=== PATIENT | female | born 1970 | race African-American/Black ===

== ENCOUNTER 2017-07-17 18:04 | Emergency (ER) | payer SELFPAY ==
[2017-07-17] MEDS ORDERED: NA CHLORIDE 0.9% 1,000 ML ONE (19:46)
[2017-07-17] MEDS ORDERED: cloNIDine HCl 0.1 MG TAB ONE (19:46)
[2017-07-17 19:56] LABS: Potassium 3.3 mEq/L (3.6-5.0)
[2017-07-17 20:04] LABS: Urine Bacteria NONE SEEN /HPF (<20); Urine Culture Reflex Order NOT NEEDED; Urine RBC <5 /HPF (NONE SEEN)
[2017-07-17 20:10] LABS: Urine Blood NEGATIVE (NEG); Urine Glucose NEGATIVE (NEG); Urine Protein NEGATIVE (NEG); Urine Specific Gravity 1.005 (1.005-1.030); Urine pH 5.5 (5.0-7.0)
[2017-07-17 21:03] LABS: Absolute Lymphocytes (CBC) 3.6 K/uL (0.7-4.9); Absolute Monocytes 0.1 K/uL (0.1-1.3); Absolute Neutrophil 1.4 K/uL (1.8-8.0); Basophils % 2.2 % (0-1.3); Lymphocytes % 67.8 % (15.3-44.8); MCH 20.8 pg (27.0-35.0); MCV 68.5 fL (80-100); Monocytes % 1.7 % (3.3-12.3)
[2017-07-17 21:28] LABS: Anisocytosis 1+; Blood Morphology Comment NOTED (NOT SEEN); Hypochromasia 1+; Platelet Estimate INCR
[2017-07-17] MEDS ORDERED: MEPERIDINE HCL 25 MG/0.5 ML ONE ×2 (22:23→23:34)
[2017-07-17] MEDS ORDERED: ONDANSETRON 4 MG/2 ML VIAL ONE (22:35)
[2017-07-17] MEDS ORDERED: NA CHLORIDE 0.9% 100 ML IV ONE (22:46)
--- NOTE | 2017-07-18 00:33 | ER ---
Nurse's Notes [facility] Name: Milagros Mcduffie Age: 46 yrs Sex: Female : 1970 Arrival Date: 07/17/2017 Time: 18:06 Bed 6 Private MD: None, None Diagnosis: Anemia;Uterine Fibroids Presentation: 07/17 18:15 Presenting complaint: Patient states: "I just don't feel right I think my blood aa5 pressure is high and my lower back has been hurting for a couple of days". Pt reports only voided x 2 today. Pt states "It took me a while to get the urine stream going but it doesn't hurt when I pee". Pt denies N/V/D. Transition of care: patient was not received from another setting of care. Onset of symptoms was June 2017. Risk Assessment: Do you want to hurt yourself or someone else? Patient reports no desire to harm self or others. Initial Sepsis Screen: Does the patient meet any 2 criteria? No. Patient's initial sepsis screen is negative. Does the patient have a suspected source of infection? No. Patient's initial sepsis screen is negative. Care prior to arrival: None. 18:15 Method Of Arrival: Ambulatory aa5 18:15 Acuity: JUAN MANUEL 3 aa5 18:18 Note Pt states "I haven't been able to afford my blood pressure medicine for about 6 aa5 months". 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 - Social history:: Smoking status: Patient uses tobacco products, smokes one-half pack cigarettes per day. - Ebola Screening: : No symptoms or risks identified at this time. - Family history:: not pertinent. - Hospitalizations: : No recent hospitalization is reported. Screenin:52 Abuse screen: Denies threats or abuse. Nutritional screening: No deficits noted. bb Tuberculosis screening: No symptoms or risk factors identified. Fall Risk None identified. Assessment: 19:21 General: Appears in no apparent distress. Behavior is calm, cooperative, Reports bb feeling ill for 12-24 hours. Pain: Complains of pain in lower back. Neuro: Level of Consciousness is awake, alert, obeys commands, Oriented to person, place, time, situation. Cardiovascular: Heart tones S1 S2 present Capillary refill < 3 seconds Patient's skin is warm and dry. Respiratory: Respiratory effort is even, unlabored, Respiratory pattern is regular. GI: Abdomen is obese, Bowel sounds present X 4 quads. Abd is soft and non tender X 4 quads. Reports cramping. 19:52 : Reports pt states she has not urinated all day until this evening. Derm: Skin is bb dry, Skin is normal, Skin temperature is warm. Musculoskeletal: Circulation, motion, and sensation intact. 20:11 Reassessment: No changes from previously documented assessment. Patient and/or family bb updated on plan of care and expected duration. Pain level reassessed. Patient is alert, oriented x 3, equal unlabored respirations, skin warm/dry/pink. awaiting diagnostic results. 21:15 Reassessment: Patient and/or family updated on plan of care and expected duration. Pain bb level reassessed. Patient is alert, oriented x 3, equal unlabored respirations, skin warm/dry/pink. awaiting diagnostic results and CT scan. 21:18 Reassessment: pt ambulated with steady gait to bathroom. bb 22:02 Reassessment: Patient is alert, oriented x 3, equal unlabored respirations, skin bb warm/dry/pink. Dr Cast at bedside for discussion of current findings and rectal exam pt tolerated well awaiting CT scan. 22:25 Reassessment: pt states she is still having back pain notified Dr Cast new orders bb received pt medicated see MAR. 22:38 Reassessment: pt states she is feeling nauseous but pain has improved notified Dr Segun deleon new orders received pt medicated see MAR, spouse at bedside. 22:44 Reassessment: pt to CT scan via wheelchair with pathology technician. bb 23:02 Reassessment: pt returned from CT scan via wheelchair accompanied by pathology technician pt is A\\T\\O bb x 4, resp unlabored, states nausea has resolved, IV site intact, family at bedside. Pt instructed on blood transfusion. 07/18 00:00 Reassessment: pt prepared to initiate blood transfusion, A\\T\\O x 4, resp unlabored, IV bb site intact, patent. Spouse at bedside. 01:00 Reassessment: pt receiving blood transfusion, IV site intact, no adverse reactions bb noted. 02:05 Reassessment: Patient is alert, oriented x 3, equal unlabored respirations, skin bb warm/dry/pink. blood transfusion completed, no adverse reactions noted. Dr Cast declined ordering 2 hour post H and H pt to be discharged home. Pt verbalized understanding of and agrees to plan of care discharge instructions given pt assisted to exit via wheelchair accompanied by spouse. Vital Signs: 07/17 18:19 BP 180 / 103; Pulse 93; Resp 16 S; Temp 98.6(TE); Pulse Ox 100% on R/A; Weight 83.91 kg aa5 (R); Height 5 ft. 3 in. (160.02 cm) (R); Pain 10/10; 19:52 BP 151 / 89; Pulse 80; Resp 18 S; Pulse Ox 100% on R/A; bb 20:10 BP 154 / 91; Pulse 78; Resp 18 S; Pulse Ox 99% ; bb 21:56 BP 180 / 108 RA Sitting (auto/lg); Pulse 76 RA; Resp 20; Pulse Ox 100% on R/A; rg2 22:40 BP 170 / 101; Pulse 83; Resp 16 S; Pulse Ox 99% on R/A; bb 23:12 BP 156 / 86; Pulse 82; Resp 18; Pulse Ox 98% on R/A; bb 07/18 00:10 BP 149 / 89; Pulse 72; Resp 18 S; Temp 98.1(O); Pulse Ox 99% on R/A; bb 01:15 BP 131 / 78; Pulse 64; Resp 16 S; Temp 97.9(O); Pulse Ox 99% on R/A; bb 07/17 18:19 Body Mass Index 32.77 (83.91 kg, 160.02 cm) aa5 ED Course: 07/17 18:06 Patient arrived in ED. mr 18:07 None, None is Private Physician. mr 18:17 Triage completed. aa5 18:18 Arm band placed on. aa5 19:03 Dale Cast MD is Attending Physician. rn 19:19 Yola Hogan, KAROL is Primary Nurse. bb 19:20 Patient has correct armband on for positive identification. Placed in gown. Bed in low bb position. Call light in reach. Side rails up X 1. court monitor on. Pulse ox on. NIBP on. 19:35 Initial lab(s) drawn, by me, sent to lab. Urine collected: clean catch specimen, EKG bb done, by ED staff, reviewed by Dale Cast MD. Inserted saline lock: 20 gauge in left antecubital area, using aseptic technique. Blood collected. 20:55 Lab(s) recollected, by me, sent to lab. bb 22:01 Served as a hedge trimmer during rectal exam. IV is patent, is intact, with fluids infusing bb freely. 22:[address] via wheelchair. sj 22:49 CT completed. Patient tolerated procedure well. Patient moved back from MS. nj 22:53 CT Abd/Pelvis - W/Contrast: IV contrast only In Process Unspecified. EDMS 23:03 Consent for blood and/or blood product transfusion signed by patient. bb 07/18 02:22 IV discontinued, intact, bleeding controlled, No redness/swelling at site. Pressure bb dressing applied. Administered Medications: 07/17 19:46 Drug: NS 0.9% 1000 ml Route: IV; Rate: 1000 ml; Site: left antecubital; bb 22:26 Follow up: IV Status: Completed infusion; IV Intake: 1000ml bb 19:56 Not Given (Hemodynamic Parameters): cloNIDine 0.1 mg PO once bb 22:03 Drug: cloNIDine 0.1 mg Route: PO; bb 22:39 Follow up: Response: Blood pressure is lowered bb 22:26 Drug: Demerol 25 mg Route: IVP; Site: left antecubital; bb :39 Follow up: Response: Pain is decreased bb 22:39 Drug: Zofran 4 mg Route: IVP; Site: left antecubital; bb 23:00 Follow up: Response: Nausea is decreased bb 23:36 Drug: Demerol 25 mg Route: IVP; Site: left antecubital; bb 07/18 00:30 Follow up: Response: Pain is decreased bb Point of Care Testing: Guaiac: 07/17 22:02 Stool Guaiac: Negative; Stool Hemoccult Control: Pass; bb 22:02 Stool Guaiac: Negative; Stool Hemoccult Control: Pass; software development intern: 22:26 IV: 1000ml; Total: 1000ml. bb Outcome: 07/18 00:32 Discharge ordered by . rn 02:23 Discharged to home via wheelchair, with family. bb 02:23 Condition: stable 02:23 Discharge instructions given to patient, Instructed on discharge instructions, follow up and referral plans. Demonstrated understanding of instructions, follow-up care. 02:25 Patient left the ED. bb Signatures: Dispatcher [employer] EDMS Rosetta Juarez rg2 Jenny Chand Tejas, Yola Roth, RN RN Dale Johansen MD MD rn Calderon, Teri, RN RN aa5 Master Juarez Corrections: (The following items were deleted from the chart) 07/17 19:50 19:45 cloNIDine 0.1 mg PO bb bb 19:53 19:21 GI: Abdomen is obese, bb bb 22:40 22:38 Reassessment: pt states she is feeling nauseous notified Dr Cast new orders bb received pt medicated see MAR, spouse at bedside. bb 07/18 02:24 02:05 Reassessment: Patient is alert, oriented x 3, equal unlabored respirations, skin bb warm/dry/pink. blood transfusion completed, no adverse reactions noted. Dr Cast declined ordering 2 hour post H and H pt to be discharged home. Pt verbalized understanding of and agrees to plan of care discharge instructions given pt ambulated with steady gait to exit accompanied by spouse. bb
--- NOTE | 2017-07-18 00:33 | EDPHYS ---
Physician Documentation [facility] Name: Milagros Mcduffie Age: 46 yrs Sex: Female : 1970 Arrival Date: 07/17/2017 Time: 18:06 Bed 6 Private MD: None, None ED Physician Dale Cast HPI: 07/17 19:37 This 46 yrs old Black Female presents to ER via Ambulatory with complaints of Doesn't rn Feel Right. 19:37 Reports generalized weakness, doesn't feel right in general, reports low back aching rn and decreased urinary output. No chest pain/abd pain. . 19:38 Onset: The symptoms/episode began/occurred yesterday. Severity of symptoms: At their rn worst the symptoms were mild in the emergency department the symptoms are unchanged. The patient has not experienced similar symptoms in the past. The patient has not recently seen a physician. 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 - Social history:: Smoking status: Patient uses tobacco products, smokes one-half pack cigarettes per day. - Ebola Screening: : No symptoms or risks identified at this time. - Family history:: not pertinent. - Hospitalizations: : No recent hospitalization is reported. ROS: 19:38 Constitutional: Negative for fever, chills, and weight loss, Eyes: Negative for injury, rn pain, redness, and discharge, Neck: Negative for injury, pain, and swelling, Cardiovascular: Negative for chest pain, palpitations, and edema, Respiratory: Negative for shortness of breath, cough, wheezing, and pleuritic chest pain, Abdomen/GI: Negative for abdominal pain, nausea, vomiting, diarrhea, and constipation, Back: Negative for injury MS/Extremity: Negative for injury and deformity, Skin: Negative for injury, rash, and discoloration, Neuro: Negative for headache, numbness, tingling, and seizure. Exam: 19:38 Constitutional: This is a well developed, well nourished patient who is awake, alert, rn and in no acute distress. Head/Face: Normocephalic, atraumatic. Eyes: Pupils equal round and reactive to light, extra-ocular motions intact. Lids and lashes normal. Conjunctiva and sclera are non-icteric and not injected. Cornea within normal limits. Periorbital areas with no swelling, redness, or edema. Neck: Trachea midline, no thyromegaly or masses palpated, and no cervical lymphadenopathy. Supple, full range of motion without nuchal rigidity, or vertebral point tenderness. No Meningismus. Cardiovascular: Regular rate and rhythm with a normal S1 and S2. No gallops, murmurs, or rubs. Normal PMI, no JVD. No pulse deficits. Respiratory: Lungs have equal breath sounds bilaterally, clear to auscultation and percussion. No rales, rhonchi or wheezes noted. No increased work of breathing, no retractions or nasal flaring. Abdomen/GI: Soft, non-tender, with normal bowel sounds. No distension or tympany. No guarding or rebound. No evidence of tenderness throughout. Back: No spinal tenderness. No costovertebral tenderness. Full range of motion. MS/ Extremity: Pulses equal, no cyanosis. Neurovascular intact. Full, normal range of motion. Equal circumference. Neuro: Awake and alert, GCS 15, oriented to person, place, time, and situation. Cranial nerves II-XII grossly intact. Motor strength 5/5 in all extremities. Sensory grossly intact. Cerebellar exam normal. Normal gait. Vital Signs: 18:19 BP 180 / 103; Pulse 93; Resp 16 S; Temp 98.6(TE); Pulse Ox 100% on R/A; Weight 83.91 kg aa5 (R); Height 5 ft. 3 in. (160.02 cm) (R); Pain 10/10; 19:52 BP 151 / 89; Pulse 80; Resp 18 S; Pulse Ox 100% on R/A; bb 20:10 BP 154 / 91; Pulse 78; Resp 18 S; Pulse Ox 99% ; bb 21:56 BP 180 / 108 RA Sitting (auto/lg); Pulse 76 RA; Resp 20; Pulse Ox 100% on R/A; rg2 22:40 BP 170 / 101; Pulse 83; Resp 16 S; Pulse Ox 99% on R/A; bb 23:12 BP 156 / 86; Pulse 82; Resp 18; Pulse Ox 98% on R/A; bb 07/18 00:10 BP 149 / 89; Pulse 72; Resp 18 S; Temp 98.1(O); Pulse Ox 99% on R/A; bb 01:15 BP 131 / 78; Pulse 64; Resp 16 S; Temp 97.9(O); Pulse Ox 99% on R/A; bb 07/17 18:19 Body Mass Index 32.77 (83.91 kg, 160.02 cm) aa5 MDM: 07/17 19:03 Patient medically screened. rn 07/18 00:31 Differential Diagnosis anemia, dehydration, UTI. Data reviewed: vital signs, nurses rn notes, lab test result(s), radiologic studies, CT scan, and as a result, I will discharge patient. Counseling: I had a detailed discussion with the patient and/or guardian regarding: the historical points, exam findings, and any diagnostic results supporting the discharge/admit diagnosis, lab results, radiology results, the need for outpatient follow up, to return to the emergency department if symptoms worsen or persist or if there are any questions or concerns that arise at home. Special discussion: I discussed with the patient/guardian in detail that at this point there is no indication for admission to the hospital. It is understood, however, that if the symptoms persist or worsen the patient needs to return immediately for re-evaluation. Based on the history and exam findings, there is no indication for further emergent testing or inpatient evaluation. I discussed with the patient/guardian the need to see the OB Gyne specialist for further evaluation of the symptoms. 07/17 19:14 Order name: CBC with Diff; Complete Time: 21:40 rn 07/17 19:14 Order name: Basic Metabolic Panel; Complete Time: 20:22 rn 07/17 19:14 Order name: Urine Microscopic Only; Complete Time: 20:22 rn 07/17 19:54 Order name: Urine Dipstick--Ancillary (enter results); Complete Time: 20:22 07/17 21:11 Order name: Manual Differential; Complete Time: 21:40 EDMS 07/17 21:59 Order name: Type And Screen rg2 07/17 20:23 Order name: CT Abd/Pelvis - W/Contrast: IV contrast only rn 07/17 22:04 Order name: Occult Blood--Ancillary; Complete Time: 23:05 eb 07/17 22:04 Order name: Bb Add On eb 07/17 22:06 Order name: Packed RBC Leukored -1 EDLA 07/17 19:14 Order name: IV Start; Complete Time: 19:46 rn 07/17 19:14 Order name: Urine Dipstick-Ancillary (obtain specimen); Complete Time: 19:46 rn 07/17 19:14 Order name: EKG; Complete Time: 19:15 rn 07/17 19:14 Order name: EKG - Nurse/Tech; Complete Time: 20:07 rn Administered Medications: 07/17 19:46 Drug: NS 0.9% 1000 ml Route: IV; Rate: 1000 ml; Site: left antecubital; bb 22:26 Follow up: IV Status: Completed infusion; IV Intake: 1000ml bb 19:56 Not Given (Hemodynamic Parameters): cloNIDine 0.1 mg PO once bb 22:03 Drug: cloNIDine 0.1 mg Route: PO; bb 22:39 Follow up: Response: Blood pressure is lowered bb 22:26 Drug: Demerol 25 mg Route: IVP; Site: left antecubital; bb 22:39 Follow up: Response: Pain is decreased bb 22:39 Drug: Zofran 4 mg Route: IVP; Site: left antecubital; bb 23:00 Follow up: Response: Nausea is decreased bb 23:36 Drug: Demerol 25 mg Route: IVP; Site: left antecubital; bb 07/18 00:30 Follow up: Response: Pain is decreased bb Point of Care Testing: Guaiac: 07/17 22:02 Stool Guaiac: Negative; Stool Hemoccult Control: Pass; bb 22:02 Stool Guaiac: Negative; Stool Hemoccult Control: Pass; rn Disposition: 07/18/17 00:32 Discharged to Home. Impression: Anemia, Uterine Fibroids. - Condition is Stable. - Discharge Instructions: Iron Deficiency Anemia, Adult, Anemia, Nonspecific, Uterine Fibroids, [id number]. - Medication Reconciliation Form, Thank You Letter, Antibiotic Education, Prescription Opioid Use form. - Follow up: Private Physician; When: As needed; Reason: Recheck today's complaints, Re-evaluation by your physician. - Problem is an ongoing problem. - Symptoms have improved. Signatures: Dispatcher [employer] EDMS Milagros Dennis RN RN Yola Ortiz RN RN bb Nieto, Roman, MD MD rn Calderon, Audri, RN RN aa5 Corrections: (The following items were deleted from the chart) 07/18 02:25 00:32 07/18/2017 00:32 Discharged to Home. Impression: Anemia; Uterine Fibroids. bb Condition is Stable. Forms are Medication Reconciliation Form, Thank You Letter, Antibiotic Education, Prescription Opioid Use. Follow up: Private Physician; When: As needed; Reason: Recheck today's complaints, Re-evaluation by your physician. Problem is an ongoing problem. Symptoms have improved. rn
[2017-07-18 02:37] VITALS: O2SAT 99
[2017-07-18 02:38] VITALS: BP 131/78; TEMP 97.9
--- NOTE | 2017-07-18 07:58 | RAD REPORT ---
EXAM DESCRIPTION: CT - Abdomen Pelvis W Contrast - 07/17/2017 10:53 pm CLINICAL HISTORY: Abdominal pain. Lower abdominal pain x2 days COMPARISON: None. TECHNIQUE: Computed axial tomography of the abdomen and pelvis was obtained. 100 cc Isovue-300 is ad ministered intravenously. Oral contrast was given. A preliminary report was generated by [employer] and reviewed prior to this dictation All CT scans are performed using dose optimization technique as appropriate and may include automated exposure control or mA/KV adjustment according to patient size. FINDINGS: The liver, spleen, pancreas, adrenals and kidneys appear unremarkable. The appendix is normal caliber. There is no evidence of diverticulitis A 32 millimeter left ovarian cyst is present without significant free-fluid A fibroid uterus is suspected. One of the possible fibroids may be submucosal. Further evaluation wit h nonemergent ultrasound is recommended IMPRESSION: A 32 millimeter left ovarian cyst is present without significant free-fluid A fibroid uterus is suspected. One of the possible fibroids may be submucosal. Further evaluation wit h nonemergent ultrasound is recommended
--- NOTE | 2017-07-18 10:37 | EKG ---
Test Date: 2017-07-17 Test Time: 19:44:03 Bark Peeler: BRITT MEASUREMENT RESULTS: Intervals: Rate: 78 OH: 156 QRSD: 86 QT: 410 QTc: 467 Glen: P: 50 OH: 156 QRS: -1 T: 21 INTERPRETIVE STATEMENTS: Normal sinus rhythm Voltage criteria for left ventricular hypertrophy Abnormal ECG Compared to ECG 01/18/2016 15:20:33 Sinus bradycardia no longer present Electronically Signed On 07-18-17 10:34:54 CDT by Jose Rafael Garza
== END 2017-07-18 02:25 | disposition home or self-care (01) ==
LOC: ER 18:04
PROC: 30233N1 Transfusion of Nonautologous Red Blood Cells into Peripheral Vein, Percutaneous Approach (ICD-10-PCS; principal; 2017-07-18)
DX: D64.9 Anemia, unspecified (principal); D25.9 Leiomyoma of uterus, unspecified; I10 Essential (primary) hypertension; F17.210 Nicotine dependence, cigarettes, uncomplicated; Z88.5 Allergy status to narcotic agent; Z88.8 Allergy status to other drugs, medicaments and biological substances
CPT/HCPCS: 36415; 74177; 80048; 81003; 81015; 82272; 85025; 86850; 86900; 86901; 93005; 96361; 96374; 96375; 99285; J2175; J2405; J7030; P9016; Q9967

== ENCOUNTER 2017-09-14 06:12 | Emergency (ER) | payer SELFPAY ==
[2017-09-14] MEDS ORDERED: ONDANSETRON 4 MG/2 ML VIAL ONE (06:49)
[2017-09-14] MEDS ORDERED: NA CHLORIDE 0.9% 500 ML ONE ×2 (06:49→08:22)
[2017-09-14] MEDS ORDERED: MORPHINE 4 MG/ML SYR ONE ×2 (06:49→07:57)
[2017-09-14 07:00] LABS: Hematocrit 28.7 % (36.0-45.0); MCH 23.1 pg (27.0-35.0); MCV 73.9 fL (80-100); MPV 7.9 fL (7.6-11.3); RBC Red Blood Cell Count 3.89 M/uL (3.86-4.86)
[2017-09-14 07:17] LABS: ALT/SGPT 20 U/L (12-78); AST/SGOT 40 U/L (15-37); Albumin 3.3 g/dL (3.4-5.0); Alkaline Phosphatase 78 U/L (45-117); BUN Blood Urea Nitrogen 13 mg/dL (7-18); Bicarbonate 28 mmol/L (21-32); Bilirubin Direct < 0.1 mg/dL (0-0.2); Bilirubin Total 0.3 mg/dL (0.2-1.0); Glucose Level 94 mg/dL (74-106); Lipase 338 U/L (73-393); Potassium 3.6 mmol/L (3.5-5.1); Protein, Total 9.2 g/dL (6.4-8.2); Sodium Level 138 mmol/L (136-145)
[2017-09-14 07:24] LABS: Amylase Level 229 U/L (25-115)
[2017-09-14 07:50] LABS: Urine Blood NEGATIVE (NEG); Urine Glucose NEGATIVE (NEG); Urine Protein NEGATIVE (NEG)
[2017-09-14 07:55] LABS: Urine Bacteria <20 /HPF (<20); Urine Culture Reflex Order NOT NEEDED; Urine Mucus SLIGHT /HPF (NONE SEEN); Urine RBC <5 /HPF (NONE SEEN)
[2017-09-14 07:55] LABS: Anisocytosis 1+; Blood Morphology Comment NOTED (NOT SEEN); Platelet Estimate ADEQ; Target Cells 1+
[2017-09-14] MEDS ORDERED: cloNIDine HCl 0.1 MG TAB ONE (07:56)
--- NOTE | 2017-09-14 08:13 | RAD REPORT ---
EXAM DESCRIPTION: CTAbdomen Pelvis W Contrast - 09/14/2017 7:52 am CLINICAL HISTORY: Abdominal pain. Abd pain;Flank pain COMPARISON: Abdomen Pelvis W Contrast dated 07/17/2017Abdomen Pelvis W Contrast dated 07/17/2017; Chest Pa And Lat (2 Views) dated 01/18/2016 TECHNIQUE: Biphasic CT imaging of the abdomen and pelvis was performed with 100 ml non-ionic IV cont rast. All CT scans are performed using dose optimization technique as appropriate and may include automated exposure control or mA/KV adjustment according to patient size. FINDINGS: The lung bases are clear. The liver, spleen, pancreas, adrenal glands and kidneys are within normal limits. No bowel obstruction, free air, free fluid or abscess. The appendix is normal. No evidence of signi ficant lymphadenopathy. No suspicious bony findings. The uterus appears mildly prominent size, likely related to underlying f ibroids. IMPRESSION: No acute intra-abdominal or pelvic finding. Fibroid uterus suspected.
--- NOTE | 2017-09-14 09:52 | ER ---
Nurse's Notes [facility] Name: Milagros Mcduffie Age: 46 yrs Sex: Female : 1970 Arrival Date: 09/14/2017 Time: 06:16 Bed 15 Private MD: Diagnosis: Unspecified abdominal pain Presentation: 09/14 06:25 Presenting complaint: Patient states: c/o RLQ/Right flank pain x 2 weeks. Denies NVD. tl2 Transition of care: patient was not received from another setting of care. Onset of symptoms was August 31, 2017. Risk Assessment: Do you want to hurt yourself or someone else? Patient reports no desire to harm self or others. Initial Sepsis Screen: Does the patient meet any 2 criteria? No. Patient's initial sepsis screen is negative. Does the patient have a suspected source of infection? No. Patient's initial sepsis screen is negative. Care prior to arrival: None. 06:25 Method Of Arrival: Ambulatory tl2 06:25 Acuity: JUAN MANUEL 3 tl2 Triage Assessment: 06:26 General: Appears in no apparent distress. uncomfortable, Behavior is appropriate for tl2 age, anxious, crying. Pain: Complains of pain in anterior aspect of right lateral abdomen and right lower quadrant Pain radiates to posterior aspect of right lateral abdomen Pain currently is 10 out of 10 on a pain scale. Quality of pain is described as sharp, Is intermittent. Neuro: Level of Consciousness is awake, alert, obeys commands, Oriented to person, place, time, situation. Cardiovascular: Denies chest pain. Respiratory: Airway is patent Respiratory effort is even, unlabored, Respiratory pattern is regular, symmetrical. GI: Patient currently denies diarrhea, nausea, vomiting. : No signs and/or symptoms were reported regarding the genitourinary system. Derm: Skin is pink, warm \T\ dry. 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 - Social history:: Smoking status: Patient uses tobacco products, smokes one-half pack cigarettes per day. - Ebola Screening: : No symptoms or risks identified at this time. Screenin:30 Abuse screen: Denies threats or abuse. Nutritional screening: No deficits noted. tl2 Tuberculosis screening: No symptoms or risk factors identified. Fall Risk None identified. Assessment: 06:30 General: Appears distressed, uncomfortable, obese, Behavior is cooperative, appropriate bp for age, anxious. Pain: Complains of pain in posterior aspect of right lateral abdomen and right lower quadrant. Neuro: Level of Consciousness is awake, alert, obeys commands, Oriented to person, place, time, situation, Appropriate for age. Cardiovascular: Rhythm is sinus rhythm Chest pain is denied. Respiratory: Airway is patent Respiratory effort is even, unlabored, Respiratory pattern is regular, symmetrical. GI: Patient currently denies nausea, vomiting. : Denies burning with urination, urinary frequency. EENT: No deficits noted. Derm: No deficits noted. Musculoskeletal: Circulation, motion, and sensation intact. Range of motion: intact in all extremities. 07:10 General: Appears in no apparent distress. uncomfortable, Behavior is calm, cooperative. em Pain: Complains of pain in posterior aspect of right lateral abdomen Pain currently is 8 out of 10 on a pain scale. Pain began weeks. Neuro: Level of Consciousness is awake, alert, obeys commands, Oriented to person, place, time, situation. Cardiovascular: Capillary refill < 3 seconds Patient's skin is warm and dry. Chest pain is denied. Respiratory: Airway is patent Respiratory effort is even, unlabored, Respiratory pattern is regular, symmetrical. GI: Abdomen is round non-distended, Bowel sounds present X 4 quads. Patient currently denies nausea, vomiting. : Denies burning with urination. EENT: No signs and/or symptoms were reported regarding the EENT system. Derm: Skin is intact, Skin is dry, Skin is normal, Skin temperature is warm. Musculoskeletal: Circulation, motion, and sensation intact. Range of motion: intact in all extremities. 07:15 General: the previous assessment by Merlin Richmond LVN is accurate. CAll light remains within ss reach. . 08:00 Reassessment: Patient appears in no apparent distress at this time. Patient and/or em family updated on plan of care and expected duration. Pain level reassessed. Patient is alert, oriented x 3, equal unlabored respirations, skin warm/dry/pink. rates pain 8/10, BP unchanged, JAYME Santamaria notified, new medication orders received. 08:41 Reassessment: Patient appears in no apparent distress at this time. Patient and/or em family updated on plan of care and expected duration. Pain level reassessed. Patient is alert, oriented x 3, equal unlabored respirations, skin warm/dry/pink. rates pain 6/10 Patient states feeling better. 09:51 Reassessment: Patient appears in no apparent distress at this time. Patient and/or em family updated on plan of care and expected duration. Pain level reassessed. Patient is alert, oriented x 3, equal unlabored respirations, skin warm/dry/pink. Vital Signs: 06:26 BP 215 / 123; Pulse 90; Resp 20; Temp 98.6(O); Pulse Ox 100% on R/A; Weight 77.11 kg; tl2 Height 5 ft. 3 in. (160.02 cm); Pain 10/10; 06:45 BP 178 / 103; Pulse 77; Resp 14; Pulse Ox 99% ; bp 07:10 BP 195 / 105; Pulse 75; Resp 16; Pulse Ox 100% on R/A; Pain 8/10; em 08:29 BP 194 / 103; Pulse 72; Resp 16; Pulse Ox 99% ; Pain 6/10; em 09:00 BP 164 / 106; Pulse 69; Resp 18; Pulse Ox 98% on R/A; em 09:50 BP 169 / 96; Pulse 70; Resp 18; Pulse Ox 99% on R/A; Pain 7/10; em 06:26 Body Mass Index 30.11 (77.11 kg, 160.02 cm) tl2 ED Course: 06:16 Patient arrived in ED. es 06:20 Alexandre Mosley, KAROL is Primary Nurse. bp 06:25 Hina Lazaro NP is PHCP. rh1 06:25 Nakul Loera MD is Attending Physician. rh1 06:26 Triage completed. tl2 06:26 Arm band placed on right wrist. tl2 06:30 Patient has correct armband on for positive identification. Bed in low position. Call tl2 light in reach. Side rails up X 1. 06:39 Inserted saline lock: 20 gauge in right forearm, using aseptic technique. Blood bp collected. 07:10 Chest Single View XRAY In Process Unspecified. EDMS 07:47 Urine collected: straight cath specimen, clear. dh3 07:50 CT completed. Patient moved to CT via wheelchair. Patient moved back from CT. bq 07:52 CT Abd/Pelvis - W/Contrast In Process Unspecified. EDMS 08:45 Ultrasound completed. Patient tolerated well. sg3 09:52 Dashawn Sanz MD is Referral Physician. rh1 10:10 No provider procedures requiring assistance completed. IV discontinued, intact, em bleeding controlled, No redness/swelling at site. Pressure dressing applied. Administered Medications: 06:55 Drug: NS 0.9% 500 ml Route: IV; Rate: bolus; Site: right forearm; bp 07:40 Follow up: IV Status: Completed infusion; IV Intake: 500ml em 06:55 Drug: morphine 4 mg Route: IVP; Site: right forearm; bp 07:40 Follow up: Response: No adverse reaction; Pain is decreased em 06:55 Drug: Zofran 4 mg Route: IVP; Site: right forearm; bp 07:40 Follow up: Response: No adverse reaction em 08:15 Drug: morphine 4 mg Route: IVP; Site: right forearm; em 09:52 Follow up: Response: No adverse reaction; Pain is decreased em 08:16 Drug: cloNIDine 0.1 mg Route: PO; em 09:52 Follow up: Response: No adverse reaction; Blood sugar is lowered em 08:26 Drug: NS 0.9% 500 ml Route: IV; Rate: bolus; Site: right forearm; em 10:11 Follow up: IV Status: Completed infusion; IV Intake: 500ml em 09:56 Drug: [place] (7.5 mg-325 mg) 1 tabs Route: PO; em 10:10 Follow up: Response: No adverse reaction em Intake: 07:40 IV: 500ml; Total: 500ml. em 10:11 IV: 500ml; Total: 1000ml. em Outcome: 09:52 Discharge ordered by . rh1 10:10 Discharged to home ambulatory, with family. em 10:10 Condition: good 10:10 Discharge instructions given to patient, Instructed on discharge instructions, follow up and referral plans. medication usage, Demonstrated understanding of instructions, follow-up care, medications, Prescriptions given X 2. 10:11 Patient left the ED. em Signatures: Dispatcher [employer] EDEmi Tracy Betty bq Munoz, Merlin, AIRCRAFT METALSMITH AIRCRAFT METALSMITH em Kendy Gill, KAROL RN ss Hina Lazaro NP DRY KILN OPERATOR HELPER rh1 Komal River RN RN tl2 Luisa Weldon replaced by [facility] Alexandre Mosley RN RN bp Godinez, Sarah sg3 Corrections: (The following items were deleted from the chart) 09:08 09:05 Ultrasound completed. Patient tolerated well. sg3 sg3 09:08 09:07 In radiology for Abdomen Limited+US.RAD.VICKIE. EDMS sg3
--- NOTE | 2017-09-14 09:52 | EDPHYS ---
Physician Documentation [facility] Name: Milagros Mcduffie Age: 46 yrs Sex: Female : 1970 Arrival Date: 09/14/2017 Time: 06:16 Bed 15 Private MD: ED Physician Nakul Loera HPI: 09/14 06:49 This 46 yrs old Black Female presents to ER via Ambulatory with complaints of Flank rh1 Pain. 06:49 The patient complains of pain in the right mid back and right low back. The pain rh1 radiates to the posterior aspect of right lateral abdomen and anterior aspect of right lateral abdomen. Onset: The symptoms/episode began/occurred 3 week(s) ago, and became worse last night. Modifying factors: The symptoms are alleviated by nothing. the symptoms are aggravated by lying on left side. Associated signs and symptoms: Pertinent negatives: diarrhea, dizziness, dysuria, fever, urinary frequency, headache, hematuria, nausea, pain radiating to the lower extremities, vomiting. Severity of pain: At its worst the pain was moderate in the emergency department the pain is unchanged. The patient has not experienced similar symptoms in the past. The patient has not recently seen a physician. She has had right flank pain radiating into right lateral abdomen pain ongoing for the past 3 weeks, that became worse last night. She denies any changes in color or amount of urination, no fever/chills, no N/V/D.. 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 - Social history:: Smoking status: Patient uses tobacco products, smokes one-half pack cigarettes per day. - Ebola Screening: : No symptoms or risks identified at this time. ROS: 06:49 Constitutional: Negative for fever, chills rh1 06:49 Eyes: Negative for acute changes, blurry vision. 06:49 Neck: Negative for pain at rest. 06:49 Cardiovascular: Negative for chest pain, edema, palpitations. 06:49 Respiratory: Positive for cough, reports occasionally productive with yellow sputum, Negative for dyspnea on exertion, hemoptysis, shortness of breath, wheezing. 06:49 Abdomen/GI: Positive for abdominal pain, Negative for nausea, vomiting, and diarrhea. 06:49 Back: Positive for pain with movement, flank pain, Negative for decreased range of motion. 06:49 : Negative for urinary symptoms, small amounts, hematuria, burning with urination, difficulty urinating. 06:49 MS/extremity: Negative for decreased range of motion, pain, paresthesias, swelling. 06:49 Skin: Negative for diaphoresis. 06:49 Neuro: Negative for dizziness, headache, numbness, syncope, near syncope, tingling, weakness. Exam: 06:49 Constitutional: This is a well developed, well nourished patient who is awake, alert, rh1 and in no acute distress. Head/Face: Normocephalic, atraumatic. 06:49 Neck: Trachea midline, and no cervical lymphadenopathy. Supple, full range of motion without nuchal rigidity. No Meningismus. Chest/axilla: Normal chest wall appearance and motion. Nontender with no deformity. No lesions are appreciated. Cardiovascular: Regular rate and rhythm with a normal S1 and S2. No gallops, murmurs, or rubs. No JVD. No pulse deficits. Respiratory: Lungs have equal breath sounds bilaterally, clear to auscultation. No rales, rhonchi or wheezes noted. No increased work of breathing. 06:49 Skin: Warm, dry with normal turgor. Normal color with no rashes, no lesions, and no evidence of cellulitis. MS/ Extremity: Pulses equal, no cyanosis. Neurovascular intact. Full, normal range of motion. 06:49 Eyes: Pupils: no acute changes, normal size, normal reaction to light, equal, right pupil is approximately 3 mm(s), left pupil is approximately 3 mm(s), Extraocular movements: intact throughout. 06:49 Abdomen/GI: Inspection: abdomen appears normal, bruising, is not seen, distension, is not seen, Bowel sounds: normal, in all quadrants, active, all quadrants, Palpation: soft, in all quadrants, moderate abdominal tenderness, in the posterior aspect of right lateral abdomen, anterior aspect of right lateral abdomen and right upper quadrant, rebound tenderness, is not appreciated, involuntary guarding, is not appreciated, Indicators: McBurney's point is not tender, Hutchison's sign is negative, Rovsing's sign is negative. 06:49 Back: pain, that is moderate, of the right mid back and right low back, ROM is painful, with flexion, CVA tenderness, that is moderate, is noted on the right, vertebral tenderness, is not appreciated, muscle spasm, is not present. 06:49 Neuro: Orientation: is normal, to person, place \T\ time. Mentation: is normal, lucid, able to follow commands, Motor: is normal, moves all fours, strength is 5/5 in all extremities, Sensation: is normal, no obvious gross deficits, numbness, is not appreciated, tingling, is not appreciated, Gait: is steady, at a normal pace, without difficulty. Vital Signs: 06:26 BP 215 / 123; Pulse 90; Resp 20; Temp 98.6(O); Pulse Ox 100% on R/A; Weight 77.11 kg; tl2 Height 5 ft. 3 in. (160.02 cm); Pain 10/10; 06:45 BP 178 / 103; Pulse 77; Resp 14; Pulse Ox 99% ; bp 07:10 BP 195 / 105; Pulse 75; Resp 16; Pulse Ox 100% on R/A; Pain 8/10; em 08:29 BP 194 / 103; Pulse 72; Resp 16; Pulse Ox 99% ; Pain 6/10; em 09:00 BP 164 / 106; Pulse 69; Resp 18; Pulse Ox 98% on R/A; em 09:50 BP 169 / 96; Pulse 70; Resp 18; Pulse Ox 99% on R/A; Pain 7/10; em 06:26 Body Mass Index 30.11 (77.11 kg, 160.02 cm) tl2 MDM: 06:49 Patient medically screened. rh1 09:50 Data reviewed: vital signs, nurses notes, lab test result(s), EKG, radiologic studies, rh1 CT scan, plain films, ultrasound, I have discussed the patient's presentation/case with the attending Emergency Department Physician; and as a result, I will discharge patient. Data interpreted: Pulse oximetry: on room air is 99 %. Interpretation: normal. Counseling: I had a detailed discussion with the patient and/or guardian regarding: the historical points, exam findings, and any diagnostic results supporting the discharge/admit diagnosis, lab results, radiology results, the need for outpatient follow up, a family practitioner, a general surgeon, to return to the emergency department if symptoms worsen or persist or if there are any questions or concerns that arise at home. Counseling: I had a detailed discussion with the patient and/or guardian regarding: the presence of at least one elevated blood pressure reading (>120/80) during this emergency department visit. Response to treatment: pain has improved, BP 169/96. Special discussion: Based on the patient's Hx, exam, and Dx evaluation, there is no indication for emergent surgery or inpatient Tx. It is understood by the patient/guardian that if the Sx's persist or worsen they need to return immediately for re-evaluation. Based on the history and exam findings, there is no indication for further emergent testing or inpatient evaluation. I discussed with the patient/guardian the need to see the general surgeon for further evaluation of the symptoms. 09/14 06:38 Order name: Amylase, Serum [facility] 09/14 06:38 Order name: Basic Metabolic Panel [facility] 09/14 06:38 Order name: CBC with Diff; Complete Time: 07:58 [facility] 09/14 06:38 Order name: Creatinine for Radiology; Complete Time: 07:13 [facility] 09/14 06:38 Order name: Hepatic Function; Complete Time: 07: [facility] 09/14 06:38 Order name: Lipase; Complete Time: 07: 09/14 06:38 Order name: Urine Microscopic Only; Complete Time: 07:58 [facility] 09/14 06:38 Order name: Chest Single View XRAY [facility] 09/14 06:38 Order name: CT Abd/Pelvis - W/Contrast; Complete Time: 08:14 [facility] 09/14 06:38 Order name: Amylase Level; Complete Time: 07: [facility] 09/14 06:38 Order name: Basic Metabolic Panel; Complete Time: 07: [facility] 09/14 07:07 Order name: Manual Differential; Complete Time: 07:58 [facility] 09/14 07:49 Order name: Urine Dipstick--Ancillary (enter results); Complete Time: 07:58 09/14 07:49 Order name: Urine --Ancillary (enter results); Complete Time: 07:58 09/14 06:38 Order name: IV Saline Lock; Complete Time: 06:48 1 09/14 06:38 Order name: Labs collected and sent; Complete Time: 06:48 1 09/14 06:38 Order name: Urine Dipstick-Ancillary (obtain specimen); Complete Time: 07:41 1 09/14 06:38 Order name: EKG - Nurse/Tech; Complete Time: 06:48 1 09/14 06:38 Order name: Straight Cath - Urine; Complete Time: 07:41 1 09/14 06:38 Order name: Urine Test (obtain specimen); Complete Time: 07:41 1 09/14 08:14 Order name: US Abdomen Limited 1 09/14 09:49 Order name: PO challenge; Complete Time: 09:52 rh Administered Medications: 06:55 Drug: NS 0.9% 500 ml Route: IV; Rate: bolus; Site: right forearm; bp 07:40 Follow up: IV Status: Completed infusion; IV Intake: 500ml em 06:55 Drug: morphine 4 mg Route: IVP; Site: right forearm; bp 07:40 Follow up: Response: No adverse reaction; Pain is decreased em 06:55 Drug: Zofran 4 mg Route: IVP; Site: right forearm; bp 07:40 Follow up: Response: No adverse reaction em 08:15 Drug: morphine 4 mg Route: IVP; Site: right forearm; em 09:52 Follow up: Response: No adverse reaction; Pain is decreased em 08:16 Drug: cloNIDine 0.1 mg Route: PO; em 09:52 Follow up: Response: No adverse reaction; Blood sugar is lowered em 08:26 Drug: NS 0.9% 500 ml Route: IV; Rate: bolus; Site: right forearm; em 10:11 Follow up: IV Status: Completed infusion; IV Intake: 500ml em 09:56 Drug: [place] (7.5 mg-325 mg) 1 tabs Route: PO; em 10:10 Follow up: Response: No adverse reaction em Disposition: 15:56 Co-signature as Attending Physician, Nakul Loera MD I agree with the assessment and kdr plan of care. Disposition: 09/14/17 09:52 Discharged to Home. Impression: Unspecified abdominal pain. - Condition is Stable. - Discharge Instructions: Abdominal Pain, Adult, Fat and Cholesterol Restricted Diet, Flank Pain, Adult. - Prescriptions for Tylenol- Codeine #3 300-30 mg Oral Tablet - take 2 tablet by ORAL route every 6 hours As needed; 6 tablet. Metoprolol Tartrate 25 mg Oral Tablet - take 1 tablet by ORAL route once daily with a meal; 20 tablet. - Medication Reconciliation Form, Thank You Letter, Antibiotic Education, Prescription Opioid Use form. - Follow up: Private Physician; When: 1 - 2 days; Reason: Recheck today's complaints, Continuance of care, Re-evaluation by your physician. Follow up: Dashawn Sanz MD; When: 1 - 2 days; Reason: Further diagnostic work-up, Recheck today's complaints, Continuance of care. Follow up: Emergency Department; When: As needed; Reason: Fever > 102 F, If symptoms return, Trouble breathing, Worsening of condition. - Problem is new. - Symptoms have improved. Signatures: Dispatcher [employer] EDMS Nakul Loera MD MD [facility] Merlin Coles, RUBBER GRINDER RUBBER GRINDER em Hina Lazaro NP LUNCH COOK rh1 Komal River, RN RN tl2 Alexandre Mosley RN RN bp Corrections: (The following items were deleted from the chart) 10:11 09:52 09/14/2017 09:52 Discharged to Home. Impression: Unspecified abdominal pain. em Condition is Stable. Forms are Medication Reconciliation Form, Thank You Letter, Antibiotic Education, Prescription Opioid Use. Follow up: Private Physician; When: 1 - 2 days; Reason: Recheck today's complaints, Continuance of care, Re-evaluation by your physician. Follow up: Dashawn Sanz; When: 1 - 2 days; Reason: Further diagnostic work-up, Recheck today's complaints, Continuance of care. Follow up: Emergency Department; When: As needed; Reason: Fever > 102 F, If symptoms return, Trouble breathing, Worsening of condition. Problem is new. Symptoms have improved. rh1
[2017-09-14] MEDS ORDERED: HYDROCODONE/APAP 7.5/325 MG TAB ONE (09:57)
[2017-09-14 10:24] VITALS: TEMP 98.6
[2017-09-14 10:36] VITALS: BP 169/96; O2SAT 99
--- NOTE | 2017-09-14 11:38 | RAD REPORT ---
EXAM DESCRIPTION: RAD - Chest Single View - 09/14/2017 7:10 am CLINICAL HISTORY: ABDOMINAL DISTENTION Chest pain. COMPARISON: Chest Pa And Lat (2 Views) dated 01/18/2016; CHEST SINGLE VIEW dated 06/20/2012; CHEST SIN GLE VIEW dated 01/28/2012; CHEST SINGLE VIEW dated 08/07/2010 FINDINGS: Portable technique limits examination quality. The lungs are grossly clear. The heart is normal in size. No displaced fractures. IMPRESSION: No acute intrathoracic process suspected.
--- NOTE | 2017-09-14 11:43 | RAD REPORT ---
EXAM DESCRIPTION: US - Abdomen Exam Limited - 09/14/2017 9:07 am CLINICAL HISTORY: ABD PAIN COMPARISON: ABDOMINAL EXAM LIMITED dated 05/26/2013; Abdomen Pelvis W Contrast dated 09/14/2017 FINDINGS: The gallbladder demonstrates no gallstones. No pericholecystic fluid or gallbladder wall t hickening. The common bile duct is upper limit of normal measuring 7 mm. The liver demonstrates no findings of intrahepatic biliary dilatation. IMPRESSION: Unremarkable examination.
--- NOTE | 2017-09-15 09:35 | EKG ---
Test Date: 2017-09-14 Test Time: 06:47:09 Physician Assistant Psychiatry: [place] MEASUREMENT RESULTS: Intervals: Rate: 81 VT: 160 QRSD: 86 QT: 414 QTc: 480 [place]: P: 52 VT: 160 QRS: -8 T: 31 INTERPRETIVE STATEMENTS: Normal sinus rhythm Minimal voltage criteria for LVH, may be normal variant Prolonged QT Abnormal ECG Compared to ECG 07/17/2017 19:44:03 Prolonged QT interval now present Electronically Signed On 09-15-17 09:34:21 CDT by Carlos Enrique Winter
== END 2017-09-14 10:11 | disposition home or self-care (01) ==
LOC: ER 06:12
DX: R10.9 Unspecified abdominal pain (principal); I10 Essential (primary) hypertension; F17.210 Nicotine dependence, cigarettes, uncomplicated; Z88.6 Allergy status to analgesic agent; Z88.8 Allergy status to other drugs, medicaments and biological substances
CPT/HCPCS: 36415; 71045; 74177; 76705; 80048; 80076; 81003; 81015; 81025; 82150; 83690; 85025; 93005; 96361; 96374; 96375; 99285; J2405; Q9967

== ENCOUNTER 2017-12-08 12:58 | Observation (INO) | payer SELFPAY ==
[2017-12-08] MEDS ORDERED: KETOROLAC 30 MG/ML INJ ONE (13:53)
[2017-12-08 14:51] LABS: Hematocrit 22.1 % (36.0-45.0); MCH 21.3 pg (27.0-35.0); MCV 70.1 fL (80-100); MPV 8.3 fL (7.6-11.3); RBC Red Blood Cell Count 3.15 M/uL (3.86-4.86)
[2017-12-08 15:07] LABS: Potassium 3.6 mmol/L (3.5-5.1); Thyroid Stimulating Hormone 0.6 uIU/mL (0.360-3.740)
[2017-12-08 15:28] LABS: Platelet Estimate INCR
[2017-12-08 15:31] LABS: Platelets, Giant PRESENT
[2017-12-08 15:40] LABS: Anisocytosis 2+; Blood Morphology Comment NOTED (NOT SEEN); Hypochromasia 2+
[2017-12-08] MEDS ORDERED: FENTANYL CITR 100 MCG/2 ML ONE (15:45)
[2017-12-08] MEDS ORDERED: ONDANSETRON 4 MG/2 ML VIAL ONE (15:48)
--- NOTE | 2017-12-08 16:06 | ER ---
Nurse's Notes [facility] Name: Milagros Mcduffie Age: 47 yrs Sex: Female : 1970 Arrival Date: 12/08/2017 Time: 13:02 Bed 24 Private MD: None, None Diagnosis: Abnormal uterine and vaginal bleeding, unspecified;Anemia, unspecified;Essential (primary) hypertension Presentation: 12/08 13:11 Presenting complaint: Patient states: "I'm hurting real bad and I'm passing big clots, aj1 I'm having these spells where I feel like I'm going to pass out" Patient's son states that she has a history of cystic fibroids that bleed and the last time she was here she had to get a blood transfusion. Reports bright red vaginal bleeding. Patient states she's not having a lot of bleeding happening, but she's having large clots. Reports lower abdominal pain that radiates to the back. Transition of care: patient was not received from another setting of care. Onset of symptoms was December 03, 2017. Risk Assessment: Do you want to hurt yourself or someone else? Patient reports no desire to harm self or others. Initial Sepsis Screen: Does the patient meet any 2 criteria? No. Patient's initial sepsis screen is negative. Does the patient have a suspected source of infection? No. Patient's initial sepsis screen is negative. Care prior to arrival: None. 13:11 Method Of Arrival: Wheelchair aj1 13:11 Acuity: JUAN MANUEL 3 aj1 Triage Assessment: 13:17 General: Appears uncomfortable, Behavior is calm, cooperative, appropriate for age. aj1 Pain: Complains of pain in suprapubic area, right lower quadrant and left lower quadrant Pain radiates to back Pain currently is 10 out of 10 on a pain scale. Neuro: Level of Consciousness is awake, alert, obeys commands. Cardiovascular: Patient's skin is warm and dry. Respiratory: Airway is patent Respiratory effort is even, unlabored, Respiratory pattern is regular, symmetrical. : Reports vaginal bleeding that is bright red, with clots. 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 - Social history:: Smoking status: Patient uses tobacco products, smokes one-half pack cigarettes per day. - Ebola Screening: : Patient denies travel to an Ebola-affected area in the 21 days before illness onset. Screenin:51 Abuse screen: Denies threats or abuse. Denies injuries from another. Nutritional kr2 screening: No deficits noted. Tuberculosis screening: No symptoms or risk factors identified. Fall Risk None identified. Assessment: 13:51 General: Appears in no apparent distress. uncomfortable, well groomed, well developed, kr2 well nourished, Behavior is calm, cooperative, appropriate for age. Pain: Complains of pain in pelvis Pain currently is 10 out of 10 on a pain scale. Quality of pain is described as aching, crampy, tender, Is continuous, Alleviated by nothing. Neuro: Level of Consciousness is awake, alert, obeys commands, Oriented to person, place, time, situation, Appropriate for age. Cardiovascular: Capillary refill < 3 seconds in bilateral fingers Patient's skin is warm and dry. Rhythm is regular. Respiratory: Airway is patent Respiratory effort is even, unlabored, Respiratory pattern is regular, symmetrical. GI: Abdomen is flat, non-distended, Bowel sounds present X 4 quads. : Reports vaginal bleeding that is with clots, Denies burning with urination. EENT: Oral mucosa is moist. Derm: Skin is intact, is healthy with good turgor, Skin is pink, warm \\T\\ dry. Musculoskeletal: Circulation, motion, and sensation intact. 15:30 Reassessment: Patient appears in no apparent distress at this time. Patient and/or kr2 family updated on plan of care and expected duration. Pain level reassessed. Patient is alert, oriented x 3, equal unlabored respirations, skin warm/dry/pink. 16:25 Reassessment: Patient appears in no apparent distress at this time. Patient and/or kr2 family updated on plan of care and expected duration. Pain level reassessed. Patient is alert, oriented x 3, equal unlabored respirations, skin warm/dry/pink. States pain is decreased. 17:30 Reassessment: Patient and/or family updated on plan of care and expected duration. Pain kr2 level reassessed. Patient is alert, oriented x 3, equal unlabored respirations, skin warm/dry/pink. Patient complaining of tightness in chest. Placed on oxygen at 2 LPM via NC. EKG performed, normal sinus rhythm with PAC's. S.JAYME Jeffrey and Dr. Loera notified. Orders to continue with transfer to the unit. Spoke with KAROL Concepcion, receiving nurse, report given. 18:08 Reassessment: Spoke with house designer, states 2nd floor wants patient taken to kr2 telemetry unit instead and to call report to KAROL Piedra on fourth floor. Report called to KAROL Piedra. Vital Signs: 13:17 BP 160 / 104; Pulse 91; Resp 18; Temp 98.8; Pulse Ox 100% on R/A; Weight 83.91 kg (R); aj1 Height 5 ft. 3 in. (160.02 cm) (R); Pain 10/10; 13:55 BP 170 / 103; Pulse 80; Resp 16; Pulse Ox 100% ; kr2 15:00 BP 181 / 104 LA Sitting (auto/lg); Pulse 77; Resp 18 S; Pulse Ox 100% on R/A; Pain 8/10;jp3 16:24 BP 177 / 103; Pulse 77; Resp 16; Pulse Ox 100% on R/A; kr2 17:42 BP 174 / 102; Pulse 73; Resp 17; Pulse Ox 98% on R/A; kr2 13:17 Body Mass Index 32.77 (83.91 kg, 160.02 cm) aj1 ED Course: 13:02 Patient arrived in ED. mr 13:02 None, None is Private Physician. mr 13:16 Triage completed. aj1 13:17 Arm band placed on Patient placed in an exam room. aj1 13:20 Marisol Jeffrey F[facility]-C [facility]. snw 13:20 Nakul Loera MD is Attending Physician. snw 13:32 Rika Ames, KAROL is Primary Nurse. kr2 13:35 Inserted saline lock: 20 gauge in right antecubital area, using aseptic technique. kr2 Blood collected. 13:51 Patient has correct armband on for positive identification. Bed in low position. Call kr2 light in reach. Side rails up X2. Adult w/ patient. Pulse ox on. NIBP on. Door closed. Warm blanket given. Head of bed elevated. 16:04 Padma Cruz MD is Hospitalizing Provider. snw 17:30 EKG done, by ED staff, reviewed by Nakul Loera MD. kr2 17:45 Hospitalizing Provider role handed off by Padma Cruz MD snw 17:45 Bryan Rock DO is Hospitalizing Provider. snw 17:46 No provider procedures requiring assistance completed. Patient admitted, IV remains in kr2 place. Administered Medications: 13:49 Drug: TORadol 30 mg Route: IVP; Site: right antecubital; kr2 14:10 Follow up: Response: No adverse reaction; Pain is decreased kr2 15:44 Drug: fentaNYL (PF) 50 mcg Route: IVP; Site: right antecubital; kr2 16:00 Follow up: Response: No adverse reaction; Pain is decreased kr2 16:30 Drug: metoprolol (Tartrate) 50 mg Route: PO; kr2 17:47 Follow up: Response: No adverse reaction kr2 Outcome: 16:05 Decision to Hospitalize by Provider. snw 17:46 Admitted to L \\T\\ D, accompanied by tech, family with patient, via wheelchair, room 270-, kr2 with oxygen, with chart, Report called to KAROL Concepcion 17:46 Condition: stable 17:46 Instructed on the need for admit, Demonstrated understanding of instructions. 17:48 Patient left the ED. kr2 Signatures: Maria Ines Mcduffie RN RN aj1 Marisol Jeffrey, CRYSTALLOGRAPHER-C CRYSTALLOGRAPHER-Csnw ChandMelonie Karey, RN RN kr2 Alistair Izquierdo jp3 Corrections: (The following items were deleted from the chart) 17:46 17:30 Reassessment: Patient and/or family updated on plan of care and expected kr2 duration. Pain level reassessed. Patient is alert, oriented x 3, equal unlabored respirations, skin warm/dry/pink. Patient complaining of tightness in chest. EKG performed, normal sinus rhythm with PAC's. S.JAYME Jeffrey and Dr. Loera notified. Orders to continue with transfer to the unit. Spoke with Carlene, RN, receiving nurse, report given kr2
--- NOTE | 2017-12-08 16:06 | EDPHYS ---
Physician Documentation [facility] Name: Milagros Mcduffie Age: 47 yrs Sex: Female : 1970 Arrival Date: 12/08/2017 Time: 13:02 Bed 24 Private MD: None, None ED Physician Nakul Loera HPI: 12/08 13:39 This 47 yrs old Black Female presents to ER via Wheelchair with complaints of Vaginal snw Bleeding, Dizziness. 13:39 The patient presents with vaginal bleeding that is heavy, with clots, not on pads but snw with sneezing, defecation, increase intraabdominal pressure - expels large clots. Onset: The symptoms/episode began/occurred gradually. Modifying factors: The symptoms are alleviated by nothing. Associated signs and symptoms: Pertinent positives: vaginal bleeding, lower abdominal cramping. Severity of symptoms: At their worst the symptoms were moderate. The patient has experienced similar episodes in the past, multiple times. The patient has been recently seen at the [facility] Emergency Department, 2 months ago pt required a blood transfusion, has not seen tail trimmer. 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 - Social history:: Smoking status: Patient uses tobacco products, smokes one-half pack cigarettes per day. - Ebola Screening: : Patient denies travel to an Ebola-affected area in the 21 days before illness onset. ROS: 13:39 Constitutional: Negative for fever, chills, and weight loss, Eyes: Negative for injury, snw pain, redness, and discharge, ENT: Negative for injury, pain, and discharge, Neck: Negative for injury, pain, and swelling, Cardiovascular: Negative for chest pain, palpitations, and edema, Respiratory: Negative for shortness of breath, cough, wheezing, and pleuritic chest pain, Abdomen/GI: Negative for abdominal pain, nausea, vomiting, diarrhea, and constipation, Back: Negative for injury and pain, MS/Extremity: Negative for injury and deformity, Skin: Negative for injury, rash, and discoloration, Neuro: Negative for headache, weakness, numbness, tingling, and seizure. 13:39 : Positive for vaginal bleeding, menstrual abnormality. Exam: 13:38 Constitutional: This is a well developed, well nourished patient who is awake, alert, snw and in no acute distress. Head/Face: Normocephalic, atraumatic. Neck: Trachea midline, no thyromegaly or masses palpated, and no cervical lymphadenopathy. Supple, full range of motion without nuchal rigidity, or vertebral point tenderness. No Meningismus. Chest/axilla: Normal chest wall appearance and motion. Nontender with no deformity. No lesions are appreciated. Cardiovascular: Regular rate and rhythm with a normal S1 and S2. No gallops, murmurs, or rubs. Normal PMI, no JVD. No pulse deficits. Respiratory: Lungs have equal breath sounds bilaterally, clear to auscultation and percussion. No rales, rhonchi or wheezes noted. No increased work of breathing, no retractions or nasal flaring. Abdomen/GI: Soft, non-tender, with normal bowel sounds. No distension or tympany. No guarding or rebound. No evidence of tenderness throughout. Back: No spinal tenderness. No costovertebral tenderness. Full range of motion. Skin: Warm, dry with normal turgor. Normal color with no rashes, no lesions, and no evidence of cellulitis. MS/ Extremity: Pulses equal, no cyanosis. Neurovascular intact. Full, normal range of motion. Neuro: Awake and alert, GCS 15, oriented to person, place, time, and situation. Cranial nerves II-XII grossly intact. Motor strength 5/5 in all extremities. Sensory grossly intact. Cerebellar exam normal. Normal gait. Psych: Awake, alert, with orientation to person, place and time. Behavior, mood, and affect are within normal limits. 13:38 Eyes: Periorbital structures: appear normal, Pupils: no acute changes, Extraocular movements: no acute changes, Conjunctiva: pale, Sclera: no appreciated abnormality. Vital Signs: 13:17 BP 160 / 104; Pulse 91; Resp 18; Temp 98.8; Pulse Ox 100% on R/A; Weight 83.91 kg (R); aj1 Height 5 ft. 3 in. (160.02 cm) (R); Pain 10/10; 13:55 BP 170 / 103; Pulse 80; Resp 16; Pulse Ox 100% ; kr2 15:00 BP 181 / 104 LA Sitting (auto/lg); Pulse 77; Resp 18 S; Pulse Ox 100% on R/A; Pain 8/10;jp3 16:24 BP 177 / 103; Pulse 77; Resp 16; Pulse Ox 100% on R/A; kr2 17:42 BP 174 / 102; Pulse 73; Resp 17; Pulse Ox 98% on R/A; kr2 13:17 Body Mass Index 32.77 (83.91 kg, 160.02 cm) aj1 MDM: 13:25 Patient medically screened. snw 16:05 Data reviewed: vital signs, nurses notes. Data interpreted: Pulse oximetry: on room air snw is 100 %. Interpretation: normal. Counseling: I had a detailed discussion with the patient and/or guardian regarding: the historical points, exam findings, and any diagnostic results supporting the discharge/admit diagnosis, the presence of at least one elevated blood pressure reading (>120/80) during this emergency department visit, lab results, the need for further work-up and treatment in the hospital. Physician consultation: Padma Cruz MD was called at 16:05, was contacted at 16:06, regarding admission, [facility], would like medications started, depoprovera. 12/08 13:21 Order name: Basic Metabolic Panel; Complete Time: 15:31 snw 12/08 13:21 Order name: CBC with Diff; Complete Time: 15:46 snw 12/08 13:21 Order name: TS snw 12/08 13:21 Order name: TSH; Complete Time: 15:31 snw 12/08 15:08 Order name: Urine Dipstick--Ancillary (enter results) bd 12/08 15:08 Order name: Urine --Ancillary (enter results) bd 12/08 13:21 Order name: IV Saline Lock; Complete Time: 13:49 snw 12/08 13:21 Order name: Labs collected and sent; Complete Time: 13:50 snw 12/08 13:21 Order name: NPO; Complete Time: 13:50 snw 12/08 15:10 Order name: Manual Differential; Complete Time: 15:46 EDMS 12/08 16:45 Order name: US Transvaginal Study (Probe) sn 12/08 13:57 Order name: Labs - recollect needed; Complete Time: 14:10 bd Administered Medications: 13:49 Drug: TORadol 30 mg Route: IVP; Site: right antecubital; kr2 14:10 Follow up: Response: No adverse reaction; Pain is decreased kr2 15:44 Drug: fentaNYL (PF) 50 mcg Route: IVP; Site: right antecubital; kr2 16:00 Follow up: Response: No adverse reaction; Pain is decreased kr2 16:30 Drug: metoprolol (Tartrate) 50 mg Route: PO; kr2 17:47 Follow up: Response: No adverse reaction kr2 Disposition: 12/08/17 16:05 Hospitalization ordered by Bryan Rock for Observation. Preliminary diagnosis are Abnormal uterine and vaginal bleeding, unspecified, Anemia, unspecified, Essential (primary) hypertension. - [facility]. - Status is Observation. kr2 - Condition is Stable. - Problem is an acute exacerbation. - Symptoms are unchanged. UTI on Admission? No Signatures: Dispatcher [employer] EDMS Lizbeth Crump Angela RN RN aj1 Marisol Jeffrey, HOWARD-C PODIATRIC FOOT AND ANKLE SPECIALIST-Juanaw Michelle Kimball RN RN df Rika Ames RN RN kr2 Corrections: (The following items were deleted from the chart) 16:57 16:05 Hospitalization Ordered by Padma Cruz MD for Observation. Preliminary diagnosis df is Abnormal uterine and vaginal bleeding, unspecified; Anemia, unspecified. Bed [facility]. Status is Observation. Condition is Stable. Problem is an acute exacerbation. Symptoms are unchanged. UTI on Admission? No. snw 17:45 16:57 12/08/2017 16:05 Hospitalization Ordered by Padma Cruz MD for Observation. snw Preliminary diagnosis is Abnormal uterine and vaginal bleeding, unspecified; Anemia, unspecified. Bed [facility]. Status is Observation. Condition is Stable. Problem is an acute exacerbation. Symptoms are unchanged. UTI on Admission? No. df 17:48 17:45 12/08/2017 16:05 Hospitalization Ordered by Bryan Rock DO for Observation. kr2 Preliminary diagnosis is Abnormal uterine and vaginal bleeding, unspecified; Anemia, unspecified; Essential (primary) hypertension. Bed [facility]. Status is Observation. Condition is Stable. Problem is an acute exacerbation. Symptoms are unchanged. UTI on Admission? No. snw
[2017-12-08] MEDS ORDERED: METOPROLOL TAR 50 MG TAB ONE (16:35)
[2017-12-08] MEDS ORDERED: ACETAMINOPHEN 500 MG TAB PO PRN (17:12)
--- NOTE | 2017-12-08 17:22 | P.CNS ---
Date of Consult: 12/08/17 Reason for Consult: HTN, Medical management Requesting Physician: Marshall Cruz Primary Care Provider: [facility] Chief Complaint: Fatigue, vaginal bleeding. History of Present Illness: 47 yo AAF presented to the ER with fatigue and vaginal bleeding. Patient with history of fibroids and anemia. She has received transfusions in the past. She started to have increased vaginal bleeding and fatigue. It got worse today. She came to the ER for further evaluation. In the ER hemoglobin was 6.7. She was seen by COUPON COLLECTION CLERK and admitted for further treatment. I was consulted to address her HTN. She has a history of HTN. It has been over 6 months since she last took her medication-Metoprolol. She does not have insurance and not able to follow up. She denies chest pain, SOB, headaches or palpitations. She is a smoker and drinks on occasion. Allergies nabumetone [From Relafen] Allergy (Verified 01/28/12 09:41) Nausea/Vomiting tramadol HCl [From Ultram] Allergy (Verified 01/28/12 09:41) Nausea/Vomiting Home medications list reviewed: Yes Home Medications: Cyclobenzaprine [Flexeril*] 10 mg PO BID PRN #30 tab 06/21/12 Hydrocodone 5/APAP 325 [[place] 5/325] 1 tab PO Q8HP PRN #20 tab 06/21/12 Lisinopril [Prinivil*] 20 mg PO BID #60 tab 06/21/12 Methylprednisolone [Medrol] 4 mg PO UD #0 tab.ds.pk 06/21/12 - Past Medical/Surgical History Diabetic: No -: HTN -: Fibroids -: Anemia -: Tubal times 3 -: Rotator cuff repair -: Benigh breast lump to the right removed. 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 ) - Social History Smoking Status: Current every day smoker Counseled patient to stop smoking for: less than 10 minutes Smoking therapy provided: Yes Patient receptive to therapy: Yes Alcohol use: Yes CD- Drugs: No Place of Residence: Home Review of Systems General: Weakness, As per HPI Eyes: Unremarkable ENT: Unremarkable Respiratory: Unremarkable Cardiovascular: Unremarkable Gastrointestinal: Unremarkable Genitourinary: As per HPI Musculoskeletal: Unremarkable Integumentary: Unremarkable Neurological: Weakness, As per HPI Lymphatics: Unremarkable Physical Examination General: Alert, In no apparent distress, Oriented x3, Cooperative HEENT: Atraumatic, Normocephalic, PERRLA, Mucous membr. moist/pink Neck: Supple, No Thyromegaly Respiratory: Clear to auscultation bilaterally, Normal air movement Cardiovascular: Normal pulses, Regular rate/rhythm Gastrointestinal: Normal bowel sounds, Soft and benign, Non-distended, No tenderness, No masses, No rebound, No guarding Musculoskeletal: No contractures, No erythema, No tenderness, No warmth Integumentary: No tenderness/swelling, No erythema, No warmth, No cyanosis Neurological: Normal speech, Normal strength at 5/5 x4 extr, Normal tone, Normal affect Laboratory Data (last 24 hrs) 12/08/17 14:05: WBC 5.9, Hgb 6.7 L*, Hct 22.1 L, Plt Count 479 H 12/08/17 14:05: Sodium 136, Potassium 3.6, BUN 15, Creatinine 1.20, Glucose 100 Conclusions/Impression: Assessment: Fatigue, excessive vaginal bleeding with Acute on chronic anemia suspect Iron deficiency related to Fibroids HTN Tobacco abuse Plan: Fatigue, excessive vaginal bleeding with Acute on chronic anemia suspect Iron deficiency related to Fibroids: Patient admitted for transfusion. She will get 2 units of pRBCs. Will maintain hemoglobin above 8.0. Will check Iron, TSH, and B12 studies. COUPON COLLECTION CLERK is admitting and attending physician. COUPON COLLECTION CLERK will obtain Vaginal US to further assess. Will follow along. Anticipate discharge tomorrow if stable. Thank you for consult, will follow up along. HTN: Will restart Metoprolol 50 mg one pill twice daily. She may require additional medication but will monitor and adjust. Will have have social service provide a list of PCPs so that she may establish care. She will need follow up to further monitor. Tobacco abuse: Tobacco cessation education addressed. Time Spent Managing Pts care (In Minutes): 55
[2017-12-08 18:41] LABS: Ferritin 5.9 ng/mL (8-388); Thyroid Stimulating Hormone 0.578 uIU/mL (0.360-3.740)
[2017-12-08 18:43] LABS: Urine Blood 2+ (NEG); Urine Glucose NEGATIVE (NEG); Urine Protein NEGATIVE (NEG)
[2017-12-08] MEDS ORDERED: MEDROXYPROGEST ACET 150 MG/ML IM ONE ×2 (19:42→21:02)
[2017-12-08] MEDS ORDERED: DIPHENHYDRAMINE 50 MG/ML VIAL IV ONE (19:42)
[2017-12-08] MEDS ORDERED: HYDRALAZINE HCL 20 MG/ML VIAL IV PRN (19:42)
[2017-12-08] MEDS ORDERED: ACETAMINOPHEN 500 MG TAB PO ONE (19:42)
--- NOTE | 2017-12-08 20:24 | RAD REPORT ---
EXAM DESCRIPTION: US - Transvaginal Study Probe - 12/08/2017 6:58 pm CLINICAL HISTORY: Abdominal pain, pelvic pain Preliminary findings provided at the time of the study. COMPARISON: CT imaging September 14 with TECHNIQUE: Endovaginal sonography was performed. FINDINGS: In the posterior mid uterus a 14 millimeter oval intramural hypoechoic mass is present. In the intramural fundal portion of the uterus right of midline there is a 2.1 centimeter oval hypoecho ic mass. Nabothian cysts are present. Endometrial stripe is 6 mm. No focal endometrial abnormality. Uterus overall is 10.7 x 5.7 x 7.4 cm. Normal size right ovary is seen with no right ovarian or right adnexal abnormality. No free fluid in the cul-de-sac. Nonvisualization of the left ovary. No left adnexal abnormality seen. IMPRESSION: Patient has 2 intramural fibroids identifiable up to 2 cm in size. Fibroid pattern is no t substantially different from September 14, 2017. No suspicious finding in the endometrial cavity. No right ovary or right adnexal abnormality. Nonvisualization of the left ovary with no left adnexal abnormality.
[2017-12-08] MEDS: FAMOTIDINE 20 MG TAB PO SCH (20:27)
[2017-12-08] MEDS: METOPROLOL TAR 50 MG TAB PO SCH (20:28)
[2017-12-08] MEDS ORDERED: NA CHLORIDE 0.9% 1,000 ML ONE (21:27)
--- NOTE | 2017-12-08 21:55 | P.OBGYNHP ---
Certification for Inpatient Patient admitted to: Observation With expected LOS: <2 Midnights Patient will require the following post-hospital care: None Practitioner: I am a practitioner with admitting privileges, knowledge of patient current condition, hospital course, and medical plan of care. Services: Services provided to patient in accordance with Admission requirements found in Title 42 Section 412.3 of the Code of Federal Regulations Patient History Date of Service: 12/09/17 Primary Care Provider: Michelle Galicia Reason for admission: Fatigue, vaginal bleeding. History of Present Illness: Patient is a 47 y/o who reports to the ED with c/o vaginal bleeding. Patient states that this bleeding only occurs when she coughs or sneezes. Patient states that his problem has occurred previously as well. She states that she does not have any medical care currently and so has not been able to keep up with treatment for menorrhagia. She was previously being treated with depo-provera and that had resolved her bleeding. Currently she is feeling dizzy and her hemoglobin is 6.7. Therefore a decision was made by ED that patient requires blood transfusion. Patient agrees to treatment. Patient has not seen a PCP also in quite some time. She has hypertension and neuropathy for which she is not receiving any treatment. Patient states that she was previously on blood pressure medications. She has not taken them in some time. Currently her blood pressure is highly elevated at 192/106. She staes taht she was just given medication to control it. She also is a long time smoker. Allergies nabumetone [From Relafen] Allergy (Verified 01/28/12 09:41) Nausea/Vomiting tramadol HCl [From Ultram] Allergy (Verified 01/28/12 09:41) Nausea/Vomiting Home Medications: NK [No Home Meds] 12/09/17 - Past Medical/Surgical History Diabetic: No -: HTN -: Fibroids -: Anemia -: She states she has a h/o 2 vaginal births -: 3 ectopic pregnancies - 2 treated surgically -: Tubal times 3 -: Rotator cuff repair -: Benigh breast lump to the right removed. 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 ) Sister Notes: Thyroid problem - Social History Smoking Status: Current every day smoker Alcohol use: Yes CD- Drugs: No Place of Residence: Home Review of Systems 10-point ROS is otherwise unremarkable Physical Examination - Vital Signs Temperature: 98 F Blood Pressure: 165/94 Pulse: 78 Respirations: 18 Pulse Ox (%): 100 - General General: Alert, Oriented x3 HEENT: Atraumatic Neck: Supple Breasts: Normal configuration Neurological: Normal speech - Female Pelvic External genitalia: Normal Vagina: Normal, Gate, Moist Cervix: Normal, Non-tender Uterus: Non-gravid, Non-tender, Firm Adnexa: Non-tender, Non-palpable Laboratory Data (last 24 hrs) 12/08/17 14:05: WBC 5.9, Hgb 6.7 L*, Hct 22.1 L, Plt Count 479 H 12/08/17 14:05: Sodium 136, Potassium 3.6, BUN 15, Creatinine 1.20, Glucose 100 Assessment and Plan - Plan Patient is a 47 y/o with abnormal uterine bleeding and anemia and chronic medical issues. Plan is to keep the patient for observation and begin blood transfusion. Patient will need transvaginal ultrasound to evaluate the endometrium. Needs care by internal medicine for hypertension that is uncontrolled. Poor surgical candidate. Will administer depoprovera to decrease bleeding. Recommend that the patient have Mirena IUD placed for further treatment. Plan to discharge patient home tomorrow. Discharge Plan: Home Plan to discharge in: 24 Hours - Advance Directives Does patient have a Living Will: No Does patient have a Durable POA for Healthcare: No
[2017-12-08] MEDS ORDERED: KETOROLAC 30 MG/ML INJ IV PRN (22:48)
[2017-12-08] MEDS ORDERED: FUROSEMIDE 20 MG/ 2ML VIAL IV ONE (23:09)
[2017-12-09 02:18] VITALS: BMI 32.8
[2017-12-09] MEDS ORDERED: FUROSEMIDE 20 MG/ 2ML VIAL IV ONE (05:41)
[2017-12-09] MEDS: PANTOPRAZOLE 40MG TABLET PO SCH (06:32)
[2017-12-09 07:53] LABS: Magnesium 2.2 mg/dL (1.8-2.4); Potassium 3.6 mmol/L (3.5-5.1)
[2017-12-09 08:02] LABS: Absolute Lymphocytes (CBC) 3.7 K/uL (0.7-4.9); Absolute Monocytes 0.2 K/uL (0.1-1.3); Absolute Neutrophil 1.7 K/uL (1.8-8.0); Basophils % 0.8 % (0-1.3); Eosinophils % 1.6 % (0-4.4); Hematocrit 27.8 % (36.0-45.0); Lymphocytes % 63.7 % (15.3-44.8); MCH 23.6 pg (27.0-35.0); MCV 73.1 fL (80-100); MPV 8.2 fL (7.6-11.3); Monocytes % 3.8 % (3.3-12.3); RBC Red Blood Cell Count 3.81 M/uL (3.86-4.86)
--- NOTE | 2017-12-09 09:04 | EKG ---
Test Date: 2017-12-08 Test Time: 17:31:29 Placing Judge: MEASUREMENT RESULTS: Intervals: Rate: 60 VT: 170 QRSD: 82 QT: 456 QTc: 456 [place]: P: 53 VT: 170 QRS: 38 T: 55 INTERPRETIVE STATEMENTS: Sinus rhythm with premature atrial complexes Otherwise normal ECG Compared to ECG 09/14/2017 06:47:09 Atrial premature complex(es) now present Left ventricular hypertrophy no longer present Prolonged QT interval no longer present Electronically Signed On 12-09-17 09:03:20 CDT by Carlos Enrique Winter
[2017-12-09] MEDS: NICOTINE 21 MG/PAT TD SCH (10:08)
[2017-12-09] MEDS: FAMOTIDINE 20 MG TAB PO SCH ×2 (10:09→20:25)
[2017-12-09] MEDS: METOPROLOL TAR 50 MG TAB PO SCH ×2 (10:09→20:25)
[2017-12-09] MEDS ORDERED: IBUPROFEN 400 MG TAB PO PRN (11:18)
--- NOTE | 2017-12-09 11:42 | P.PN ---
Date of Service: 12/09/17 Patient is a 47 y/o who is being managed by ak for abnormal uterine bleeding and anemia. Patient seen and examined at bedside and noted to be comfortable but is c/o chest pain. Patient also has a h/o uncontrolled hypertension. She had not been taking her medications in some time. Today she states bleeding is mild and she is having some cramping. Denies any other DIGITAL TECHNICIAN issues. Selected Entries 12/09/17 12/09/17 08:00 10:08 Temperature 97.9 F Pulse Rate 59 Blood Pressure 173/97 H Pain Level 8 O2 Sat by Pulse 100 Oximetry Laboratory Tests 12/09/17 07:04 WBC 5.8 Hgb 9.0 L Hct 27.8 L D Plt Count 456 H GEN: resting in bed with family at bedside. No distress Head/Neck: NCAT, supple ABD: soft NT/ND Pelvic: mild bleeding on pad, normal external female genitalia, vaginal smooth pink normal rugae, cervix non-tender, uterus nontender Transvaginal Ultrasound: IMPRESSION: Patient has 2 intramural fibroids identifiable up to 2 cm in size. Fibroid pattern is not substantially different from September 14, 2017. No suspicious finding in the endometrial cavity. No right ovary or right adnexal abnormality. Nonvisualization of the left ovary with no left adnexal abnormality Patient is a who has abnormal uterine and anemia, uncontrolled hypertension. Patient is stable to be discharged from DIGITAL TECHNICIAN standpoint. She is to follow up in the office in 3-4 weeks for PAP smear and to schedule IUD placement. I have discussed patient care with Dr. Rock and feel it is best if she is transferred to his service at this time to manage the acute chest pain and uncontrolled hypertension.
[2017-12-09] MEDS: LISINOPRIL 20 MG TAB PO SCH (11:45)
[2017-12-09] MEDS: HYDROCODONE/APAP 7.5/325 MG TAB PO PRN (11:46)
--- NOTE | 2017-12-09 14:01 | P.PN ---
Subjective Date of Service: 12/09/17 Primary Care Provider: Gibsland Grayson Chief Complaint: Fatigue, vaginal bleeding. Subjective: Other (Patient without significant vaginal bleeding. Patient reported some chest pain around lunchtime. Blood pressure is elevated.) Physical Examination - Vital Signs Temperature: 98.3 F Blood Pressure: 203/100 Pulse: 59 Respirations: 16 Pulse Ox (%): 100 - Physical Exam General: Alert, In no apparent distress, Oriented x3, Cooperative HEENT: Atraumatic Neck: Supple Respiratory: Clear to auscultation bilaterally, Normal air movement Cardiovascular: Normal pulses, Regular rate/rhythm Gastrointestinal: Normal bowel sounds, Soft and benign, Non-distended, No tenderness, No masses, No rebound, No guarding Musculoskeletal: No erythema, No tenderness, No warmth Integumentary: No erythema, No warmth, No cyanosis Neurological: Normal speech, Normal strength at 5/5 x4 extr, Normal tone, Normal affect - Studies Laboratory Data (last 24 hrs) 12/08/17 14:05: WBC 5.9, Hgb 6.7 L*, Hct 22.1 L, Plt Count 479 H 12/08/17 14:05: Sodium 136, Potassium 3.6, BUN 15, Creatinine 1.20, Glucose 100 Medications List Reviewed: Yes Assessment & Plan Discharge Plan: Home Plan to discharge in: 24 Hours Physician Review Additional Text: Impression: Fatigue, excessive abnormal uterine bleeding with Acute on chronic anemia with noted Iron/B12 deficiency related to Fibroids HTN, on controlled Chest pain Tobacco abuse Plan: Fatigue, excessive abnormal uterine bleeding with Acute on chronic anemia suspect Iron/B12 deficiency related to Fibroids: Patient given 2 units of packed red blood cells. Hemoglobin improved. Will continue monitor closely. Patient identified with iron and B12 deficiency. Will continue monitor hemoglobin. Gynecology recommends to transfer care to hospitalist to further address her other medical problems. Gynecology plans for IUD as an outpatient. Patient will need a follow up with gynecology in 1-2 weeks to follow up this hospitalization with gynecology. HTN: Blood pressure uncontrolled. Metoprolol 50 mg 1 pill twice daily restarted. Lisinopril 20 mg daily added for better blood pressure control. Will continue monitor blood pressure closely. Will continue to make adjustments. Patient with chest pain and run of V-tach. Patient stable this time. Will order echocardiogram. Cardiology consulted to further evaluate. Case discussed with cardiology. Cardiology plans for cardiac stress test tomorrow to further assess. Possible discharge tomorrow if unremarkable and with better control of blood pressure. Tobacco abuse: Tobacco cessation education addressed. I will turn the service over to Dr. Coburn tomorrow. I will go over the plan of care with her. Time Spent Managing Pts Care (In Minutes): 55
[2017-12-09] MEDS: ONDANSETRON 4 MG/2 ML VIAL IV PRN ×2 (15:54→21:01)
--- NOTE | 2017-12-09 16:21 | EKG ---
Test Date: 2017-12-09 Test Time: 11:08:57 Reproduction Order Processor: CHRISS MEASUREMENT RESULTS: Intervals: Rate: 60 MD: 148 QRSD: 84 QT: 468 QTc: 468 [place]: P: 16 MD: 148 QRS: 11 T: 43 INTERPRETIVE STATEMENTS: Normal sinus rhythm Moderate voltage criteria for LVH, may be normal variant Borderline ECG Compared to ECG 12/08/2017 17:31:29 Left ventricular hypertrophy now present Atrial premature complex(es) no longer present Electronically Signed On 12-09-17 16:20:30 CDT by Carlos Enrique Winter
[2017-12-09] MEDS ORDERED: AMLODIPINE 5 MG TAB PO ONE (16:33)
--- NOTE | 2017-12-09 16:40 | ECHO ---
HEIGHT: 5 ft 3 in WEIGHT: 185 lb 0 oz DATE OF STUDY: 12/09/[address]: Bryan Rock DO 2-DIMENSIONAL: YES M.MODE: YES DOPPLER: YES COLOR FLOW: YES TDS: PORTABLE: DEFINITY: BUBBLE STUDY: DIAGNOSIS: HYPERTENSION CARDIAC HISTORY: CATHERIZATION: NO SURGERY: NO PROSTHETIC VALVE: NO PACEMAKER: NO MEASUREMENTS (cm) DIASTOLIC (NORMALS) SYSTOLIC (NORMALS) IVSd 1.4 (0.6-1.2) LA Diam 3.0 (1.9-4.0) LVEF 60-65% LVIDd 4.4 (3.5-5.7) LVIDs 3.3 (2.0-3.5) %FS 25% LVPWd 1.5 (0.6-1.2) Ao Diam 2.6 (2.0-3.7) 2 DIMENSIONAL ASSESSMENT: RIGHT ATRIUM: NORMAL LEFT ATRIUM: NORMAL RIGHT VENTRICLE: NORMAL LEFT VENTRICLE: LEFT VENTRICULAR HYPERTROPHY TRICUSPID VALVE: NORMAL MITRAL VALVE: NORMAL PULMONIC VALVE: NORMAL AORTIC VALVE: NORMAL PERICARDIAL EFFUSION: NONE AORTIC ROOT: NORMAL LEFT VENTRICULAR WALL MOTION: NORMAL DOPPLER/COLOR FLOW: MILD AORTIC REGURGITATION, MITRAL REGURGITATION, AND TRICUSPID REGURGITATION. COMMENTS: NORMAL LEFT VENTRIUCLAR EJECTION FRACTION. LEFT VENTRICULAR HYPERTROPHY. MILD AORTIC REGURGITATION, MITRAL REGURGITATION, AND TRICUSPID REGURGITATION. TECHNOLOGIST: GOLDEN DUGAN
--- NOTE | 2017-12-09 16:58 | CON ---
History Of Present Illness: Mrs. Mcduffie is 47. She came to the hospital because of bleeding. She was found to be profoundly anemic. I am asked to see her because, while here, she complains of palpi tations and chest pain. On the cardiac monitor technician, she does not have any significant arrhythmia. She complains of tightness in the chest, not clear whether it gets worse with anything or improves. It is present much of the time. She uses a lot of ibuprofen because of painful menses. She is known to have uterine fibroids, bleeds a lot. Her bleeding is controlled with Depo-Provera, but she has been off Depo-Provera. She has a long history of hypertension, long history of smoking, and recently has not been on any of the medications that she usually takes. There are metoprolol and one other medic ine for hypertension, and Depo-Provera. Physical Examination: General: She is 5 feet and 3 inches, 185 pounds. HEENT: Normal. Lungs: Clear. Heart: Unremarkable. Abdomen: Soft. Extremities: Normal. Laboratory Data: EKG shows sinus rhythm. There are a few premature atrial complexes, otherwise it i s normal. Recommendation: I would recommend we do a routine stress test probably tomorrow. She will have an e chocardiogram today, and if she can pass a routine stress test, I do not think we need to workup the chest pain anymore. I believe she is having symptoms of gastritis or peptic ulcer disease with her high use of nonsteroidal anti-inflammatory drugs. AIRAM/MARION Voice ID: [id number] Report ID: [id number]
[2017-12-10] MEDS ORDERED: REGADENOSON 0.4 MG/5 ML SYR IV ONE (08:41)
[2017-12-10] MEDS: NICOTINE 21 MG/PAT TD SCH (09:00)
[2017-12-10] MEDS: METOPROLOL TAR 50 MG TAB PO SCH ×2 (10:19→20:55)
[2017-12-10] MEDS: FAMOTIDINE 20 MG TAB PO SCH ×2 (10:19→20:57)
[2017-12-10] MEDS: PANTOPRAZOLE 40MG TABLET PO SCH (10:19)
[2017-12-10] MEDS: LISINOPRIL 20 MG TAB PO SCH (10:20)
--- NOTE | 2017-12-10 10:37 | RAD REPORT ---
EXAM DESCRIPTION: NM - Rest Stress Cardiac Imaging - 12/10/2017 10:25 am CLINICAL HISTORY: Chest pain COMPARISON: July 2010 TECHNIQUE: The patient was administered 10.3 mCi of Tc 99m Sestamibi prior to resting SPECT imaging of the heart. The patient was then administered 32.1 mCi of Tc 99m Sestamibi following exercise or ph armacologic stress. Multiplanar SPECT images were reviewed. FINDINGS: The end diastolic volume is 149 ml, the end systolic volume is 70 ml, and the ejection fra ction is 53 %. Ventricular volume is similar to the 2011 study. End-diastolic volume has increased fr om 107 to the current 149 mL. No stress-induced ischemic changes are identifiable. There is a mild diminishment in activity along t he anterior wall near the apex that does not change between rest and stress imaging. This is less pro nounced than seen in 2011. No other area of scarring or possible attenuation artifact. IMPRESSION: No stress-induced ischemic change. Small fixed defect anterior wall near the apex could be scarring, attenuation artifact or a combinati on. This focal abnormality is less pronounced than seen in 2011. End-diastolic volume was 149 mL with ejection fraction of 53%.
[2017-12-10 12:31] LABS: Hematocrit 28.4 % (36.0-45.0); MCH 23.6 pg (27.0-35.0); MPV 7.9 fL (7.6-11.3)
[2017-12-10] MEDS: FERROUS SULFATE 325 MG TAB PO SCH (12:31)
--- NOTE | 2017-12-10 12:46 | TREADPHA ---
DX: CHEST PAIN, VENTRICULAR TACHYCARDIA Date of Study: 12/10/17 Ht: 5 3 Wt: 185 lb 0 oz Consulting Physician: ALBERT MEDICATIONS: HYDROCODONE, PEPCID, APRESOLINE, PRINVIL, LOPRESSOR, ZOFRAN, PROTONIX, SODIUM, CHLORIDE, TYLENOL, NORVASC, MOTRIN, TORADOL. HISTORY: 47 YEAR OLD FEMALE HERE FOR CHEST PAIN AND VENTRICULAR TACHYCARDIA. HISTORY OF HYPERTENSION AND NEUROPATHY. PHYSICIAL EXAMINATION: RESTING B.P.: 165/89 RESTING H.R.: 58 RESTING EKG: SINUS RHYTHM PROTOCOL: LEXISCAN EXERCISE TIME: 3:30 B.P. AT PEAK STRESS: 148/88 IMPRESSION: LEXISCAN STRESS TEST PERFORMED. CARDIOLITE INJECTED PER PROTOCOL. NO ARRHYTHMIAS NOTED. COMPLAINTS OF JOHN TIGHTNESS 10/10 ON PAIN SCALE ACROSS CHEST THAT RELIEVED DURING TEST TO 2/10 POST TEST. SEE NUCLEAR MEDICINE REPORT.
[2017-12-10 13:47] LABS: Platelet Estimate INCR
[2017-12-10 13:48] LABS: Anisocytosis 2+; Blood Morphology Comment NOTED (NOT SEEN); Poikilocytosis 1+
--- NOTE | 2017-12-10 15:11 | PN ---
Date of Progress Note: 12/09/2017 The patient was seen on 12/09/[address] Winter for chest pain. She had come in with vaginal bleed and severe anemia. An echocardiogram, which was done yesterday, was normal. She has not had any fur ther chest pain since she had come in. It is most likely a gastroesophageal issue secondary to nonst eroidal antiinflammatory agents as well as anemia. Lexiscan is pending today. We will see what that shows prior to making a decision. Telemetry remains normal. BAKARI/MARION Voice ID: [id number] Report ID: [id number]
--- NOTE | 2017-12-10 15:18 | P.PN ---
Subjective Date of Service: 12/10/17 Primary Care Provider: [facility] Chief Complaint: Fatigue, vaginal bleeding. Patient seen and examined at bedside with RN. Chart reviewed. Case discussed with cardiology. Currently patient is awaiting stress test at this time. Review of Systems 10-point ROS is otherwise unremarkable Physical Examination - Vital Signs Temperature: 98.5 F Blood Pressure: 148/82 Pulse: 57 Respirations: 16 Pulse Ox (%): 100 - Physical Exam General: Alert, In no apparent distress HEENT: Atraumatic, PERRLA, EOMI Neck: Supple, JVD not distended Respiratory: Clear to auscultation bilaterally, Normal air movement Cardiovascular: Regular rate/rhythm, Normal S1 S2 Gastrointestinal: Normal bowel sounds, No tenderness Musculoskeletal: No tenderness Integumentary: No rashes Neurological: Normal speech, Normal tone, Normal affect Lymphatics: No axilla or inguinal lymphadenopathy - Studies Medications List Reviewed: Yes Assessment And Plan - Current Problems (Diagnosis) (1) Vaginal bleeding Onset Date: 12/10/17 Current Visit: Yes Status: Acute (2) Acute blood loss anemia Current Visit: Yes Status: Acute (3) Chest pain Current Visit: Yes Status: Acute Plan: Atypical chest pain -troponin x2 negative. EKG negative for acute abnormality -Tele with V-tach for 3 secs. -Patient stable this time. -ECHO and stress pending at this time Qualifiers: Chest pain type: unspecified Qualified Code(s): R07.9 - Chest pain, unspecified (4) HTN (hypertension) Current Visit: Yes Status: Chronic Plan: Blood pressure uncontrolled. -Metoprolol 50 mg 1 pill twice daily restarted. -Lisinopril 20 mg daily added for better blood pressure control. -Will continue monitor blood pressure closely. Will continue to make adjustments. Qualifiers: Hypertension type: essential hypertension Qualified Code(s): I10 - Essential (primary) hypertension Discharge Plan: Home Plan to discharge in: 48 Hours - Code Status/Comfort Care Code Status Assessed: Yes Physician Review Additional Text: ] Critical Care: No
[2017-12-11] MEDS: HYDROCODONE/APAP 7.5/325 MG TAB PO PRN (00:18)
[2017-12-11] MEDS: LISINOPRIL 20 MG TAB PO SCH (09:04)
[2017-12-11] MEDS: FERROUS SULFATE 325 MG TAB PO SCH (09:04)
[2017-12-11] MEDS: FAMOTIDINE 20 MG TAB PO SCH (09:04)
[2017-12-11] MEDS: NICOTINE 21 MG/PAT TD SCH (09:04)
[2017-12-11] MEDS: PANTOPRAZOLE 40MG TABLET PO SCH (09:05)
[2017-12-11] MEDS: METOPROLOL TAR 50 MG TAB PO SCH (09:05)
[2017-12-11 09:29] VITALS: TEMP 97.8
[2017-12-11 09:30] VITALS: O2SAT 98
[2017-12-11 12:09] VITALS: BP 162/94
--- NOTE | 2017-12-11 12:44 | P.DS ---
Admission Date: 12/08/17 Discharge Date: 12/11/17 Primary Care Provider: Michelle Galicia Disposition: ROUTINE DISCHARGE Discharge Condition: GOOD Reason for Admission: Fatigue, vaginal bleeding. Consultations: Medicine /OBGYN - Problems (1) Vaginal bleeding Onset Date: 12/10/17 Current Visit: Yes Status: Acute (2) Acute blood loss anemia Current Visit: Yes Status: Acute (3) Chest pain Current Visit: Yes Status: Acute Qualifiers: Chest pain type: unspecified Qualified Code(s): R07.9 - Chest pain, unspecified (4) HTN (hypertension) Current Visit: Yes Status: Chronic Qualifiers: Hypertension type: essential hypertension Qualified Code(s): I10 - Essential (primary) hypertension Brief History of Present Illness: 47 yo AAF presented to the ER with fatigue and vaginal bleeding. Patient with history of fibroids and anemia. She has received transfusions in the past. She started to have increased vaginal bleeding and fatigue. It got worse today. She came to the ER for further evaluation. In the ER hemoglobin was 6.7. She was seen by DRAW FRAME TENDER and admitted for further treatment. I was consulted to address her HTN. She has a history of HTN. It has been over 6 months since she last took her medication-Metoprolol. She does not have insurance and not able to follow up. She denies chest pain, SOB, headaches or palpitations. She is a smoker and drinks on occasion. Hospital Course: Overall the hospital stay patient remained stable The patient was initially admitted under OBGYN for vaginal bleeding. Patient had transvaginal ultrasound which was consistent with fibroids. Patient will be following up with OBGYN outpatient for IUD placement. While here in the hospital patient also had acute blood loss anemia from the vaginal bleeding and was transfused 2 units. Medicine has been consulted to manage her anemia along with hypertension. Once the OBGYN needs were met patient care was transferred over to medicine team for further treatment and diagnostic imaging. Patient day 2 of hospital visit does the chest pain. Cardiology was consulted. Patient had stress test here in the hospital with an echocardiogram. Both of which were negative for any acute abnormality or any skin changes. Patient's blood pressure was elevated and thus was started on lisinopril and metoprolol here in the hospital. Patient had marked improvement with her symptoms and her chest pain had resolved and thus was discharged home under stable condition. Patient's chest pain was most likely secondary to demand ischemia from vaginal bleeding causing acute blood loss anemia. Patient was asked to follow up with primary care doctor along with OBGYN for further treatment of her vaginal bleeding. Patient then was discharged home under stable condition once all her acute care needs were met Vital Signs/Physical Exam: Temp Pulse Resp BP Pulse Ox 97.8 F 61 24 H 162/94 H 100 12/11/17 11:30 12/11/17 11:30 12/11/17 11:30 12/11/17 12:09 12/11/17 11:30 General: Alert, In no apparent distress HEENT: Atraumatic, PERRLA, EOMI Neck: Supple, JVD not distended Respiratory: Clear to auscultation bilaterally, Normal air movement Cardiovascular: Regular rate/rhythm, Normal S1 S2 Gastrointestinal: Normal bowel sounds, No tenderness Musculoskeletal: No tenderness Integumentary: No rashes Neurological: Normal speech, Normal tone, Normal affect Lymphatics: No axilla or inguinal lymphadenopathy Laboratory Data at Discharge: WBC 6.9 K/uL (4.3-10.9) D 12/10/17 12:12 Hgb 9.2 g/dL (12.0-15.0) L 12/10/17 12:12 Hct 28.4 % (36.0-45.0) L 12/10/17 12:12 Plt Count 518 K/uL (152-406) H 12/10/17 12:12 Sodium 137 mmol/L (136-145) 12/09/17 07:04 Potassium 3.6 mmol/L (3.5-5.1) 12/09/17 07:04 BUN 18 mg/dL (7-18) 12/09/17 07:04 Creatinine 1.20 mg/dL (0.55-1.3) 12/09/17 07:04 Glucose 101 mg/dL (74-106) 12/09/17 07:04 Magnesium 2.2 mg/dL (1.8-2.4) 12/09/17 07:04 Home Medications: Lisinopril [Prinivil*] 20 mg PO DAILY #30 tab 12/11/17 Metoprolol Tartrate [Lopressor*] 50 mg PO BID #60 tab 12/11/17 New Medications: Lisinopril [Prinivil*] 20 mg PO DAILY #30 tab Metoprolol Tartrate [Lopressor*] 50 mg PO BID #60 tab Patient Discharge Instructions: Please f.u with PCP and Dr augustin in 1 to 2 week post discharge. New medication. lisinopril. Metoprolol Diet: Regular Activity: Ad jorge Followup: Marshall Augustin DO [ACTIVE - CAN ADMIT] - (Follow up in 3 weeks. )
== END 2017-12-11 12:43 | disposition home or self-care (01) ==
LOC: ER 12:58 → ERHOLD 16:07 → 2ND-WC 17:32 → 4TH 18:02
PROVIDERS: ADMIT Family Medicine; ATTEND Student in an Organized Health Care Education/Training Program
PROC: 30233N1 Transfusion of Nonautologous Red Blood Cells into Peripheral Vein, Percutaneous Approach (ICD-10-PCS; principal; 2017-12-09)
DX: D62 Acute posthemorrhagic anemia (principal); D25.9 Leiomyoma of uterus, unspecified; R07.9 Chest pain, unspecified; I10 Essential (primary) hypertension
CPT/HCPCS: 36415; 76830; 78452; 80048; 81003; 81025; 82607; 82728; 83540; 83735; 84439; 84443; 84466; 85025; 86850; 86900; 86901; 93005; 93017; 93306; 96374; 96375; 99285; A9500; G0378; J1050; J1940; J2405; J2785; J3010; J7030; P9016

== ENCOUNTER 2018-02-03 08:51 | Emergency (ER) | payer SELFPAY ==
[2018-02-03 09:44] LABS: MCH 25.8 pg (27.0-35.0); MCV 79.5 fL (80-100); MPV 8.5 fL (7.6-11.3); RBC Red Blood Cell Count 3.78 M/uL (3.86-4.86)
[2018-02-03 09:47] LABS: Potassium 3.2 mmol/L (3.5-5.1)
[2018-02-03 09:56] LABS: Urine Appearance CLOUDY; Urine Bilirubin NEGATIVE (NEG); Urine Blood 3+ (NEG); Urine Color RED; Urine Glucose NEGATIVE (NEG); Urine Protein 2+ (NEG); Urine pH 6.5 (5.0-7.0)
[2018-02-03 10:05] LABS: Urine Microscopic Reflex ORDER UMIC
[2018-02-03 10:08] LABS: Platelet Estimate ADEQ
[2018-02-03 10:09] LABS: Anisocytosis 2+; Blood Morphology Comment NOTED (NOT SEEN); Hypochromasia 1+
[2018-02-03 10:18] LABS: Urine Bacteria <20 /HPF (<20); Urine Culture Reflex Order REFLEXED; Urine RBC TNTC /HPF (NONE SEEN)
--- NOTE | 2018-02-03 10:45 | ER ---
Nurse's Notes [facility] Name: Milagros Mcduffie Age: 47 yrs Sex: Female : 1970 Arrival Date: 02/03/2018 Time: 08:54 Bed 6 Private MD: None, None Diagnosis: Abnormal uterine and vaginal bleeding, unspecified Presentation: 02/03 09:08 Presenting complaint: Patient states: reports being seen here November and given Depo aa5 shot to stop vaginal bleeding, pt reports bleeding stopped but she started bleeding again January 23, pt states "I am passing big clots". 09:08 Transition of care: patient was not received from another setting of care. Onset of aa5 symptoms was January 2018. Risk Assessment: Do you want to hurt yourself or someone else? Patient reports no desire to harm self or others. Initial Sepsis Screen: Does the patient meet any 2 criteria? No. Patient's initial sepsis screen is negative. Does the patient have a suspected source of infection? No. Patient's initial sepsis screen is negative. Care prior to arrival: None. 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 - Ebola Screening: : No symptoms or risks identified at this time. - Social history:: Smoking status: Patient/guardian denies using tobacco. Screenin:27 Abuse screen: Denies threats or abuse. Denies injuries from another. Nutritional jl7 screening: No deficits noted. Tuberculosis screening: No symptoms or risk factors identified. Fall Risk IV access (20 points). Total Fregoso Fall Scale indicates No Risk (0-24 pts). Assessment: 09:27 General: Appears in no apparent distress. uncomfortable, Behavior is calm, cooperative, jl7 appropriate for age. Pain: Complains of pain in right lower quadrant and left lower quadrant Pain does not radiate. Pain currently is 7 out of 10 on a pain scale. Quality of pain is described as crampy, sharp, Is continuous. Neuro: Level of Consciousness is awake, alert, obeys commands, Oriented to person, place, time, situation. Cardiovascular: Heart tones S1 S2 present Patient's skin is warm and dry. Respiratory: Airway is patent Respiratory effort is even, unlabored, Respiratory pattern is regular, symmetrical, Breath sounds are clear bilaterally. GI: No signs and/or symptoms were reported involving the gastrointestinal system. : Reports vaginal bleeding that is bright red, with clots. EENT: No signs and/or symptoms were reported regarding the EENT system. Derm: Skin is dry, Skin is normal, Skin temperature is warm. Musculoskeletal: No signs and/or symptoms reported regarding the musculoskeletal system. 09:48 : Urine is blood tinged, Sent to lab for UA and UPT. jl7 10:30 Reassessment: Patient appears in no apparent distress at this time. No changes from jl7 previously documented assessment. Patient and/or family updated on plan of care and expected duration. Pain level reassessed. Patient is alert, oriented x 3, equal unlabored respirations, skin warm/dry/pink. Vital Signs: 09:08 BP 192 / 111; Pulse 82; Resp 18 S; Temp 99.0(O); Pulse Ox 100% on R/A; aa5 09:45 BP 159 / 104; Pulse 79; Resp 16 S; Pulse Ox 98% on R/A; jl7 10:29 BP 163 / 108; Pulse 71; Resp 16 S; Pulse Ox 100% on R/A; jl7 ED Course: 08:54 Patient arrived in ED. mr 08:55 None, None is Private Physician. mr 09:06 Carlos Jacobson NP is PHCP. pm1 09:07 Morales Sylvester MD is Attending Physician. pm1 09:08 Arm band placed on. aa5 09:13 Lance Vieira RN is Primary Nurse. jl7 09:13 Triage completed. aa5 09:27 Patient has correct armband on for positive identification. Placed in gown. Bed in low jl7 position. Call light in reach. Side rails up X 1. Pulse ox on. NIBP on. Warm blanket given. 09:27 Initial lab(s) drawn, by me, sent to lab. Inserted saline lock: 20 gauge in right jl7 forearm, using aseptic technique. Blood collected. 10:51 No provider procedures requiring assistance completed. IV discontinued, intact, jl7 bleeding controlled, No redness/swelling at site. Pressure dressing applied. Administered Medications: No medications were administered Outcome: 10:45 Discharge ordered by MD. pm1 10:51 Discharged to home ambulatory. jl7 10:51 Condition: stable 10:51 Discharge instructions given to patient, Instructed on discharge instructions, follow up and referral plans. Demonstrated understanding of instructions, follow-up care. 10:55 Patient left the ED. jl7 Signatures: Melonie Chand TaylorTeri perez, RN RN aa5 Carlos Jacobson, DIGITAL TECH DIGITAL TECH pm1 Lance Vieira RN RN jl7
--- NOTE | 2018-02-03 10:45 | EDPHYS ---
Physician Documentation [facility] Name: Milagros Mcduffie Age: 47 yrs Sex: Female : 1970 Arrival Date: 02/03/2018 Time: 08:54 Bed 6 Private MD: None, None ED Physician Morales Sylvester HPI: 02/03 09:30 This 47 yrs old Black Female presents to ER via Ambulatory with complaints of Vaginal pm1 Bleeding. 09:30 The patient presents with vaginal bleeding that is. Onset: The symptoms/episode pm1 began/occurred January 23, 2018. Modifying factors: The symptoms are alleviated by nothing, the symptoms are aggravated by nothing. Associated signs and symptoms: Pertinent positives: cramping, Pertinent negatives: diarrhea, dysuria, fever, nausea, vaginal discharge, vomiting. Severity of symptoms: in the emergency department the symptoms are unchanged. The patient is not sexually active. The patient has experienced similar episodes in the past, multiple times. Patient with history of uterine fibroids and prior abnormal uterine bleeding associated with it. Patient has not followed up with preparation room manager for placement of IUD during last admission for vaginal bleeding with anemia requiring transfusion of blood. 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 - Ebola Screening: : No symptoms or risks identified at this time. - Social history:: Smoking status: Patient/guardian denies using tobacco. ROS: 09:30 Positive for vaginal bleeding, Negative for flank pain, burning with urination, pm1 vaginal discharge. 09:30 Constitutional: Negative for fever, chills, and weight loss, Eyes: Negative for injury, pain, redness, and discharge, ENT: Negative for injury, pain, and discharge, Neck: Negative for injury, pain, and swelling, Cardiovascular: Negative for chest pain, palpitations, and edema, Respiratory: Negative for shortness of breath, cough, wheezing, and pleuritic chest pain, Abdomen/GI: Negative for abdominal pain, nausea, vomiting, diarrhea, and constipation, Back: Negative for injury and pain, MS/Extremity: Negative for injury and deformity, Skin: Negative for injury, rash, and discoloration, Neuro: Negative for headache, weakness, numbness, tingling, and seizure. Exam: 09:30 Constitutional: This is a well developed, well nourished patient who is awake, alert, pm1 and in no acute distress. Head/Face: Normocephalic, atraumatic. Eyes: Pupils equal round and reactive to light, extra-ocular motions intact. Lids and lashes normal. Conjunctiva and sclera are non-icteric and not injected. Cornea within normal limits. Periorbital areas with no swelling, redness, or edema. ENT: Nares patent. No nasal discharge, no septal abnormalities noted. Tympanic membranes are normal and external auditory canals are clear. Oropharynx with no redness, swelling, or masses, exudates, or evidence of obstruction, uvula midline. Mucous membranes moist. Neck: Trachea midline, no thyromegaly or masses palpated, and no cervical lymphadenopathy. Supple, full range of motion without nuchal rigidity, or vertebral point tenderness. No Meningismus. Chest/axilla: Normal chest wall appearance and motion. Nontender with no deformity. No lesions are appreciated. Cardiovascular: Regular rate and rhythm with a normal S1 and S2. No gallops, murmurs, or rubs. Normal PMI, no JVD. No pulse deficits. Respiratory: Lungs have equal breath sounds bilaterally, clear to auscultation and percussion. No rales, rhonchi or wheezes noted. No increased work of breathing, no retractions or nasal flaring. Abdomen/GI: Soft, non-tender, with normal bowel sounds. No distension or tympany. No guarding or rebound. No evidence of tenderness throughout. Back: No spinal tenderness. No costovertebral tenderness. Full range of motion. Skin: Warm, dry with normal turgor. Normal color with no rashes, no lesions, and no evidence of cellulitis. MS/ Extremity: Pulses equal, no cyanosis. Neurovascular intact. Full, normal range of motion. 09:30 Neuro: Orientation: is normal, Motor: is normal, Sensation: is normal, no obvious gross deficits, Gait: is steady, at a normal pace, without difficulty. Vital Signs: 09:08 BP 192 / 111; Pulse 82; Resp 18 S; Temp 99.0(O); Pulse Ox 100% on R/A; aa5 09:45 BP 159 / 104; Pulse 79; Resp 16 S; Pulse Ox 98% on R/A; jl7 10:29 BP 163 / 108; Pulse 71; Resp 16 S; Pulse Ox 100% on R/A; jl7 MDM: 09:08 Patient medically screened. pm1 10:44 Data reviewed: vital signs. Data interpreted: Pulse oximetry: on room air is 100 %. pm1 Interpretation: normal. Counseling: I had a detailed discussion with the patient and/or guardian regarding: the historical points, exam findings, and any diagnostic results supporting the discharge/admit diagnosis, lab results, the need for outpatient follow up, for definitive care, an OB/Gyne specialist, to return to the emergency department if symptoms worsen or persist or if there are any questions or concerns that arise at home. 02/03 09:12 Order name: Basic Metabolic Panel; Complete Time: 10:11 pm1 02/03 09:12 Order name: CBC with Diff; Complete Time: 10:11 pm1 02/03 09:12 Order name: Type And Screen; Complete Time: 10:24 pm1 02/03 09:45 Order name: UA jl7 02/03 09:45 Order name: Urinalysis; Complete Time: 10:24 EDMS 02/03 09:55 Order name: Manual Differential; Complete Time: 10:11 EDMS 02/03 09:12 Order name: Urine Test (obtain specimen); Complete Time: 10:29 pm1 02/03 09:12 Order name: IV Saline Lock; Complete Time: 09:30 pm1 02/03 09:12 Order name: Labs collected and sent; Complete Time: 09:30 pm1 02/03 09:12 Order name: Urine Dipstick-Ancillary (obtain specimen); Complete Time: 10:29 pm1 02/03 09:57 Order name: Test, Urine; Complete Time: 10:11 EDMS 02/03 10:09 Order name: Urine Microscopic Only; Complete Time: 10:24 EDMS 02/03 10:20 Order name: Urine Culture EDMS Administered Medications: No medications were administered Disposition: 02/04 06:30 Co-signature as Attending Physician, Morales Sylvester MD I agree with the assessment and casi plan of care. Disposition: 02/03/18 10:45 Discharged to Home. Impression: Abnormal uterine and vaginal bleeding, unspecified. - Condition is Stable. - Discharge Instructions: Abnormal Uterine Bleeding. - Medication Reconciliation Form, Thank You Letter form. - Follow up: Emergency Department; When: As needed; Reason: Worsening of condition. Follow up: Private Physician; When: 2 - 3 days; Reason: Recheck today's complaints, Continuance of care, Re-evaluation by your physician. - Problem is new. - Symptoms have improved. Signatures: Dispatcher [employer] EDIA Morales Sylvester MD MD cha Calderon, Audri, RN RN aa5 Carlos Jacobson NP [employer]PER pm1 Lance Vieira RN RN jl7 Corrections: (The following items were deleted from the chart) 02/03 10:55 10:45 02/03/2018 10:45 Discharged to Home. Impression: Abnormal uterine and vaginal jl7 bleeding, unspecified. Condition is Stable. Forms are Medication Reconciliation Form, Thank You Letter, Antibiotic Education, Prescription Opioid Use. Follow up: Emergency Department; When: As needed; Reason: Worsening of condition. Follow up: Private Physician; When: 2 - 3 days; Reason: Recheck today's complaints, Continuance of care, Re-evaluation by your physician. Problem is new. Symptoms have improved. pm1
[2018-02-03 11:05] VITALS: TEMP 99
[2018-02-03 11:07] VITALS: BP 163/108; O2SAT 100
== END 2018-02-03 10:55 | disposition home or self-care (01) ==
LOC: ER 08:51
DX: N93.9 Abnormal uterine and vaginal bleeding, unspecified (principal); I10 Essential (primary) hypertension; Z88.6 Allergy status to analgesic agent; Z88.8 Allergy status to other drugs, medicaments and biological substances
CPT/HCPCS: 36415; 80048; 81003; 81015; 81025; 85025; 86850; 86900; 86901; 87086; 87088; 99283

== ENCOUNTER 2018-05-18 02:33 | Observation (INO) | payer SELFPAY ==
[2018-05-18] MEDS ORDERED: MEPERIDINE HCL 50 MG/ML AMP ONE (03:38)
[2018-05-18] MEDS ORDERED: ONDANSETRON 4 MG/2 ML VIAL ONE (03:38)
[2018-05-18] MEDS ORDERED: NA CHLORIDE 0.9% 1,000 ML ONE (03:38)
[2018-05-18 03:56] LABS: MPV 8.5 fL (7.6-11.3); RBC Red Blood Cell Count 2.51 M/uL (3.86-4.86)
[2018-05-18 04:07] LABS: Ferritin 4.2 ng/mL (8-388); Potassium 3.5 mmol/L (3.5-5.1)
[2018-05-18 04:17] LABS: Hematocrit 18.4 % (36.0-45.0)
--- NOTE | 2018-05-18 04:27 | ER ---
Nurse's Notes [facility] Name: Milagros Mcduffie Age: 47 yrs Sex: Female : 1970 Arrival Date: 05/18/2018 Time: 02:34 Bed 20 Private MD: Diagnosis: Vaginal bleeding. Uterine fibroids. Anemia Presentation: 05/18 02:50 Presenting complaint: Patient states: she has a history of uterine fibroids with heavy bb bleeding and the last two days she is bleeding heavily with abdominal pain she states she has had several blood transfusions the last one was in March. Transition of care: patient was not received from another setting of care. Onset of symptoms was May 15, 2018. Risk Assessment: Do you want to hurt yourself or someone else? Patient reports no desire to harm self or others. Initial Sepsis Screen: Does the patient meet any 2 criteria? No. Patient's initial sepsis screen is negative. Does the patient have a suspected source of infection? No. Patient's initial sepsis screen is negative. Care prior to arrival: None. 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 - Social history:: Smoking status: Patient uses tobacco products, smokes one-half pack cigarettes per day, Patient uses alcohol, occasionally. Patient/guardian denies using street drugs. - Ebola Screening: : No symptoms or risks identified at this time. Screenin:56 Abuse screen: Denies threats or abuse. Nutritional screening: No deficits noted. jd3 Tuberculosis screening: No symptoms or risk factors identified. Fall Risk Ambulatory Aid- None/Bed Rest/Nurse Assist (0 pts). Gait- Normal/Bed Rest/Wheelchair (0 pts) Mental Status- Oriented to own ability (0 pts). Total Fregoso Fall Scale indicates No Risk (0-24 pts). Assessment: 02:54 General: Appears uncomfortable, Behavior is calm, cooperative, appropriate for age. jd3 Pain: Complains of pain in back and suprapubic area Quality of pain is described as aching, tender. Neuro: Level of Consciousness is awake, alert, obeys commands, Oriented to person, place, time, situation, Appropriate for age. Cardiovascular: Capillary refill < 3 seconds Patient's skin is warm and dry. Respiratory: Airway is patent Respiratory effort is even, unlabored, Respiratory pattern is regular, symmetrical, Denies shortness of breath at rest. GI: No signs and/or symptoms were reported involving the gastrointestinal system. : Urine is blood tinged, Reports vaginal bleeding that is bright red, heavy flow. EENT: No signs and/or symptoms were reported regarding the EENT system. Derm: Skin is intact, Skin is dry, Skin is normal, Skin temperature is warm. Musculoskeletal: Circulation, motion, and sensation intact. Range of motion: intact in all extremities. 03:39 Reassessment: Patient appears in no apparent distress at this time. Patient and/or jd3 family updated on plan of care and expected duration. Pain level reassessed. Patient is alert, oriented x 3, equal unlabored respirations, skin warm/dry/pink. 04:30 Reassessment: Patient appears in no apparent distress at this time. No changes from jd3 previously documented assessment. Patient and/or family updated on plan of care and expected duration. Pain level reassessed. Patient is alert, oriented x 3, equal unlabored respirations, skin warm/dry/pink. 05:45 Reassessment: Patient appears in no apparent distress at this time. No changes from jd3 previously documented assessment. Patient and/or family updated on plan of care and expected duration. Pain level reassessed. Patient is alert, oriented x 3, equal unlabored respirations, skin warm/dry/pink. Vital Signs: 02:53 BP 159 / 93; Pulse 116; Resp 18 S; Temp 98.9(O); Pulse Ox 100% on R/A; Weight 80.29 kg bb (R); Height 5 ft. 3 in. (160.02 cm) (R); Pain 10/10; 03:39 BP 128 / 87; Pulse 101; Resp 17 S; Pulse Ox 98% on R/A; jd3 04:30 BP 137 / 87; Pulse 88; Resp 16 S; Pulse Ox 100% on R/A; jd3 05:44 BP 126 / 71; Pulse 87; Resp 16 S; Pulse Ox 100% on R/A; jd3 02:53 Body Mass Index 31.35 (80.29 kg, 160.02 cm) bb ED Course: 02:34 Patient arrived in ED. am2 02:35 Gui Lobo MD is Attending Physician. pkl 02:36 Elfego Escobar RN is Primary Nurse. jd3 02:52 Triage completed. bb 02:53 Arm band placed on Patient placed in an exam room, on a stretcher, on pulse oximetry. bb 02:56 Patient has correct armband on for positive identification. Placed in gown. Bed in low jd3 position. Call light in reach. Side rails up X 1. 03:14 Assist provider with pelvic exam: Performed by Gui Lobo MD Patient tolerated well. bb 03:15 Inserted saline lock: 20 gauge in right antecubital area, using aseptic technique. jd3 Blood collected. 04:25 Patsy Pelaez MD is Hospitalizing Provider. pkl 05:46 Patient admitted, IV remains in place. jd3 Administered Medications: 03:35 Drug: NS 0.9% 500 ml Route: IV; Rate: bolus; Site: right antecubital; jd3 04:02 Follow up: Response: No adverse reaction; IV Status: Completed infusion; IV Intake: jd3 500ml 03:36 Drug: Demerol 50 mg Route: IVP; Site: right antecubital; jd3 05:47 Follow up: Response: No adverse reaction jd3 03:36 Drug: Zofran 4 mg Route: IVP; Site: right antecubital; jd3 05:47 Follow up: Response: No adverse reaction jd3 04:02 Drug: NS 0.9% 1000 ml Route: IV; Rate: 125 ml/hr; Site: right antecubital; jd3 05:47 Follow up: Response: No adverse reaction; IV Status: Infusion continued upon admission jd3 Intake: 04:02 IV: 500ml; Total: 500ml. jd3 Outcome: 04:26 Decision to Hospitalize by Provider. pkl 05:45 Admitted to Med/surg accompanied by nurse, via wheelchair, room 219, with chart, Report jd3 called to Aliza ROBERSON 05:45 Condition: stable 05:45 Instructed on the need for admit, Demonstrated understanding of instructions. 06:01 Patient left the ED. jd3 Signatures: Gui Lobo MD MD pkl Ballard, Brenda, RN RN Renetta Lundberg Jonathon, RN RN jd3
--- NOTE | 2018-05-18 04:28 | EDPHYS ---
Physician Documentation [facility] Name: Milagros Mcduffie Age: 47 yrs Sex: Female : 1970 Arrival Date: 05/18/2018 Time: 02:34 Bed 20 Private MD: ED Physician Gui Lobo HPI: 05/18 03:08 This 47 yrs old Black Female presents to ER via Ambulatory with complaints of Vaginal pkl Bleeding, Abdominal Pain. 03:08 The patient presents with vaginal bleeding that is moderate. Onset: The pkl symptoms/episode began/occurred 3 day(s) ago. Associated signs and symptoms: Pertinent positives: lower abdominal cramps. The patient has experienced similar episodes in the past, several times. Patient said she has H/O uterine fibroids and blood transfusions. 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 - Social history:: Smoking status: Patient uses tobacco products, smokes one-half pack cigarettes per day, Patient uses alcohol, occasionally. Patient/guardian denies using street drugs. - Ebola Screening: : No symptoms or risks identified at this time. ROS: 03:08 Positive for vaginal bleeding. pkl 03:08 Eyes: Negative for injury, pain, redness, and discharge, ENT: Negative for injury, pain, and discharge, Neck: Negative for injury, pain, and swelling, Cardiovascular: Negative for chest pain, palpitations, and edema, Respiratory: Negative for shortness of breath, cough, wheezing, and pleuritic chest pain. 03:08 Abdomen/GI: Positive for abdominal cramps, of the lower abdominal. Exam: 03:08 Head/Face: Normocephalic, atraumatic. Eyes: Pupils equal round and reactive to light, pkl extra-ocular motions intact. Lids and lashes normal. Conjunctiva and sclera are non-icteric and not injected. Cornea within normal limits. Periorbital areas with no swelling, redness, or edema. ENT: Nares patent. No nasal discharge, no septal abnormalities noted. Tympanic membranes are normal and external auditory canals are clear. Oropharynx with no redness, swelling, or masses, exudates, or evidence of obstruction, uvula midline. Mucous membranes moist. Neck: Trachea midline, no thyromegaly or masses palpated, and no cervical lymphadenopathy. Supple, full range of motion without nuchal rigidity, or vertebral point tenderness. No Meningismus. Chest/axilla: Normal chest wall appearance and motion. Nontender with no deformity. No lesions are appreciated. Cardiovascular: Regular rate and rhythm with a normal S1 and S2. No gallops, murmurs, or rubs. Normal PMI, no JVD. No pulse deficits. Respiratory: Lungs have equal breath sounds bilaterally, clear to auscultation and percussion. No rales, rhonchi or wheezes noted. No increased work of breathing, no retractions or nasal flaring. 03:08 Abdomen/GI: Palpation: soft, mild abdominal tenderness, in the suprapubic area. 03:08 Back: Exam negative for acute changes. 03:08 : Pelvic Exam: bimanual exam reveals an enlarged uterus, mild vaginal vaginal bleeding. 03:08 Musculoskeletal/extremity: Exam is negative for acute changes. 03:08 Skin: Exam negative for rash. 03:08 Neuro: Orientation: is normal, Mentation: is normal, Cranial nerves: grossly normal, Motor: is normal. Vital Signs: 02:53 BP 159 / 93; Pulse 116; Resp 18 S; Temp 98.9(O); Pulse Ox 100% on R/A; Weight 80.29 kg bb (R); Height 5 ft. 3 in. (160.02 cm) (R); Pain 10/10; 03:39 BP 128 / 87; Pulse 101; Resp 17 S; Pulse Ox 98% on R/A; jd3 04:30 BP 137 / 87; Pulse 88; Resp 16 S; Pulse Ox 100% on R/A; jd3 05:44 BP 126 / 71; Pulse 87; Resp 16 S; Pulse Ox 100% on R/A; jd3 02:53 Body Mass Index 31.35 (80.29 kg, 160.02 cm) MDM: 02:36 Patient medically screened. pkl 04:24 Data reviewed: vital signs, nurses notes, lab test result(s). pkl 05/18 03:07 Order name: CBC with Diff; Complete Time: 06:08 pkl 05/18 03:07 Order name: Chem 7; Complete Time: 04:08 pkl 05/18 03:07 Order name: Iron Level; Complete Time: 04:08 pkl 05/18 03:09 Order name: Type And Screen jd3 05/18 04:18 Order name: Manual Differential; Complete Time: 06:08 EDMS 05/18 04:55 Order name: CBC with Automated Diff EDMS 05/18 04:55 Order name: CBC with Automated Diff EDMS 05/18 04:55 Order name: Protime (+INR) EDMS 05/18 04:55 Order name: Protime (+INR) EDMS 05/18 04:55 Order name: PTT, Activated Partial Thromb EDMS 05/18 04:55 Order name: PTT, Activated Partial Thromb EDMS 05/18 04:55 Order name: CONS Pharmacy Consult EDMS 05/18 04:55 Order name: CONS Physician Consult EDMS 05/18 04:55 Order name: Regular EDMS Administered Medications: 03:35 Drug: NS 0.9% 500 ml Route: IV; Rate: bolus; Site: right antecubital; jd3 04:02 Follow up: Response: No adverse reaction; IV Status: Completed infusion; IV Intake: jd3 500ml 03:36 Drug: Demerol 50 mg Route: IVP; Site: right antecubital; jd3 05:47 Follow up: Response: No adverse reaction jd3 03:36 Drug: Zofran 4 mg Route: IVP; Site: right antecubital; jd3 05:47 Follow up: Response: No adverse reaction jd3 04:02 Drug: NS 0.9% 1000 ml Route: IV; Rate: 125 ml/hr; Site: right antecubital; jd3 05:47 Follow up: Response: No adverse reaction; IV Status: Infusion continued upon admission jd3 Disposition: 05/18/18 04:26 Hospitalization ordered by Patsy Pelaez for Observation. Preliminary diagnosis is Vaginal bleeding. Uterine fibroids. Anemia. - Bed requested for Telemetry/MedSurg (observation). - Status is Observation. jd3 - Condition is Stable. - Problem is new. - Symptoms are unchanged. UTI on Admission? No Signatures: Dispatcher [employer] EDMS Gui Lobo MD MD pkl Yola Hogan RN RN bb Elfego Escobar RN RN jd3 Corrections: (The following items were deleted from the chart) 04:59 04:26 Hospitalization Ordered by Patsy Pelaez MD for Observation. Preliminary bb diagnosis is Vaginal bleeding. Uterine fibroids. Anemia. Bed requested for Telemetry/MedSurg (observation). Status is Observation. Condition is Stable. Problem is new. Symptoms are unchanged. UTI on Admission? No. pkl 06:01 04:59 05/18/2018 04:26 Hospitalization Ordered by Patsy Pelaez MD for Observation. jd3 Preliminary diagnosis is Vaginal bleeding. Uterine fibroids. Anemia. Bed requested for Telemetry/MedSurg (observation). Status is Observation. Condition is Stable. Problem is new. Symptoms are unchanged. UTI on Admission? No. bb
[2018-05-18] MEDS ORDERED: ACETAMINOPHEN 500 MG TAB PO PRN (04:49)
[2018-05-18] MEDS ORDERED: ONDANSETRON 4 MG/2 ML VIAL IV PRN (04:49)
[2018-05-18 05:09] LABS: Blood Morphology Comment NOTED (NOT SEEN); Hypochromasia 2+; Platelet Estimate ADEQ
[2018-05-18 05:58] VITALS: BMI 31.8
[2018-05-18] MEDS: NA CHLORIDE 0.9% 1,000 ML IV SCH ×2 (06:29→18:20)
[2018-05-18] MEDS: MORPHINE 2 MG/ML SYR IV PRN ×2 (06:29→20:29)
[2018-05-18] MEDS ORDERED: NA CHLORIDE 0.9% 250 ML IV SCH (07:00)
--- NOTE | 2018-05-18 08:38 | P.HP ---
Certification for Inpatient Patient admitted to: Observation With expected LOS: <2 Midnights Patient will require the following post-hospital care: None Practitioner: I am a practitioner with admitting privileges, knowledge of patient current condition, hospital course, and medical plan of care. Services: Services provided to patient in accordance with Admission requirements found in Title 42 Section 412.3 of the Code of Federal Regulations Patient History Date of Service: 05/18/18 Reason for admission: Menorrhagia; acute blood loss anemia History of Present Illness: Patient is a 47-year-old female who came to the hospital with complaints of persistent bleeding. She has had bleeding for the last 3 months. She said it has always been a daily basis. She has got a Depakote shot in January, February, March with no decrease in her bleeding. She says she has something done at [facility] which she feels was a uterine biopsy. She was told was normal. However, she has needed a blood transfusion monthly since last January. This is the 4th time of over the last 4 months that she has needed to be admitted for blood transfusion. She does not have health insurance that she feels this is the reason she does not get her care. We will go ahead and admit her to the hospital and get OB consultation as well. Monitor H&H closely. Allergies nabumetone [From Relafen] Allergy (Verified 05/18/18 05:59) Nausea/Vomiting tramadol HCl [From Ultram] Allergy (Verified 05/18/18 05:59) Nausea/Vomiting Home Medications: Amlodipine [Norvasc*] 10 mg PO DAILY 05/18/18 Lisinopril [Prinivil*] 10 mg PO DAILY 05/18/18 - Past Medical/Surgical History Has patient received pneumonia vaccine in the past: No Diabetic: No -: HTN -: Fibroids -: Anemia -: She states she has a h/o 2 vaginal births -: 3 ectopic pregnancies - 2 treated surgically -: Tubal times 3 -: Rotator cuff repair -: Benigh breast lump to the right removed. 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 ) Sister Notes: Thyroid problem - Social History Smoking Status: Current every day smoker Alcohol use: Yes CD- Drugs: No Caffeine use: No Place of Residence: Home Review of Systems 10-point ROS is otherwise unremarkable Physical Examination - Vital Signs Temperature: 97.8 F Blood Pressure: 129/82 Pulse: 93 Respirations: 18 Pulse Ox (%): 100 - Physical Exam General: Alert, In no apparent distress, Oriented x3 HEENT: Atraumatic, PERRLA, Mucous membr. moist/pink, EOMI, Sclerae nonicteric Neck: Supple, 2+ carotid pulse no bruit, No LAD, Without JVD or thyroid abnormality Respiratory: Clear to auscultation bilaterally, Normal air movement Cardiovascular: Regular rate/rhythm, Normal S1 S2, No murmurs Gastrointestinal: Normal bowel sounds, Soft and benign, Non-distended, No tenderness Musculoskeletal: No clubbing, No swelling, No tenderness Integumentary: No rashes Neurological: Normal gait, Normal speech, Normal strength at 5/5 x4 extr, Normal tone, Sensation intact, Cranial nerves 3-12 intact, Normal affect Lymphatics: No axilla or inguinal lymphadenopathy - Studies Laboratory Data (last 24 hrs) 05/18/18 03:15: Sodium 139, Potassium 3.5, BUN 11, Creatinine 0.94, Glucose 118 H 05/18/18 03:15: WBC 7.7, Hgb 5.8 L*, Hct 18.4 L*, Plt Count 504 H Assessment & Plan - Problems (Diagnosis) (1) Menorrhagia Current Visit: Yes Status: Acute (2) Breakthrough bleeding on Depo-Provera Current Visit: Yes Status: Acute (3) Uterine fibroid Current Visit: Yes Status: Acute (4) Acute blood loss anemia Current Visit: No Status: Acute - Plan Plan: 1. Transfuse 2 units of packed red blood cells 2. patient may need nutritional supplementation as well; will check iron levels 3. supervisory examiner consultation 4. pain control 5. GI DVT prophylaxis Discharge Plan: Home Plan to discharge in: 48 Hours - Advance Directives Does patient have a Living Will: No Does patient have a Durable POA for Healthcare: No - Code Status/Comfort Care Code Status Assessed: Yes Code Status: Full Code Critical Care: No Time Spent Managing PTS Care (In Minutes): 45
[2018-05-18] MEDS ORDERED: NA CHLORIDE 0.9% 250 ML ONE (10:12)
[2018-05-18] MEDS ORDERED: KETOROLAC 30 MG/ML INJ IV ONE (10:26)
--- NOTE | 2018-05-18 15:09 | P.CNS ---
Date of Consult: 05/18/18 Patient is a 47 y/o who reports to the ED with c/o vaginal bleeding. Patient states LMP was Saturday. Patient states that when it began it was very heavy and she was changing a pad every hour. She states that as the day went on she began to feel weak and short of breath and also had palpitations. She has been seeing a doctor at [facility]. She states that they gave her depo provera last month and she also had a blood transfusion at that time. Patient has received multiple blood transfusions this year. She states she has been losing a lot of work time due to this menorrhagia. She was supposed to follow up with me in the office for IUD placement but due to lack of insurance she was unable to do so. Patient states she would like to have something more permanent done. Allergies nabumetone & tramadol - Past Medical/Surgical History Diabetic: No -: HTN -: Fibroids -: Anemia -: She states she has a h/o 2 vaginal births -: 3 ectopic pregnancies - 2 treated surgically -: Tubal times 3 -: Rotator cuff repair -: Benigh breast lump to the right removed. 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 ) Sister Notes: Thyroid problem - Social History Smoking Status: Current every day smoker Review of Systems 10-point ROS is otherwise unremarkable Physical Examination Selected Entries 05/18/18 05/18/18 12:00 16:00 Temperature 98.2 F Pulse Rate 88 Respiratory 18 Rate Blood Pressure 152/86 H Oxygen Delivery Room Air Method Pain Level 0 O2 Sat by Pulse 98 Oximetry Laboratory Tests 05/18/18 05/18/18 03:15 03:15 WBC 7.7 Hgb 5.8 L* Hct 18.4 L* Plt Count 504 H Sodium 139 Potassium 3.5 Chloride 109 H Carbon Dioxide 22 BUN 11 Creatinine 0.94 Estimated GFR 78 L Glucose 118 H Calcium 8.3 L Ferritin 4.2 L - General General: Alert, Oriented x3 HEENT: Atraumatic Neck: Supple Breasts: Normal configuration Neurological: Normal speech - Female Pelvic External genitalia: Normal Vagina: Normal, [place], Moist Cervix: Normal, Non-tender Uterus: Non-gravid, Non-tender, Firm Adnexa: Non-tender, Non-palpable Laboratory Data (last 24 hrs) Assessment and Plan - Plan Patient is a 47 y/o LMP 05/14/18 with abnormal uterine bleeding and anemia and chronic medical issues. Patient is currently on her second unit of blood. Discussed the option of endometrial ablation with the patient and she states she would like to pursue this option. Patient may need to receive more blood - will discuss with primary team. Recommend also considering other causes of amenia as her bleeding is minimal currently and was during last admission as well. Pending results of transvaginal ultrasound will move forward with ablation tomorrow. Patient should be NPO after midnight. Will inform surgical team.
--- NOTE | 2018-05-18 20:48 | RAD REPORT ---
EXAM DESCRIPTION: US - Transvaginal Study Probe - 05/18/2018 8:07 pm CLINICAL HISTORY: Anemia, hyper menorrhagia COMPARISON: November 2017 TECHNIQUE: Endovaginal sonography was performed. FINDINGS: A subserosal hypoechoic fundal fibroid measures 2.3 cm. In the posterior mid uterus a 4.4 centimeter hypoechoic focus is present believed to be an additional fibroid. Margins are poorly gilberto cated. If a true finding, this would represent a significant enlargement from November 2017. No encroa chment into the endometrial cavity seen. Overall myometrium is heterogeneous. There may be a third fi broid posterior left 2.5 cm in size. Again, margins are poorly demarcated. Endometrial stripe is 14 mm but no discrete mass or polyp identifiable. Endometrium - myometrium inte rface is preserved. Neither ovary was clearly identifiable. No adnexal mass seen. IMPRESSION: Multiple fibroids are present with the largest measuring 4.4 cm. Margins of fibroids are poorly defined and there is overall heterogeneity of the myometrium. If the 4 centimeter fibroid margins are correct, this represents a substantial enlargement from prior imaging . Nonvisualization of the ovaries. No adnexal mass seen. If surgical intervention is contemplated, MRI of the uterus could be performed for further assessment of the fibroids.
[2018-05-18 22:52] LABS: Hematocrit 24.2 % (36.0-45.0)
[2018-05-19] MEDS ORDERED: NA CHLORIDE 0.9% 250 ML ONE (01:00)
[2018-05-19] MEDS: MORPHINE 2 MG/ML SYR IV PRN ×3 (01:07→23:27)
[2018-05-19] MEDS: NA CHLORIDE 0.9% 1,000 ML IV SCH ×3 (01:08→23:26)
[2018-05-19 07:19] LABS: Hematocrit 27.3 % (36.0-45.0); MPV 8.1 fL (7.6-11.3); RBC Red Blood Cell Count 3.49 M/uL (3.86-4.86)
[2018-05-19 07:22] LABS: Protime INR 1.03
[2018-05-19 08:49] LABS: Blood Morphology Comment NOT SEEN (NOT SEEN)
[2018-05-19 09:01] LABS: Platelet Estimate ADEQ
[2018-05-19] MEDS: AMLODIPINE 10 MG TAB PO SCH (09:10)
[2018-05-19] MEDS: LISINOPRIL 10 MG TAB PO SCH (09:10)
[2018-05-19] MEDS ORDERED: MIDAZOLAM HCL 2 MG/2 ML INJ ONE (11:05)
[2018-05-19] MEDS ORDERED: PROPOFOL 200 MG/20 ML VIAL IV ONE (11:05)
[2018-05-19] MEDS ORDERED: FENTANYL CITR 100 MCG/2 ML ONE ×2 (11:05→11:33)
[2018-05-19] MEDS ORDERED: LIDOCAINE 1% MPF 2 ML AMPULE ONE (11:07)
--- NOTE | 2018-05-19 12:02 | P.OP ---
Licensed Nuclear Operator: NONE,NONE Preoperative diagnosis: Abnormal uterine bleeding - heavy; anemia Postoperative diagnosis: same, enlarged endometrium Primary procedure: Hysteroscopy, dilation and curettage Secondary procedure: none Anesthesia: General Estimated blood loss: none Specimen: Endometrial Curettings Findings: Enlarged uterus with a fundal height of 12 cm Operative Technique: Indications: Patient is a 47 y/o LMP 05/14/18 with abnormal uterine bleeding and anemia and chronic medical issues. GROSS FINDINGS: Uterus was anteverted, greatly enlarged, irregular and firm. The cervix is patulous and nulliparous without lesions. Adnexal examination was negative for masses. PROCEDURE: The patient was taken to the operating room where she was properly prepped and draped in sterile manner under general anesthesia. After bimanual examination, the cervix was exposed with a weighted vaginal speculum and the anterior lip of the cervix grasped with a vulsellum tenaculum. The uterus was sounded to a depth of 11 cm. The endocervical canal was then progressively dilated with Hanks and Hegar dilators to a #10 Hegar. The [facility] hysteroscope was then introduced into the uterine cavity using sterile saline solution as a distending media and with attached video camera. The endometrial cavity was distended with fluids and the cavity visualized. Multiple irregular areas were noted throughout the cavity. The [place] were unable to be visualized. A moderate amount of proliferative appearing endometrium was noted. There were no direct intraluminal lesions seen. The patient tolerated the procedure well. The hysteroscope removed from the cavity. A large sharp curet was then used to obtain a moderate amount of tissue, which was the sent to pathologist for analysis. Was unable to perform the ablation due to large size of endometrial cavity and possibility of endometrial cancer. The instrument was removed from the vaginal vault. The patient was sent to recovery area in satisfactory postoperative condition. Results for the pathology will be relayed to the patient. Patient may be discharged as per primary team recommendation and followup in 1- 2 weeks. Complications: None Transferred to: Recovery Room Condition: Good
[2018-05-19] MEDS ORDERED: Ringers Lactate 1,000 ML IV ONE (12:34)
--- NOTE | 2018-05-19 18:44 | P.PN ---
Subjective Date of Service: 05/19/18 Chief Complaint: Menorrhagia; acute blood loss anemia Subjective: Improving Patient seen and examined at bedside. No family at bedside. Chart reviewed and case discussed with nursing staff. Patient is pending an ablation procedure with Dr. Cruz Endorses continued abdominal cramping at this time. Denies any chest pain, shortness of breath, dizziness, lightheadedness, syncopal /presyncopal episode, or complaints. Review of Systems 10-point ROS is otherwise unremarkable Physical Examination - Vital Signs Temperature: 98.9 F Blood Pressure: 116/71 Pulse: 89 Respirations: 20 Pulse Ox (%): 98 - Physical Exam General: Alert, In no apparent distress, Oriented x3 HEENT: Atraumatic, PERRLA, EOMI Neck: Supple, JVD not distended Respiratory: Clear to auscultation bilaterally, Normal air movement Cardiovascular: Regular rate/rhythm, Normal S1 S2 Gastrointestinal: Normal bowel sounds, No tenderness Musculoskeletal: No tenderness Integumentary: No rashes Neurological: Normal speech, Normal tone, Normal affect Lymphatics: No axilla or inguinal lymphadenopathy Assessment And Plan - Plan - Problems (Diagnosis) (1) Menorrhagia Current Visit: Yes Status: Acute (2) Breakthrough bleeding on Depo-Provera Current Visit: Yes Status: Acute (3) Uterine fibroid Current Visit: Yes Status: Acute (4) Acute blood loss anemia Current Visit: No Status: Acute Patient was admitted for the nausea and breakthrough bleeding on depo-Provera. She also has a history of prior fibroid and acute blood loss anemia. She was transfused 3 units of packed red blood cells. Her hemoglobin responded well, was 8.9 recheck. Gynecology was consulted. Patient was to undergo and hysteroscopy, D and C and ablation. Her pain was controlled with pain medications. A Hysteroscopy with dilatation and curettage was performed, although ablation was unable to be done because patient's uterine cavity was enlarged/abnormal along with the possibility of endometrial carcinoma. Biopsies were taken. Patient was then returned to her room. Her symptoms had slightly improved, though she was complaining of increased abdominal cramping status post procedure. She will be observed overnight, a.m. labs. If stable and patient's symptoms improved, she will then be discharged home. She will need outpatient follow up with for results of the biopsy and further management. Disposition: Possible discharge in the next 24 hr. Discharge Plan: Home Plan to discharge in: 24 Hours
[2018-05-20 04:08] VITALS: O2SAT 98
[2018-05-20] MEDS: MORPHINE 2 MG/ML SYR IV PRN ×3 (05:54→14:49)
[2018-05-20 06:17] LABS: Hematocrit 27.3 % (36.0-45.0); MPV 8.4 fL (7.6-11.3); RBC Red Blood Cell Count 3.51 M/uL (3.86-4.86)
[2018-05-20] MEDS: AMLODIPINE 10 MG TAB PO SCH (08:09)
[2018-05-20] MEDS: LISINOPRIL 10 MG TAB PO SCH (08:09)
[2018-05-20 09:04] LABS: Anisocytosis 2+; Blood Morphology Comment NOTED (NOT SEEN); Platelet Estimate ADEQ; Poikilocytosis 2+
[2018-05-20] MEDS: NA CHLORIDE 0.9% 1,000 ML IV SCH (10:15)
[2018-05-20] MEDS ORDERED: MEDROXYPROGEST ACET 150 MG/ML IM ONE (13:00)
[2018-05-20 13:01] VITALS: BP 167/90; TEMP 99.5
--- NOTE | 2018-05-21 05:04 | DS ---
Date of Discharge: 05/20/2018 Consultants: Dr. Cruz with [facility]. Procedures: On 05/19/2018, D and C, hysteroscopy. Findings: Enlarged uterus with fundal height of 12 cm. Pathology specimen does not show any maligna ncy or hyperplasia. Blood fragments in endometrium with an exogenous hormonal pattern. Admitting Diagnoses: 1.Menorrhagia. 2.Rectal bleeding on Depo-Provera. 3.Uterine fibroids. 4.Acute blood loss anemia. 5.Obesity, BMI 31. Discharge Diagnoses: 1.Menorrhagia. 2.Breakthrough bleeding on Depo-Provera. 3.Uterine fibroid. 4.Acute blood loss anemia. Hospital Course: The patient is a 47-year-old female, who was admitted for nausea and recent bleedin g on Depo-Provera. She has a history of fibroids and acute blood loss anemia. The patient required a total of 3 units of PRBCs. Hemoglobin improved. Dr. Cruz with [facility] was consulted and the patie nt had procedure as mentioned above including hysteroscopy, D and C. Ablation was unable to be done due to thickened endometrium. Pathology specimen came back negative for malignancy or hyperplasia. The patient was given Depo-Provera shot prior to discharge. The patient will need to follow up with Dr. Cruz, has missed her appointments previously due to inability to pay. The patient does follow u p with [facility] as well. The patient was then discharged home in a stable condition. Activity: As tolerated. Medications: As per medication reconciliation list. Followup: Follow up with primary care physician in 2-3 days. Follow up with [facility], Dr. Cruz, in 1 week. Return to ER for worsening condition. Diet: Heart healthy. Physical Examination: General: Awake, alert, oriented x3. Obese female, no acute distress. CV: S1, S2. No murmurs. Respiratory: Moving air well bilaterally. Abdomen: Soft, nontender, nondistended. Positive bowel sounds. Extremities: No clubbing, cyanosis, edema. Neuro: Nonfocal. SA/MODL Voice ID: [id number] Report ID: [id number]
== END 2018-05-20 15:06 | disposition home or self-care (01) ==
LOC: ER 02:33 → ERHOLD 05:18 → 2ND 05:46
PROVIDERS: ADMIT Hospitalist; ATTEND Hospitalist
PROC: 0UJD8ZZ Inspection of Uterus and Cervix, Via Natural or Artificial Opening Endoscopic (ICD-10-PCS; 2018-05-19)
PROC: 0UDB7ZX Extraction of Endometrium, Via Natural or Artificial Opening, Diagnostic (ICD-10-PCS; 2018-05-19)
PROC: 30233N1 Transfusion of Nonautologous Red Blood Cells into Peripheral Vein, Percutaneous Approach (ICD-10-PCS; principal; 2018-05-19 11:00)
DX: N92.0 Excessive and frequent menstruation with regular cycle (principal); D25.9 Leiomyoma of uterus, unspecified; D62 Acute posthemorrhagic anemia; I10 Essential (primary) hypertension; F17.210 Nicotine dependence, cigarettes, uncomplicated; N85.2 Hypertrophy of uterus
CPT/HCPCS: 36415; 36430; 76830; 80048; 81025; 82728; 85014; 85018; 85025; 85610; 85730; 86850; 86900; 86901; 88305; 96361; 96374; 96375; 99285; G0378; J1050; J2001; J2175; J2250; J2270; J2405; J2704; J3010; J7030; P9016

== ENCOUNTER 2018-07-01 19:10 | Emergency (ER) | payer SELFPAY ==
[2018-07-01] MEDS ORDERED: FENTANYL CITR 100 MCG/2 ML ONE (20:22)
[2018-07-01] MEDS ORDERED: ONDANSETRON 4 MG/2 ML VIAL ONE (20:23)
[2018-07-01] MEDS ORDERED: ACETAMINOPHEN 500 MG TAB ONE (20:23)
[2018-07-01 20:37] LABS: Protime INR 1.11
--- NOTE | 2018-07-01 20:40 | RAD REPORT ---
EXAM DESCRIPTION: CT - Thoracic Spine W/o Cont - 07/01/2018 8:26 pm CLINICAL HISTORY: Thoracic pain COMPARISON: None. TECHNIQUE: Axial 2 mm thick images of the cervical spine were obtained with sagittal and coronal rec onstruction images generated and reviewed. All CT scans are performed using dose optimization technique as appropriate and may include automated exposure control or mA/KV adjustment according to patient size. FINDINGS: Thoracic bodies are normal in height and normal in alignment. No fracture or acute bony fi nding. No paraspinal mass. Degenerative disc disease is present in multiple levels. There are mild en dplate spurs throughout the thoracic spine. No significant central spinal stenosis identified. Bony f oraminal encroachment is seen at several levels. . Mild disc space narrowing seen at multiple levels. Central canal detail is inherently limited. IMPRESSION: Disc and endplate degenerative changes are present at multiple levels in the thoracic sp ine. Bony foraminal encroachment is seen at multiple levels. Central spinal stenosis is not suspected . No fracture or acute vertebral body finding. Central canal detail is inherently limited regarding disc herniation or cord abnormality.
[2018-07-01 20:41] LABS: Hematocrit 31.5 % (36.0-45.0); MPV 8.3 fL (7.6-11.3); RBC Red Blood Cell Count 4.01 M/uL (3.86-4.86)
[2018-07-01 20:55] LABS: Urine Blood NEGATIVE (NEG); Urine Glucose NEGATIVE (NEG); Urine Protein NEGATIVE (NEG); Urine Specific Gravity 1.015 (1.005-1.030)
[2018-07-01 20:55] LABS: Urine Bacteria <20 /HPF (<20); Urine Culture Reflex Order NOT NEEDED; Urine RBC <5 /HPF (NONE SEEN)
[2018-07-01 20:57] LABS: ALT/SGPT 21 U/L (12-78); AST/SGOT 22 U/L (15-37); Albumin 3.5 g/dL (3.4-5.0); Alkaline Phosphatase 102 U/L (45-117); BUN Blood Urea Nitrogen 9 mg/dL (7-18); Bicarbonate 24 mmol/L (21-32); Bilirubin Direct < 0.1 mg/dL (0-0.2); Bilirubin Total 0.3 mg/dL (0.2-1.0); Glucose Level 75 mg/dL (74-106); Lipase 169 U/L (73-393); Magnesium 2.2 mg/dL (1.8-2.4); NT PRO-BNP 138 pg/mL (<125); Potassium 3.3 mmol/L (3.5-5.1); Protein, Total 9.6 g/dL (6.4-8.2); Sodium Level 138 mmol/L (136-145); Troponin (Emerg Dept Use Only) < 0.02 ng/mL (0.0-0.045)
[2018-07-01] MEDS ORDERED: KETOROLAC 30 MG/ML INJ ONE (21:05)
[2018-07-01] MEDS ORDERED: DIAZEPAM 10 MG/2 ML INJ SYRINGE ONE (21:05)
[2018-07-01 21:47] LABS: Anisocytosis 1+; Blood Morphology Comment NOTED (NOT SEEN); Hypochromasia 1+; Platelet Estimate ADEQ
--- NOTE | 2018-07-01 21:54 | RAD REPORT ---
EXAM DESCRIPTION: RAD - Chest Single View - 07/01/2018 8:54 pm CLINICAL HISTORY: back pain Chest pain. COMPARISON: Chest Single View dated 09/14/2017; Chest Pa And Lat (2 Views) dated 01/18/2016; CHEST SI NGLE VIEW dated 06/20/2012; CHEST SINGLE VIEW dated 01/28/2012 FINDINGS: Portable technique limits examination quality. The lungs are grossly clear. The heart is normal in size. No displaced fractures. IMPRESSION: No acute intrathoracic process suspected.
--- NOTE | 2018-07-01 21:57 | ER ---
Nurse's Notes [facility] Name: Milagros Mcduffie Age: 47 yrs Sex: Female : 1970 Arrival Date: 07/01/2018 Time: 19:16 Bed 26 Private MD: Diagnosis: Acute Thoracic Spine pain;Elevated Blood Pressure;Microcytic Anemia Presentation: 07/01 19:31 Presenting complaint: Patient states: Back pain, spasms that are worse when she takes a aj1 deep breath. Patient reports that the pain started 5 days. Denies injury to back. Denies shortness of breath. Transition of care: patient was not received from another setting of care. Onset of symptoms was June 26, 2018. Risk Assessment: Do you want to hurt yourself or someone else? Patient reports no desire to harm self or others. Initial Sepsis Screen: Does the patient meet any 2 criteria? HR > 90 bpm. No. Patient's initial sepsis screen is negative. Does the patient have a suspected source of infection? No. Patient's initial sepsis screen is negative. Care prior to arrival: None. 19:31 Method Of Arrival: Ambulatory aj 19:31 Acuity: JUAN MANUEL 4 aj1 Triage Assessment: 19:32 General: Appears in no apparent distress. uncomfortable, Behavior is calm, cooperative, aj1 appropriate for age. Pain: Complains of pain in back. Neuro: Level of Consciousness is awake, alert, obeys commands, Oriented to person, place, time, situation. Cardiovascular: Patient's skin is warm and dry. Respiratory: Airway is patent Respiratory effort is even, unlabored, Respiratory pattern is regular, symmetrical, Denies shortness of breath. Musculoskeletal: Range of motion: intact in all extremities. 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 - Social history:: Smoking status: Patient uses tobacco products, smokes one-half pack cigarettes per day. - Ebola Screening: : Patient denies travel to an Ebola-affected area in the 21 days before illness onset. - Family history:: not pertinent. - Hospitalizations: : No recent hospitalization is reported. Screenin:58 Abuse screen: Denies threats or abuse. Denies injuries from another. Nutritional rv screening: No deficits noted. Tuberculosis screening: No symptoms or risk factors identified. Fall Risk None identified. Assessment: 19:56 General: Appears in no apparent distress. uncomfortable, Behavior is calm, cooperative. rv Pain: Complains of pain in back Pain radiates to around the abdomen. Neuro: Level of Consciousness is awake, alert, obeys commands, Oriented to person, place, time, situation. Cardiovascular: Capillary refill < 3 seconds. Respiratory: Airway is patent. GI: No signs and/or symptoms were reported involving the gastrointestinal system. : No signs and/or symptoms were reported regarding the genitourinary system. EENT: No signs and/or symptoms were reported regarding the EENT system. Derm: Skin is intact. Musculoskeletal: Reports pain in back. 20:45 Reassessment: Patient appears in no apparent distress at this time. Patient and/or ca1 family updated on plan of care and expected duration. Pain level reassessed. Patient is alert, oriented x 3, equal unlabored respirations, skin warm/dry/pink. Vital Signs: 19:32 BP 170 / 100; Pulse 105; Resp 20; Temp 99.8(TE); Pulse Ox 98% on R/A; Weight 79.38 kg; aj1 Height 5 ft. 3 in. (160.02 cm) (R); Pain 10/10; 20:45 BP 162 / 110; Pulse 94; Resp 15 S; Temp 99.6(O); Pulse Ox 98% on R/A; ca1 21:00 BP 168 / 111; Pulse 92; Resp 15 S; Temp 99.5(O); Pulse Ox 99% on R/A; ca1 22:27 BP 158 / 105; Pulse 86; Resp 18; Pulse Ox 99% ; rv 19:32 Body Mass Index 31.00 (79.38 kg, 160.02 cm) aj ED Course: 19:16 Patient arrived in ED. es 19:32 Triage completed. aj1 19:32 Arm band placed on Patient placed in an exam room. aj1 19:38 Familia Jones MD is Attending Physician. wa 19:56 Chas Salinas RN is Primary Nurse. rv 19:58 Patient has correct armband on for positive identification. Bed in low position. Call rv light in reach. Pulse ox on. NIBP on. 20:[address] nj 20:05 Inserted saline lock: 20 gauge in right antecubital area, using aseptic technique. rv Blood collected. 20:27 CT Thoracic Spine Wo Cont In Process Unspecified. EDMS 20:55 XRAY Chest (1 view) In Process Unspecified. EDMS 21:56 Dereck Bishop MD is Referral Physician. wa 22:28 No provider procedures requiring assistance completed. IV discontinued, intact, rv bleeding controlled, No redness/swelling at site. Pressure dressing applied. Administered Medications: 20:14 Drug: Tylenol 1000 mg Route: PO; rv 20:58 Follow up: Response: Pain is unchanged, physician notified ca1 20:14 Drug: fentaNYL (PF) 50 mcg Route: IVP; Site: right antecubital; rv 20:59 Follow up: Response: No adverse reaction; Pain is unchanged, physician notified ca1 20:14 Drug: Zofran 4 mg Route: IVP; Site: right antecubital; rv 20:24 Follow up: Response: No adverse reaction rv 20:50 Drug: TORadol 30 mg Route: IVP; Site: right antecubital; ca1 22:27 Follow up: Response: Marked relief of symptoms rv 20:57 Drug: Valium 5 mg Route: IVP; Site: right antecubital; ca1 22:28 Follow up: Response: Marked relief of symptoms rv 21:54 Drug: Potassium Effervescent Tablet 50 mEq Route: PO; aj 22:27 Follow up: Response: No adverse reaction rv Outcome: 21:56 Discharge ordered by . wa 22:28 Discharged to home ambulatory. rv 22:28 Condition: good 22:28 Discharge instructions given to patient, Instructed on discharge instructions, follow up and referral plans. medication usage, Demonstrated understanding of instructions, follow-up care, medications, Prescriptions given X 4. 22:29 Patient left the ED. rv Signatures: Dispatcher [employer] EDMS Maria Ines Mcduffie RN RN aj1 Renetta Miramontes RN RN aj Salyer, Edna es Jordan, Nathan nj Appiah, William, MD MD wa Vicente, Ronaldo RN RN rv AcLilliam abdi, RN RN ca1
--- NOTE | 2018-07-01 21:57 | EDPHYS ---
Physician Documentation [facility] Name: Milagros Mcduffie Age: 47 yrs Sex: Female : 1970 Arrival Date: 07/01/2018 Time: 19:16 Bed 26 Private MD: ED Physician Familia Jones HPI: 07/01 20:00 This 47 yrs old Black Female presents to ER via Ambulatory with complaints of Back wa Pain, Breathing Difficulty. 20:00 The patient presents with pain that is acute, with no known mechanism of injury. The wa symptoms are located in the T6, T7, T8, T9, T10, T11 and T12. Onset: The symptoms/episode began/occurred 5 day(s) ago. The pain does not radiate. Associated signs and symptoms: Pertinent positives: abdominal pain, nausea, Pertinent negatives: constipation, dysuria, vomiting. The problem was sustained from unknown cause. Modifying factors: The patient symptoms are alleviated by nothing, the patient symptoms are aggravated by any movement, bending, movement, standing, walking. Severity of symptoms: At their worst the symptoms were moderate, in the emergency department the symptoms are actually worse, moderately. The patient has not experienced similar symptoms in the past. The patient has not recently seen a physician. as noted above. 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 - Social history:: Smoking status: Patient uses tobacco products, smokes one-half pack cigarettes per day. - Ebola Screening: : Patient denies travel to an Ebola-affected area in the 21 days before illness onset. - Family history:: not pertinent. - Hospitalizations: : No recent hospitalization is reported. ROS: 20:01 Eyes: Negative for injury, pain, redness, and discharge, ENT: Negative for injury, wa pain, and discharge, Neck: Negative for injury, pain, and swelling, Cardiovascular: Negative for chest pain, palpitations, and edema, Respiratory: Negative for shortness of breath, cough, wheezing, and pleuritic chest pain, : Negative for injury, bleeding, discharge, and swelling, MS/Extremity: Negative for injury and deformity, Skin: Negative for injury, rash, and discoloration, Neuro: Negative for headache, weakness, numbness, tingling, and seizure, Psych: Negative for depression, anxiety, suicide ideation, homicidal ideation, and hallucinations. 20:01 Abdomen/GI: Positive for abdominal pain, of the epigastric area, right upper quadrant and left upper quadrant. 20:01 Back: Positive for pain at rest, pain with movement, of the thoracic area and lumbar area. 20:01 All other systems are negative. Exam: 20:09 Head/Face: Normocephalic, atraumatic. Eyes: Pupils equal round and reactive to light, wa extra-ocular motions intact. Lids and lashes normal. Conjunctiva and sclera are non-icteric and not injected. Cornea within normal limits. Periorbital areas with no swelling, redness, or edema. ENT: Nares patent. No nasal discharge, no septal abnormalities noted. Tympanic membranes are normal and external auditory canals are clear. Oropharynx with no redness, swelling, or masses, exudates, or evidence of obstruction, uvula midline. Mucous membranes moist. Neck: Trachea midline, no thyromegaly or masses palpated, and no cervical lymphadenopathy. Supple, full range of motion without nuchal rigidity, or vertebral point tenderness. No Meningismus. Chest/axilla: Normal chest wall appearance and motion. Nontender with no deformity. No lesions are appreciated. Cardiovascular: Regular rate and rhythm with a normal S1 and S2. No gallops, murmurs, or rubs. Normal PMI, no JVD. No pulse deficits. Respiratory: Lungs have equal breath sounds bilaterally, clear to auscultation and percussion. No rales, rhonchi or wheezes noted. No increased work of breathing, no retractions or nasal flaring. Skin: Warm, dry with normal turgor. Normal color with no rashes, no lesions, and no evidence of cellulitis. MS/ Extremity: Pulses equal, no cyanosis. Neurovascular intact. Full, normal range of motion. Neuro: Awake and alert, GCS 15, oriented to person, place, time, and situation. Cranial nerves II-XII grossly intact. Motor strength 5/5 in all extremities. Sensory grossly intact. Cerebellar exam normal. Normal gait. Psych: Awake, alert, with orientation to person, place and time. Behavior, mood, and affect are within normal limits. 20:09 Constitutional: The patient appears alert, noted in discomfort due to pain 20:09 Abdomen/GI: Inspection: abdomen appears normal, Bowel sounds: normal, in all quadrants, Palpation: soft, in all quadrants, mild abdominal tenderness, in the epigastric area, right upper quadrant and left upper quadrant. 20:09 Back: pain, that is severe, of the thoracic area and lumbar area. Vital Signs: 19:32 BP 170 / 100; Pulse 105; Resp 20; Temp 99.8(TE); Pulse Ox 98% on R/A; Weight 79.38 kg; aj1 Height 5 ft. 3 in. (160.02 cm) (R); Pain 10/10; 20:45 BP 162 / 110; Pulse 94; Resp 15 S; Temp 99.6(O); Pulse Ox 98% on R/A; ca1 21:00 BP 168 / 111; Pulse 92; Resp 15 S; Temp 99.5(O); Pulse Ox 99% on R/A; ca1 22:27 BP 158 / 105; Pulse 86; Resp 18; Pulse Ox 99% ; rv 19:32 Body Mass Index 31.00 (79.38 kg, 160.02 cm) aj1 MDM: 19:38 Patient medically screened. wa 20:10 Differential diagnosis: Abdominal Aortic Aneurysm arthritis, Fracture Metastatic wa Disease Myeloma Osteoarthritis ruptured disc, sprain. 21:46 Data reviewed: vital signs, nurses notes, lab test result(s), EKG, radiologic studies. ny Test interpretation: by ED physician or midlevel provider: EKG: HR 90. sinus. nml axis. noted essentially within nml limits. labs significant for low K at 3.3. elevated plt at 495. anemia at 10.1 and 31.5 (microcytic). 21:47 Test interpretation: by ED physician or midlevel provider: CT T-spine: disk and end wa plate DJD multiple levels of T-spine. . Response to treatment: the patient's symptoms have markedly improved after treatment. ED course: pain controlled. will replace K. Will have f/u with neurology for further eval. advised to quit smoking. 21:55 ED course: will d/c with meds for pain. will script for lisinopril as pt out of script. ny advised smoking cessation. 22:01 Response to treatment: pain significantly improved at time of d/c. BP 149/96. ny 22:03 Test interpretation: by ED physician or midlevel provider: CXR: no acute process. ny 07/01 19:57 Order name: Basic Metabolic Panel; Complete Time: 21:43 ny 07/01 19:57 Order name: CBC with Diff; Complete Time: 22:04 07/01 19:57 Order name: LFT's; Complete Time: 21:44 ny 07/01 19:57 Order name: Magnesium; Complete Time: 21:44 ny 07/01 19:57 Order name: NT PRO-BNP; Complete Time: 21:44 ny 07/01 19:57 Order name: PT-INR; Complete Time: 20:45 ny 07/01 19:57 Order name: Troponin (emerg Dept Use Only); Complete Time: 21:44 ny 07/01 19:57 Order name: XRAY Chest (1 view); Complete Time: 22:03 ny 07/01 19:57 Order name: Urine Microscopic Only; Complete Time: 21:44 ny 07/01 20:33 Order name: Lipase; Complete Time: 21:44 [facility] 07/01 20:39 Order name: Urine Dipstick--Ancillary (enter results); Complete Time: 21:44 [facility] 07/01 20:39 Order name: Urine --Ancillary (enter results); Complete Time: 21:43 [facility] 07/01 20:42 Order name: Manual Differential; Complete Time: 21:54 [facility] 07/01 19:57 Order name: EKG; Complete Time: 19:58 ny 07/01 19:57 Order name: Cardiac monitoring; Complete Time: 20:45 ny 07/01 19:57 Order name: EKG - Nurse/Tech; Complete Time: 20:45 ny 07/01 19:57 Order name: IV Saline Lock; Complete Time: 20:27 ny 07/01 19:57 Order name: Labs collected and sent; Complete Time: 20:27 ny 07/01 19:57 Order name: O2 Sat Monitoring; Complete Time: 20:27 ny 07/01 19:57 Order name: Urine Dipstick-Ancillary (obtain specimen); Complete Time: 20: ny 07/01 19:57 Order name: Urine Test (obtain specimen); Complete Time: 20: ny 07/01 19:58 Order name: CT Thoracic Spine Wo Cont; Complete Time: 20:44 wa Administered Medications: 20:14 Drug: Tylenol 1000 mg Route: PO; rv 20:58 Follow up: Response: Pain is unchanged, physician notified ca1 20:14 Drug: fentaNYL (PF) 50 mcg Route: IVP; Site: right antecubital; rv 20:59 Follow up: Response: No adverse reaction; Pain is unchanged, physician notified ca1 20:14 Drug: Zofran 4 mg Route: IVP; Site: right antecubital; rv 20:24 Follow up: Response: No adverse reaction rv 20:50 Drug: TORadol 30 mg Route: IVP; Site: right antecubital; ca1 22:27 Follow up: Response: Marked relief of symptoms rv 20:57 Drug: Valium 5 mg Route: IVP; Site: right antecubital; ca1 22:28 Follow up: Response: Marked relief of symptoms rv 21:54 Drug: Potassium Effervescent Tablet 50 mEq Route: PO; aj 22:27 Follow up: Response: No adverse reaction rv Disposition: 07/01/18 21:56 Discharged to Home. Impression: Acute Thoracic Spine pain, Elevated Blood Pressure, Microcytic Anemia. - Condition is Stable. - Discharge Instructions: Hypertension, [id number], Back Pain, Adult, [id number]. - Prescriptions for amlodipine 10 mg Oral tablet - take 1 tablet by ORAL route once daily; 30 tablet. Lisinopril 10 mg Oral Tablet - take 1 tablet by ORAL route once daily; 30 tablet. Valium 2 mg Oral Tablet - take 1 tablet by ORAL route At bedtime As needed; 5 tablet. Ibuprofen 600 mg Oral Tablet - take 1 tablet by ORAL route every 8 hours As needed take with food; 30 tablet. - Medication Reconciliation Form, Thank You Letter, Antibiotic Education, Prescription Opioid Use, Work release form form. - Follow up: Dereck Bishop MD; When: 2 - 3 days; Reason: Recheck today's complaints. - Problem is new. - Symptoms have improved. - Notes: take the medication as prescribed for you. quit smoking. follow up with the neurologist. you wll need MRI of your back if pain does not improve. take your blood pressure medication as prescribed. follow up with your primary doctor because your blood pressure is still not well-controlled Signatures: Dispatcher [employer] [facility] Maria Ines Mcduffie RN RN aj1 Renetta Miramontes RN RN aj Familia Jones MD MD wa Vicente, Ronaldo, RN RN rv Acob, Lilliam RN KAROL ca1 Corrections: (The following items were deleted from the chart) 20:32 20:00 LIPASE+C.LAB.BRZ ordered. [facility] 22:11 21:56 07/01/2018 21:56 Discharged to Home. Impression: Acute Thoracic Spine pain; wa Elevated Blood Pressure. Condition is Stable. Forms are Medication Reconciliation Form, Thank You Letter, Antibiotic Education, Prescription Opioid Use. Follow up: Dereck Bishop; When: 2 - 3 days; Reason: Recheck today's complaints. Problem is new. Symptoms have improved. ny :29 22:11 07/01/2018 21:56 Discharged to Home. Impression: Acute Thoracic Spine pain; rv Elevated Blood Pressure; Microcytic Anemia. Condition is Stable. Discharge Instructions: Hypertension, [id number], Back Pain, Adult, Ghtr-sg-[id number]. Prescriptions for amlodipine 10 mg Oral tablet - take 1 tablet by ORAL route once daily; 30 tablet, Lisinopril 10 mg Oral Tablet - take 1 tablet by ORAL route once daily; 30 tablet, Valium 2 mg Oral Tablet - take 1 tablet by ORAL route At bedtime As needed; 5 tablet, Ibuprofen 600 mg Oral Tablet - take 1 tablet by ORAL route every 8 hours As needed take with food; 30 tablet. and Forms are Medication Reconciliation Form, Thank You Letter, Antibiotic Education, Prescription Opioid Use. Follow up: Dereck Bishop; When: 2 - 3 days; Reason: Recheck today's complaints. Problem is new. Symptoms have improved. ny
[2018-07-01] MEDS ORDERED: POTASSIUM 25 MEQ EFFERV TAB ONE (22:05)
--- NOTE | 2018-07-02 07:50 | EKG ---
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
[2018-07-02 09:30] VITALS: TEMP 99.5; O2SAT 99
[2018-07-02 09:31] VITALS: BP 158/105
== END 2018-07-01 22:29 | disposition home or self-care (01) ==
LOC: ER 19:10
DX: M54.6 Pain in thoracic spine (principal); R03.0 Elevated blood-pressure reading, without diagnosis of hypertension; D50.9 Iron deficiency anemia, unspecified; F17.210 Nicotine dependence, cigarettes, uncomplicated; Z88.6 Allergy status to analgesic agent; Z88.5 Allergy status to narcotic agent
CPT/HCPCS: 36415; 71045; 72128; 80048; 80076; 81003; 81015; 81025; 83690; 83735; 83880; 84484; 85025; 85610; 93005; 96374; 96375; 99284; J2405; J3010; J3360

== ENCOUNTER 2018-10-22 16:20 | Emergency (ER) | payer SELFPAY ==
[2018-10-22] MEDS ORDERED: NA CHLORIDE 0.9% 1,000 ML ONE (17:16)
[2018-10-22 17:41] LABS: Hematocrit 23.1 % (36.0-45.0); MPV 8.2 fL (7.6-11.3); RBC Red Blood Cell Count 3.27 M/uL (3.86-4.86)
[2018-10-22 17:53] LABS: Potassium 3.7 mmol/L (3.5-5.1)
[2018-10-22 18:17] LABS: Platelet Estimate INCR
[2018-10-22 18:18] LABS: Blood Morphology Comment NOTED (NOT SEEN); Hypochromasia 2+; Platelets, Giant PRESENT
[2018-10-22] MEDS ORDERED: HYDROCODONE/APAP 10/325 TAB ONE (18:28)
--- NOTE | 2018-10-22 18:29 | ER ---
Nurse's Notes [facility] Name: Milagros Mcduffie Age: 48 yrs Sex: Female : 1970 Arrival Date: 10/22/2018 Time: 16:22 Bed 16 Private MD: Diagnosis: Anemia;Abnormal uterine and vaginal bleeding, unspecified;Uterine fibroids Presentation: 10/22 16:49 Presenting complaint: Patient states: i have been bleeding for 4 days, i have been tw2 passing large clots liver beef liver size, like softball sizes, and i have been bleeding and something is going on, i know i have fibroids, but the pain is so bad i cant work. Transition of care: patient was not received from another setting of care. Onset of symptoms was October 22, 2018. Risk Assessment: Do you want to hurt yourself or someone else? Patient reports no desire to harm self or others. Initial Sepsis Screen: Does the patient meet any 2 criteria? No. Patient's initial sepsis screen is negative. Does the patient have a suspected source of infection? No. Patient's initial sepsis screen is negative. Care prior to arrival: None. 16:49 Method Of Arrival: Ambulatory tw2 16:49 Acuity: JUAN MANUEL 3 tw2 Triage Assessment: 16:51 General: Appears uncomfortable, Behavior is cooperative. Pain: Complains of pain in tw2 right lower quadrant and pelvis. : Reports vaginal bleeding that is bright red, with clots, heavy flow. 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 - Social history:: Smoking status: . - Ebola Screening: : Patient denies travel to an Ebola-affected area in the 21 days before illness onset. - Family history:: not pertinent. - Hospitalizations: : No recent hospitalization is reported. Screenin:31 Abuse screen: Denies threats or abuse. Denies injuries from another. Nutritional mg2 screening: No deficits noted. Tuberculosis screening: No symptoms or risk factors identified. Fall Risk IV access (20 points). Assessment: 17:31 Reassessment: patient sent to ultrasound via wheelchair. mg2 18:10 General: Appears in no apparent distress. uncomfortable, Behavior is cooperative. Pain: mg2 Complains of pain in abdomen Pain does not radiate. Neuro: Level of Consciousness is awake, alert, obeys commands, Oriented to person, place, time, situation. Cardiovascular: Capillary refill < 3 seconds Patient's skin is warm and dry. Respiratory: Airway is patent Respiratory effort is even, unlabored, Respiratory pattern is regular, symmetrical. GI: Reports lower abdominal pain. : Urine is see urine dip Reports vaginal bleeding that is moderate flow. EENT: No signs and/or symptoms were reported regarding the EENT system. Derm: Skin is intact, is healthy with good turgor, Skin is pink, warm \\T\\ dry. normal. Musculoskeletal: Circulation, motion, and sensation intact. Capillary refill < 3 seconds. 18:13 Reassessment: dr cast came and spoke to the patient about the plan for blood [facility] transfusion or if patient wants to go to [place]. 18:21 Reassessment: patient refused for blood transfusion here in ED and wants to go to [address] by private car because she said she needs a surgery. provider informed. Vital Signs: 16:51 BP 185 / 127; Pulse 106; Resp 18; Temp 99.2(O); Pulse Ox 100% on R/A; Weight 81.65 kg tw2 (R); Height 5 ft. 3 in. (160.02 cm); Pain 10/10; 17:31 BP 176 / 80; Pulse 89; Resp 18; Pulse Ox 100% on R/A; mg2 18:44 BP 168 / 101; Pulse 79; Resp 18; Pulse Ox 100% on R/A; mg2 16:51 Body Mass Index 31.89 (81.65 kg, 160.02 cm) tw2 ED Course: 16:22 Patient arrived in ED. mr 16:51 Triage completed. tw2 16:51 Arm band placed on. tw2 16:55 Dale Cast MD is Attending Physician. rn 17:09 Gardose, Sushil, RN is Primary Nurse. mg2 17:19 Initial lab(s) drawn, by me, sent to lab. Inserted saline lock: 20 gauge in left 3 antecubital area, using aseptic technique. Blood collected. 17:31 Patient has correct armband on for positive identification. Pulse ox on. NIBP on. Door mg2 closed. Warm blanket given. 18:12 No provider procedures requiring assistance completed. mg2 18:14 Transvaginal Study Probe In Process Unspecified. EDMS 18:54 IV discontinued, intact, bleeding controlled, No redness/swelling at site. Pressure mg2 dressing applied. Administered Medications: 17:30 Drug: NS 0.9% 1000 ml Route: IV; Rate: 1000 ml; Site: left antecubital; mg2 18:54 Follow up: Response: No adverse reaction; IV Status: Completed infusion; IV Intake: mg2 1000ml 18:29 Drug: [place] 10 mg-325 mg 1 tabs Route: PO; mg2 18:54 Follow up: Response: No adverse reaction mg2 Intake: 18:54 IV: 1000ml; Total: 1000ml. mg2 Outcome: 18:29 Discharge ordered by . rn 18:54 Discharged to home ambulatory, with family. mg2 18:54 Condition: stable 18:54 Discharge instructions given to patient, family, Instructed on discharge instructions, follow up and referral plans. Demonstrated understanding of instructions, follow-up care. 18:55 Patient left the ED. mg2 Signatures: Dispatcher [employer] [facility] MannieMelonie Roman, MD MD rn Wise, Tara, RN RN [facility] Sushil Gilbert RN RN mg2 Corrections: (The following items were deleted from the chart) 18:43 18:21 Reassessment: patient wants to go to [facility] by private car. provider mg2 informed. mg2
--- NOTE | 2018-10-22 18:30 | EDPHYS ---
Physician Documentation [facility] Name: Milagros Mcduffie Age: 48 yrs Sex: Female : 1970 Arrival Date: 10/22/2018 Time: 16:22 Bed 16 Private MD: ED Physician Dale Cast HPI: 10/22 17:16 This 48 yrs old Black Female presents to ER via Ambulatory with complaints of Vaginal rn Bleeding. 17:16 The patient presents with vaginal bleeding that is. Onset: The symptoms/episode rn began/occurred 4 day(s) ago. Modifying factors: The symptoms are alleviated by nothing, the symptoms are aggravated by nothing. Associated signs and symptoms: Pertinent positives: vaginal bleeding. Severity of symptoms: At their worst the symptoms were moderate, in the emergency department the symptoms are unchanged. The patient has experienced similar episodes in the past. The patient has not recently seen a physician. Reports has known multifibroid uterus, has had vaginal bleeding for almost a year, with multiple blood transfusions, has seen Dr. Hernandez in past and told might need hysterectomy, Has had D\\T\\C, but no ablation. Reports blood clots and lightheaded, no chest pain/sob. Has had tubes tied. Last blood transfusion back in june or July this year. . 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 - Social history:: Smoking status: . - Ebola Screening: : Patient denies travel to an Ebola-affected area in the 21 days before illness onset. - Family history:: not pertinent. - Hospitalizations: : No recent hospitalization is reported. ROS: 17:16 Constitutional: Negative for fever, chills, and weight loss, Eyes: Negative for injury, rn pain, redness, and discharge, Neck: Negative for injury, pain, and swelling, Cardiovascular: Negative for chest pain, palpitations, and edema, Respiratory: Negative for shortness of breath, cough, wheezing, and pleuritic chest pain, Abdomen/GI: + lower abd cramping Back: Negative for injury and pain, : + vaginal bleeding MS/Extremity: Negative for injury and deformity, Skin: Negative for injury, rash, and discoloration, Neuro: Negative for headache, weakness, numbness, tingling, and seizure. Exam: 17:16 Constitutional: This is a well developed, well nourished patient who is awake, alert, rn and in no acute distress. Head/Face: Normocephalic, atraumatic. Eyes: Pupils equal round and reactive to light, extra-ocular motions intact. Lids and lashes normal. Conjunctiva and sclera are non-icteric and not injected. Cornea within normal limits. Periorbital areas with no swelling, redness, or edema. ENT: MMM Cardiovascular: tachycardic, regular, no murmur Respiratory: No increased work of breathing, no retractions or nasal flaring. Abdomen/GI: soft, non-tender MS/ Extremity: Pulses equal, no cyanosis. Neurovascular intact. Full, normal range of motion. Equal circumference. Neuro: Awake and alert, GCS 15, oriented to person, place, time, and situation. Cranial nerves II-XII grossly intact. Motor strength 5/5 in all extremities. Sensory grossly intact. Cerebellar exam normal. Vital Signs: 16:51 BP 185 / 127; Pulse 106; Resp 18; Temp 99.2(O); Pulse Ox 100% on R/A; Weight 81.65 kg tw2 (R); Height 5 ft. 3 in. (160.02 cm); Pain 10/10; 17:31 BP 176 / 80; Pulse 89; Resp 18; Pulse Ox 100% on R/A; mg2 18:44 BP 168 / 101; Pulse 79; Resp 18; Pulse Ox 100% on R/A; mg2 16:51 Body Mass Index 31.89 (81.65 kg, 160.02 cm) tw2 MDM: 16:55 Patient medically screened. rn 18:25 Differential diagnosis: dysmenorrhea, menometrorrhagia, menorrhea. Data reviewed: vital rn signs, nurses notes, lab test result(s), radiologic studies, and as a result, I will discharge patient. Counseling: I had a detailed discussion with the patient and/or guardian regarding: the historical points, exam findings, and any diagnostic results supporting the discharge/admit diagnosis, lab results, radiology results, the need for outpatient follow up, to return to the emergency department if symptoms worsen or persist or if there are any questions or concerns that arise at home. ED course: Consulted with Dr. Cruz, recommends transfusion of 1 unit PRBC and f/u as outpt. Spoke with patient about this, states that she has been told in past that [facility] will be the ones that perform hysterectomy and requests that blood not be given today, she plans on leaving and getting a ride to [place] for second opinion. She is worried that a blood transfusion will mess up her chances of getting hysterectomy. Risks of leaving and doing so explained and understood. Family member in room agrees. They discussed with another family member, and their final decision was to leave. Patient discharged. . 10/22 17:04 Order name: CBC with Diff; Complete Time: 18:25 10/22 17:04 Order name: Basic Metabolic Panel; Complete Time: 18:25 10/22 17:04 Order name: Protime (+inr); Complete Time: 18:25 10/22 17:04 Order name: Ptt, Activated; Complete Time: 18:25 10/22 17:04 Order name: Type And Screen 10/22 17:51 Order name: Manual Differential; Complete Time: 18:25 EDKY 10/22 17:04 Order name: IV Start; Complete Time: 17:26 10/22 18:14 Order name: Transvaginal Study Probe; Complete Time: 18:51 EDKY 10/22 18:18 Order name: Urine Dipstick--Ancillary (enter results); Complete Time: 18:51 em1 10/22 18:18 Order name: Urine --Ancillary (enter results); Complete Time: 18:51 em 10/22 17:04 Order name: Urine Test (obtain specimen); Complete Time: 18:09 rn Administered Medications: 17:30 Drug: NS 0.9% 1000 ml Route: IV; Rate: 1000 ml; Site: left antecubital; mg2 18:54 Follow up: Response: No adverse reaction; IV Status: Completed infusion; IV Intake: mg2 1000ml 18:29 Drug: [place] 10 mg-325 mg 1 tabs Route: PO; mg2 18:54 Follow up: Response: No adverse reaction mg2 Disposition: 10/22/18 18:29 Discharged to Home. Impression: Anemia, Abnormal uterine and vaginal bleeding, unspecified, Uterine fibroids. - Condition is Stable. - Discharge Instructions: Abnormal Uterine Bleeding. - Medication Reconciliation Form, Thank You Letter, Antibiotic Education, Prescription Opioid Use form. - Follow up: Private Physician; When: As needed; Reason: Recheck today's complaints, Re-evaluation by your physician. - Problem is an ongoing problem. - Symptoms have improved. Signatures: Dispatcher [employer] [facility] Dale Cast MD MD rn Gerardo, Lia RN RN tw2 Sushil Gilbert RN RN mg2 Corrections: (The following items were deleted from the chart) 18:14 17:05 Pelvis Complete+US.RAD.BRZ ordered. [facility] 18:29 18:29 10/22/2018 18:29 Discharged to Home. Impression: Anemia; Abnormal uterine and rn vaginal bleeding, unspecified. Condition is Stable. Forms are Medication Reconciliation Form, Thank You Letter, Antibiotic Education, Prescription Opioid Use. Follow up: Private Physician; When: As needed; Reason: Recheck today's complaints, Re-evaluation by your physician. Problem is an ongoing problem. Symptoms have improved. rn 18:55 18:29 10/22/2018 18:29 Discharged to Home. Impression: Anemia; Abnormal uterine and mg2 vaginal bleeding, unspecified; Uterine fibroids. Condition is Stable. Forms are Medication Reconciliation Form, Thank You Letter, Antibiotic Education, Prescription Opioid Use. Follow up: Private Physician; When: As needed; Reason: Recheck today's complaints, Re-evaluation by your physician. Problem is an ongoing problem. Symptoms have improved. rn
--- NOTE | 2018-10-22 18:34 | RAD REPORT ---
EXAM DESCRIPTION: US - Transvaginal Study Probe - 10/22/2018 6:13 pm CLINICAL HISTORY: vaginal bleeding, eval for fibroids Pelvic pain. COMPARISON: <Comparisons> FINDINGS: Uterus is enlarged with numerous fibroids. The largest noted in the fundal region measurin g 4 cm, intramural. The uterus measures 12.4 x 7.8 x 6.7 cm. A prominent submucosal fibroid is seen projecting into the fundal endometrium and resulting in thicke zion of the endometrial stripe to 2.7 cm. Both ovaries are normal in size, shape and echotexture. The right ovary measures 2.9 x 1.9 cm. The left ovary measures 1.5 x 1.4 cm. No ovarian or parovarian lesions. No adnexal masses. Normal Doppler blood flow was demonstrated to both ovaries. No significant pelvic ascites. IMPRESSION: Significant leiomyomatous uterus is noted.Prominent submucosal fibroid in the fundal reg ion is seen extending into the endometrium and thickening the endometrial stripe to 2.7 cm. Followup direct visualization with hysteroscopy may be considered.
[2018-10-22 18:47] LABS: Urine Blood 2+ (NEG); Urine Glucose NEGATIVE (NEG); Urine Protein NEGATIVE (NEG)
[2018-10-22 19:32] VITALS: O2SAT 100
[2018-10-22 19:33] VITALS: TEMP 99.2
[2018-10-22 19:35] VITALS: BP 168/101
== END 2018-10-22 18:55 | disposition home or self-care (01) ==
LOC: ER 16:20
DX: D64.9 Anemia, unspecified (principal); D25.9 Leiomyoma of uterus, unspecified; I10 Essential (primary) hypertension; Z88.6 Allergy status to analgesic agent; Z88.8 Allergy status to other drugs, medicaments and biological substances
CPT/HCPCS: 36415; 76830; 80048; 81003; 81025; 85025; 85610; 85730; 86850; 86900; 86901; 96360; 99284; J7030

== ENCOUNTER 2018-10-24 03:14 | Emergency (ER) | payer SELFPAY ==
[2018-10-24] MEDS ORDERED: cloNIDine HCl 0.1 MG TAB ONE (03:31)
[2018-10-24] MEDS ORDERED: ONDANSETRON 4 MG/2 ML VIAL ONE (03:31)
[2018-10-24] MEDS ORDERED: MORPHINE 2 MG/ML SYR ONE (03:31)
[2018-10-24 03:47] LABS: Protime INR 0.98
[2018-10-24 03:48] LABS: Hematocrit 21.1 % (36.0-45.0); MPV 8.2 fL (7.6-11.3); RBC Red Blood Cell Count 2.99 M/uL (3.86-4.86)
[2018-10-24 03:56] LABS: Potassium 3.4 mmol/L (3.5-5.1)
[2018-10-24 05:10] LABS: Blood Morphology Comment NOTED (NOT SEEN); Hypochromasia 2+; Platelet Estimate ADEQ; Target Cells 2+
[2018-10-24] MEDS ORDERED: NA CHLORIDE 0.9% 250 ML ONE ×2 (05:52→09:55)
--- NOTE | 2018-10-24 05:56 | ER ---
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 pt c/o high blood ak1 pressure, pt took her medications at 1900. pt c/o heavy vaginal bleeding with her period. Transition of care: patient was not received from another setting of care. Onset of symptoms is unknown. Risk Assessment: Do you want to hurt yourself or someone else? Patient reports no desire to harm self or others. Initial Sepsis Screen: Does the patient meet any 2 criteria? No. Patient's initial sepsis screen is negative. Does the patient have a suspected source of infection? No. Patient's initial sepsis screen is negative. Care prior to arrival: IV initiated. 20 GA, in the right forearm. 03:18 Method Of Arrival: EMS: [facility] ak1 03:18 Acuity: JUAN MANUEL 3 ak1 Triage Assessment: 03:18 General: Appears in no apparent distress. Behavior is calm, cooperative. 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 - Social history:: Smoking status: unknown. - Ebola Screening: : No symptoms or risks identified at this time. Screenin:41 Abuse screen: Denies threats or abuse. Denies injuries from another. Nutritional rr5 screening: No deficits noted. Tuberculosis screening: No symptoms or risk factors identified. Fall Risk IV access (20 points). Total Fregoso Fall Scale indicates No Risk (0-24 pts). Assessment: 03:20 General: Appears in no apparent distress. uncomfortable, Behavior is calm, cooperative, rr5 appropriate for age, Reports feels weak. 03:20 Pain: Complains of pain in head Pain does not radiate. Pain currently is 10 out of 10 rr5 on a pain scale. Quality of pain is described as aching, Pain began gradually, Is continuous. Neuro: Level of Consciousness is awake, alert, obeys commands, Oriented to person, place, time, situation, Appropriate for age Parachute Panel Joiner are equal bilaterally Moves all extremities. Full function Speech is normal, Facial symmetry appears normal, Reports headache. Cardiovascular: Capillary refill < 3 seconds Patient's skin is warm and dry. Respiratory: Airway is patent Respiratory effort is even, unlabored, Respiratory pattern is regular, symmetrical. GI: Reports nausea. : Reports vaginal bleeding that is with clots. EENT: No signs and/or symptoms were reported regarding the EENT system. Derm: Skin is intact, Skin temperature is warm. Musculoskeletal: Circulation, motion, and sensation intact. Capillary refill < 3 seconds. 03:20 Pain: Complains of pain in right lower quadrant Pain does not radiate. Pain currently rr5 is 10 out of 10 on a pain scale. Quality of pain is described as aching, Pain began gradually, Is continuous. GI: Reports lower abdominal pain. 04:28 Reassessment: Patient appears in no apparent distress at this time. Patient is alert, rr5 oriented x 3, equal unlabored respirations, skin warm/dry/pink. awaiting for CT result. pain score 9/10 Patient states symptoms have improved. 05:20 Reassessment: Patient appears in no apparent distress at this time. Patient is alert, rr5 oriented x 3, equal unlabored respirations, skin warm/dry/pink. ED provider spoke to patient for the plan of care. patient has a concern for the transfer to other facility. she does not want to sign for now the blood transfusion consent. she wants to wait for the decision if she going to be transfer. 05:50 Reassessment: patient is for transfer to other facility. she agreed for the blood rr5 transfusion. patient signed the consent. 06:30 Reassessment: complaining of right lower quadrant pain pain score 9/10. ED provider rr5 informed with order made and carried out.follow up to blood bank for the blood product. 06:40 Reassessment: blood request sent to blood bank called to [facility] Dale spoke to yuridia [email or web address] she said they will call us back. the nurse right now is with the other patient. 07:00 Reassessment: RECD REPORT FROM KAYLENE ROBERSON. 48YO BF P/W VAGINAL BLEEDING, HTN, AND KAN. bp PT FOUND TO BE ANEMIC, TRANSFUSION STARTED ON PREVIOUS SHIFT. TRANSFUSION INFORMATION CHECKED ON SHIFT CHANGE. TRANSFER IN PROCESS FOR [facility]. 07:10 Reassessment: spoke to [facility] meliton. he said to call them back they are taking report. rr5 08:30 Reassessment: REPORT CALLED TO RADHA ROBERSON AT [facility] FOR [address], TRANSPORT PENDING. bp 09:35 Reassessment: 1ST UNIT COMPLETED, TRANSPORT PENDING FOR TRANSFER. bp 09:40 Reassessment: SECOND UNIT PRBC REQUESTED. bp 10:00 Reassessment: 2ND PRBC STARTED, SEE TRANSFUSION FLOWSHEET. bp 10:29 Reassessment: [facility] AT B/S FOR TRANSPORT. bp Vital Signs: 03:16 BP 183 / 114; Pulse 86; Resp 18; Temp 98.3; Pulse Ox 100% on R/A; Weight 81.65 kg (R); ak1 Height 5 ft. 3 in. (160.02 cm) (R); Pain 10/10; 03:35 BP 198 / 114; Pulse 85; Resp 17; Pulse Ox 99% ; rr5 04:28 BP 164 / 85; Pulse 80; Resp 17; Pulse Ox 98% ; Pain 9/10; rr5 05:28 BP 157 / 95; Pulse 77; Resp 17; Pulse Ox 100% ; rr5 06:30 BP 134 / 90; Pulse 82; Resp 17; Temp 98.3; Pulse Ox 100% ; Pain 9/10; rr5 06:40 BP 142 / 75; Pulse 74; Resp 17; Temp 98.1; Pulse Ox 100% ; Pain 9/10; rr5 06:50 rr5 07:00 BP 150 / 96; Pulse 70; Resp 16; Temp 98.3; Pulse Ox 99% ; bp 08:20 BP 129 / 86; Pulse 68; Resp 17; Temp 98.3; Pulse Ox 98% ; bp 09:20 BP 159 / 80; Pulse 72; Resp 16; Temp 98.3; Pulse Ox 100% ; bp 10:30 BP 159 / 94; Pulse 73; Resp 17; Temp 97.5; Pulse Ox 99% ; bp 03:16 Body Mass Index 31.89 (81.65 kg, 160.02 cm) ak1 06:50 succeeding V/s please see the blood trasnfusion form. rr5 ED Course: 03:15 Maintain EMS IV. Dressing intact. Good blood return noted. Site clean \T\ dry. Gauge \T\ rr 5 site: G20 right AC. 03:16 Patient arrived in ED. ak1 03:16 Nakul Loera MD is Attending Physician. kdr 03:16 Arm band placed on Patient placed in an exam room, on a stretcher, on pulse oximetry, ak1 Patient notified of wait time. 03:16 Patient has correct armband on for positive identification. Bed in low position. Call rr5 light in reach. Side rails up X2. Pulse ox on. NIBP on. 03:19 Kaylene Gordon RN is Primary Nurse. rr5 03:19 Triage completed. ak1 04:01 CT completed. Patient tolerated procedure well. Patient moved to CT via stretcher. eh Patient moved back from CT. 04:27 Notified ED physician of a critical lab result(s). 6.7 Hgb. ak1 05:23 CT Head Brain wo Cont In Process Unspecified. EDMS 10:30 No provider procedures requiring assistance completed. Patient transferred, IV remains bp in place. Administered Medications: 03:35 Drug: Zofran 4 mg Route: IVP; Site: right forearm; rr5 04:40 Follow up: Response: No adverse reaction rr5 03:37 Drug: morphine 2 mg {Note: rass 0.} Route: IVP; Site: right forearm; rr5 04:40 Follow up: Response: No adverse reaction; RASS: Alert and Calm (0) rr5 03:41 Drug: cloNIDine 0.1 mg {Note: bp 198/114.} Route: PO; rr5 04:40 Follow up: Response: No adverse reaction; Blood pressure is lowered rr5 06:40 Drug: morphine 4 mg {Note: rass 0.} Route: IVP; Site: right forearm; rr5 10:31 Follow up: Response: Pain is decreased bp Intake: 04:58 voided rr5 Output: 04:58 Other: 1; Total: 0ml. rr5 04:58 voided rr5 Outcome: 05:53 ER care complete, transfer ordered by . kdr 10:31 Transferred by ground EMS to [facility]. bp 10:31 Condition: stable 10:31 Instructed on the need for transfer. 10:47 Patient left the ED. bp Signatures: Dispatcher [employer] EDMS Nakul Loera MD MD kdr Hagler, Ervin Gayatri Peterson RN RN ak1 Alexandre Mosley RN RN bp Kaylene Gordon, KARLO RN rr5 Corrections: (The following items were deleted from the chart) 09:22 07:00 Reassessment: RECD REPORT FROM KAYLENE ROBERSON. 48YO BF P/W VAGINAL BLEEDING, HTN, AND bp KAN. PT FOUND TO BE ANEMIC, TRANSFUSION STARTED ON PREVIOUS SHIFT. TRANSFUSION INFORMATION CHECKED ON SHIFT CHANGE. TRANSFER IN PROCESS FOR [facility] rr5 09:22 08:30 Reassessment: REPORT CALLED TO RADHA ROBERSON AT [facility] FOR [address], TRANSPORT bp PENDING rr5
--- NOTE | 2018-10-24 05:57 | EDPHYS ---
Physician Documentation [facility] Name: Milagros Mcduffie Age: 48 yrs Sex: Female : 1970 Arrival Date: 10/24/2018 Time: 03:16 Bed 6 Private MD: ED Physician Nakul Loera HPI: 10/24 03:27 This 48 yrs old Black Female presents to ER via EMS with complaints of continued kdr vaginal bleeding, KAN and HTN. 03:27 The patient complains of pain to the top of head. The patient describes the headache as kdr constant, The KAN started about three hours ago. It started light and then has become more severe. It has been a number of years since she had a KAN like this. She was seen here yesterday for abdominal pain and vaginal bleeding. States she has a history of significant uterine fibroids and recurrent heavy vaginal bleeding. States she bleed three times last month. Onset: The symptoms/episode began/occurred gradually, 3 hour(s) ago. Associated signs and symptoms: Pertinent positives: nausea, Pertinent negatives: altered mental status, dizziness, fever, neck stiffness, paresthesias, Photophobia rash, sinus congestion, sinus tenderness, vision changes, vision loss, vomiting, weakness. Severity of symptoms: At its worst the pain was moderate, in the emergency department the pain is unchanged. Headache History: The patient has had previous headaches and this one is more severe than previous episodes. The symptoms are alleviated by nothing. the symptoms are aggravated by nothing. Vaginal bleeding is ongoing and recurrent. She seldom has KAN like this, She had taken her BP meds tonight but does not know what a normal BP is for her. The patient has been recently seen at the [facility] Emergency Department, yesterday. 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 - Social history:: Smoking status: unknown. - Ebola Screening: : No symptoms or risks identified at this time. ROS: 03:27 Constitutional: Negative for fever, chills, and weight loss - she has felt generally kdr weak Eyes: Negative for injury, pain, redness, and discharge, ENT: Negative for injury, pain, and discharge, Neck: Negative for injury, pain, and swelling, Cardiovascular: Negative for chest pain, palpitations, and edema, Respiratory: Negative for shortness of breath, cough, wheezing, and pleuritic chest pain, Abdomen/GI: Negative for abdominal pain, nausea, vomiting, diarrhea, and constipation, Back: Negative for injury and pain, MS/Extremity: Negative for injury and deformity, Skin: Negative for injury, rash, and discoloration, Psych: Negative for depression, anxiety, suicide ideation, homicidal ideation, and hallucinations, Allergy/Immunology: Negative for hives, rash, and allergies, Endocrine: Negative for neck swelling, polydipsia, polyuria, polyphagia, and marked weight changes, Hematologic/Lymphatic: Negative for swollen nodes, abnormal bleeding, and unusual bruising. 03:27 : Positive for vaginal bleeding, Negative for urinary symptoms, urinary frequency, hematuria. 03:27 Neuro: Positive for headache, Negative for altered mental status, dizziness, gait disturbance, hearing loss, loss of consciousness, numbness, seizure activity, speech changes, syncope, near syncope, tingling, tinnitus, tremor, visual changes, weakness. Exam: 03:41 Constitutional: This is a well developed, well nourished patient who is awake, alert, kdr and in no acute distress. Head/Face: Normocephalic, atraumatic. Eyes: Pupils equal round and reactive to light, extra-ocular motions intact. Lids and lashes normal. Conjunctiva and sclera are non-icteric and not injected. Cornea within normal limits. Periorbital areas with no swelling, redness, or edema. Neck: Trachea midline, no thyromegaly or masses palpated, and no cervical lymphadenopathy. Supple, full range of motion without nuchal rigidity, or vertebral point tenderness. No Meningismus. Chest/axilla: Normal chest wall appearance and motion. Nontender with no deformity. No lesions are appreciated. Cardiovascular: Regular rate and rhythm with a normal S1 and S2. No gallops, murmurs, or rubs. Normal PMI, no JVD. No pulse deficits. Respiratory: Lungs have equal breath sounds bilaterally, clear to auscultation and percussion. No rales, rhonchi or wheezes noted. No increased work of breathing, no retractions or nasal flaring. Back: No spinal tenderness. No costovertebral tenderness. Full range of motion. Skin: Warm, dry with normal turgor. Normal color with no rashes, no lesions, and no evidence of cellulitis. MS/ Extremity: Pulses equal, no cyanosis. Neurovascular intact. Full, normal range of motion. Neuro: Awake and alert, GCS 15, oriented to person, place, time, and situation. Cranial nerves II-XII grossly intact. Motor strength 5/5 in all extremities. Sensory grossly intact. Cerebellar exam normal. Normal gait. Psych: Awake, alert, with orientation to person, place and time. Behavior, mood, and affect are within normal limits. 03:41 Abdomen/GI: Inspection: obese Bowel sounds: active, all quadrants, Palpation: soft, mild abdominal tenderness, in the right lower quadrant and left lower quadrant. Vital Signs: 03:16 BP 183 / 114; Pulse 86; Resp 18; Temp 98.3; Pulse Ox 100% on R/A; Weight 81.65 kg (R); ak1 Height 5 ft. 3 in. (160.02 cm) (R); Pain 10/10; 03:35 BP 198 / 114; Pulse 85; Resp 17; Pulse Ox 99% ; rr5 04:28 BP 164 / 85; Pulse 80; Resp 17; Pulse Ox 98% ; Pain 9/10; rr5 05:28 BP 157 / 95; Pulse 77; Resp 17; Pulse Ox 100% ; rr5 06:30 BP 134 / 90; Pulse 82; Resp 17; Temp 98.3; Pulse Ox 100% ; Pain 9/10; rr5 06:40 BP 142 / 75; Pulse 74; Resp 17; Temp 98.1; Pulse Ox 100% ; Pain 9/10; rr5 06:50 rr5 07:00 BP 150 / 96; Pulse 70; Resp 16; Temp 98.3; Pulse Ox 99% ; bp 08:20 BP 129 / 86; Pulse 68; Resp 17; Temp 98.3; Pulse Ox 98% ; bp 09:20 BP 159 / 80; Pulse 72; Resp 16; Temp 98.3; Pulse Ox 100% ; bp 10:30 BP 159 / 94; Pulse 73; Resp 17; Temp 97.5; Pulse Ox 99% ; bp 03:16 Body Mass Index 31.89 (81.65 kg, 160.02 cm) ak1 06:50 succeeding V/s please see the blood trasnfusion form. rr5 MDM: 03:41 Data reviewed: vital signs, nurses notes, lab test result(s). Counseling: I had a kdr detailed discussion with the patient and/or guardian regarding: the historical points, exam findings, and any diagnostic results supporting the discharge/admit diagnosis, lab results. 05:53 Patient medically screened. kdr 10/24 03:17 Order name: CBC with Diff kdr 10/24 03:17 Order name: Chem 7 kdr 10/24 03:17 Order name: Type And Screen kdr 10/24 03:17 Order name: PT-INR kdr 10/24 03:56 Order name: Protime (+INR); Complete Time: 03:58 EDMS 10/24 03:57 Order name: Basic Metabolic Panel; Complete Time: 03:58 EDMS 10/24 03:17 Order name: CT Head Brain wo Cont kdr 10/24 04:28 Order name: CBC with Automated Diff EDMS 10/24 05:09 Order name: PRBC kdr 10/24 05:12 Order name: Manual Differential EDMS 10/24 06:46 Order name: Packed RBC Leukored EDMS Administered Medications: 03:35 Drug: Zofran 4 mg Route: IVP; Site: right forearm; rr5 04:40 Follow up: Response: No adverse reaction rr5 03:37 Drug: morphine 2 mg {Note: rass 0.} Route: IVP; Site: right forearm; rr5 04:40 Follow up: Response: No adverse reaction; RASS: Alert and Calm (0) rr5 03:41 Drug: cloNIDine 0.1 mg {Note: bp 198/114.} Route: PO; rr5 04:40 Follow up: Response: No adverse reaction; Blood pressure is lowered rr5 06:40 Drug: morphine 4 mg {Note: rass 0.} Route: IVP; Site: right forearm; rr5 10:31 Follow up: Response: Pain is decreased bp Disposition: 10/24/18 05:53 Transfer ordered to [facility]. Diagnosis is Dysfunctional Uterine Bleeding, Anemia. - Reason for transfer: Higher level of care. - Accepting physician is Dr. Watkins. - Condition is Fair. - Problem is an ongoing problem. - Symptoms have improved. Signatures: Dispatcher [employer] EDMS Nakul Loera MD MD kdr Gayatri Peterson RN RN ak1 Alexandre Mosley RN RN bp Remi Gordon, RN RN rr5 Corrections: (The following items were deleted from the chart) 10:47 05:53 10/24/2018 05:53 Transfer ordered to [facility]. Diagnosis is Dysfunctional bp Uterine Bleeding, Anemia. Reason for transfer: Higher level of care. Accepting physician is Dr. Watkins. Condition is Fair. Problem is an ongoing problem. Symptoms have improved. kdr
[2018-10-24] MEDS ORDERED: MORPHINE 4 MG/ML SYR ONE ×2 (06:39→10:40)
--- NOTE | 2018-10-24 09:26 | RAD REPORT ---
EXAM DESCRIPTION: CT - Head Brain Wo Cont - 10/24/2018 6:42 am COMPARISON: None. TECHNIQUE: CT HEAD WITHOUT IV CONTRAST on 10/24/2018 3:17 AM CDT This exam was performed according to our departmental dose-optimization program, which includes autom ated exposure control, adjustment of the mA and/or kV according to patient size and/or use of iterati ve reconstruction technique. FINDINGS: There is no acute hemorrhage, mass effect or midline shift. Dobbs-white differentiation is preserved. There is no hydrocephalus. There is no significant volume loss for age. The calvarium is intact. Orbits and globes are unremarkable. The paranasal sinuses are clear. Mastoid air cells are clear. IMPRESSION: No acute intracranial findings. Electronically signed by: Julius Marcelo MD 10/24/2018 4:13 AM CDT Due to temporary technical issues with the PACS/Fluency reporting system, reports are being signed by the in house radiologist as a courtesy to ensure prompt reporting. The interpreting radiologist is f ully responsible for the content of the report.
[2018-10-24 11:22] VITALS: BP 159/94; TEMP 97.5; O2SAT 99
== END 2018-10-24 10:47 | disposition short-term general hospital (02) ==
LOC: ER 03:14
DX: N93.8 Other specified abnormal uterine and vaginal bleeding (principal); D50.0 Iron deficiency anemia secondary to blood loss (chronic); I10 Essential (primary) hypertension; Z88.6 Allergy status to analgesic agent
CPT/HCPCS: 36415; 70450; 80048; 85025; 85610; 86850; 86900; 86901; 86922; 96374; 96375; 99285; J2270; J2405; P9016

== ENCOUNTER 2018-10-29 19:05 | Emergency (ER) | payer SELFPAY ==
[2018-10-29] MEDS ORDERED: NA CHLORIDE 0.9% 1,000 ML ONE (20:05)
[2018-10-29] MEDS ORDERED: PROMETHAZINE 25 MG/ML VIAL ONE (20:05)
[2018-10-29] MEDS ORDERED: HYDROMORPHONE HCL 1 MG/ML INJ ONE ×2 (20:24→22:03)
[2018-10-29] MEDS ORDERED: DIPHENHYDRAMINE 50 MG/ML VIAL ONE (20:25)
[2018-10-29 20:32] LABS: Absolute Lymphocytes (CBC) 3.6 K/uL (0.7-4.9); Basophils % 1.6 % (0-1.3); Hematocrit 31.4 % (36.0-45.0); Lymphocytes % 54.1 % (15.3-44.8); MPV 8.1 fL (7.6-11.3)
[2018-10-29 20:38] LABS: ALT/SGPT 21 U/L (12-78); AST/SGOT 29 U/L (15-37); Albumin 3.5 g/dL (3.4-5.0); Alkaline Phosphatase 96 U/L (45-117); BUN Blood Urea Nitrogen 12 mg/dL (7-18); Bicarbonate 25 mmol/L (21-32); Bilirubin Direct < 0.1 mg/dL (0-0.2); Bilirubin Total 0.2 mg/dL (0.2-1.0); Glucose Level 86 mg/dL (74-106); Lipase 285 U/L (73-393); Potassium 3.9 mmol/L (3.5-5.1); Sodium Level 137 mmol/L (136-145)
[2018-10-29 21:10] LABS: Blood Morphology Comment NOTED (NOT SEEN); Hypochromasia 1+; Platelet Estimate ADEQ
--- NOTE | 2018-10-29 21:54 | ER ---
Nurse's Notes [facility] Name: Milagros Mcduffie Age: 48 yrs Sex: Female : 1970 Arrival Date: 10/29/2018 Time: 19:07 Bed 17 Private MD: Diagnosis: Upper abdominal pain, unspecified;Anemia in other chronic diseases classified elsewhere Presentation: 10/29 19:33 Presenting complaint: Patient states: pain to right side of abdomen radiating to back aa5 that began 3 days ago. Pt also reports nausea and denies vomiting. Transition of care: patient was not received from another setting of care. Onset of symptoms was October 2018. Risk Assessment: Do you want to hurt yourself or someone else? Patient reports no desire to harm self or others. Initial Sepsis Screen: Does the patient meet any 2 criteria? No. Patient's initial sepsis screen is negative. Does the patient have a suspected source of infection? No. Patient's initial sepsis screen is negative. Care prior to arrival: None. 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 - Social history:: Smoking status: Patient uses tobacco products, 1 pack a week. - Ebola Screening: : No symptoms or risks identified at this time. Screenin:45 Abuse screen: Denies threats or abuse. Nutritional screening: No deficits noted. jd3 Tuberculosis screening: No symptoms or risk factors identified. Fall Risk Ambulatory Aid- None/Bed Rest/Nurse Assist (0 pts). Gait- Normal/Bed Rest/Wheelchair (0 pts) Mental Status- Oriented to own ability (0 pts). Total Fregoso Fall Scale indicates No Risk (0-24 pts). Assessment: 19:43 General: Appears in no apparent distress. uncomfortable, Behavior is calm, cooperative, jd3 appropriate for age. Pain: Complains of pain in anterior aspect of right lateral abdomen, right upper quadrant and right lower quadrant Quality of pain is described as sharp, stabbing. Neuro: Level of Consciousness is awake, alert, obeys commands, Oriented to person, place, time, situation. Cardiovascular: Denies chest pain, Capillary refill < 3 seconds Patient's skin is warm and dry. Respiratory: Airway is patent Respiratory effort is even, unlabored, Respiratory pattern is regular, symmetrical, Denies cough, shortness of breath. GI: Abdomen is round non-distended, Bowel sounds present X 4 quads. Abd is soft X 4 quads Abdomen is tender to palpation in right upper quadrant and right lower quadrant Reports constipation, nausea, Patient currently denies diarrhea, vomiting. : Denies burning with urination, inability to void. EENT: No signs and/or symptoms were reported regarding the EENT system. Derm: Skin is intact, Skin is dry, Skin is normal, Skin temperature is warm. Musculoskeletal: Circulation, motion, and sensation intact. Range of motion: intact in all extremities. 21:45 Reassessment: Patient appears in no apparent distress at this time. No changes from jd3 previously documented assessment. Patient and/or family updated on plan of care and expected duration. Pain level reassessed. Patient is alert, oriented x 3, equal unlabored respirations, skin warm/dry/pink. reported some relief from pain medication, but pain came back during ultrasound. assisted pt to the restroom. Vital Signs: 19:34 BP 171 / 90; Pulse 90; Resp 18 S; Temp 99.1(O); Pulse Ox 100% on R/A; Weight 81.65 kg aa5 (R); Height 5 ft. 3 in. (160.02 cm) (R); Pain 10/10; 21:00 BP 191 / 105; Pulse 79; Resp 17; Pulse Ox 100% on R/A; jd3 22:26 BP 185 / 102; Pulse 86; Resp 16 S; Pulse Ox 95% on R/A; jd3 19:34 Body Mass Index 31.89 (81.65 kg, 160.02 cm) aa5 ED Course: 19:07 Patient arrived in ED. ag3 19:33 Triage completed. aa5 19:33 Arm band placed on. aa5 19:37 [facility]C [facility]. snw 19:37 Morales Sylvester MD is Attending Physician. snw 19:43 Elfego Escobar RN is Primary Nurse. jd3 19:45 Patient has correct armband on for positive identification. Bed in low position. Call jd3 light in reach. Side rails up X 1. 20:02 Initial lab(s) drawn, by me, sent to lab. Inserted saline lock: 20 gauge in left em1 forearm, using aseptic technique. Blood collected. 21:45 US Abdomen Limited In Process Unspecified. EDMS 22:37 No provider procedures requiring assistance completed. IV discontinued, intact, jd3 bleeding controlled, No redness/swelling at site. Pressure dressing applied. Administered Medications: 20:10 Drug: NS 0.9% 1000 ml Route: IV; Rate: 125 ml/hr; Site: left forearm; jd3 22:35 Follow up: Response: No adverse reaction; Rate change bolus; IV Status: Completed jd3 infusion; IV Intake: 1000ml 20:11 Drug: Phenergan 6.25 mg Route: IVP; Site: left forearm; jd3 21:10 Follow up: Response: No adverse reaction jd3 20:28 Drug: Dilaudid 1 mg {Note: RASS score of 1..} Route: IVP; Site: left forearm; jd3 21:25 Follow up: Response: No adverse reaction; RASS: Alert and Calm (0) jd3 20:28 Drug: Benadryl 12.5 mg Route: IVP; Site: left forearm; jd3 21:25 Follow up: Response: No adverse reaction jd3 22:12 Drug: Dilaudid 1 mg {Note: RASS score of 1..} Route: IVP; Site: left forearm; jd3 22:37 Follow up: Response: No adverse reaction; RASS: Alert and Calm (0) jd3 Intake: 22:35 IV: 1000ml; Total: 1000ml. jd3 Outcome: 21:54 Discharge ordered by . snw 22:37 Discharged to home ambulatory. jd3 22:37 Condition: stable 22:37 Discharge instructions given to patient, Instructed on discharge instructions, follow up and referral plans. medication usage, Demonstrated understanding of instructions, follow-up care, medications, Prescriptions given X 2. 22:39 Patient left the ED. jd3 Signatures: Dispatcher [employer] EDNE Marisol Jeffrey FNP-C FNP-Luis Daniel Claytnoic em1 Teri Taylor, RN RN aa5 Elfego Escobar RN RN jd3 Sherri Sam ag3
--- NOTE | 2018-10-29 21:55 | EDPHYS ---
Physician Documentation [facility] Name: Milagros Mcduffie Age: 48 yrs Sex: Female : 1970 Arrival Date: 10/29/2018 Time: 19:07 Bed 17 Private MD: ED Physician Morales Sylvester HPI: 10/29 20:22 This 48 yrs old Black Female presents to ER via Wheelchair with complaints of Abdominal snw Pain. 20:22 The patient presents with abdominal pain in the right upper quadrant. Onset: The snw symptoms/episode began/occurred suddenly, 3 day(s) ago. The symptoms radiate to right back. Associated signs and symptoms: Pertinent positives: nausea. The symptoms are described as constant. Severity of pain: At its worst the pain was severe in the emergency department the pain is unchanged. The patient has not experienced similar symptoms in the past. The patient has been recently seen by a physician: recent transfer to [facility], blood transfusions secondary to fibroids. 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 - Social history:: Smoking status: Patient uses tobacco products, 1 pack a week. - Ebola Screening: : No symptoms or risks identified at this time. ROS: 20:22 Constitutional: Negative for fever, chills, and weight loss, Eyes: Negative for injury, snw pain, redness, and discharge, ENT: Negative for injury, pain, and discharge, Neck: Negative for injury, pain, and swelling, Cardiovascular: Negative for chest pain, palpitations, and edema, Respiratory: Negative for shortness of breath, cough, wheezing, and pleuritic chest pain, Back: Negative for injury and pain, : Negative for injury, bleeding, discharge, and swelling, MS/Extremity: Negative for injury and deformity, Skin: Negative for injury, rash, and discoloration, Neuro: Negative for headache, weakness, numbness, tingling, and seizure. 20:22 Abdomen/GI: Positive for abdominal pain, nausea. Exam: 20:21 Head/Face: Normocephalic, atraumatic. Eyes: Pupils equal round and reactive to light, snw extra-ocular motions intact. Lids and lashes normal. Conjunctiva and sclera are non-icteric and not injected. Cornea within normal limits. Periorbital areas with no swelling, redness, or edema. ENT: Nares patent. No nasal discharge, no septal abnormalities noted. Tympanic membranes are normal and external auditory canals are clear. Oropharynx with no redness, swelling, or masses, exudates, or evidence of obstruction, uvula midline. Mucous membranes moist. Neck: Trachea midline, no thyromegaly or masses palpated, and no cervical lymphadenopathy. Supple, full range of motion without nuchal rigidity, or vertebral point tenderness. No Meningismus. Chest/axilla: Normal chest wall appearance and motion. Nontender with no deformity. No lesions are appreciated. Cardiovascular: Regular rate and rhythm with a normal S1 and S2. No gallops, murmurs, or rubs. Normal PMI, no JVD. No pulse deficits. 20:21 Back: No spinal tenderness. No costovertebral tenderness. Full range of motion. Skin: Warm, dry with normal turgor. Normal color with no rashes, no lesions, and no evidence of cellulitis. MS/ Extremity: Pulses equal, no cyanosis. Neurovascular intact. Full, normal range of motion. Neuro: Awake and alert, GCS 15, oriented to person, place, time, and situation. Cranial nerves II-XII grossly intact. Motor strength 5/5 in all extremities. Sensory grossly intact. Cerebellar exam normal. Normal gait. 20:21 Constitutional: The patient appears alert, awake, uncomfortable. 20:21 Respiratory: the patient does not display signs of respiratory distress, Respirations: shallow respirations, wheezing. 20:21 Abdomen/GI: Inspection: abdomen appears normal, Bowel sounds: normal, Palpation: moderate abdominal tenderness, in the posterior aspect of right lateral abdomen and right upper quadrant. Vital Signs: 19:34 BP 171 / 90; Pulse 90; Resp 18 S; Temp 99.1(O); Pulse Ox 100% on R/A; Weight 81.65 kg aa5 (R); Height 5 ft. 3 in. (160.02 cm) (R); Pain 10/10; 21:00 BP 191 / 105; Pulse 79; Resp 17; Pulse Ox 100% on R/A; jd3 22:26 BP 185 / 102; Pulse 86; Resp 16 S; Pulse Ox 95% on R/A; jd3 19:34 Body Mass Index 31.89 (81.65 kg, 160.02 cm) aa5 MDM: 19:45 Patient medically screened. casi 21:53 Data reviewed: vital signs, nurses notes. Data interpreted: Pulse oximetry: on room air snw is 100 %. Interpretation: normal. Counseling: I had a detailed discussion with the patient and/or guardian regarding: the historical points, exam findings, and any diagnostic results supporting the discharge/admit diagnosis, the presence of at least one elevated blood pressure reading (>120/80) during this emergency department visit, lab results, radiology results, the need for outpatient follow up, to return to the emergency department if symptoms worsen or persist or if there are any questions or concerns that arise at home. Special discussion: Based on the patient's Hx, exam, and Dx evaluation, there is no indication for emergent surgery or inpatient Tx. It is understood by the patient/guardian that if the Sx's persist or worsen they need to return immediately for re-evaluation. Based on the history and exam findings, there is no indication for further emergent testing or inpatient evaluation. I discussed with the patient/guardian the need to see the oracle database architect for further evaluation of the symptoms. I discussed with the patient/guardian the need to see the primary care provider for further evaluation of the symptoms. 10/29 19:52 Order name: Basic Metabolic Panel; Complete Time: 20:44 snw 10/29 19:52 Order name: CBC with Diff; Complete Time: 21:24 snw 10/29 19:52 Order name: Creatinine for Radiology; Complete Time: 20:44 snw 10/29 19:52 Order name: Hepatic Function; Complete Time: 20:44 snw 10/29 19:52 Order name: Lipase; Complete Time: 20:44 snw 10/29 19:52 Order name: Urine Microscopic Only; Complete Time: 12:54 snw 10/29 20:20 Order name: US Abdomen Limited; Complete Time: 12:54 snw 10/29 21:22 Order name: Manual Differential EDMS 10/29 21:54 Order name: Urine Dipstick--Ancillary (enter results); Complete Time: 22:04 ct 10/29 19:52 Order name: IV Saline Lock; Complete Time: 20:02 [facility] 10/29 19:52 Order name: Labs collected and sent; Complete Time: 20:02 [facility] 10/29 19:52 Order name: Urine Dipstick-Ancillary (obtain specimen); Complete Time: 22:35 snw Administered Medications: 20:10 Drug: NS 0.9% 1000 ml Route: IV; Rate: 125 ml/hr; Site: left forearm; jd3 22:35 Follow up: Response: No adverse reaction; Rate change bolus; IV Status: Completed jd3 infusion; IV Intake: 1000ml 20:11 Drug: Phenergan 6.25 mg Route: IVP; Site: left forearm; jd3 21:10 Follow up: Response: No adverse reaction jd3 20:28 Drug: Dilaudid 1 mg {Note: RASS score of 1..} Route: IVP; Site: left forearm; jd3 21:25 Follow up: Response: No adverse reaction; RASS: Alert and Calm (0) jd3 20:28 Drug: Benadryl 12.5 mg Route: IVP; Site: left forearm; jd3 21:25 Follow up: Response: No adverse reaction jd3 22:12 Drug: Dilaudid 1 mg {Note: RASS score of 1..} Route: IVP; Site: left forearm; jd3 22:37 Follow up: Response: No adverse reaction; RASS: Alert and Calm (0) j Disposition: 10/29/18 21:54 Discharged to Home. Impression: Upper abdominal pain, unspecified, Anemia in other chronic diseases classified elsewhere. - Condition is Stable. - Discharge Instructions: Abdominal Pain, Adult, Biliary Colic, Adult. - Prescriptions for Bentyl 20 mg Oral Tablet - take 1 tablet by ORAL route every 6 hours As needed; 20 tablet. promethazine 25 mg Oral Tablet - take 1 tablet by ORAL route every 6 hours As needed; 20 tablet. - Work release form, Medication Reconciliation Form, Thank You Letter, Antibiotic Education, Prescription Opioid Use form. - Follow up: Private Physician; When: 1 - 2 days; Reason: Recheck today's complaints, Continuance of care, Re-evaluation by your physician. Follow up: Emergency Department; When: As needed; Reason: Worsening of condition. Addendum: 11/03/2018 08:19 Co-signature as Attending Physician, Morales Sylvester MD I agree with the assessment and c lovell plan of care. Signatures: Dispatcher [employer] EDMorales Tapia MD MD cha Therrien, Shelly, COMPUTER ENGINEERING PROFESSOR-C COMPUTER ENGINEERING PROFESSOR-Csnw Teri Taylor, RN RN aa5 Elfego Escobar RN RN jd3 Corrections: (The following items were deleted from the chart) 10/29 22:39 21:54 10/29/2018 21:54 Discharged to Home. Impression: Upper abdominal pain, jd3 unspecified; Anemia in other chronic diseases classified elsewhere. Condition is Stable. Discharge Instructions: Abdominal Pain, Adult, Biliary Colic, Adult. Prescriptions for Bentyl 20 mg Oral Tablet - take 1 tablet by ORAL route every 6 hours As needed; 20 tablet. and Forms are Medication Reconciliation Form, Thank You Letter, Antibiotic Education, Prescription Opioid Use. Follow up: Private Physician; When: 1 - 2 days; Reason: Recheck today's complaints, Continuance of care, Re-evaluation by your physician. Follow up: Emergency Department; When: As needed; Reason: Worsening of condition. snw
[2018-10-29 22:00] LABS: Urine Blood NEGATIVE (NEG); Urine Glucose NEGATIVE (NEG); Urine Protein NEGATIVE (NEG)
[2018-10-29 22:17] LABS: Urine Bacteria 20-50 /HPF (<20); Urine RBC <5 /HPF (NONE SEEN)
[2018-10-29 22:18] LABS: Urine Culture Reflex Order ND
--- NOTE | 2018-10-29 22:55 | RAD REPORT ---
EXAM DESCRIPTION: US - Abdomen Exam Limited - 10/29/2018 9:23 pm CLINICAL HISTORY: ABD PAIN COMPARISON: Abdomen Exam Limited dated 09/14/2017 FINDINGS: The gallbladder demonstrates no gallstones. No pericholecystic fluid or gallbladder wall t hickening. The common bile duct is normal measuring 3 mm. The liver demonstrates no findings of intrahepatic biliary dilatation. IMPRESSION: Unremarkable examination.
[2018-10-29 23:07] VITALS: TEMP 99.1
[2018-10-29 23:10] VITALS: BP 185/102; O2SAT 95
== END 2018-10-29 22:39 | disposition home or self-care (01) ==
LOC: ER 19:05
DX: D25.9 Leiomyoma of uterus, unspecified (principal); D63.8 Anemia in other chronic diseases classified elsewhere; I10 Essential (primary) hypertension; Z72.0 Tobacco use; Z88.5 Allergy status to narcotic agent; Z88.8 Allergy status to other drugs, medicaments and biological substances
CPT/HCPCS: 36415; 76705; 80048; 80076; 81003; 81015; 83690; 85025; 96361; 96374; 96375; 99284; J1170; J2550; J7030

== ENCOUNTER 2019-04-16 08:13 | Inpatient (IN) | payer SELFPAY ==
--- OUTSIDE RECORDS SUMMARY | 2019-04-16 08:18 | XMS REPORT | Summary of Care ---
:1970 [address] [facility] - Health Address [address] [place] [id number] Care Team Providers Name Role Phone Ferny Hernandez MD Primary Care Provider Unavailable Reason for Visit Reason Comments Transition Of Care Encounter Details Date Type Department Care Team Description 10/27/[address] [facility] Katie Henderson Transition Of Care [facility]- [address] [place] [id number] Allergies Active Allergy Reactions Severity Noted Date Comments Nabumetone Nausea and/or Vomiting 04/12/2015 Tramadol Hcl Itching 04/12/2015 documented as of this encounter (statuses as of 10/28/2018) Medications Medication Sig Dispensed Refills Start Date End Date Status amLODIPine 10 mg tablet Take 1 tablet by 30 tablet 6 02/22/2018 Active mouth daily. indapamide 2.5 mg Take 1 tablet by 30 tablet 6 02/21/2018 Active tablet mouth every morning. docusate 100 mg Take 1 capsule 60 capsule 2 10/24/2018 Active capsuleIndications: by mouth 2 (two) Abnormal uterine times daily as bleeding (AUB) needed for Constipation. sennosides 8.6 mg Take 1 tablet by 60 tablet 2 10/24/2018 Active tabletIndications: mouth 2 (two) Abnormal uterine times daily. bleeding (AUB) ferrous sulfate 325 mg Take 1 tablet by 60 tablet 3 10/24/2018 Active (65 mg iron) mouth 3 (three) tabletIndications: times daily with Dysfunctional uterine meals. bleeding, Anemia, unspecified type, Essential hypertension documented as of this encounter (statuses as of 10/28/2018) Active Problems Problem Noted Date Abnormal uterine bleeding (AUB) 10/24/2018 Hypertension 02/21/2018 LVH (left ventricular hypertrophy) due to hypertensive disease 02/21/2018 Abnormal uterine bleeding 02/20/2018 Obesity (BMI 30-39.9) 10/21/2015 Substance abuse 10/20/2015 documented as of this encounter (statuses as of 10/28/2018) Social History Tobacco Use Types Packs/Day Years Used Date Current Every Day Smoker Smokeless Tobacco: Never Used Alcohol Use Drinks/Week oz/Week Comments Yes 0 Standard drinks or equivalent 0.0 Financial Resource Strain Answer Date Recorded How hard is it for you to pay for the very basics like Somewhat hard 2018 food, housing, medical care, and heating? Food Insecurity Answer Date Recorded Within the past 12 months, you worried that your food Sometimes true 2018 would run out before you got money to buy more. Within the past 12 months, the food you bought just Sometimes true 10/24/2018 didn't last and you didn't have money to get more. Transportation Needs Answer Date Recorded In the past 12 months, has lack of transportation kept you from Yes 2018 medical appointments or from getting medications? In the past 12 months, has lack of transportation kept you from Yes 2018 meetings, work, or getting things needed for daily living? Sex Assigned at Date Recorded Not on file Job Start Date Occupation Industry Not on file Not on file Not on file Travel History Travel Start Travel End No recent travel history available. documented as of this encounter Last Filed Vital Signs Not on filedocumented in this encounter Plan of Treatment Date Type Specialty Care Team Description 11/06/2018 Office Visit [facility], [facility] Room 11/06/2018 Office Visit [facility] Pgy3 Health Maintenance Due Date Last Done Comments PNEUMOCOCCAL 0-64 YEARS COMBINED SERIES (1 of 1 - 09/17/1977 PPSV23) DTaP,Tdap,and Td Vaccines (1 - Tdap) 09/17/1990 MAMMOGRAM 2011 PAP SMEAR 03/29/2012 03/29/2009 INFLUENZA VACCINE (#1) 2018 documented as of this encounter Results Not on filedocumented in this encounter
--- OUTSIDE RECORDS SUMMARY | 2019-04-16 08:18 | XMS REPORT | Summary of Care ---
:1970 Author Organization [facility] Address [address] [place], [place] [address] Care Team Providers Name Role Phone Ferny Hernandez MD Primary Care Provider Unavailable Reason for Referral MRI/CAT Scan (STAT) Status Reason Specialty Diagnoses / Referred By Referred To Procedures Contact Contact New Request Diagnostic Diagnoses Flank pain Migue Glynn, Radiology Procedures CT ABDOMEN PELVIS WO CONTRAST [address] [place] [address] [place] [address] MRI/CAT Scan (STAT) Status Reason Specialty Diagnoses / Referred By Referred To Procedures Contact Contact New Request Diagnostic Diagnoses Flank pain Migue Glynn, Radiology Procedures CT ABDOMEN PELVIS WO CONTRAST [address] [place] [address] [place] [id number] Reason for Visit Reason Comments Back Pain Auth/Cert Status Reason Specialty Diagnoses / Referred By Referred To Procedures Contact Contact [facility] [address] [place] [address] [place] [address] Encounter Details Date Type Department Care Team Description 11/02/2018 Emergency [facility] Migue Glynn MD Flank pain (Primary Dx); Department [facility] Constipation, unspecified constipation type [address] [place] [address] [place] [id number] [place] [address] [phone] Allergies Active Allergy Reactions Severity Noted Date Comments Nabumetone Nausea and/or Vomiting 04/12/2015 Tramadol Hcl Itching 04/12/2015 documented as of this encounter (statuses as of 11/02/2018) Medications Medication Sig Dispensed Refills Start Date End Date Status amLODIPine 10 mg Take 1 tablet 30 tablet 6 02/22/2018 Active tablet by mouth daily. indapamide 2.5 mg Take 1 tablet 30 tablet 6 02/21/2018 Active tablet by mouth every morning. docusate 100 mg Take 1 capsule 60 capsule 2 10/24/2018 Active capsuleIndications: by mouth 2 Abnormal uterine (two) times bleeding (AUB) daily as needed for Constipation. sennosides 8.6 mg Take 1 tablet 60 tablet 2 10/24/2018 Active tabletIndications: by mouth 2 Abnormal uterine (two) times bleeding (AUB) daily. ferrous sulfate 325 mg Take 1 tablet 60 tablet 3 10/24/2018 Active (65 mg iron) by mouth 3 tabletIndications: (three) times Dysfunctional uterine daily with bleeding, Anemia, meals. unspecified type, Essential hypertension dicyclomine (BENTYL) Take 1 capsule 20 capsule 0 11/02/2018 Active 10 mg by mouth 4 capsuleIndications: (four) times Flank pain, daily. Constipation, unspecified constipation type magnesium citrate Take 300 mL by 300 mL 0 11/02/2018 11/02/2018 Active solutionIndications: mouth once now Flank pain, for 1 dose. Constipation, unspecified constipation type ondansetron 4 mg Take 1 tablet 20 tablet 0 11/02/2018 Active disintegrating by mouth every tabletIndications: 4 (four) hours Flank pain, as needed for Constipation, Nausea and unspecified Vomiting (N/V). constipation type documented as of this encounter (statuses as of 11/02/2018) Active Problems Problem Noted Date Abnormal uterine bleeding (AUB) 10/24/2018 Hypertension 02/21/2018 LVH (left ventricular hypertrophy) due to hypertensive disease 02/21/2018 Abnormal uterine bleeding 02/20/2018 Obesity (BMI 30-39.9) 10/21/2015 Substance abuse 10/20/2015 documented as of this encounter (statuses as of 11/02/2018) Social History Tobacco Use Types Packs/Day Years [...] of this encounter Last Filed Vital Signs Vital Sign Reading Time Taken Comments Blood Pressure 172/104 11/02/2018 2:32 AM CDT Pulse 83 11/02/2018 2:32 AM CDT Temperature 37.3 C (99.2 F) 11/02/2018 1:09 AM CDT Respiratory Rate 18 11/02/2018 2:00 AM CDT Oxygen Saturation 97% 11/02/2018 2:32 AM CDT Inhaled Oxygen Concentration - - Weight 81.6 kg (180 lb) 11/02/2018 1:09 AM CDT Height 160 cm (5' 3") 11/02/2018 1:09 AM CDT Body Mass Index 31.89 11/02/2018 1:09 AM CDT documented in this encounter Discharge Instructions InstructionsMigue Glynn MD - 11/02/2018 RETURN FOR ANY QUESTIONS OR CONCERNS Today you were seen by Migue Glynn Jr., MD You were seen today for Chief Complaint Patient presents with Back Pain Your ER diagnosis was ICD-10-CM ICD-9-CM 1. Flank pain R10.9 789.09 2. Constipation, unspecified constipation type K59.00 564.00 NO LIFE-THREATENING FINDINGS ON TODAY'S EXAM. YOUR PRESCRIPTIONS : Check out [employer] for medication discounts Medication List ASK your doctor about these medications amLODIPine 10 mg tablet Commonly known as: NORVASC Take 1 tablet by mouth daily. docusate 100 mg capsule Commonly known as: COLACE Take 1 capsule by mouth 2 (two) times daily as needed for Constipation. ferrous sulfate 325 mg (65 mg iron) tablet Take 1 tablet by mouth 3 (three) times daily with meals. indapamide 2.5 mg tablet Commonly known as: LOZOL Take 1 tablet by mouth every morning. sennosides 8.6 mg tablet Commonly known as: SENOKOT Take 1 tablet by mouth 2 (two) times daily. ER precautions and follow up : 1. Return to ER if your symptoms should worsen or fail to improve within 72 hours. 2. The care provided in the emergency room was for acute problems only. 3. You should follow up with your primary care provider within 72 hours. 4. Fill and take all your medications as prescribed. 5. Make sure you are staying adequately hydrated. Busque attencion immediatamente si usted tiene los sitomas sigue, vuelve peor o si hay sitomas nuevas o para cualquiera preoccupacion incluyendo dolor del pecho , falta aire, se siente debile, mas fievre, mas dolor, nausea, vomitando, sangrando que no es normal, confusion, baja or pierdas conciencia. MAY FOLLOW-UP WITH A PROVIDER OF YOUR CHOICE, SUCH : 1. A PHYSICIAN OF YOUR CHOICE 2. [facility], . LOCATIONS IN [facility] 3. [facility], [address] [place] [address]; OR, IF YOU WISH TO FOLLOW-UP WITHIN THE [facility], MAY TRY THESE OPTIONS (CLINIC APPOINTMENTS AVAILABLE ON [id number] BASIS): 1. SCHEDULE AN APPOINTMENT ONLINE AT [facility] 2. OR CALL THE [facility] ACCESS [facility]ENTER AT OR 3. OR CALL YOUR [facility] PHYSICIAN'S OFFICE DIRECTLY IF YOU ARE ALREADY AN ESTABLISHED [facility] PATIENT. [facility] RETURN TO WORK / SCHOOL EXCUSE Adrienne Mcduffie WAS SEEN IN THE ER AND DISCHARGED 11/02/2018 TODAY, 2:45 AM & May return to Work / School / Incarceration on X with activity as tolerated indicated below. ___The following limitations apply until pt is seen by Physician and cleared to return to normal activity. _X_ Off for two days and return to activity as tolerated at work or school ___ No Sports ___ No work ___ Do not return until fever free for 24 hours. ___ No school MIGUE GLYNN Jr., MD [facility] EMERGENCY DEPRTMENT [address] [place] [address] [place] [address] ### The patient may have been given Narcotic pain medications during their stay in the ED that may show up on a Drug Screen. The hospital discharge paper work will identify these medications. AttachmentsThe following attachments cannot be sent through Care Everywhere.Constipation (Adult) ([place])documented in this encounter Plan of Treatment Date Type Specialty Care Team Description 11/06/2018 Office Visit [facility] 2, [facility] Fc Room 11/06/2018 Office Visit [facility] Pgy3 Health Maintenance Due Date Last Done Comments PNEUMOCOCCAL 0-64 YEARS COMBINED SERIES (1 09/17/1977 of 1 - PPSV23) DTaP,Tdap,and Td Vaccines (1 - Tdap) 09/17/1990 MAMMOGRAM 2011 INFLUENZA VACCINE (#1) 2018 PAP SMEAR 10/24/2021 10/24/2018, 03/29/2009 documented as of this encounter Procedures Procedure Name Priority Date/Time Associated Comments Diagnosis [facility] / [facility] - DRUG STAT 11/02/2018 2:06 Flank pain Results for this SCREEN TRIAGE AM CDT procedure are in the results section. CT ABDOMEN PELVIS WO STAT 11/02/2018 1:44 Flank pain Results for this CONTRAST AM CDT procedure are in the results section. CBC WITH DIFFERENTIAL STAT 11/02/2018 1:23 Flank pain Results for this AM CDT procedure are in the results section. URINALYSIS STAT 11/02/2018 1:23 Flank pain Results for this AM CDT procedure are in the results section. CBC WITH DIFF Routine 11/02/2018 1:23 Flank pain Results for this AM CDT procedure are in the results section. COMP. METABOLIC PANEL STAT 11/02/2018 1:23 Flank pain Results for this (40860) AM CDT procedure are in the results section. LIPASE STAT 11/02/2018 1:23 Flank pain Results for this AM CDT procedure are in the results section. CONSENT/REFUSAL FOR Routine 11/02/2018 1:01 DIAGNOSIS AND AM CDT TREATMENT documented in this encounter Results [facility] / [facility] - DRUG SCREEN TRIAGE (11/02/2018 2:06 AM CDT) BENZO U Negative Negative [facility] SARAH U Negative Negative [facility] AMPHET Negative Negative [facility] THC Negative Negative [facility] METHADONE Negative Negative [facility] Meth U Negative Negative [facility] OPIATES Negative Negative [facility] Cocaine Metabolite Negative Negative [facility] PROPOXY Negative Negative [facility] Tric U Negative Negative [facility] PCP Negative Negative [facility] OXYCOD Negative Negative [facility] Specimen Urine - URINE, CLEAN CATCH Narrative Performed At Urine Drug Cutoff Ranges [facility] Benzodiazepines: 150 ng/mL Barbiturates: 200 ng/mL Amphetamine: 500 ng/mL Cannabinoids: 50ng/mL Methadone: 200 ng/mL Methamphetamine: 500 ng/mL Opiates: 100 ng/mL or 2000 ng/mL Cocaine: 150 ng/mL Propoxyphene:300 ng/mL Tricyclics:300 ng/mL Oxycodone: 100 ng/mL PCP: 25ng/mL The results are to be used only for medical (i.e., treatment) purposes. Unconfirmed screening results must not be used for non-medical purposes (e.g., employment testing, legal testing). Performing Organization Address City/State/Zipcode Phone Number [facility] CLIA: [id number], [address] [place] [address] ABDOMEN PELVIS WO CONTRAST (11/02/2018 1:44 AM CDT) Specimen Impressions Performed At PACS/VR/DOSE No acute process identified in the abdomen or pelvis. No urinary system calculus or hydronephrosis. RL: [id number] AFC: [id number] Narrative Performed At Indication: Abdominal and flank pain PACS/VR/DOSE COMPARISON: None TECHNIQUE: Axial images of the abdomen and pelvis were performed without the administration of intravenous contrast material. Images were reformatted in the coronal and sagittal plane. CT scan was performed according to ALARA (as low as reasonably achievable) policy. FINDINGS: The lung bases are clear. The noncontrast appearance of the liver, gallbladder, spleen, adrenal glands and pancreas is within normal limits. The kidneys are normal in appearance bilaterally without hydronephrosis or renal calculus. No ureteral or bladder calculus is appreciated. There is no free fluid in the pelvis. The noncontrast appearance of the uterus and ovaries is within normal limits. There is no bowel obstruction, widespread diverticulosis or acute diverticulitis. The appendix is identified and within normal limits. Bone windows through the abdomen and pelvis demonstrate no osseous destructive lesion. Procedure Note [facility], Radiant Results Inft User - 11/02/2018 2:20 AM CDT Indication: Abdominal and flank pain COMPARISON: None TECHNIQUE: Axial images of the abdomen and pelvis were performed without the administration of intravenous contrast material. Images were reformatted in the coronal and sagittal plane. CT scan was performed according to ALARA (as low as reasonably achievable) policy. FINDINGS: The lung bases are clear. The noncontrast appearance of the liver, gallbladder, spleen, adrenal glands and pancreas is within normal limits. The kidneys are normal in appearance bilaterally without hydronephrosis or renal calculus. No ureteral or bladder calculus is appreciated. There is no free fluid in the pelvis. The noncontrast appearance of the uterus and ovaries is within normal limits. There is no bowel obstruction, widespread diverticulosis or acute diverticulitis. The appendix is identified and within normal limits. Bone windows through the abdomen and pelvis demonstrate no osseous destructive lesion. IMPRESSION No acute process identified in the abdomen or pelvis. No urinary system calculus or hydronephrosis. RL: 460 [facility] [id number] Performing Organization Address City/State/Zipcode Phone Number PACS/VR/DOSE CBC WITH DIFFERENTIAL (11/02/2018 1:23 AM CDT) WBC 7.44 4.30 - 11.10 [facility] 10*3/L [facility] RBC 4.21 3.93 - 5.25 [facility] 10*6/L HOSPITAL [facility] HGB 9.8 (L) 11.6 - 15.0 [facility] g/dL [facility] HCT 32.6 (L) 35.7 - 45.2 % [facility] MCV 77.4 (L) 80.6 - 95.5 fL [facility] MCH 23.3 (L) 25.9 - 32.8 pg [facility] MCHC 30.1 (L) 31.6 - 35.1 [facility] g/dL [facility] RDW-SD 50.0 (H) 39.0 - 49.9 fL [facility] RDW-CV 19.9 (H) 12.0 - 15.5 % [facility] PLT 498 (H) 166 - 358 [facility] 10*3/L [facility] MPV 9.3 (L) 9.5 - 12.9 fL [facility] NRBC/100 WBC 0.0 0.0 - 10.0 /100 [facility] WBCs [facility] NRBC x10^3 <0.01 10*3/L [facility] GRAN MAT (NEUT) % 50.3 % [facility] IMM GRAN % 0.10 % [facility] LYMPH % 35.8 % [facility] MONO % 9.4 % [facility] EOS % 3.6 % [facility] BASO % 0.8 % [facility] GRAN MAT x10^3(ANC) 3.74 1.88 - 7.09 [facility] 10*3/uL [facility] IMM GRAN x10^3 <0.03 0.00 - 0.06 [facility] 10*3/uL [facility] LYMPH x10^3 2.66 1.32 - 3.29 [facility] 10*3/uL [facility] MONO x10^3 0.70 0.33 - 0.92 [facility] 10*3/uL [facility] EOS x10^3 0.27 0.03 - 0.39 [facility] 10*3/uL [facility] BASO x10^3 0.06 0.01 - 0.07 [facility] 10*3/uL [facility] Specimen Blood - VENOUS Performing Organization Address City/State/Zipcode Phone Number [facility] CLIA: [id number], [address] [place] [address] Urinalysis (11/02/2018 1:23 AM CDT) APPEARANCE Clear Clear [facility] COLOR Straw (A) Yellow [facility] PH 7.0 4.8 - 8.0 [facility] SP GRAVITY 1.006 1.003 - 1.030 [facility] GLU U QUAL Normal Normal [facility] BLOOD Negative Negative [facility] KETONES Negative Negative [facility] PROTEIN Negative Negative [facility] UROBILIN Normal Normal [facility] BILIRUBIN Negative Negative [facility] NITRITE Negative Negative [facility] LEUK CHELSI Negative Negative [facility] RBC/HPF 3 0 - 3 HPF [facility] WBC/HPF 3 0 - 5 HPF [facility] BACTERIA Negative Negative [facility] SQ EPITH 6 HPF [facility] Specimen Urine - URINE, CLEAN CATCH Performing Organization Address City/[facility] Phone Number [facility] CLIA: [id number], [address] [place] [address] Lipase, Serum (11/02/2018 1:23 AM CDT) Pathologist [facility] LIPASE 214 0 - 220 U/L [facility] Specimen Blood - VENOUS Performing Organization Address City/[facility] Cent[facility] Phone Number [facility] CLIA: [id number], [address] [place] [id number] [address] Complete Metabolic Panel (11/02/2018 1:23 AM CDT) [facility] NA 141 135 - 145 [facility] mmol/L [facility] K 3.8 3.5 - 5.0 [facility] mmol/L [facility] CL 104 98 - 108 mmol/L [facility] CO2 TOTAL 28 23 - 31 mmol/L [facility] AGAP 9 2 - 16 [facility] BUN 10 7 - 23 mg/dL [facility] GLUCOSE 84 70 - 110 mg/dL [facility] CREATININE 1.03 0.50 - 1.04 [facility] mg/dL [facility] TOTAL BILI 0.3 0.1 - 1.1 mg/dL [facility] CALCIUM 9.9 8.6 - 10.6 [facility] mg/dL [facility] T PROTEIN 9.4 (H) 6.3 - 8.2 g/dL [facility] ALBUMIN 4.4 3.5 - 5.0 g/dL [facility] ALK PHOS 87 34 - 122 U/L [facility] ALT(SGPT) 19 9 - 51 U/L [facility] AST(SGOT) 41 (H) 13 - 40 U/L [facility] eGFR Calculation 57.4 mL/min/1.73m2 [facility] Filipino) eGFR Calculation 69.6 mL/min/1.73m2 [facility] () [facility] Specimen Blood - VENOUS Narrative Performed At Association of Glomerular Filtration Rate (GFR) [facility] and Staging of Kidney Disease* + + +- + | GFR (mL/min/1.73 m2)| With Kidney Damage|Without Kidney Damage + + +- + |>90| Stage one| Normal + + +- + |60-89|S tage two| Decreased GFR + + +- + |30-59|S tage three| Stage three + + +- + |15-29|S tage four | Stage four + + +- + |<15 (or dialysis)|Stage five | Stage five + + +- + *Each stage assumes the associated GFR level has been in effect for at least three months.Stages 1 to 5, with or without kidney disease, indicate chronic kidney disease. Notes: Determination of stages one and two (with eGFR >59mL/min/1.73 m2) requires estimation of kidney damage for at least three months as defined by structural or functional abnormalities of the kidney, manifested by either: Pathological abnormalities or Markers of kidney damage (including abnormalities in the composition of the blood or urine or abnormalities in imaging tests). Performing Organization Address City/State/Zipcode Phone Number [facility] CLIA: [id number], [address] [place] [address] [facility] [address] documented in this encounter Visit Diagnoses Diagnosis Flank pain - Primary Abdominal pain, unspecified site Constipation, unspecified constipation type documented in this encounter Administered Medications Medication Order MAR Action Action Date Dose Rate Site FENTanyl PF (SUBLIMAZE (PF)) Given 11/02/2018 1:33 AM CDT 75 mcg injection 75 mcg 75 mcg, Slow IV Push, ONCE, 1 dose, 11/02/18 at 0230, STAT FENTanyl PF (SUBLIMAZE (PF)) injection 75 Given 11/02/2018 2:02 AM CDT 75 mcg mcg 75 mcg, Slow IV Push, ONCE, 1 dose, 11/02/18 at 0300, STAT ketorolac (TORADOL) injection 30 mg Given 11/02/2018 2:02 AM CDT 30 mg 30 mg, Slow IV Push, ONCE, 1 dose, Jachin 11/02/18 at 0300, ELIZABETH, research staff member approving Restricted medication: ANATOLYDC ondansetron (ZOFRAN (PF)) injection 4 mg Given 11/02/2018 1:32 AM CDT 4 mg 4 mg, Slow IV Push, ONCE, 1 dose, Jachin 11/02/18 at 0230, ELIZABETH documented in this encounter
--- OUTSIDE RECORDS SUMMARY | 2019-04-16 08:18 | XMS REPORT | Summary of Care ---
:1970 Author Organization [facility] Address [address] [place] [address] Care Team Providers Name Role Phone Ferny Hernandez MD Primary Care Provider Unavailable Reason for Referral (Routine) Status Reason Specialty Diagnoses / Referred By Referred To Procedures Contact Contact New Request OB-GYNECOLOGY Diagnoses Abnormal uterine bleeding (AUB) Brent Menendez, Procedures Discharge Follow-Up: Specialty Service OB-GYNECOLOGY; 3-[address] [place] [phone] Encounter Details Date Type Department Care Team Description 10/24/2018 Hospital Encounter Ortho/ Trauma (Roxanne Lerner Abnormal uterine 11A) MD Basilio bleeding (AUB) [address] [id number] [place], [place] [id number] Allergies Active Allergy Reactions Severity Noted Date Comments Nabumetone Nausea and/or Vomiting 04/12/2015 Tramadol Hcl Itching 04/12/2015 documented as of this encounter (statuses as of 10/24/2018) Medications Medication Sig Dispensed Refills Start Date End Date Status amLODIPine 10 mg Take 1 tablet 30 tablet 6 02/22/2018 Active tablet by mouth daily. indapamide 2.5 mg Take 1 tablet 30 tablet 6 02/21/2018 Active tablet by mouth every morning. docusate 100 mg Take 1 60 capsule 2 10/24/2018 Active capsuleIndications: capsule by Abnormal uterine mouth 2 (two) bleeding (AUB) times daily as needed for Constipation. sennosides 8.6 mg Take 1 tablet 60 tablet 2 10/24/2018 Active tabletIndications: by mouth 2 Abnormal uterine (two) times bleeding (AUB) daily. ferrous sulfate 325 Take 1 tablet 60 tablet 3 10/24/2018 Active mg (65 mg iron) by mouth 3 tabletIndications: (three) times Dysfunctional daily with uterine bleeding, meals. Anemia, unspecified type, Essential hypertension ferrous sulfate 325 Take 1 tablet 60 tablet 3 04/12/2018 10/24/2018 Discontinued mg (65 mg iron) by mouth 2 tabletIndications: (two) times Dysfunctional daily. uterine bleeding, Anemia, unspecified type, Essential hypertension documented as of this encounter (statuses as of 10/24/2018) Active Problems Problem Noted Date Abnormal uterine bleeding (AUB) 10/24/2018 Hypertension 02/21/2018 LVH (left ventricular hypertrophy) due to hypertensive disease 02/21/2018 Abnormal uterine bleeding 02/20/2018 Obesity (BMI 30-39.9) 10/21/2015 Substance abuse 10/20/2015 documented as of this encounter (statuses as of 10/24/2018) Social History Tobacco Use Types Packs/Day Years Used Date Current Every Day Smoker Smokeless Tobacco: Never Used Tobacco Cessation: Ready to Quit: Yes Alcohol Use Drinks/Week oz/Week Comments Yes 0 [...] Sign Reading Time Taken Comments Blood Pressure 140/78 10/24/2018 3:00 PM CDT Pulse 75 10/24/2018 3:00 PM CDT Temperature 36.9 C (98.4 F) 10/24/2018 3:00 PM CDT Respiratory Rate - - Oxygen Saturation 95% 10/24/2018 3:00 PM CDT Inhaled Oxygen Concentration - - Weight 76.2 kg (168 lb) 10/24/2018 1:00 PM CDT Height - - Body Mass Index 29.76 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 Discharge Instructions AttachmentsThe following attachments cannot be sent through Care Everywhere.Iron tablets, capsules, extended-release tablets (Malaysian)Docusate Sodium; Senna tablets or capsules (Malaysian)documented in this encounter Plan of Treatment Name Type Priority Associated Diagnoses Date/Time HIGH RISK HPV-THIN PREP LAB Routine 10/24/2018 2:21 PM CDT SURGICAL PATHOLOGY EXAM LAB Routine 10/24/2018 2:06 PM CDT LAB ONLY PAP SMEAR-LIQUID LAB Routine 10/24/2018 2:21 PM CDT BASED Name Type Priority Associated Diagnoses Order Schedule HIGH RISK HPV-THIN PREP LAB Routine ONCE for 1 Occurrences starting 10/24/2018 until 10/24/2018 SURGICAL PATHOLOGY EXAM LAB Routine ONCE for 1 Occurrences starting 10/24/2018 until 10/24/2018, 1 completed LAB ONLY PAP LAB Routine ONCE for 1 Occurrences SMEAR-LIQUID BASED starting 10/24/2018 until 10/24/2018 Health Maintenance Due Date Last Done Comments PNEUMOCOCCAL 0-64 YEARS COMBINED SERIES (1 of 1 - 09/17/1977 PPSV23) DTaP,Tdap,and Td Vaccines (1 - Tdap) 09/17/1990 MAMMOGRAM 2011 PAP SMEAR 03/29/2012 03/29/2009 INFLUENZA VACCINE (#1) 2018 documented as of this encounter Procedures Procedure Name Priority Date/Time Associated Comments Diagnosis CBC WITH DIFFERENTIAL Routine 10/24/2018 3:19 Results for this PM CDT procedure are in the results section. CBC WITH DIFF Routine 10/24/2018 3:19 Results for this PM CDT procedure are in the results section. PAP SMEAR-LIQUID Routine 10/24/2018 2:21 BASED-CP PM CDT documented in this encounter Results CBC WITH DIFFERENTIAL (10/24/2018 3:19 PM CDT) WBC 9.35 4.30 - 11.10 [facility] 10*3/L SERVICES RBC 4.24 3.93 - 5.25 [facility] 10*6/L SERVICES HGB 9.7 (L) 11.6 - 15.0 [facility] g/dL SERVICES HCT 31.8 (L) 35.7 - 45.2 % [facility] MCV 75.0 (L) 80.6 - 95.5 fL [facility] MCH 22.9 (L) 25.9 - 32.8 pg [facility] MCHC 30.5 (L) 31.6 - 35.1 [facility] g/dL SERVICES RDW-SD 46.7 39.0 - 49.9 fL [facility] RDW-CV 17.3 (H) 12.0 - 15.5 % [facility] SERVICES PLT 368 (H) 166 - 358 [facility] 10*3/L SERVICES MPV 9.1 (L) 9.5 - 12.9 fL [facility] NRBC/100 WBC 0.0 0.0 - 10.0 /100 [facility] WBCs SERVICES NRBC x10^3 <0.01 10*3/L [facility] SERVICES GRAN MAT (NEUT) % 70.7 % [facility] IMM GRAN % 0.20 % [facility] LYMPH % 20.4 % [facility] MONO % 5.6 % [facility] EOS % 2.7 % [facility] BASO % 0.4 % [facility] GRAN MAT x10^3(ANC) 6.61 1.88 - 7.09 [facility] 10*3/uL SERVICES IMM GRAN x10^3 <0.03 0.00 - 0.06 [facility] 10*3/uL SERVICES LYMPH x10^3 1.91 1.32 - 3.29 [facility] 10*3/uL SERVICES MONO x10^3 0.52 0.33 - 0.92 [facility] 10*3/uL SERVICES EOS x10^3 0.25 0.03 - 0.39 [facility] 10*3/uL SERVICES BASO x10^3 0.04 0.01 - 0.07 [facility] 10*3/uL SERVICES Specimen Blood - VENOUS Performing Organization Address City/[facility]/Zipcode Phone Number [facility] CLIA: [id number], [address] [place] [address] [phone] [facility] PAP Smear-Liquid Based (10/24/2018 2:21 PM CDT) Specimen Swab - CERVIX Performing Organization Address City/[facility]/Zipcode Phone Number [facility] CLIA: [id number], [address] [place] [address] [facility] documented in this encounter Visit Diagnoses Diagnosis Abnormal uterine bleeding (AUB) - Primary Dysfunctional uterine bleeding Other disorder of menstruation and other abnormal bleeding from female genital tract Anemia, unspecified type Essential hypertension Unspecified essential hypertension Abnormal uterine bleeding Unspecified disorder of menstruation and other abnormal bleeding from female genital tract documented in this encounter Administered Medications Medication Order MAR Action Action Date Dose Rate Site amLODIPine (NORVASC) tablet 10 mg Given 10/24/2018 3:40 PM CDT 10 mg 10 mg, Oral, DAILY, First dose on Sat10/24/18 at 1345, Until Discontinued, Routine docusate (COLACE) capsule 100 mg 100 mg, Oral, Q12H, First dose on Sat10/24/18 at 2000, Until Discontinued, Routine sennosides (SENOKOT) tablet 8.6 mg 8.6 mg, Oral, DAILY, First dose on Sat10/25/18 at 0900, Until Discontinued, Routine documented in this encounter
--- OUTSIDE RECORDS SUMMARY | 2019-04-16 08:18 | XMS REPORT | Summary of Care ---
:1970 Author Organization [facility] Address [address] [place] [address] Care Team Providers Name Role Phone Ferny Hernandez MD Primary Care Provider Unavailable Reason for Visit Reason Comments Case Management Adrienne Mcduffie # [id number] Casebook Request Incomplete Encounter Details Date Type Department Care Team Description 04/07/2019 Case Management [facility] Case Management Halina Brandt Case Management and Utilization C, RN (Adrienne Mcduffie Review [address] [place] [address]# [id number] [address] [place] [address] [place] [address] Incomplete) [place], [place] [phone] Allergies Active Allergy Reactions Severity Noted Date Comments Nabumetone Nausea and/or Vomiting 04/12/2015 Tramadol Hcl Itching 04/12/2015 documented as of this encounter (statuses as of 04/07/2019) Medications Medication Sig Dispensed Refills Start Date End Date Status indapamide 2.5 mg Take 1 tablet by [...] meals. bleeding, Anemia, unspecified type, Essential hypertension dicyclomine (BENTYL) 10 Take 1 capsule 20 capsule 0 11/02/2018 Active mg capsuleIndications: by mouth 4 Flank pain, (four) times Constipation, daily. unspecified constipation type ondansetron 4 mg Take 1 tablet by 20 tablet 0 11/02/2018 Active disintegrating mouth every 4 tabletIndications: (four) hours as Flank pain, needed for Constipation, Nausea and unspecified Vomiting (N/V). constipation type norethindrone Take 1 tablet by 30 tablet 12 11/13/2018 Active (AYGESTIN) 5 mg mouth daily. tabletIndications: Abnormal uterine bleeding amLODIPine 10 mg Take 1 tablet by 30 tablet 6 01/20/2019 Active tabletIndications: mouth daily. Abnormal uterine bleeding documented as of this encounter (statuses as of 04/07/2019) Active Problems Problem Noted Date Atypical glandular cells of undetermined significance of cervix 01/01/2019 Overview: 01/01/2019- colpo done- No lesions seen. ECC only Abnormal uterine bleeding (AUB) 10/24/2018 Hypertension 02/21/2018 LVH (left ventricular hypertrophy) due to hypertensive disease 02/21/2018 Abnormal uterine bleeding 02/20/2018 Obesity (BMI 30-39.9) 10/21/2015 Substance abuse 10/20/2015 documented as of this encounter (statuses as of 04/07/2019) Social History Tobacco Use Types Packs/Day Years [...] Signs Not on filedocumented in this encounter Progress Notes Desi Maciel - 04/07/2019 3:00 PM CSTFrom: Desi Maciel Sent: Sunday, April 07, 2019 3:01 PM To: Rose Zheng <[email or web address]>; Roxanne Walker <[email or web address]> Cc: Farhan Mcgee <[email or web address]>; Care Management Case Book Coordinator <[email or web address]>; Fabby Leslie <[email or web address]>; Desi Maciel <[email or web address]>; Mary Kate Sneed <[email or web address]> Subject: Adrienne Mcduffie # [id number] Casebook Request Incomplete Dr. Zheng, The Casebook submission for Adrienne Mcduffie # [id number] has been denied and/or closed for the following reason/s. ? The patient/family was non-compliant with financial screening process. According to [facility] [employer] Policy 9.8.2, patients requesting financial discounts must comply with the screening requirements. ? Casebook submitted on 11/14/18 open for 144 days. Please let me know if you have any questions or concerns. Respectfully, The Casebook Coordinator Thank you, Desi Maciel Casebook Coordinator Department of Care Management P: [phone] F: [phone] M: [id number] E: [email or web address] Casebook E: [email or web address] signed by Desi Maciel at 04/07 3:02 PM CSTdocumented in this encounter Plan of Treatment Health Maintenance Due Date Last Done Comments PNEUMOCOCCAL 0-64 YEARS COMBINED SERIES (1 09/17/1977 of 1 - PPSV23) DTaP,Tdap,and Td Vaccines (1 - Tdap) 09/17/1982 Breast Cancer Screening (MAMMOGRAM) 2011 INFLUENZA VACCINE (#1) 2018 PAP SMEAR 10/24/2021 10/24/2018, 03/29/2009 documented as of this encounter Results Not on filedocumented in this encounter Insurance Payer Benefit Plan / Subscriber ID Effective Dates Phone Address Type Group [facility] [employer] [id number] 2018-Alyson GOODWIN Agency PLANN[employer] [place] NEFT[place]I 0-100% nt [id number] [place] [address] documented as of this encounter
[2019-04-16 08:59] LABS: Basophils % 2.9 % (0-1.3); Lymphocytes % 20.1 % (15.3-44.8); MPV 7.7 fL (7.6-11.3); RBC Red Blood Cell Count 3.16 M/uL (3.86-4.86)
[2019-04-16] MEDS ORDERED: HYDROCODONE/APAP 5/325 MG TAB ONE (09:00)
[2019-04-16 09:14] LABS: Protime INR 0.98
[2019-04-16] MEDS ORDERED: ONDANSETRON 4 MG/2 ML VIAL ONE (09:18)
[2019-04-16] MEDS ORDERED: NA CHLORIDE 0.9% 500 ML ONE ×2 (09:18→10:59)
[2019-04-16 09:31] LABS: Albumin 3.4 g/dL (3.4-5.0); Bilirubin Total 0.2 mg/dL (0.2-1.0); Potassium 3.3 mmol/L (3.5-5.1)
--- NOTE | 2019-04-16 10:10 | EDPHYS ---
Physician Documentation [facility] Name: Milagros Mcduffie Age: 48 yrs Sex: Female : 1970 Arrival Date: 04/16/2019 Time: 08:15 Bed 15 Private MD: ED Physician Miguel Daniel HPI: 04/16 09:17 This 48 yrs old Black Female presents to ER via Ambulatory with complaints of Abnormal ps1 Lab Results. 09:17 Patient has history of anemia 2/2 fibroids. Has had surgical recommendations for Hyst. ps1 Has not had insurance. Has recent episodes of lightheaded and fatigue. States that she went for a work physical and reportedly had Hgb < 7. Instructed to come to ED. History of multiple blood transfusions. . 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 - Social history:: Smoking status: Patient reports the use of cigarette tobacco products, denies chronic smoking, but will smoke occasionally. ROS: 09:24 Eyes: Negative for injury, pain, redness, and discharge, ENT: Negative for injury, ps1 pain, and discharge, Cardiovascular: Negative for chest pain, palpitations, and edema, Respiratory: Negative for shortness of breath, cough, wheezing, and pleuritic chest pain, Abdomen/GI: Negative for abdominal pain, nausea, vomiting, diarrhea, and constipation. 09:24 Constitutional: Positive for fatigue, malaise. 09:24 Abdomen/GI: Positive for 09:24 : Positive for pelvic pain, menstrual abnormality. 09:24 Skin: Positive for pallor. Exam: 09:24 Constitutional: This is a well developed, well nourished patient who is awake, alert, ps1 and in no acute distress. Head/Face: Normocephalic, atraumatic. Eyes: Pupils equal round and reactive to light, extra-ocular motions intact. Lids and lashes normal. Conjunctiva and sclera are non-icteric and not injected. Cardiovascular: Regular rate and rhythm. No gallops, murmurs, or rubs. Normal PMI, no JVD. No pulse deficits. Respiratory: Lungs have equal breath sounds bilaterally, clear to auscultation and percussion. No rales, rhonchi or wheezes noted. No increased work of breathing, no retractions or nasal flaring. MS/ Extremity: Pulses equal, no cyanosis. Neurovascular intact. Full, normal range of motion. Neuro: Awake and alert, GCS 15, oriented to person, place, time, and situation. Cranial nerves II-XII grossly intact. Sensory grossly intact. 09:24 Skin: Appearance: normal except for affected area, Color: pale. Vital Signs: 08:21 BP 189 / 96; Pulse 77; Resp 16; Temp 97.8; Pulse Ox 100% on R/A; Weight 79.83 kg; ph Height 5 ft. 3 in. (160.02 cm); Pain 5/10; 08:27 BP 189 / 96; Pulse 77; Resp 16; Temp 97.8; Pulse Ox 100% on R/A; Weight 79.83 kg; ph Height 5 ft. 3 in. (160.02 cm); Pain 5/10; 08:47 BP 170 / 99; Pulse 70; Resp 17; Pulse Ox 100% ; Pain 9/10; ll1 09:52 BP 172 / 90; Pulse 76; Resp 18; Pulse Ox 99% on R/A; ph 10:45 BP 182 / 112; Pulse 70; Resp 17; Temp 97.5; Pulse Ox 99% ; Pain 9/10; ll1 10:51 BP 175 / 96; Resp 17; Pulse Ox 99% ; ll1 11:57 BP 165 / 90; Pulse 71; Resp 14; Temp 97.8(O); Pulse Ox 100% on R/A; mh5 08:27 Body Mass Index 31.18 (79.83 kg, 160.02 cm) ph 10:45 Just got back from restroom. Will re evaluate in 15 minutes. ll1 MDM: 08:30 Patient medically screened. ps1 09:24 Differential Diagnosis acute on chronic anemia, fibroid, symptomatic anemia, and ps1 others. . 04/16 08:25 Order name: CBC with Diff; Complete Time: 11:07 ps1 04/16 08:25 Order name: CMP; Complete Time: 09:38 ps1 04/16 08:25 Order name: Ptt, Activated; Complete Time: 09:21 ps1 04/16 08:25 Order name: PT-INR; Complete Time: 09:21 ps1 04/16 08:25 Order name: Fibrinogen; Complete Time: 09:21 ps1 04/16 08:30 Order name: Type And Screen ps1 04/16 09:26 Order name: Bb Add On eb 04/16 10:22 Order name: Regular EDNE 04/16 10:22 Order name: Phosphorus; Complete Time: 12:38 EDNE 04/16 10:22 Order name: Thyroid Stimulating Hormone; Complete Time: 12:38 EDNE 04/16 10:29 Order name: Packed RBC Leukored EDNE 04/16 10:46 Order name: Manual Differential; Complete Time: 11:07 EDNE 04/16 09:22 Order name: Transfuse; Complete Time: 12:03 ps1 Administered Medications: 09:05 Drug: [place] 5 mg-325 mg 1 tabs Route: PO; ll1 10:49 Follow up: Response: No adverse reaction; No change in condition; Reported pain to Dr. precious Archer. 09:17 Drug: Zofran (Ondansetron) 4 mg Route: IVP; Site: right antecubital; ph 10:49 Follow up: Response: No adverse reaction; Nausea is decreased ll1 Disposition: 04/16/19 10:09 Hospitalization ordered by Carl Archer for Observation. Preliminary diagnosis is Symptomatic anemia. - Bed requested for Telemetry/MedSurg (observation). - Status is Observation. em - Condition is Fair. - Problem is an acute exacerbation. - Symptoms have improved. Signatures: Dispatcher [employer] Yessi Hernandez RN RN dw Munoz, Edgar, RN RN em Hall, Patricia, RN RN ph Miguel Daniel MD MD ps1 Lewis, Lynsay, RN RN ll1 Corrections: (The following items were deleted from the chart) 11:10 10:09 Hospitalization Ordered by Carl Archer MD for Observation. Preliminary dw diagnosis is Symptomatic anemia. Bed requested for Telemetry/MedSurg (observation). Status is Observation. Condition is Fair. Problem is an acute exacerbation. Symptoms have improved. ps1 12:38 11:10 04/16/2019 10:09 Hospitalization Ordered by Carl Archer MD for Observation. em Preliminary diagnosis is Symptomatic anemia. Bed requested for Telemetry/MedSurg (observation). Status is Observation. Condition is Fair. Problem is an acute exacerbation. Symptoms have improved. dw
--- NOTE | 2019-04-16 10:10 | ER ---
Nurse's Notes [facility] Name: Milagros Mcduffie Age: 48 yrs Sex: Female : 1970 Arrival Date: 04/16/2019 Time: 08:15 Bed 15 Private MD: Diagnosis: Symptomatic anemia Presentation: 04/16 08:21 Chief complaint: Patient states: Seen at [facility] clinic yesterday and had labs drawn, ph called today and told to come to ED for hgb 6.0, pt reports hx of fibroids and heavy bleeding recently x 8 days, c/o fatigue and SOB, has hx of blood transfusions x 6. Coronavirus screen: The patient has NOT traveled to [place] in the past 14 days. The patient has NOT had contact with known and/or suspected case of Coronavirus. Ebola Screen: No symptoms or risks identified at this time. Initial Sepsis Screen: Does the patient meet any 2 criteria? No. Patient's initial sepsis screen is negative. Does the patient have a suspected source of infection? No. Patient's initial sepsis screen is negative. Risk Assessment: Do you want to hurt yourself or someone else? Patient reports no desire to harm self or others. 08:21 Method Of Arrival: Ambulatory ph 08:21 Acuity: JUAN MANUEL 3 ph 11:05 Onset of symptoms was April 16, 2019. 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 - Social history:: Smoking status: Patient reports the use of cigarette tobacco products, denies chronic smoking, but will smoke occasionally. Screenin:33 Abuse screen: Denies threats or abuse. Denies injuries from another. Nutritional ph screening: No deficits noted. Tuberculosis screening: No symptoms or risk factors identified. Fall Risk None identified. Assessment: 08:34 General: Appears in no apparent distress. uncomfortable, well groomed, Behavior is ph calm, cooperative, appropriate for age, Denies fever. Pain: Complains of pain in suprapubic area Quality of pain is described as crampy. Neuro: Level of Consciousness is awake, alert, obeys commands, Oriented to person, place, time, situation. Cardiovascular: Reports fatigue, lightheadedness, shortness of breath, Denies chest pain, nausea, palpitations, Capillary refill < 3 seconds in bilateral fingers Patient's skin is warm and dry. Respiratory: Reports shortness of breath on exertion Airway is patent Respiratory effort is even, unlabored. : Reports pain in suprapubic area vaginal bleeding that is moderate flow, x 8 days. Derm: Skin is intact, is healthy with good turgor, Skin is pink, warm \T\ dry. Musculoskeletal: Circulation, motion, and sensation intact. Range of motion: intact in all extremities. 09:39 Reassessment: Patient and/or family updated on plan of care and expected duration. Pain ll1 level reassessed. Patient is alert, oriented x 3, equal unlabored respirations, skin warm/dry/pink. Consent form for blood products signed by patient. No questions at this time.. 10:47 Reassessment: Patient and/or family updated on plan of care and expected duration. Pain ll1 level reassessed. Patient is alert, oriented x 3, equal unlabored respirations, skin warm/dry/pink. Waiting on admission room number. 11:27 Reassessment: Patient appears in no apparent distress at this time. Patient and/or ca1 family updated on plan of care and expected duration. Pain level reassessed. Patient is alert, oriented x 3, equal unlabored respirations, skin warm/dry/pink. 11:47 Reassessment: Blood started, verified with KAROL Larry. Monitored at bedside. See ca1 transfusion flow sheet. 12:06 Reassessment: Patient appears in no apparent distress at this time. Patient and/or ca1 family updated on plan of care and expected duration. Pain level reassessed. Patient is alert, oriented x 3, equal unlabored respirations, skin warm/dry/pink. Vital Signs: 08:21 BP 189 / 96; Pulse 77; Resp 16; Temp 97.8; Pulse Ox 100% on R/A; Weight 79.83 kg; ph Height 5 ft. 3 in. (160.02 cm); Pain 5/10; 08:27 BP 189 / 96; Pulse 77; Resp 16; Temp 97.8; Pulse Ox 100% on R/A; Weight 79.83 kg; ph Height 5 ft. 3 in. (160.02 cm); Pain 5/10; 08:47 BP 170 / 99; Pulse 70; Resp 17; Pulse Ox 100% ; Pain 9/10; ll1 09:52 BP 172 / 90; Pulse 76; Resp 18; Pulse Ox 99% on R/A; ph 10:45 BP 182 / 112; Pulse 70; Resp 17; Temp 97.5; Pulse Ox 99% ; Pain 9/10; ll1 10:51 BP 175 / 96; Resp 17; Pulse Ox 99% ; ll1 11:57 BP 165 / 90; Pulse 71; Resp 14; Temp 97.8(O); Pulse Ox 100% on R/A; mh5 08:27 Body Mass Index 31.18 (79.83 kg, 160.02 cm) ph 10:45 Just got back from restroom. Will re evaluate in 15 minutes. ll1 ED Course: 08:15 Patient arrived in ED. as 08:19 Miguel Daniel MD is Attending Physician. ps1 08:21 Gloria Montenegro, KAROL is Primary Nurse. ph 08:24 Patient has correct armband on for positive identification. Placed in gown. Bed in low mh5 position. Call light in reach. Side rails up X 1. Warm blanket given. monitoring engineer on. Pulse ox on. NIBP on. 08:25 Triage completed. ph 08:33 Arm band placed on Patient placed in an exam room, on a stretcher. ph 08:43 Inserted saline lock: 20 gauge in right antecubital area, using aseptic technique. ph Blood collected. 10:09 Carl Archer MD is Hospitalizing Provider. ps1 11:04 Inserted saline lock: 18 gauge in left antecubital area, using aseptic technique. ca1 11:47 No provider procedures requiring assistance completed. Patient admitted, IV remains in ca1 place. Administered Medications: 09:05 Drug: [place] 5 mg-325 mg 1 tabs Route: PO; ll1 10:49 Follow up: Response: No adverse reaction; No change in condition; Reported pain to Dr. precious Archer. 09:17 Drug: Zofran (Ondansetron) 4 mg Route: IVP; Site: right antecubital; ph 10:49 Follow up: Response: No adverse reaction; Nausea is decreased ll1 Medication: 11:47 Blood products: PRBCs X 1 unit given. See transfusion record. ca1 Intake: Outcome: 10:09 Decision to Hospitalize by Provider. ps1 12:04 Admitted to Tele accompanied by nurse, accompanied by tech, family with patient, via ca1 stretcher, room 412, on monitor, with chart, Other with blood Report called to KAROL Myles 12:04 Condition: stable ca1 12:04 Instructed on the need for admit. 12:38 Patient left the ED. em Signatures: Merlin Coles, RN RN em Phuong Sanz Patricia, RN RN ph Jenny San[facility] Miguel Daniel MD MD ps1 Acob, Cheryl, RN RN ca1 Lewis, Lynsay, RN RN ll1
[2019-04-16] MEDS ORDERED: ACETAMINOPHEN 500 MG TAB PO PRN (10:18)
[2019-04-16] MEDS ORDERED: ONDANSETRON 4 MG/2 ML VIAL IV PRN (10:18)
[2019-04-16 10:45] LABS: Anisocytosis 1+; Blood Morphology Comment NOTED (NOT SEEN); Hypochromasia 2+; Platelet Estimate ADEQ; Target Cells 1+
--- NOTE | 2019-04-16 10:47 | P.HP ---
Certification for Inpatient Patient admitted to: Observation With expected LOS: <2 Midnights Patient will require the following post-hospital care: None Practitioner: I am a practitioner with admitting privileges, knowledge of patient current condition, hospital course, and medical plan of care. Services: Services provided to patient in accordance with Admission requirements found in Title 42 Section 412.3 of the Code of Federal Regulations Patient History Date of Service: 04/16/19 Reason for admission: Anemia History of Present Illness: 48 yrs old AAF past medical history of fibroid uterus, menorrhagia, anemia and hypertension was admitted with worsening of anemia. She had previous blood transfusions. complains of recent episodes of lightheadedness and fatigue. She went for a for physical and found to have anemia of hemoglobin of 7 and was sent over to the ER for further management. She still continues to have menorrhagia she was seen by an OBGYN and was recommended hysterectomy No fever no chills No chest pain or shortness of breath Allergies nabumetone [From Relafen] Allergy (Verified 05/18/18 05:59) Nausea/Vomiting tramadol HCl [From Ultram] Allergy (Verified 05/18/18 05:59) Nausea/Vomiting Home medications list reviewed: Yes Home Medications: Amlodipine [Norvasc*] 10 mg PO DAILY 05/18/18 Docusate [Colace Cap*] 1 tab PO DAILY 04/16/19 - Past Medical/Surgical History Diabetic: No Past Medical History: Reviewed- Non-Contributory -: HTN -: Fibroids -: Anemia -: She states she has a h/o 2 vaginal births -: 3 ectopic pregnancies - 2 treated surgically Past Surgical History: Reviewed- Non-Contributory -: Tubal times 3 -: Rotator cuff repair -: Benigh breast lump to the right removed. 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 ) Sister Notes: Thyroid problem - Social History Smoking Status: Never smoker Alcohol use: Yes CD- Drugs: No Caffeine use: No Review of Systems 10-point ROS is otherwise unremarkable Physical Examination - Vital Signs Temperature: 97.8 F Blood Pressure: 189/96 Pulse: 77 Respirations: 18 - Physical Exam General: Alert, In no apparent distress, Oriented x3 HEENT: Atraumatic, Normocephalic Neck: Supple Respiratory: Clear to auscultation bilaterally, Normal air movement Cardiovascular: Normal pulses, Regular rate/rhythm Capillary refill: <2 Seconds Gastrointestinal: Soft and benign, W/out hepatosplenomegaly, Tenderness Musculoskeletal: No clubbing, No swelling Integumentary: No rashes, No breakdown Neurological: Normal speech, Normal strength at 5/5 x4 extr Lymphatics: No axilla or inguinal lymphadenopathy Urinary: Other (No bladder distention) External genitalia: Deferred Rectal: Deferred - Studies Laboratory Data (last 24 hrs) 04/16/19 08:23: PT 11.6, INR 0.98, APTT 32.9 04/16/19 08:23: Sodium 138, Potassium 3.3 L, BUN 7, Creatinine 0.90, Glucose 86 , Total Bilirubin 0.2, AST 24, ALT 16, Alkaline Phosphatase 70 04/16/19 08:23: WBC 4.8, Hgb 6.7 L*, Hct 22.0 L, Plt Count 610 H Laboratory Last Values WBC 4.8 K/uL (4.3-10.9) 04/16/19 08:23 RBC 3.16 M/uL (3.86-4.86) L 04/16/19 08:23 Hgb 6.7 g/dL (12.0-15.0) L* 04/16/19 08:23 Hct 22.0 % (36.0-45.0) L 04/16/19 08:23 MCV 69.8 fL (80-100) L D 04/16/19 08:23 MCH 21.1 pg (27.0-35.0) L 04/16/19 08:23 MCHC 30.3 g/dL (32.0-36.0) L 04/16/19 08:23 RDW 19.0 % (12.1-15.2) H 04/16/19 08:23 Plt Count 610 K/uL (152-406) H 04/16/19 08:23 MPV 7.7 fL (7.6-11.3) 04/16/19 08:23 Neutrophils % 61.4 % (41.7-73.7) 04/16/19 08:23 Lymphocytes % 20.1 % (15.3-44.8) 04/16/19 08:23 Monocytes % 12.8 % (3.3-12.3) H 04/16/19 08:23 Eosinophils % 2.8 % (0-4.4) 04/16/19 08:23 Basophils % 2.9 % (0-1.3) H 04/16/19 08:23 Absolute Neutrophils 3.0 K/uL (1.8-8.0) 04/16/19 08:23 Segmented Neutrophils 54 % (40-80) 04/16/19 08:23 Absolute Lymphocytes 1.0 K/uL (0.7-4.9) 04/16/19 08:23 Lymphocytes 35 % (15-42) 04/16/19 08:23 Monocytes 9 % (0-10) 04/16/19 08: Absolute Monocytes 0.6 K/uL (0.1-1.3) 04/16/19 08:23 Eosinophils 1 % (0-3) 04/16/19 08: Absolute Eosinophils 0.1 K/uL (0-0.5) 04/16/19 08:23 Absolute Basophils 0.1 K/uL (0-0.5) 04/16/19 08:23 Atypical Lymphocytes 1 04/16/19 08:23 Hypochromasia 2+ 04/16/19 08:23 Anisocytosis 1+ 04/16/19 08:23 Microcytosis 1+ 04/16/19 08:23 Target Cells 1+ 04/16/19 08:23 Morphology Comment Noted (NOT SEEN) 04/16/19 08:23 PT 11.6 SECONDS (9.5-12.5) 04/16/19 08:23 INR 0.98 04/16/19 08:23 APTT 32.9 SECONDS (24.3-36.9) 04/16/19 08:23 Fibrinogen 316 mg/dL (173-428) 04/16/19 08:23 Sodium 138 mmol/L (136-145) 04/16/19 08:23 Potassium 3.3 mmol/L (3.5-5.1) L 04/16/19 08:23 Chloride 107 mmol/L (98-107) 04/16/19 08:23 Carbon Dioxide 26 mmol/L (21-32) 04/16/19 08:23 BUN 7 mg/dL (7-18) 04/16/19 08:23 Creatinine 0.90 mg/dL (0.55-1.3) 04/16/19 08:23 Estimated GFR 81 mL/min (=/>90) L 04/16/19 08:23 Glucose 86 mg/dL (74-106) 04/16/19 08:23 Calcium 8.5 mg/dL (8.5-10.1) 04/16/19 08:23 Phosphorus 2.6 mg/dL (2.5-4.9) 04/16/19 08:35 Total Bilirubin 0.2 mg/dL (0.2-1.0) 04/16/19 08:23 AST 24 U/L (15-37) 04/16/19 08:23 ALT 16 U/L (12-78) 04/16/19 08:23 Alkaline Phosphatase 70 U/L (45-117) 04/16/19 08:23 Serum Total Protein 9.0 g/dL (6.4-8.2) H 04/16/19 08:23 Albumin 3.4 g/dL (3.4-5.0) 04/16/19 08:23 Globulin 5.6 g/dL (2.3-3.5) H 04/16/19 08:23 Albumin/Globulin Ratio 0.6 (1.1-1.8) L 04/16/19 08:23 TSH 1.730 uIU/mL (0.360-3.740) 04/16/19 08:35 ABO/Rh A POSITIVE 04/16/19 08:35 Solid Phase Ab Screen Negative 04/16/19 08:35 Crossmatch See Detail 04/16/19 08:35 Assessment and Plan - Problems (Diagnosis) (1) Acute blood loss anemia Current Visit: No Status: Acute (2) Uterine fibroid Current Visit: No Status: Acute (3) HTN (hypertension) Current Visit: No Status: Chronic Qualifiers: - Plan Symptomatic anemia Anemia due to blood loss for menorrhagia Accelerated hypertension Fibroid uterus Plan monitor will transfuse PRBC Monitor H&H Transfuse p.r.n. Continue home medications Antihypertensives titrated Patient needs outpatient follow up with FENCE SETTER for possible hysterectomy Discussed in detail with the patient GI/DVT prophylaxis Discharge Plan: Home Plan to discharge in: 24 Hours - Advance Directives Does patient have a Living Will: No Does patient have a Durable POA for Healthcare: No Time Spent Managing Pts Care (In Minutes): 45
[2019-04-16 11:57] LABS: Phosphorus 2.6 mg/dL (2.5-4.9); Thyroid Stimulating Hormone 1.73 uIU/mL (0.360-3.740)
[2019-04-16] MEDS ORDERED: POTASSIUM CL SA 10 MEQ TAB PO ONE ×2 (12:11→20:58)
[2019-04-16 12:13] VITALS: BMI 31.6
[2019-04-16] MEDS ORDERED: HYDROCODONE/APAP 10/325 TAB PO PRN (12:52)
[2019-04-16] MEDS ORDERED: HYDRALAZINE HCL 20 MG/ML VIAL IV PRN (12:53)
[2019-04-16] MEDS ORDERED: INFLUENZA VACCINE (for 3y+) 0.5 ML DOSE IMVAC ONE (13:00)
[2019-04-16] MEDS: MORPHINE 2 MG/ML SYR IV PRN ×2 (13:08→22:39)
[2019-04-16] MEDS: AMLODIPINE 10 MG TAB PO SCH (13:28)
[2019-04-16 17:02] LABS: Hematocrit 24.3 % (36.0-45.0)
[2019-04-16] MEDS ORDERED: FUROSEMIDE 20 MG/ 2ML VIAL IV ONE (19:00)
[2019-04-16] MEDS ORDERED: NA CHLORIDE 0.9% 250 ML IV SCH (19:00)
[2019-04-16] MEDS ORDERED: NA CHLORIDE 0.9% 250 ML ONE (22:19)
[2019-04-16 23:04] LABS: Urine Appearance CLEAR; Urine Bilirubin NEGATIVE (NEG); Urine Blood TRACE (NEG); Urine Color YELLOW; Urine Glucose NEGATIVE (NEG); Urine Protein NEGATIVE (NEG); Urine Specific Gravity <=1.005 (1.005-1.030); Urine Urobilinogen 0.2 mg/dL (0.2-1.0); Urine pH 7.5 (5.0-7.0)
[2019-04-16 23:05] LABS: Urine Microscopic Reflex ORDER UMIC
[2019-04-16 23:13] LABS: Urine Bacteria <20 /HPF (<20); Urine RBC <5 /HPF (NONE SEEN)
[2019-04-17] MEDS: MORPHINE 2 MG/ML SYR IV PRN (04:02)
[2019-04-17 07:10] LABS: Hematocrit 28.7 % (36.0-45.0); MPV 8.2 fL (7.6-11.3)
[2019-04-17 07:17] LABS: Albumin 3.3 g/dL (3.4-5.0); Bilirubin Total 0.4 mg/dL (0.2-1.0); Potassium 3.6 mmol/L (3.5-5.1); Protein, Total 8.8 g/dL (6.4-8.2)
[2019-04-17] MEDS ORDERED: PIPERACIL/TAZO 3.375 GM VIAL IV ONE (07:22)
[2019-04-17] MEDS ORDERED: NA CHLORIDE 0.9% 100 ML ONE (07:22)
[2019-04-17] MEDS ORDERED: POTASSIUM 25 MEQ EFFERV TAB PO ONE (09:00)
[2019-04-17] MEDS ORDERED: DOCUSATE NA 100 MG CAP PO SCH (09:00)
[2019-04-17 10:11] LABS: Anisocytosis 2+; Blood Morphology Comment NOTED (NOT SEEN); Platelet Estimate INCR; Poikilocytosis 1+; Target Cells 1+
[2019-04-17 10:53] VITALS: O2SAT 96
[2019-04-17] MEDS: AMLODIPINE 10 MG TAB PO SCH (11:06)
--- NOTE | 2019-04-17 11:11 | P.DS ---
Admission Date: 04/16/19 Discharge Date: 04/17/19 Disposition: ROUTINE DISCHARGE Discharge Condition: GOOD Reason for Admission: Anemia - Problems (1) Acute blood loss anemia Status: Acute (2) Uterine fibroid Status: Acute (3) HTN (hypertension) Status: Chronic Qualifiers: Brief History of Present Illness: 48 yrs old AAF past medical history of fibroid uterus, menorrhagia, anemia and hypertension was admitted with worsening of anemia. She had previous blood transfusions. complains of recent episodes of lightheadedness and fatigue. She went for a for physical and found to have anemia of hemoglobin of 7 and was sent over to the ER for further management. She still continues to have menorrhagia she was seen by an OBGYN and was recommended hysterectomy No fever no chills No chest pain or shortness of breath Hospital Course: Symptomatic anemia Anemia due to blood loss for menorrhagia Accelerated hypertension Fibroid uterus Course The patient was admitted and was monitored closely Underwent blood transfusion. Post transfusion H&H were less than 8 and was transfused I unit of blood Continue home medications and titrated . Antihypertensives titrated as well. CBC monitored , HH was stable Patient wanted go home and is being discharged home today in a stable condition with advice to follow up with PCP in 1 week and also with OBGYN Patient needs outpatient follow up with MAINTENANCE PARTS TECHNICIAN for possible hysterectomy Discussed in detail with the patient Vital Signs/Physical Exam: Temp Pulse Resp BP Pulse Ox 97.5 F 70 16 163/87 H 100 04/17/19 08:00 04/17/19 08:00 04/17/19 08:00 04/17/19 11:06 04/17/19 08:00 General: Alert, In no apparent distress HEENT: Atraumatic, Normocephalic Neck: Supple Respiratory: Clear to auscultation bilaterally Cardiovascular: Regular rate/rhythm, Normal S1 S2 Capillary refill: <2 Seconds Gastrointestinal: Soft and benign, W/out hepatosplenomegaly Musculoskeletal: No clubbing, No swelling Neurological: Normal gait, Normal strength at 5/5 x4 extr Lymphatics: No axilla or inguinal lymphadenopathy External genitalia: Deferred Rectal: Deferred Laboratory Data at Discharge: WBC 5.9 K/uL (4.3-10.9) D 04/17/19 05:33 Hgb 9.0 g/dL (12.0-15.0) L 04/17/19 05:33 Hct 28.7 % (36.0-45.0) L D 04/17/19 05:33 Plt Count 553 K/uL (152-406) H 04/17/19 05:33 PT 11.6 SECONDS (9.5-12.5) 04/16/19 08:23 INR 0.98 04/16/19 08:23 APTT 32.9 SECONDS (24.3-36.9) 04/16/19 08:23 Sodium 136 mmol/L (136-145) 04/17/19 05:33 Potassium 3.6 mmol/L (3.5-5.1) 04/17/19 05:33 BUN 11 mg/dL (7-18) 04/17/19 05:33 Creatinine 0.92 mg/dL (0.55-1.3) 04/17/19 05:33 Glucose 87 mg/dL (74-106) 04/17/19 05:33 Phosphorus 2.6 mg/dL (2.5-4.9) 04/16/19 08:35 Magnesium 2.0 mg/dL (1.8-2.4) 04/17/19 05:33 Total Bilirubin 0.4 mg/dL (0.2-1.0) 04/17/19 05:33 AST 26 U/L (15-37) 04/17/19 05:33 ALT 20 U/L (12-78) 04/17/19 05:33 Alkaline Phosphatase 75 U/L (45-117) 04/17/19 05:33 Home Medications: Docusate [Colace Cap*] 1 tab PO DAILY 04/16/19 Amlodipine [Norvasc*] 10 mg PO DAILY #30 tab 04/17/19 Iron Ag,Ps/C/Fa6/B12/Zn/SA/Sto [Niferex Tablet] 1 each PO DAILY #30 tablet 04/17 New Medications: Amlodipine [Norvasc*] 10 mg PO DAILY #30 tab Iron Ag,Ps/C/Fa6/B12/Zn/SA/Sto [Niferex Tablet] 1 each PO DAILY #30 tablet Diet: Regular Activity: Ad jorge Time spent managing pt's care (in minutes): 38
[2019-04-17 12:05] VITALS: BP 155/83; TEMP 97.6
== END 2019-04-17 12:29 | disposition home or self-care (01) | DRG 812 ==
LOC: ER 08:13 → ERHOLD 10:19 → 4TH 12:06 → OBSVTOIN 14:00
PROVIDERS: ADMIT Family Medicine; ATTEND Family Medicine
PROC: 30233N1 Transfusion of Nonautologous Red Blood Cells into Peripheral Vein, Percutaneous Approach (ICD-10-PCS; principal; 2019-04-16)
DX: D62 Acute posthemorrhagic anemia (principal); N92.0 Excessive and frequent menstruation with regular cycle; I10 Essential (primary) hypertension; D25.9 Leiomyoma of uterus, unspecified
CPT/HCPCS: 36415; 36430; 80053; 81003; 81015; 83735; 84100; 84132; 84443; 85014; 85018; 85025; 85384; 85610; 85730; 86850; 86900; 86901; 86922; 94760; 96374; 99285; G0378; J0360; J1940; J2270; J2405; J2543; J7030; J7040; P9016

== ENCOUNTER 2019-04-25 23:41 | Emergency (ER) | payer SELFPAY ==
--- OUTSIDE RECORDS SUMMARY | 2019-04-25 23:46 | XMS REPORT | Summary of Care ---
:1970 Author Organization [facility] - Health Address [address] [place] [address] Care Team Providers Name Role Phone Ferny Hernandez MD Primary Care Provider Unavailable Encounter Details Date Type Department Care Team Description 04/20/2019 Orders Only [facility] Doctor Unassigned, No [address] [facility] [place] [address] [address] [place] [address] Allergies Active Allergy Reactions Severity Noted Date Comments Nabumetone Nausea and/or Vomiting 04/12/2015 Tramadol Hcl Itching 04/12/2015 documented as of this encounter (statuses as of 04/20/2019) Medications Medication Sig Dispensed Refills Start Date [...] as of this encounter (statuses as of 04/20/2019) Active Problems Problem Noted Date Atypical glandular cells of undetermined significance of cervix 01/01/2019 Overview: 01/01/2019- colpo done- No lesions seen. ECC only Abnormal uterine bleeding (AUB) 10/24/2018 Hypertension 02/21/2018 LVH (left ventricular hypertrophy) due to hypertensive disease 02/21/2018 Abnormal uterine bleeding 02/20/2018 Obesity (BMI 30-39.9) 10/21/2015 Substance abuse 10/20/2015 documented as of this encounter (statuses as of 04/20/2019) Social History Tobacco Use Types Packs/Day Years [...] filedocumented in this encounter Plan of Treatment Health Maintenance Due Date Last Done Comments PNEUMOCOCCAL 0-64 YEARS COMBINED SERIES (1 09/17/1977 of 1 - PPSV23) DTaP,Tdap,and Td Vaccines (1 - Tdap) 09/17/1982 Breast Cancer Screening (MAMMOGRAM) 2011 INFLUENZA VACCINE (#1) 2018 PAP SMEAR 10/24/2021 10/24/2018, 03/29/2009 documented as of this encounter Procedures Procedure Name Priority Date/Time Associated Diagnosis Comments BCCS-RELATED Routine 04/20/2019 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
[2019-04-26 00:44] LABS: Urine Bacteria 20-50 /HPF (<20); Urine Culture Reflex Order NOT NEEDED; Urine RBC <5 /HPF (NONE SEEN)
[2019-04-26] MEDS ORDERED: NA CHLORIDE 0.9% 2,000 ML ONE (00:57)
[2019-04-26] MEDS ORDERED: ONDANSETRON 4 MG/2 ML VIAL ONE (00:57)
[2019-04-26] MEDS ORDERED: MORPHINE 4 MG/ML SYR ONE (00:57)
[2019-04-26 01:00] LABS: Absolute Lymphocytes (CBC) 2.2 K/uL (0.7-4.9); Hematocrit 30.1 % (36.0-45.0); Lymphocytes % 28.1 % (15.3-44.8); MPV 7.9 fL (7.6-11.3); RBC Red Blood Cell Count 4.06 M/uL (3.86-4.86)
[2019-04-26 01:20] LABS: ALT/SGPT 17 U/L (12-78); AST/SGOT 22 U/L (15-37); Albumin 3.4 g/dL (3.4-5.0); Alkaline Phosphatase 87 U/L (45-117); BUN Blood Urea Nitrogen 12 mg/dL (7-18); Bicarbonate 27 mmol/L (21-32); Bilirubin Direct < 0.1 mg/dL (0-0.2); Bilirubin Total 0.2 mg/dL (0.2-1.0); Glucose Level 74 mg/dL (74-106); Lipase 376 U/L (73-393); Potassium 3.7 mmol/L (3.5-5.1); Protein, Total 9.5 g/dL (6.4-8.2); Sodium Level 136 mmol/L (136-145)
[2019-04-26] MEDS ORDERED: CEFTRIAXONE/SWI 1gm 1 GM/10 ML SYR ONE (01:29)
[2019-04-26] MEDS ORDERED: HYDROMORPHONE HCL 1 MG/ML INJ ONE (01:56)
[2019-04-26 03:01] LABS: Anisocytosis 2+; Blood Morphology Comment NOTED (NOT SEEN); Hypochromasia 1+; Platelet Estimate INCR; Urine White Blood Cell Casts OK
--- NOTE | 2019-04-26 03:45 | EDPHYS ---
Physician Documentation [facility] Name: Milagros Mcduffie Age: 48 yrs Sex: Female : 1970 Arrival Date: 04/25/2019 Time: 23:45 Bed 24 Private MD: ED Physician Patsy Uriarte HPI: 04/25 03:29 This 48 yrs old Black Female presents to ER via Wheelchair with complaints of RT side ma2 pain. 03:29 The patient complains of pain in the left mid back. The pain does not radiate. ma2 Associated signs and symptoms: Pertinent negatives: dysuria, urinary frequency, hematuria, pain radiating to the lower extremities. Severity of pain: At its worst the pain was moderate in the emergency department the pain is unchanged. The patient has experienced similar episodes in the past. Historical: - Allergies: 04/24 23:51 Tramadol HCl; ll1 23:51 Nabumetone; ll1 23:51 Relafen; ll1 - Home Meds: 23:51 amlodipine 10 mg tab 1 tab once daily [Active]; ll1 - PMHx: 23:51 ectopic ; neuropathy; uterine fibroids; Hypertension; ll1 - Immunization history:: Flu vaccine is not up to date. - Social history:: Smoking status: Patient reports the use of cigarette tobacco products, smokes one-half pack cigarettes per day, Patient/guardian denies using alcohol, street drugs, Patient/guardian denies using The patient lives with family. - Family history:: not pertinent. ROS: 04/25 03:29 Constitutional: Negative for fever, chills, and weight loss, Cardiovascular: Negative ma2 for chest pain, palpitations, and edema, Respiratory: Negative for shortness of breath, cough, wheezing, and pleuritic chest pain, Abdomen/GI: Negative for abdominal pain, nausea, diarrhea, and constipation. All other systems are negative. Exam: 03:43 Constitutional: This is a well developed, well nourished patient who is awake, alert, ma2 and in no acute distress. Chest/axilla: Normal chest wall appearance and motion. Nontender with no deformity. No lesions are appreciated. Cardiovascular: Regular rate and rhythm with a normal S1 and S2. No gallops, murmurs, or rubs. Normal PMI, no JVD. No pulse deficits. Respiratory: Lungs have equal breath sounds bilaterally, clear to auscultation and percussion. No rales, rhonchi or wheezes noted. No increased work of breathing, no retractions or nasal flaring. Abdomen/GI: Soft, non-tender, with normal bowel sounds. No distension or tympany. No guarding or rebound. No evidence of tenderness throughout. MS/ Extremity: Pulses equal, no cyanosis. Neurovascular intact. Full, normal range of motion. Vital Signs: 04/24 23:49 BP 198 / 103; Pulse 94; Resp 18; Temp 99.0; Pulse Ox 100% ; Weight 79.83 kg; Height 5 ll1 ft. 3 in. (160.02 cm); Pain 10/10; 04/25 01:00 BP 168 / 96; Pulse 83; Resp 19; Temp 98.4(O); Pulse Ox 100% on R/A; Pain 10/10; fu 03:03 BP 174 / 104; Pulse 80; Resp 20; Pulse Ox 100% on R/A; Pain 10/10; fu 07 23:49 Body Mass Index 31.18 (79.83 kg, 160.02 cm) ll1 MDM: 00:06 Patient medically screened. fl2 03:43 Differential diagnosis: nephrolithiasis, pyelonephritis, UTI. Data reviewed: [facility] signs, nurses notes. Counseling: I had a detailed discussion with the patient and/or guardian regarding: the historical points, exam findings, and any diagnostic results supporting the discharge/admit diagnosis, the presence of at least one elevated blood pressure reading (>120/80) during this emergency department visit, the need for outpatient follow up. Response to treatment: the patient's symptoms have markedly improved after treatment. 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 ma2 04/25 00:07 Order name: Urine Culture [facility] 04/25 00:07 Order name: Urine Microscopic Only; Complete Time: : snw 04/25 00:14 Order name: Basic Metabolic Panel; Complete Time: ma2 04/25 00:14 Order name: CBC with Diff ma2 04/25 00:14 Order name: Creatinine for Radiology; Complete Time: fl2 04/25 00:14 Order name: Hepatic Function; Complete Time: ma2 04/25 00:14 Order name: CT Stone Protocol ma2 04/25 00:14 Order name: Lipase; Complete Time: 01:41 ma2 04/25 03:04 Order name: CBC Smear Scan EDMS 04/25 00:14 Order name: IV Saline Lock; Complete Time: 00:44 ma2 04/25 00:14 Order name: Labs collected and sent; Complete Time: 00:44 ma2 Administered Medications: 04/24 23:55 Drug: Zofran (Ondansetron) 4 mg Route: IVP; Infused Over: 2 mins; Site: right fu antecubital; 04/25 01:50 Follow up: Response: No adverse reaction fu 00:50 Drug: NS 0.9% 1000 ml Route: IV; Rate: 1 bolus; Site: right antecubital; fu 03:37 Follow up: IV Status: Completed infusion; IV Intake: 1000ml fu 01:02 Drug: morphine 4 mg Route: IVP; Site: right antecubital; fu 01:50 Follow up: Response: Pain is unchanged, physician notified fu 01:30 Drug: Rocephin 1 grams Route: IV; Rate: calculated rate; Site: right antecubital; fu 01:57 Drug: NS 0.9% 1000 ml Route: IV; Rate: 1 bolus; Site: right antecubital; fu 03:30 Follow up: IV Status: Completed infusion; IV Intake: 1000ml fu 03:36 Drug: Dilaudid 1 mg Route: IVP; Site: right antecubital; fu 03:58 Follow up: Response: Pain is decreased fu Disposition: 04/26/19 03:45 Discharged to Home. Impression: Calculus of kidney. - Condition is Stable. - Discharge Instructions: Kidney Stones, [id number]. - Prescriptions for Zofran 4 mg Oral Tablet - take 1 tablet by ORAL route every 12 hours As needed; 20 tablet. Flomax 0.4 mg Oral Capsule, Sust. Release 24 hr - take 1 capsule by ORAL route once daily 1/2 hour following the same meal each day; 30 capsule. Tramadol 50 mg Oral Tablet - take 1 tablet by ORAL route every 8 hours as needed; 12 tablet. - Work release form, Medication Reconciliation Form, Thank You Letter, Antibiotic Education, Prescription Opioid Use form. - Follow up: Cecile Briggs MD; When: Tomorrow; Reason: Continuance of care. Signatures: Dispatcher [employer] EDMarisol Luna, HOWARD-C FEATHER EDGER-Juanaw Jeffery Jeter, RN Patsy Sabillon MD MD ma2 Burak Moe RN RN ll1 Corrections: (The following items were deleted from the chart) 04:04 03:45 04/26/2019 03:45 Discharged to Home. Impression: Calculus of kidney. Condition is fu Stable. Prescriptions for Zofran 4 mg Oral Tablet - take 1 tablet by ORAL route every 12 hours As needed; 20 tablet, Flomax 0.4 mg Oral Capsule, Sust. Release 24 hr - take 1 capsule by ORAL route once daily 1/2 hour following the same meal each day; 30 capsule, Cipro 500 mg Oral Tablet - take 1 tablet by ORAL route every 12 hours for 7 days; 14 tablet, Tramadol 50 mg Oral Tablet - take 1 tablet by ORAL route every 8 hours as needed; 12 tablet. and Forms are Medication Reconciliation Form, Thank You Letter, Antibiotic Education, Prescription Opioid Use. Follow up: Cecile Briggs; When: Tomorrow; Reason: Continuance of care. ma2
--- NOTE | 2019-04-26 03:45 | ER ---
Nurse's Notes [facility] Name: Milagros Mcduffie Age: 48 yrs Sex: Female : 1970 Arrival Date: 04/25/2019 Time: 23:45 Bed 24 Private MD: Diagnosis: Calculus of kidney Presentation: 04/24 23:49 Chief complaint: Patient states: Right flank pain for 1 week. + Nausea. Had blood ll1 transfusion last week for anemia. Coronavirus screen: The patient has NOT traveled to a country currently being monitored by the [facility] within the last 14 days. Proceed with normal triage procedures. Ebola Screen: Patient denies travel to an Ebola-affected area in the 21 days before illness onset. Initial Sepsis Screen: Does the patient meet any 2 criteria? No. Patient's initial sepsis screen is negative. Does the patient have a suspected source of infection? No. Patient's initial sepsis screen is negative. Risk Assessment: Do you want to hurt yourself or someone else? Patient reports no desire to harm self or others. 23:49 Method Of Arrival: Wheelchair ll1 23:49 Acuity: JUAN MANUEL 3 ll1 Triage Assessment: 04/25 00:36 General: Appears in no apparent distress. comfortable, Behavior is calm, cooperative. ls4 Pain: Complains of pain in posterior aspect of left lateral abdomen, anterior aspect of left lateral abdomen and right lower quadrant Pain currently is 10 out of 10 on a pain scale. Neuro: No deficits noted. 00:42 EENT: No deficits noted. No signs and/or symptoms were reported regarding the EENT ls4 system. Cardiovascular: No deficits noted. Denies chest pain. Respiratory: Airway is patent Respiratory effort is even, unlabored, Respiratory pattern is regular. GI: Abdomen is round non-distended, Bowel sounds present X 4 quads. : Urine is clear. Derm: No deficits noted. No signs and/or symptoms reported regarding the dermatologic system. Musculoskeletal: No deficits noted. No signs and/or symptoms reported regarding the musculoskeletal system. Historical: - Allergies: 04/24 23:51 Tramadol HCl; ll1 23:51 Nabumetone; ll1 23:51 Relafen; ll1 - Home Meds: 23:51 amlodipine 10 mg tab 1 tab once daily [Active]; ll1 - PMHx: 23:51 ectopic ; neuropathy; uterine fibroids; Hypertension; ll1 - Immunization history:: Flu vaccine is not up to date. - Social history:: Smoking status: Patient reports the use of cigarette tobacco products, smokes one-half pack cigarettes per day, Patient/guardian denies using alcohol, street drugs, Patient/guardian denies using The patient lives with family. - Family history:: not pertinent. Screenin/08 01:04 Abuse screen: Denies threats or abuse. Nutritional screening: No deficits noted. fu Tuberculosis screening: No symptoms or risk factors identified. Fall Risk None identified. Assessment: 01:04 General: Appears uncomfortable, Behavior is calm, cooperative, appropriate for age, fu Reports right flank pain. Pain: Complains of pain in right flank pain Pain does not radiate. Pain currently is 10 out of 10 on a pain scale. Quality of pain is described as sharp, Pain began last week. 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 Gait is steady. Cardiovascular: Denies chest pain, diaphoresis, fatigue, lightheadedness, nausea, palpitations, shortness of breath, syncope, vomiting, Heart tones S1 S2. Respiratory: Airway is patent Respiratory effort is even, unlabored, Respiratory pattern is regular. GI: Abdomen is obese, Bowel sounds present X 4 quads. Abd is soft. : No signs and/or symptoms were reported regarding the genitourinary system. EENT: No signs and/or symptoms were reported regarding the EENT system. Derm: No signs and/or symptoms reported regarding the dermatologic system. Musculoskeletal: No signs and/or symptoms reported regarding the musculoskeletal system. 01:49 Reassessment: Patient and/or family updated on plan of care and expected duration. Pain fu level reassessed. Patient is alert, oriented x 3, equal unlabored respirations, skin warm/dry/pink. Dr. Uriarte in patient's room. 03:38 Reassessment: Patient and/or family updated on plan of care and expected duration. Pain fu level reassessed. Patient is alert, oriented x 3, equal unlabored respirations, skin warm/dry/pink. Patient states feeling better. Vital Signs: 04/24 23:49 BP 198 / 103; Pulse 94; Resp 18; Temp 99.0; Pulse Ox 100% ; Weight 79.83 kg; Height 5 ll1 ft. 3 in. (160.02 cm); Pain 10/10; 04/25 01:00 BP 168 / 96; Pulse 83; Resp 19; Temp 98.4(O); Pulse Ox 100% on R/A; Pain 10/10; fu 03:03 BP 174 / 104; Pulse 80; Resp 20; Pulse Ox 100% on R/A; Pain 10/10; fu 04/24 23:49 Body Mass Index 31.18 (79.83 kg, 160.02 cm) ll1 ED Course: 04/24 23:45 Patient arrived in ED. es 23:50 Triage completed. ll1 23:52 Arm band placed on Patient placed in an exam room. ll1 04/25 00:06 Patsy Uriarte MD is Attending Physician. ma2 00:24 Antonia Erwin, RN is Primary Nurse. ls4 00:45 CT Stone Protocol In Process Unspecified. EDMS 01:03 Inserted saline lock: 20 gauge in right antecubital area, using aseptic technique. fu Blood collected. 01:20 Patient has correct armband on for positive identification. Bed in low position. Call fu light in reach. Side rails up X 1. 01:20 No provider procedures requiring assistance completed. fu 01:31 Primary Nurse role handed off by Antonia Erwin, RN fu 01:31 Jeffery Jeter, KAROL is Primary Nurse. fu 03:44 Cecile Briggs MD is Referral Physician. ma2 03:59 IV discontinued, bleeding controlled, Pressure dressing applied. fu Administered Medications: 04/24 23:55 Drug: Zofran (Ondansetron) 4 mg Route: IVP; Infused Over: 2 mins; Site: right fu antecubital; 04/25 01:50 Follow up: Response: No adverse reaction fu 00:50 Drug: NS 0.9% 1000 ml Route: IV; Rate: 1 bolus; Site: right antecubital; fu 03:37 Follow up: IV Status: Completed infusion; IV Intake: 1000ml fu 01:02 Drug: morphine 4 mg Route: IVP; Site: right antecubital; fu 01:50 Follow up: Response: Pain is unchanged, physician notified fu 01:30 Drug: Rocephin 1 grams Route: IV; Rate: calculated rate; Site: right antecubital; fu 01:57 Drug: NS 0.9% 1000 ml Route: IV; Rate: 1 bolus; Site: right antecubital; fu 03:30 Follow up: IV Status: Completed infusion; IV Intake: 1000ml fu 03:36 Drug: Dilaudid 1 mg Route: IVP; Site: right antecubital; fu 03:58 Follow up: Response: Pain is decreased fu Intake: 03:30 IV: 1000ml; Total: 1000ml. fu 03:37 IV: 1000ml; Total: 2000ml. fu Outcome: 03:45 Discharge ordered by . loi 03:59 Discharged to home ambulatory. fu 03:59 Condition: stable 03:59 Discharge instructions given to patient, Instructed on discharge instructions, follow up and referral plans. Demonstrated understanding of instructions, follow-up care, Prescriptions given X 3. 04:04 Patient left the ED. fu Signatures: Dispatcher [employer] Emi Martinez Felix, RN RN Patsy De León MD MD ma2 Antonia Erwin RN RN ls4 Burak Moe RN RN ll1
[2019-04-26 04:19] VITALS: O2SAT 100
[2019-04-26 04:22] VITALS: TEMP 98.4
[2019-04-26 04:24] VITALS: BP 174/104
--- NOTE | 2019-04-27 12:13 | RAD REPORT ---
EXAM DESCRIPTION: CT Stone Protocol CLINICAL HISTORY: 48 years Female FLANK PAIN TECHNIQUE: Contiguous axial images obtained through the abdomen and pelvis without IV contrast. [place] nal and sagittal reformatted images provided. This CT exam was performed according to our departmental dose-optimization program, which includes on e or more of the following dose reduction techniques: automated exposure control, adjustment of the m A and/or kV according to patient size, and/or use of iterative reconstruction technique. COMPARISON: No prior exams provided for comparison. FINDINGS: Single punctate nonobstructing calculus in the upper pole of the right kidney. No other re nal, ureteral, or bladder calculi. There is no hydronephrosis or perinephric stranding on either side . Possible mild thickening of the urinary bladder. Normal noncontrast appearance of the uterus and ovar ies. The appendix is normal. There is no bowel inflammation, obstruction, free intraperitoneal air, or asc ites. Mild patchy air trapping and atelectasis at the lung bases. The unenhanced liver, biliary tree, gallbladder, pancreas, spleen, adrenal glands, kidneys, urinary b ladder, and osseous structures demonstrate no acute findings. IMPRESSION: In the punctate nonobstructing intrarenal calculus on the right. No urinary obstruction. Possible mild cystitis, correlate with urinalysis. No other acute findings in the abdomen or pelvis. Normal appendix. Electronically signed by: María Leger MD 04/26/2019 12:58 AM HATCHERY MANAGER Due to temporary technical issues with the PACS/Fluency reporting system, reports are being signed by the in house radiologist as a courtesy to ensure prompt reporting. The interpreting radiologist is f ully responsible for the content of the report.
== END 2019-04-26 04:04 | disposition home or self-care (01) ==
LOC: ER 23:41
DX: N20.0 Calculus of kidney (principal); F17.210 Nicotine dependence, cigarettes, uncomplicated; I10 Essential (primary) hypertension; Z88.5 Allergy status to narcotic agent; Z88.8 Allergy status to other drugs, medicaments and biological substances
CPT/HCPCS: 36415; 74176; 76377; 80048; 80076; 81015; 83690; 85025; 87086; 87088; 96361; 96374; 96375; 99284; J0696; J1170; J2405; J7030

== ENCOUNTER 2020-08-28 03:26 | Emergency (ER) | payer SELFPAY ==
[2020-08-28 05:04] LABS: Protime INR 0.96
[2020-08-28 05:06] LABS: Urine Blood 3+ (Negative); Urine Glucose Negative (Negative); Urine Protein Negative (Negative); Urine Specific Gravity 1.015 (1.005-1.030)
[2020-08-28 05:15] LABS: ALT/SGPT 19 U/L (12-78); AST/SGOT 25 U/L (15-37); Albumin 3.4 g/dL (3.4-5.0); Alkaline Phosphatase 85 U/L (45-117); BUN Blood Urea Nitrogen 10 mg/dL (7-18); Bicarbonate 25 mmol/L (21-32); Bilirubin Direct < 0.1 mg/dL (0-0.2); Bilirubin Total 0.2 mg/dL (0.2-1.0); Glucose Level 147 mg/dL (74-106); Protein, Total 9.3 g/dL (6.4-8.2); Sodium Level 138 mmol/L (136-145)
[2020-08-28 05:16] LABS: Hematocrit 21.8 % (36.0-45.0); MPV 8.2 fL (7.6-11.3); RBC Red Blood Cell Count 3.25 M/uL (3.86-4.86)
[2020-08-28 05:19] LABS: Urine Specific Gravity/Preg 1.015 (1.005-1.030)
[2020-08-28] MEDS ORDERED: DIPHENHYDRAMINE 50 MG/ML VIAL ONE (05:29)
[2020-08-28] MEDS ORDERED: METOCLOPRAMIDE 10 MG/2mL INJ ONE (05:29)
[2020-08-28] MEDS ORDERED: NA CHLORIDE 0.9% 1,000 ML ONE (05:29)
[2020-08-28 06:25] LABS: Anisocytosis 2+; Blood Morphology Comment NOTED (NOT SEEN); Hypochromasia 1+; Macrocytosis 1+; Platelet Estimate INCR; Platelets, Giant FEW; Target Cells 1+
[2020-08-28] MEDS ORDERED: NA CHLORIDE 0.9% 250 ML ONE (08:57)
[2020-08-28] MEDS ORDERED: MORPHINE 4 MG/ML SYR ONE (09:04)
--- NOTE | 2020-08-28 11:02 | ER ---
Nurse's Notes [facility] Name: Adrienne Mcduffie Age: 49 yrs Sex: Female : 1970 Arrival Date: 08/28/2020 Time: 03:27 Bed 5 Private MD: Diagnosis: Anemia, unspecified Presentation: 08/28 03:44 Chief complaint: Patient states: she has been having vaginal bleeding x 8 or 9 days she bb has fibroid tumors and this has happened several times in the past however she has been having a severe headache since yesterday and her ears are ringing. Pt states this has happened to her in the past and she has had 8 or 9 blood transfusions. Coronavirus screen: At this time, the client does not indicate any symptoms associated with coronavirus-19. Ebola Screen: No symptoms or risks identified at this time. Initial Sepsis Screen: Does the patient meet any 2 criteria? No. Patient's initial sepsis screen is negative. Does the patient have a suspected source of infection? No. Patient's initial sepsis screen is negative. Risk Assessment: Do you want to hurt yourself or someone else? Patient reports no desire to harm self or others. Onset of symptoms was July 2020. 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 - Social history:: Smoking status: unknown. Screenin:47 Abuse screen: Denies threats or abuse. Denies injuries from another. Nutritional tr6 screening: No deficits noted. Tuberculosis screening: No symptoms or risk factors identified. Fall Risk None identified. Assessment: 04:00 General: Appears in no apparent distress. uncomfortable, Behavior is calm, cooperative, jb4 appropriate for age. Pain: Complains of pain in headache Pain does not radiate. Pain currently is 8 out of 10 on a pain scale. Neuro: Level of Consciousness is awake, alert, obeys commands, Oriented to person, place, time, situation. Cardiovascular: Patient's skin is warm and dry. Respiratory: Airway is patent Respiratory effort is even, unlabored, Respiratory pattern is regular, symmetrical. GI: No signs and/or symptoms were reported involving the gastrointestinal system. : Reports vaginal bleeding that is. EENT: No signs and/or symptoms were reported regarding the EENT system. Derm: Skin is intact, Skin is pink, warm \T\ dry. Musculoskeletal: Circulation, motion, and sensation intact. Range of motion: intact in all extremities. 05:00 Reassessment: Patient appears in no apparent distress at this time. Patient and/or jb4 family updated on plan of care and expected duration. Pain level reassessed. Patient is alert, oriented x 3, equal unlabored respirations, skin warm/dry/pink. 06:00 Reassessment: Patient appears in no apparent distress at this time. Patient and/or jb4 family updated on plan of care and expected duration. Pain level reassessed. Patient is alert, oriented x 3, equal unlabored respirations, skin warm/dry/pink. 06:42 Reassessment: Patient appears in no apparent distress at this time. Patient and/or jb4 family updated on plan of care and expected duration. Pain level reassessed. Patient is alert, oriented x 3, equal unlabored respirations, skin warm/dry/pink. 07:00 Reassessment: Received report from KAROL Bergman; awaiting blood for blood transfusion. 7 08:00 Reassessment: Patient appears in no apparent distress at this time. No changes from jl7 previously documented assessment. Patient and/or family updated on plan of care and expected duration. Pain level reassessed. Patient is alert, oriented x 3, equal unlabored respirations, skin warm/dry/pink. 09:00 Reassessment: Patient appears in no apparent distress at this time. No changes from jl7 previously documented assessment. Patient and/or family updated on plan of care and expected duration. Pain level reassessed. Patient is alert, oriented x 3, equal unlabored respirations, skin warm/dry/pink. 11:00 Reassessment: Patient appears in no apparent distress at this time. transfusion tr6 completed. Vital Signs: 03:44 BP 186 / 95; Pulse 103; Resp 16; Temp 99.3(O); Pulse Ox 97% on R/A; Weight 81.65 kg bb (R); Height 5 ft. 3 in. (160.02 cm) (R); Pain 10/10; 05:15 BP 187 / 101; Pulse 96; Resp 18; Pulse Ox 100% on R/A; jb4 06:30 BP 162 / 92; Pulse 89; Resp 19; Pulse Ox 100% on R/A; jb4 08:52 BP 172 / 93; Pulse 86; Resp 17; Pulse Ox 83% ; jl7 09:04 BP 155 / 92; Pulse 79; Resp 18; Pulse Ox 100% on R/A; tr6 09:10 BP 161 / 94; Pulse 81; Resp 18; Pulse Ox 100% on R/A; tr6 10:14 BP 160 / 90; Pulse 76; Resp 15; Pulse Ox 98% on R/A; jl7 10:30 BP 138 / 92; Pulse 71; Resp 18; Temp 98.2; Pulse Ox 100% on R/A; tr6 03:44 Body Mass Index 31.89 (81.65 kg, 160.02 cm) bb ED Course: 03:27 Patient arrived in ED. am4 03:44 Cortez Jansen MD is Attending Physician. 7 03:44 Arm band placed on Patient placed in an exam room, on a stretcher, on pulse oximetry. bb 03:47 Triage completed. bb 04:00 Initial lab(s) drawn, by me, sent to lab. Inserted saline lock: 18 gauge in right jb4 antecubital area, using aseptic technique. Blood collected. 04:47 Brent Carrillo RN is Primary Nurse. jb4 04:47 CT Head Brain wo Cont In Process Unspecified. EDMS 08:47 Patient has correct armband on for positive identification. Bed in low position. Call tr6 light in reach. Side rails up X 1. monitor car operator on. Pulse ox on. NIBP on. Door closed. Noise minimized. Visitors limited. Lights dimmed. Warm blanket given. Consent for blood and/or blood product transfusion explained by staff, explained by physician, signed by patient. 08:47 No provider procedures requiring assistance completed. tr6 08:54 Primary Nurse role handed off by Brent Carrillo, RN jl7 09:00 Lance Vieira RN is Primary Nurse. jl7 Administered Medications: 05:18 Drug: NS 0.9% 1000 ml Route: IV; Rate: 1000 ml; Site: right antecubital; jb4 07:00 Follow up: Response: No adverse reaction; IV Status: Completed infusion; IV Intake: jl7 1000ml 05:18 Drug: Reglan (metoCLOPramide) 10 mg Route: IVP; Site: right antecubital; jb4 07:00 Follow up: Response: No adverse reaction jl7 05:20 Drug: Benadryl (diphenhydrAMINE) 50 mg Route: IVP; Site: right antecubital; jb4 07:00 Follow up: Response: No adverse reaction jl7 08:47 Drug: morphine 4 mg Route: IVP; Site: right antecubital; tr6 11:19 Follow up: Response: No adverse reaction; Pain is decreased tr6 Medication: 11:05 Blood products: PRBCs X 1 unit given. See transfusion record. jl7 Intake: 07:00 IV: 1000ml; Total: 1000ml. 7 Outcome: 11:01 Discharge ordered by . tw4 11:24 Patient left the ED. tr6 Signatures: Dispatcher [employer] EDMS Yola Hogan RN RN bb Amada Doyle RN RN lp1 Brent Carrillo RN RN jb4 Lance Vieira RN RN jl7 Sanjeev Tate MD MD tw4 Cortez Jansen MD MD mh7 Carlene Sanz April Ojeda RN RN tr6 Corrections: (The following items were deleted from the chart) 04:49 04:48 Inserted saline lock: 18 gauge in right antecubital area, using aseptic 4 technique. Blood collected. [facility] 04:49 04:48 Initial lab(s) drawn, by nh, sent to lab. [facility] 4 05:30 05:20 Benadryl (diphenhydrAMINE) 50 mg IVP in right antecubital lp1 4 05:31 05:18 Reglan (metoCLOPramide) 10 mg IVP in right antecubital lp1 4 05:31 05:18 NS 0.9% 1000 ml IV at 1000 ml in right antecubital lp1 jb4 05:33 05:32 Home Meds: amlodipine 10 mg tab 1 tab once daily; 4 4
--- NOTE | 2020-08-28 11:02 | EDPHYS ---
Physician Documentation [facility] Name: Adrienne Mcduffie Age: 49 yrs Sex: Female : 1970 Arrival Date: 08/28/2020 Time: 03:27 Bed 5 Private MD: ED Physician Cortez Jansen HPI: 08/28 04:10 This 49 yrs old Black Female presents to ER via Ambulatory with complaints of Vaginal mh7 Bleeding, Headache, Ears ringing. 04:10 The patient presents with vaginal bleeding that is heavy. Onset: The symptoms/episode mh7 began/occurred 9 day(s) ago. Modifying factors: The symptoms are alleviated by nothing, the symptoms are aggravated by nothing. Associated signs and symptoms: Pertinent positives: cramping, vaginal bleeding, headache, Pertinent negatives: constipation, diarrhea, dyspareunia, dysuria, fever, hematuria, nausea, urinary frequency, vaginal discharge. Severity of symptoms: At their worst the symptoms were moderate, 4 day(s) ago, in the emergency department the symptoms are unchanged. The patient has experienced similar episodes in the past, multiple times. States she has a history of uterine fibroids that cause heavy menstrual bleeding. She reports having to get blood transfusion in the past due to the bleeding.. 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 - Social history:: Smoking status: unknown. ROS: 04:10 Constitutional: Negative for fever, chills, and weight loss, Eyes: Negative for injury, mh7 pain, redness, and discharge, ENT: Negative for injury, pain, and discharge, Neck: Negative for injury, pain, and swelling, Cardiovascular: Negative for chest pain, palpitations, and edema, Respiratory: Negative for shortness of breath, cough, wheezing, and pleuritic chest pain, Back: Negative for injury and pain, MS/Extremity: Negative for injury and deformity, Skin: Negative for injury, rash, and discoloration, Psych: Negative for depression, anxiety, suicide ideation, homicidal ideation, and hallucinations, Allergy/Immunology: Negative for hives, rash, and allergies, Endocrine: Negative for neck swelling, polydipsia, polyuria, polyphagia, and marked weight changes, Hematologic/Lymphatic: Negative for swollen nodes, abnormal bleeding, and unusual bruising. Exam: 04:10 Constitutional: This is a well developed, well nourished patient who is awake, alert, mh7 and in no acute distress. Head/Face: Normocephalic, atraumatic. Eyes: Pupils equal round and reactive to light, extra-ocular motions intact. Lids and lashes normal. Conjunctiva and sclera are non-icteric and not injected. Cornea within normal limits. Periorbital areas with no swelling, redness, or edema. Neck: Trachea midline, no thyromegaly or masses palpated, and no cervical lymphadenopathy. Supple, full range of motion without nuchal rigidity, or vertebral point tenderness. No Meningismus. Chest/axilla: Normal chest wall appearance and motion. Nontender with no deformity. No lesions are appreciated. 04:10 Respiratory: Lungs have equal breath sounds bilaterally, clear to auscultation and percussion. No rales, rhonchi or wheezes noted. No increased work of breathing, no retractions or nasal flaring. Abdomen/GI: Soft, non-tender, with normal bowel sounds. No distension or tympany. No guarding or rebound. No evidence of tenderness throughout. Back: No spinal tenderness. No costovertebral tenderness. Full range of motion. Skin: Warm, dry with normal turgor. Normal color with no rashes, no lesions, and no evidence of cellulitis. MS/ Extremity: Pulses equal, no cyanosis. Neurovascular intact. Full, normal range of motion. Neuro: Awake and alert, GCS 15, oriented to person, place, time, and situation. Cranial nerves II-XII grossly intact. Motor strength 5/5 in all extremities. Sensory grossly intact. Cerebellar exam normal. Normal gait. Psych: Awake, alert, with orientation to person, place and time. Behavior, mood, and affect are within normal limits. 04:10 Cardiovascular: Rate: tachycardic, Rhythm: regular, Pulses: no pulse deficits are appreciated, Heart sounds: normal, normal S1and S2, Edema: is not appreciated, JVD: is not appreciated. Vital Signs: 03:44 BP 186 / 95; Pulse 103; Resp 16; Temp 99.3(O); Pulse Ox 97% on R/A; Weight 81.65 kg bb (R); Height 5 ft. 3 in. (160.02 cm) (R); Pain 10/10; 05:15 BP 187 / 101; Pulse 96; Resp 18; Pulse Ox 100% on R/A; jb4 06:30 BP 162 / 92; Pulse 89; Resp 19; Pulse Ox 100% on R/A; jb4 08:52 BP 172 / 93; Pulse 86; Resp 17; Pulse Ox 83% ; jl7 09:04 BP 155 / 92; Pulse 79; Resp 18; Pulse Ox 100% on R/A; tr6 09:10 BP 161 / 94; Pulse 81; Resp 18; Pulse Ox 100% on R/A; tr6 10:14 BP 160 / 90; Pulse 76; Resp 15; Pulse Ox 98% on R/A; jl7 10:30 BP 138 / 92; Pulse 71; Resp 18; Temp 98.2; Pulse Ox 100% on R/A; tr6 03:44 Body Mass Index 31.89 (81.65 kg, 160.02 cm) MDM: 07:24 Transition of care: After a detail discussion of the patient's case, care is 7 transferred to Sanjeev Tate MD. 11:01 Patient medically screened. 08/28 04:26 Order name: Abo/rh Typing 08/28 04:26 Order name: Basic Metabolic Panel; Complete Time: 06:01 [facility] 08/28 04:26 Order name: CBC with Diff; Complete Time: 06:29 [facility] 08/28 04:26 Order name: LFT's; Complete Time: 06:01 08/28 04:26 Order name: Protime (+inr); Complete Time: 06:01 [facility] 08/28 04:26 Order name: Ptt, Activated; Complete Time: 06:01 [facility] 08/28 05:05 Order name: Urine Dipstick-Ancillary; Complete Time: 06:01 EDMS 08/28 05:09 Order name: Urine --Ancillary (enter results); Complete Time: 06:01 tt3 08/28 05:23 Order name: Manual Differential; Complete Time: 06:29 EDMS 08/28 06:50 Order name: Packed RBCs (Additional Unit) EDMS 08/28 07:26 Order name: Antibody Screen [facility] 08/28 04:26 Order name: IV Saline Lock; Complete Time: 04:46 [facility] 08/28 04:26 Order name: Labs collected and sent; Complete Time: 04:46 [facility] 08/28 04:26 Order name: NPO; Complete Time: 04:46 [facility] 08/28 04:26 Order name: Urine Dipstick-Ancillary (obtain specimen); Complete Time: 05:07 [facility] 08/28 04:26 Order name: Urine Test (obtain specimen); Complete Time: 05:08 [facility] 08/28 04:28 Order name: CT Head Brain wo Cont 7 Administered Medications: 05:18 Drug: NS 0.9% 1000 ml Route: IV; Rate: 1000 ml; Site: right antecubital; jb4 07:00 Follow up: Response: No adverse reaction; IV Status: Completed infusion; IV Intake: jl7 1000ml 05:18 Drug: Reglan (metoCLOPramide) 10 mg Route: IVP; Site: right antecubital; jb4 07:00 Follow up: Response: No adverse reaction 7 05:20 Drug: Benadryl (diphenhydrAMINE) 50 mg Route: IVP; Site: right antecubital; jb4 07:00 Follow up: Response: No adverse reaction [facility] 08:47 Drug: morphine 4 mg Route: IVP; Site: right antecubital; tr6 11:19 Follow up: Response: No adverse reaction; Pain is decreased tr6 Disposition Summary: 08/28/20 11:01 Discharge Ordered Location: Home tw4 Problem: new tw4 Symptoms: have improved tw4 Condition: Stable tw4 Diagnosis - Anemia, unspecified tw4 Followup: tw4 - With: Private Physician - When: Upon discharge from the Emergency Department - Reason: Recheck today's complaints, Continuance of care, Re-evaluation by your physician Discharge Instructions: - Discharge Summary Sheet tw4 - Anemia tw4 - Blood Transfusion, Adult tw4 Forms: - Medication Reconciliation Form tw4 - Thank You Letter tw4 - Antibiotic Education tw4 - Prescription Opioid Use tw4 Signatures: Dispatcher [employer] [facility] Amada Doyle RN RN lp1 Brent Carrillo RN RN jb4 Lance Vieira RN RN jl7 Sanjeev Tate MD MD tw4 Cortez Jansen MD MD mh7 April Dimas RN RN tr6 Corrections: (The following items were deleted from the chart) 05:33 05:32 Home Meds: amlodipine 10 mg tab 1 tab once daily; jb4 jb4 06:49 06:36 PACKED RBC LEUKORED -1+BB.LAB.BRZ ordered. EDMS EDMS 06:49 06:37 ABO/RH typing ordered. EDMS EDMS 06:49 06:37 Antibody Screen ordered. EDMS EDMS
[2020-08-28 11:40] VITALS: BP 138/92; TEMP 98.2; O2SAT 100
--- NOTE | 2020-08-29 12:12 | RAD REPORT ---
EXAM DESCRIPTION: CT - Head Brain Wo Cont - 08/28/2020 6:54 am CLINICAL HISTORY: HEADACHE COMPARISON: 10/24/2018 TECHNIQUE: Axial CT of the head obtained from the skull apex to the skull base without contrast. Thi s exam was performed according to our departmental dose-optimization program, which includes automate d exposure control, adjustment of the mA and/or kV according to patient size and/or use of iterative reconstruction technique. FINDINGS: No acute intracranial hemorrhage identified. No mass, mass effect, shift of the midline, a bnormal extra-axial fluid collection or CT evidence of acute ischemic change identified. The ventricu lar system is unremarkable. No acute abnormalities of the supratentorial white matter, basal gangli a, cerebellum, or brainstem. The visualized paranasal sinuses and the mastoid air cells are relatively well aerated. No skull fr acture identified. Visualized orbits and globes are unremarkable. IMPRESSION: 1. No acute intracranial abnormality identified. Electronically signed by: Russel Rosen 08/28/2020 6:23 AM CDT Due to temporary technical issues with the PACS/Fluency reporting system, reports are being signed by the in house radiologist without review as a courtesy to ensure prompt reporting. The interpreting r adiologist is fully responsible for the content of the report.
== END 2020-08-28 11:24 | disposition home or self-care (01) ==
LOC: ER 03:26
PROC: 30233N1 Transfusion of Nonautologous Red Blood Cells into Peripheral Vein, Percutaneous Approach (ICD-10-PCS; principal; 2020-08-28)
DX: D64.9 Anemia, unspecified (principal); Z88.5 Allergy status to narcotic agent; Z88.8 Allergy status to other drugs, medicaments and biological substances
CPT/HCPCS: 36415; 36430; 70450; 80048; 80076; 81003; 81025; 85025; 85610; 85730; 86850; 86900; 86901; 96361; 96374; 96375; 99285; J1200; J2765; J7030; J7050; P9016

== ENCOUNTER 2021-11-16 06:25 | Emergency (ER) | payer OTHER, SELFPAY ==
[2021-11-16] MEDS ORDERED: NA CHLORIDE 0.9% 1,000 ML ONE (07:16)
[2021-11-16] MEDS ORDERED: MORPHINE 4 MG/ML SYR ONE (07:16)
[2021-11-16] MEDS ORDERED: ONDANSETRON 4 MG/2 ML VIAL ONE (07:16)
[2021-11-16 07:23] LABS: Urine Blood 3+ (Negative); Urine Glucose Negative (Negative); Urine Protein Negative (Negative); Urine pH 6.5 (5.0-7.0)
[2021-11-16 07:56] LABS: Absolute Lymphocytes (CBC) 5.2 K/uL (0.7-4.9); Hematocrit 23.9 % (36.0-45.0); Lymphocytes % 64.1 % (15.3-44.8); MCV 62.3 fL (80-100); RBC Red Blood Cell Count 3.83 M/uL (3.86-4.86)
[2021-11-16 08:13] LABS: Albumin 3.3 g/dL (3.4-5.0); Bilirubin Total 0.2 mg/dL (0.2-1.0); Potassium 3.7 mmol/L (3.5-5.1); Protein, Total 9.1 g/dL (6.4-8.2)
--- NOTE | 2021-11-16 08:16 | RAD REPORT ---
EXAM DESCRIPTION: US - Transvaginal Study Probe - 11/16/2021 7:34 am CLINICAL HISTORY: ABD PAIN Pelvic pain. COMPARISON: Transvaginal Study Probe dated 10/22/2018; Stone Protocol dated 04/26/2019 FINDINGS: The uterus is normal in size, shape and echotexture. The uterus measures 11.8 x 6.3 x 6 cm with volume of 230 cc. Intramural fibroid at the uterine fundus measuring approximately 5.4 cm resul ts in some mass effect on the endometrial canal. Submucosal fibroid measuring 2.1 cm. The endometrial stripe measures 12 mm. Both ovaries are normal in size, shape and echotexture. The right ovary measures 2.2 x 1.1 x 1.5 cm with volume of 1.9 cc. The left ovary measures 6.5 x 4.2 x 4.1 cm with volume of 50.4 cc. Minimally complex left ovarian cyst measuring 5 cm that is benign. No adnexal masses. Normal Doppler blood flow was demonstrated to both ovaries. No significant pelvic ascites. IMPRESSION: 1. Bilateral ovarian blood flow. 2. Uterine fibroids.
--- NOTE | 2021-11-16 08:35 | ER ---
Nurse's Notes [facility] Name: Adrienne Mcduffie Age: 51 yrs Sex: Female : 1970 Arrival Date: 11/16/2021 Time: 06:33 Bed 5 Private MD: Diagnosis: Anemia, unspecified;Uterine fibroid, lower abdominal pain Presentation: 11/16 06:45 Chief complaint: Patient states: vaginal bleeding lower abdominal pain report 5 pads kl changed since last pm. Coronavirus screen: Vaccine status: Patient reports receiving the 2nd dose of the covid vaccine. Ebola Screen: Patient negative for fever greater than or equal to 101.5 degrees Fahrenheit, and additional compatible Ebola Virus Disease symptoms. Initial Sepsis Screen: Does the patient meet any 2 criteria? No. Patient's initial sepsis screen is negative. Does the patient have a suspected source of infection? No. Patient's initial sepsis screen is negative. Risk Assessment: Do you want to hurt yourself or someone else? Patient reports no desire to harm self or others. Onset of symptoms was November 14, 2021. 06:45 Method Of Arrival: Ambulatory 06:45 Acuity: JUAN MANUEL 3 06:57 Note pt reports has uterine fibroids and has had 14 blood transfusions. Triage Assessment: 06:56 General: Appears distressed, uncomfortable, well groomed, well developed, Behavior is kl anxious. Pain: Complains of pain in suprapubic area Pain currently is 10 out of 10 on a pain scale. Pain began 2-3 days ago. - Immunization history:: Adult Immunizations up to date. - Social history:: Smoking status: Patient reports the use of cigarette tobacco products, smokes one pack cigarettes per day. - Family history:: not pertinent. Screenin:41 Abuse screen: Denies threats or abuse. Denies injuries from another. Nutritional jh6 screening: No deficits noted. Tuberculosis screening: No symptoms or risk factors identified. Fall Risk None identified. IV access (20 points). Assessment: 07:15 General: Appears uncomfortable, Behavior is calm, cooperative. Pain: Complains of pain jh6 in suprapubic area, right lower quadrant and left lower quadrant Pain currently is 9 out of 10 on a pain scale. Quality of pain is described as crampy, Pain began 1 day ago. Is continuous. 07:15 : Reports cramping, in bilateral lower quadrant(s) lower back vaginal bleeding that jh6 is with clots, moderate flow, since 3 days. reporting 5 pads used during the night. 09:01 Reassessment: Patient and/or family updated on plan of care and expected duration. Pain jh6 level reassessed. Patient is alert, oriented x 3, equal unlabored respirations, skin warm/dry/pink. Patient states feeling better. Pain: Pain currently is 3 out of 10 on a pain scale. Vital Signs: 06:45 BP 214 / 98; Pulse 94; Resp 18; Temp 98.2; Pulse Ox 100% on R/A; Weight 86.18 kg (R); Height 5 ft. 3 in. (160.02 cm); Pain 10/10; 08:16 BP 185 / 93; Pulse 85; Resp 17; Pain 7/10; jh6 09:01 BP 169 / 82; Pulse 80; Resp 17; jh6 06:45 Body Mass Index 33.66 (86.18 kg, 160.02 cm) ED Course: 06:33 Patient arrived in ED. ja2 06:47 Morales Sylvester MD is Attending Physician. [facility] 06:56 Triage completed. kl 07:15 Attending Physician role handed off by Morales Sylvester MD jr11 07:15 Mariano Virgen MD is Attending Physician. jr11 07:20 Patient taken to ultrasound. jh6 07:33 Denise Gibson, RN is Primary Nurse. jh6 07:36 US Transvaginal Study (Probe) In Process Unspecified. EDMS 07:41 Patient moved back from ultrasound. jh6 07:41 Inserted saline lock: 20 gauge in right antecubital area, using aseptic technique. jh6 07:41 Bed in low position. Call light in reach. Side rails up X 1. jh6 09:02 No provider procedures requiring assistance completed. IV discontinued, intact, jh6 bleeding controlled, No redness/swelling at site. Pressure dressing applied. Administered Medications: 07:50 Drug: morphine 4 mg Route: IVP; Infused Over: 4 mins; Site: right antecubital; jh6 07:51 Drug: NS 0.9% 1000 ml Route: IV; Rate: 1 bolus; Site: right antecubital; jh6 07:51 Drug: Zofran (Ondansetron) 4 mg Route: IVP; Site: right antecubital; 6 08:41 Drug: Tylenol 1000 mg Route: PO; jh6 08:41 Drug: Ketorolac 15 mg Route: IVP; Site: right antecubital; jh6 Medication: 09:02 VIS not applicable for this client. jh6 Outcome: 08:34 Discharge ordered by . jr11 09:02 Discharged to home ambulatory. 6 09:02 Condition: good 09:02 Discharge instructions given to patient, Instructed on discharge instructions, Demonstrated understanding of instructions, medications, Prescriptions given X 4. 09:17 Patient left the ED. 6 Signatures: Dispatcher [employer] EDMS Margy Moe RN RN kl Anderson, Corey, MD MD cha Alexander, Jessica ja2 Hastedt, Jennifer, RN RN 6 Mariano Virgen MD MD jr11
--- NOTE | 2021-11-16 08:35 | EDPHYS ---
Physician Documentation [facility] Name: Adrienne Mcduffie Age: 51 yrs Sex: Female : 1970 Arrival Date: 11/16/2021 Time: 06:33 Bed 5 Private MD: ED Physician Mariano Virgen HPI: 11/16 06:52 This 51 yrs old Black Female presents to ER via Unassigned with complaints of Pain All casi Over. 06:52 The patient presents with abdominal pain in the lower abdomen. Onset: The casi symptoms/episode began/occurred 2 day(s) ago. The patient presents with pelvic pain, vaginal bleeding that is light. Onset: The symptoms/episode began/occurred 2 day(s) ago. Modifying factors: The symptoms are alleviated by nothing, the symptoms are aggravated by nothing. Associated signs and symptoms: Pertinent positives: vaginal bleeding. Severity of symptoms: At their worst the symptoms were mild, moderate, in the emergency department the symptoms are unchanged. - Immunization history:: Adult Immunizations up to date. - Social history:: Smoking status: Patient reports the use of cigarette tobacco products, smokes one pack cigarettes per day. - Family history:: not pertinent. ROS: 06:52 Constitutional: Negative for fever, chills, and weight loss, Eyes: Negative for injury, casi pain, redness, and discharge, ENT: Negative for injury, pain, and discharge, Neck: Negative for injury, pain, and swelling, Cardiovascular: Negative for chest pain, palpitations, and edema, Respiratory: Negative for shortness of breath, cough, wheezing, and pleuritic chest pain, Back: Negative for injury and pain, : Negative for injury, bleeding, discharge, and swelling, MS/Extremity: Negative for injury and deformity, Skin: Negative for injury, rash, and discoloration, Neuro: Negative for headache, weakness, numbness, tingling, and seizure, Psych: Negative for depression, anxiety, suicide ideation, homicidal ideation, and hallucinations, Allergy/Immunology: Negative for hives, rash, and allergies, Endocrine: Negative for neck swelling, polydipsia, polyuria, polyphagia, and marked weight changes, Hematologic/Lymphatic: Negative for swollen nodes, abnormal bleeding, and unusual bruising. 06:52 Abdomen/GI: Positive for abdominal pain, of the suprapubic area. Exam: 06:52 Constitutional: This is a well developed, well nourished patient who is awake, alert, casi and in no acute distress. Head/Face: Normocephalic, atraumatic. Eyes: Pupils equal round and reactive to light, extra-ocular motions intact. Lids and lashes normal. Conjunctiva and sclera are non-icteric and not injected. Cornea within normal limits. Periorbital areas with no swelling, redness, or edema. ENT: Nares patent. No nasal discharge, no septal abnormalities noted. Tympanic membranes are normal and external auditory canals are clear. Oropharynx with no redness, swelling, or masses, exudates, or evidence of obstruction, uvula midline. Mucous membranes moist. Neck: Trachea midline, no thyromegaly or masses palpated, and no cervical lymphadenopathy. Supple, full range of motion without nuchal rigidity, or vertebral point tenderness. No Meningismus. Chest/axilla: Normal chest wall appearance and motion. Nontender with no deformity. No lesions are appreciated. Cardiovascular: Regular rate and rhythm with a normal S1 and S2. No gallops, murmurs, or rubs. Normal PMI, no JVD. No pulse deficits. Respiratory: Lungs have equal breath sounds bilaterally, clear to auscultation and percussion. No rales, rhonchi or wheezes noted. No increased work of breathing, no retractions or nasal flaring. Back: No spinal tenderness. No costovertebral tenderness. Full range of motion. Skin: Warm, dry with normal turgor. Normal color with no rashes, no lesions, and no evidence of cellulitis. MS/ Extremity: Pulses equal, no cyanosis. Neurovascular intact. Full, normal range of motion. Neuro: Awake and alert, GCS 15, oriented to person, place, time, and situation. Cranial nerves II-XII grossly intact. Motor strength 5/5 in all extremities. Sensory grossly intact. Cerebellar exam normal. Normal gait. Psych: Awake, alert, with orientation to person, place and time. Behavior, mood, and affect are within normal limits. 06:52 Respiratory: 06:52 Abdomen/GI: Inspection: bruising, Bowel sounds: normal, Palpation: moderate abdominal tenderness, in the suprapubic area, Liver: no appreciated palpable abnormalities, Hernia: not appreciated. Vital Signs: 06:45 BP 214 / 98; Pulse 94; Resp 18; Temp 98.2; Pulse Ox 100% on R/A; Weight 86.18 kg (R); kl Height 5 ft. 3 in. (160.02 cm); Pain 10/10; 08:16 BP 185 / 93; Pulse 85; Resp 17; Pain 7/10; jh6 09:01 BP 169 / 82; Pulse 80; Resp 17; jh6 06:45 Body Mass Index 33.66 (86.18 kg, 160.02 cm) kl MDM: 06:47 Patient medically screened. [facility] 06:53 Differential diagnosis: nonspecific abdominal pain, ovarian cyst, uterine fibroids, casi urinary tract infection, Dysmenorrhea, Menorrhagia, non-specific abd pain. Data reviewed: vital signs, nurses notes. Data interpreted: traffic monitor specialist: rate is 89 beats/min, rhythm is regular, Pulse oximetry: on room air is 99 %. Counseling: I had a detailed discussion with the patient and/or guardian regarding: the historical points, exam findings, and any diagnostic results supporting the discharge/admit diagnosis, lab results, radiology results. 08:29 ED course: Pt feeling better, states pain is like prior uterine pain. Will RX meds, MEDICAL LIBRARY ASSISTANT jr11 aware reviewed.. 08:36 ED course: Pt understands the risks of provera to include pro thrombotic however risk jr11 are lower than benefit given her blood count. . 11/16 06:51 Order name: CBC with Diff; Complete Time: 08:42 [facility] 11/16 06:51 Order name: CMP; Complete Time: 08:19 [facility] 11/16 06:51 Order name: Lipase; Complete Time: 08:19 [facility] 11/16 06:51 Order name: US Transvaginal Study (Probe); Complete Time: 08:19 [facility] 11/16 07:24 Order name: Urine Dipstick-Ancillary; Complete Time: 08:19 [facility]MI 11/16 08:12 Order name: Manual Differential; Complete Time: 08:42 [facility] 11/16 06:51 Order name: IV Saline Lock; Complete Time: 07:51 [facility] 11/16 06:51 Order name: Labs collected and sent; Complete Time: 07:51 [facility] 11/16 06:51 Order name: Urine Dipstick-Ancillary (obtain specimen); Complete Time: 07:51 [facility] 11/16 06:51 Order name: Urine Test (obtain specimen); Complete Time: 07:51 [facility] Administered Medications: 07:50 Drug: morphine 4 mg Route: IVP; Infused Over: 4 mins; Site: right antecubital; [facility] 07:51 Drug: NS 0.9% 1000 ml Route: IV; Rate: 1 bolus; Site: right antecubital; [facility] 07:51 Drug: Zofran (Ondansetron) 4 mg Route: IVP; Site: right antecubital; [facility] 08:41 Drug: Tylenol 1000 mg Route: PO; [facility] 08:41 Drug: Ketorolac 15 mg Route: IVP; Site: right antecubital; [facility] Disposition Summary: 11/16/21 08:34 Discharge Ordered Location: Home [facility] Condition: Stable [facility] Diagnosis - Anemia, unspecified jr11 - Uterine fibroid, lower abdominal pain [facility] Followup: [facility] - With: Private Physician - When: 2 - 3 days - Reason: Re-check your blood count Discharge Instructions: - Discharge Summary Sheet jr - Anemia jr - Uterine Fibroids [facility] Forms: - Medication Reconciliation Form [facility] - Thank You Letter jr11 - Antibiotic Education [facility] - Prescription Opioid Use [facility] Prescriptions: - Provera 10 mg Oral tablet - take 1 tablet by ORAL route once daily; 5 tablet; Refills: 0, Product Selection [facility] Permitted - Ferrous Sulfate 325 mg (65 mg Iron) Oral Tablet - take 1 tablet by ORAL route every 8 hours; 90 tablet; Refills: 0, Product jr11 Selection Permitted - Ibuprofen 600 mg Oral Tablet - take 1 tablet by ORAL route every 6 hours As needed take with food; 30 tablet; [facility] Refills: 0, Product Selection Permitted Signatures: Dispatcher [employer] Margy Dallas RN Morales King MD MD cha Hastedt, Jennifer, RN RN 6 Mariano Virgen MD MD jr
[2021-11-16] MEDS ORDERED: ACETAMINOPHEN 500 MG TAB ONE (08:37)
[2021-11-16] MEDS ORDERED: KETOROLAC 30 MG/ML INJ ONE (08:37)
[2021-11-16 08:39] LABS: Anisocytosis 2+; Blood Morphology Comment NOTED (NOT SEEN); Platelet Estimate ADEQ
[2021-11-16 08:40] LABS: Hypochromasia 1+
[2021-11-17 16:33] VITALS: TEMP 98.2; O2SAT 100
[2021-11-17 16:35] VITALS: BP 169/82
== END 2021-11-16 09:17 | disposition home or self-care (01) ==
LOC: ER 06:25
DX: D25.9 Leiomyoma of uterus, unspecified (principal); D64.9 Anemia, unspecified; F17.210 Nicotine dependence, cigarettes, uncomplicated
CPT/HCPCS: 85025; 36415; 81003; 83690; 80053; 76830; 96375; 96374; 99284; J7030; J2405

== ENCOUNTER 2022-05-06 04:33 | Emergency (ER) | payer OTHER ==
[2022-05-06] MEDS ORDERED: DIAZEPAM 5 MG TABLET ONE (05:28)
[2022-05-06] MEDS ORDERED: HYDROCODONE/APAP 5/325 MG TAB ONE (05:28)
[2022-05-06] MEDS ORDERED: KETOROLAC 30 MG/ML INJ ONE (05:29)
[2022-05-06 05:38] LABS: Urine Blood Negative (Negative); Urine Glucose Negative (Negative); Urine Protein Negative (Negative); Urine Specific Gravity 1.015 (1.005-1.030)
[2022-05-06 05:44] LABS: Specific Gravity 1.007 (1.005-1.030); Urine Bacteria <20 /HPF (<20); Urine Bilirubin NEGATIVE (Negative); Urine Blood Negative (Negative); Urine Clarity Clear (Clear); Urine Color Colorless (Yellow); Urine Glucose NEGATIVE (Negative); Urine Protein NEGATIVE (Negative); Urine RBC <5 /HPF (None Seen); Urine Urobilinogen Normal (Normal)
--- NOTE | 2022-05-06 05:56 | EDPHYS ---
Physician Documentation [facility] Name: Adrienne Mcduffie Age: 51 yrs Sex: Female : 1970 Arrival Date: 05/06/2022 Time: 04:36 Bed 13 Private MD: ED Physician Eh Parks HPI: 05/06 05:19 This 51 yrs old Black Female presents to ER via Ambulatory with complaints of Low Back ms3 Pain. 05:19 51-year-old female with past medical history of hypertension, neuropathy, uterine ms3 fibroids, lupus presents for back pain that began 2 days prior to arrival. 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 Patient states her pain is a 10/10 and described as feeling like a spasm. Patient denies urinary or bowel incontinence, numbness, weakness, fevers. Patient states she took ibuprofen and Flexeril without relief.. Historical: - Allergies: 04:53 Nabumetone; kl 04:53 Tramadol HCl; kl 04:53 relafen; kl - Home Meds: 04:53 amlodipine 10 mg tab 1 tab once daily [Active]; Metoprolol Tartrate Oral [Active]; kl - PMHx: 04:53 ectopic ; Hypertension; neuropathy; uterine fibroids; kl 04:53 Lupus erythematosus; kl - PSHx: 04:53 hysterectomy; rotator cuff; tubal; kl - Immunization history:: Adult Immunizations up to date. ROS: 05:19 Constitutional: Negative for fever, and chills. Neck: Negative for injury, pain, and ms3 swelling, Cardiovascular: Negative for chest pain, and palpitations. Respiratory: Negative for shortness of breath, cough, wheezing, and pleuritic chest pain, Abdomen/GI: Negative for abdominal pain, nausea, vomiting, diarrhea, and constipation. 05:19 Back: Positive for pain at rest. 05:19 All other systems are negative. Exam: 05:19 Constitutional: This is a well developed, well nourished patient who is awake, alert, ms3 and in no acute distress. Head/Face: Normocephalic, atraumatic. Neck: Trachea midline, no cervical lymphadenopathy. Supple, full range of motion without nuchal rigidity, or vertebral point tenderness. No Meningismus. Chest/axilla: Normal chest wall appearance and motion. Nontender with no deformity. Cardiovascular: Regular rate and rhythm with a normal S1 and S2. No gallops, murmurs, or rubs. Normal PMI, no JVD. No pulse deficits. Respiratory: Lungs have equal breath sounds bilaterally, clear to auscultation and percussion. No rales, rhonchi or wheezes noted. No increased work of breathing, no retractions or nasal flaring. Abdomen/GI: Soft, non-tender, with normal bowel sounds. No distension or tympany. No guarding or rebound. No evidence of tenderness throughout. Skin: Warm, dry with normal turgor. Normal color with no rashes, no lesions, and no evidence of cellulitis. MS/ Extremity: Pulses equal, no cyanosis. Neurovascular intact. Full, normal range of motion. 05:19 Back: muscle spasm, is appreciated in the right low back. Vital Signs: 04:51 BP 194 / 128; Pulse 91; Resp 18; Pulse Ox 100% ; Weight 82.55 kg; Height 5 ft. 3 in. ; kl Pain 10/10; 04:51 Body Mass Index 32.24 (82.55 kg, 160.02 cm) kl 04:51 Pain Scale: Adult kl MDM: 05:01 Patient medically screened. ms3 05/06 04:48 Order name: Urinalysis W/Microscopic; Complete Time: 05:50 ms3 05/06 05:38 Order name: Urine Dipstick-Ancillary; Complete Time: 05:50 EDMS Administered Medications: 05:20 Drug: Diazepam PO 5 mg Route: PO; ha1 05:20 Drug: [place] PO 5 mg-325 mg 1 tabs Route: PO; ha1 05:22 Drug: Ketorolac IM 15 mg Route: IM; Site: right deltoid; ha1 Disposition Summary: 05/06/22 05:56 Discharge Ordered Location: Home ms3 Condition: Stable ms3 Diagnosis - Muscle spasm of back ms3 - Low back pain ms3 Followup: ms3 - With: Obed Vieira MD - When: 2 - 3 days - Reason: Recheck today's complaints Forms: - Medication Reconciliation Form ms3 - Thank You Letter ms3 - Antibiotic Education ms3 - Prescription Opioid Use ms3 Signatures: Dispatcher [employer] EDMS Margy Moe RN RN kl Sims, Marcus, DO DO ms3 Anamaria Ortega, RN RN ha1
--- NOTE | 2022-05-06 05:56 | ER ---
Nurse's Notes [facility] Name: Adrienne Mcduffie Age: 51 yrs Sex: Female : 1970 Arrival Date: 05/06/2022 Time: 04:36 Bed 13 Private MD: Diagnosis: Muscle spasm of back;Low back pain Presentation: 05/06 04:51 Chief complaint: Patient states: lower back pain radiating around waist x 2 days denies kl injury. Coronavirus screen: Vaccine status: Patient reports receiving the 2nd dose of the covid vaccine. Ebola Screen: Patient negative for fever greater than or equal to 101.5 degrees Fahrenheit, and additional compatible Ebola Virus Disease symptoms. Initial Sepsis Screen: Does the patient meet any 2 criteria? No. Patient's initial sepsis screen is negative. Does the patient have a suspected source of infection? No. Patient's initial sepsis screen is negative. Risk Assessment: Do you want to hurt yourself or someone else? Patient reports no desire to harm self or others. 04:51 Method Of Arrival: Ambulatory 04:51 Acuity: JUAN MANUEL 3 kl Triage Assessment: 04:54 General: Appears distressed, uncomfortable, Behavior is anxious, crying. Pain: Complains of pain in lumbar area, left low back and right low back Pain radiates to right lower quadrant and left lower quadrant Pain currently is 10 out of 10 on a pain scale. Quality of pain is described as sharp, stabbing. EENT: No deficits noted. No signs and/or symptoms were reported regarding the EENT system. Neuro: No deficits noted. Leija Agitation-Sedation Scale (RASS):. Cardiovascular: No deficits noted. Reports. Respiratory: No deficits noted. GI: No deficits noted. Patient currently denies constipation, diarrhea, intolerance of fluids, intolerance of food, nausea. : No signs and/or symptoms were reported regarding the genitourinary system. Historical: - Allergies: 04:53 Nabumetone; kl 04:53 Tramadol HCl; kl 04:53 relafen; kl - Home Meds: 04:53 amlodipine 10 mg tab 1 tab once daily [Active]; Metoprolol Tartrate Oral [Active]; kl - PMHx: 04:53 ectopic ; Hypertension; neuropathy; uterine fibroids; kl 04:53 Lupus erythematosus; kl - PSHx: 04:53 hysterectomy; rotator cuff; tubal; kl - Immunization history:: Adult Immunizations up to date. Vital Signs: 04:51 BP 194 / 128; Pulse 91; Resp 18; Pulse Ox 100% ; Weight 82.55 kg; Height 5 ft. 3 in. ; kl Pain 10; 04:51 Body Mass Index 32.24 (82.55 kg, 160.02 cm) 04:51 Pain Scale: Adult ED Course: 04:36 Patient arrived in ED. jj6 04:46 Eh Parks DO is Attending Physician. ms3 04:53 Triage completed. kl 04:54 Anamaria Ortega, KAROL is Primary Nurse. ha1 05:55 Obed Vieira MD is Referral Physician. ms3 Administered Medications: 05:20 Drug: Diazepam PO 5 mg Route: PO; ha1 05:20 Drug: [place] PO 5 mg-325 mg 1 tabs Route: PO; ha1 05:22 Drug: Ketorolac IM 15 mg Route: IM; Site: right deltoid; ha1 Outcome: 05:56 Discharge ordered by . ms3 Signatures: Margy Moe RN RN kl Sims, Marcus, DO DO ms3 Denise Wray jj6 Anamaria Ortega RN RN ha1
[2022-05-06 07:00] VITALS: BP 179/100
[2022-05-06 07:09] VITALS: TEMP 98.9; O2SAT 99
== END 2022-05-06 06:16 | disposition home or self-care (01) ==
LOC: ER 04:33
DX: M62.830 Muscle spasm of back (principal); M54.50 Low back pain, unspecified; I10 Essential (primary) hypertension; G62.9 Polyneuropathy, unspecified; D25.9 Leiomyoma of uterus, unspecified; Z88.8 Allergy status to other drugs, medicaments and biological substances
CPT/HCPCS: 81001; 81003; 96372; 99283

== ENCOUNTER 2022-05-10 14:43 | Emergency (ER) | payer OTHER ==
[2022-05-10] MEDS ORDERED: methocarbamoL 750 MG TAB ONE (15:26)
[2022-05-10] MEDS ORDERED: predniSONE 20 MG TAB ONE (15:27)
[2022-05-10] MEDS ORDERED: HYDROCODONE/APAP 10/325 TAB ONE (15:27)
[2022-05-10] MEDS ORDERED: LIDOCAINE 4% PATCH ONE (15:27)
[2022-05-10] MEDS ORDERED: KETOROLAC 30 MG/ML INJ ONE (15:27)
--- NOTE | 2022-05-10 15:53 | RAD REPORT ---
EXAM DESCRIPTION: RAD - Lumbar Spine 3 Views - 05/10/2022 3:34 pm CLINICAL HISTORY: PAIN COMPARISON: No comparisons FINDINGS: No acute fracture. Grade 1 anterolisthesis of L4 on L5. No significant focal degenerative changes. Atherosclerosis. IMPRESSION: No acute osseous abnormality involving the lumbar spine.
--- NOTE | 2022-05-10 16:59 | ER ---
Nurse's Notes [facility] Name: Adrienne Mcduffie Age: 51 yrs Sex: Female : 1970 Arrival Date: 05/10/2022 Time: 14:47 Bed 10 Private MD: Diagnosis: Low back pain Presentation: 05/10 14:57 Method Of Arrival: Ambulatory aa5 14:57 Chief complaint: Patient states: tailbone pain and right low back pain, pt states "I aa5 came here a few days ago and they gave me ibuprofen and a muscle relaxant but I am not getting any better". Pt states "it hurts to walk and even to sit on the toilet". Pt crying during triage, appears uncomfortable. Coronavirus screen: At this time, the client does not indicate any symptoms associated with coronavirus-19. Ebola Screen: Patient denies travel to an Ebola-affected area in the 21 days before illness onset. Initial Sepsis Screen: Does the patient meet any 2 criteria? HR > 90 bpm. Does the patient have a suspected source of infection? No. Patient's initial sepsis screen is negative. Risk Assessment: Do you want to hurt yourself or someone else? Patient reports no desire to harm self or others. Onset of symptoms was 2022. 14:57 Acuity: JUAN MANUEL 3 aa5 Triage Assessment: 15:15 General: Appears distressed, uncomfortable, Behavior is cooperative, crying. eh3 Musculoskeletal: Circulation, motion, and sensation intact. 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 - Social history:: Smoking status: unknown. Screenin:15 [facility] ED Fall Risk Assessment (Adult) Score/Fall Risk Level 0 - 2 = Low Risk. Abuse eh3 screen: Denies threats or abuse. Denies injuries from another. Nutritional screening: No deficits noted. Tuberculosis screening: No symptoms or risk factors identified. Assessment: 15:15 General: Appears distressed, uncomfortable, Behavior is cooperative, crying. Pain: eh3 Complains of pain in lumbar area and sacrum. Neuro: Level of Consciousness is awake, alert, obeys commands, Oriented to person, place, time, situation. Cardiovascular: Capillary refill < 3 seconds Patient's skin is warm and dry. Respiratory: Airway is patent Respiratory effort is even, unlabored, Respiratory pattern is regular, symmetrical. GI: No signs and/or symptoms were reported involving the gastrointestinal system. Abdomen is round non-distended. : No signs and/or symptoms were reported regarding the genitourinary system. EENT: No signs and/or symptoms were reported regarding the EENT system. Derm: No signs and/or symptoms reported regarding the dermatologic system. Skin is pink, warm \\T\\ dry. Musculoskeletal: Circulation, motion, and sensation intact. Range of motion: intact in all extremities. 16:15 Reassessment: Patient appears in no apparent distress at this time. Patient and/or eh3 family updated on plan of care and expected duration. Pain level reassessed. Patient is alert, oriented x 3, equal unlabored respirations, skin warm/dry/pink. 17:15 Reassessment: No changes from previously documented assessment. Patient and/or family eh3 updated on plan of care and expected duration. Pain level reassessed. Patient is alert, oriented x 3, equal unlabored respirations, skin warm/dry/pink. Patient states symptoms have improved. Vital Signs: 14:57 BP 236 / 118; Pulse 95; Resp 20 S; Temp 98.5(O); Pulse Ox 99% on R/A; aa5 15:15 BP 183 / 114; Pulse 77; Resp 18; Pulse Ox 100% on R/A; eh3 16:15 BP 177 / 106; Pulse 78; Resp 18; Pulse Ox 99% on R/A; eh3 17:15 BP 161 / 100; Pulse 76; Resp 17; Pulse Ox 99% on R/A; eh3 ED Course: 14:47 Patient arrived in ED. mr 14:53 Mariano Virgen MD is Attending Physician. jr11 14:57 Arm band placed on. aa5 15:07 Triage completed. aa5 15:14 Lenora Montenegro, RN is Primary Nurse. eh3 15:15 Patient has correct armband on for positive identification. Bed in low position. Call eh3 light in reach. Side rails up X2. Pulse ox on. NIBP on. Door closed. Noise minimized. 15:36 Lumbar Spine (3 Views) XRAY In Process Unspecified. EDMS 17:45 No provider procedures requiring assistance completed. Patient did not have IV access eh3 during this emergency room visit. Administered Medications: 16:00 Drug: [place] PO 10 mg-325 mg 1 tabs Route: PO; eh3 17:00 Follow up: Response: Pain is decreased eh3 16:00 Drug: Ketorolac IM 30 mg Route: IM; Site: right deltoid; eh3 17:00 Follow up: Response: Pain is decreased eh3 16:00 Drug: predniSONE PO 60 mg Route: PO; eh3 17:00 Follow up: Response: Pain is decreased eh3 16:00 Drug: Methocarbamol PO 750 mg Route: PO; eh3 17:00 Follow up: Response: Pain is decreased eh3 16:43 Drug: Lidoderm Topical Patch 5 % (700 mg/patch) 1 patches Route: Topical; Site: eh3 affected area; 17:45 Follow up: Response: Pain is decreased eh3 Medication: 17:45 VIS not applicable for this client. eh3 Outcome: 16:58 Discharge ordered by . laueren 17:55 Discharged to home ambulatory. eh3 17:55 Condition: stable 17:55 Discharge instructions given to patient, Instructed on discharge instructions, follow up and referral plans. medication usage, Demonstrated understanding of instructions, follow-up care, medications, Prescriptions given X 2. 17:56 Patient left the ED. eh3 Signatures: Dispatcher [employer] [facility] MannieMeloniederTeri perez RN RN aa5 Mariano Virgen MD MD jr11 Lenora Montenegro, KAROL RN eh3 Corrections: (The following items were deleted from the chart) 15:06 15:05 Allergies: Tramadol HCl; aa5 aa5
--- NOTE | 2022-05-10 16:59 | EDPHYS ---
Physician Documentation [facility] Name: Adrienne Mcduffie Age: 51 yrs Sex: Female : 1970 Arrival Date: 05/10/2022 Time: 14:47 Bed 10 Private MD: ED Physician Mariano Virgen HPI: 05/10 15:11 Patient is a 51-year-old that intermittently has had back pain, this time its been jr11 going on for about a week, she came in here was given muscle relaxants and anti-inflammatories however she says the pain is not getting any better. 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 Denies any numbness of the perineum, no leg weakness however the pain does radiate down the right leg. Patient has not taken any analgesia over the last 24 hours. Denies any fevers, denies any urinary complaints, states that they recently have checked her urine and it was negative for infection. No fevers, no concern for IV drug use.. 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 - Social history:: Smoking status: unknown. ROS: 15:11 Constitutional: Negative for fever, chills jr11 15:11 All other systems are negative. Exam: 15:11 Constitutional: This is a well developed, well nourished patient who is awake, alert, jr11 and in no acute distress. Head/Face: Normocephalic, atraumatic. Eyes: Extra-ocular motions intact. Lids and lashes normal. Conjunctiva and sclera are non-icteric and not injected. Cornea within normal limits. Periorbital areas with no swelling, redness, or edema. ENT: Nares patent. No nasal discharge, no septal abnormalities noted. Oropharynx with no redness, swelling, or masses, exudates, or evidence of obstruction, uvula midline. Mucous membranes moist. Neck: Trachea midline, no thyromegaly or masses palpated, and no cervical lymphadenopathy. Supple, full range of motion without nuchal rigidity, or vertebral point tenderness. No Meningismus. Chest/axilla: Normal chest wall appearance and motion. Nontender with no deformity. No lesions are appreciated. Abdomen/GI: Soft, non-tender, with normal bowel sounds. No distension or tympany. No guarding or rebound. No evidence of tenderness throughout. Skin: Warm, dry with normal turgor. Normal color with no rashes, no lesions, and no evidence of cellulitis. MS/ Extremity: Patient with tenderness to palpation right paravertebral musculature neurovascular intact distally, patient does have positive straight leg test on the right side. Neuro: Awake and alert, GCS 15, oriented to person, place, time, and situation. No gross motor or sensory deficits. Vital Signs: 14:57 BP 236 / 118; Pulse 95; Resp 20 S; Temp 98.5(O); Pulse Ox 99% on R/A; aa5 15:15 BP 183 / 114; Pulse 77; Resp 18; Pulse Ox 100% on R/A; eh3 16:15 BP 177 / 106; Pulse 78; Resp 18; Pulse Ox 99% on R/A; eh3 17:15 BP 161 / 100; Pulse 76; Resp 17; Pulse Ox 99% on R/A; eh3 MDM: 15:08 Patient medically screened. jr11 15:11 Differential diagnosis: arthritis, Fracture Joint Injury Obesity sprain, vertebral jr11 fracture, Patient is a 51-year-old female with acute on chronic lumbar pain, positive straight leg test on the right, concern for ruptured disc, no IV drug use no fever, no concern for discitis or spinal epidural abscess at this time. Patient has had this for approximately 1 week. Would consider steroids given the radicular type pain down the posterior aspect of the right leg, he she already has an appointment with Dr. Bernal her primary care doctor would recommend that he does MRI to see the status of her disc. Data reviewed: vital signs, nurses notes. Test considered but Not performed: Other Details UA: recently negative, no urinary complaints . 16:58 ED course: Pt feeling better to f/u PCP for MRI. jr11 05/10 15:10 Order name: Lumbar Spine (3 Views) XRAY; Complete Time: 16:01 jr11 Administered Medications: 16:00 Drug: [place] PO 10 mg-325 mg 1 tabs Route: PO; eh3 17:00 Follow up: Response: Pain is decreased eh3 16:00 Drug: Ketorolac IM 30 mg Route: IM; Site: right deltoid; eh3 17:00 Follow up: Response: Pain is decreased eh3 16:00 Drug: predniSONE PO 60 mg Route: PO; eh3 17:00 Follow up: Response: Pain is decreased eh3 16:00 Drug: Methocarbamol PO 750 mg Route: PO; eh3 17:00 Follow up: Response: Pain is decreased eh3 16:43 Drug: Lidoderm Topical Patch 5 % (700 mg/patch) 1 patches Route: Topical; Site: eh3 affected area; 17:45 Follow up: Response: Pain is decreased eh3 Disposition Summary: 05/10/22 16:58 Discharge Ordered Location: Home jr Condition: Stable jr11 Diagnosis - Low back pain jr11 Followup: jr11 - With: Private Physician - When: 1 - 2 days - Reason: keep your appointment Discharge Instructions: - Discharge Summary Sheet jr11 - Acute Back Pain, Adult jr11 Forms: - Medication Reconciliation Form jr11 - Thank You Letter jr11 - Antibiotic Education jr11 - Prescription Opioid Use jr11 Prescriptions: - Prednisone 20 mg Oral Tablet - take 3 tablets by ORAL route once daily for 5 days; 15 tablet; Refills: 0, jr11 Product Selection Permitted Signatures: Dispatcher [employer] Teri Segundo RN RN aa5 Mariano Virgen MD MD jr11 Lenora Montenegro RN RN eh3 Corrections: (The following items were deleted from the chart) 15:06 15:05 Allergies: Tramadol HCl; aa5 aa5
[2022-05-10 19:10] VITALS: BP 236/118; TEMP 98.5; O2SAT 99
== END 2022-05-10 17:56 | disposition home or self-care (01) ==
LOC: ER 14:43
DX: M54.50 Low back pain, unspecified (principal); I10 Essential (primary) hypertension; L93.0 Discoid lupus erythematosus; D25.9 Leiomyoma of uterus, unspecified; Z88.6 Allergy status to analgesic agent
CPT/HCPCS: 72100; J7512; J2001

== ENCOUNTER → 2023-02-06 | Emergency (ER) | payer OTHER ==
[~2023-02-06] MED LIST: FENTANYL CITR 100 MCG/2 ML ONE; HYDROMORPHONE HCL 1 MG/ML INJ ONE; KETOROLAC 30 MG/ML INJ ONE; NA CHLORIDE 0.9% 1,000 ML ONE; ONDANSETRON 4 MG/2 ML VIAL ONE
[2023-02-06 17:51] LABS: Urine Bacteria None Seen /HPF (<20); Urine Bilirubin NEGATIVE (Negative); Urine Blood 1+ (Negative); Urine Clarity Clear (Clear); Urine Color Light-Yellow (Yellow); Urine Crystals Unidentified Few /HPF (None Seen); Urine Glucose NEGATIVE (Negative); Urine Mucus Slight /HPF (None Seen); Urine Protein NEGATIVE (Negative); Urine Urobilinogen Normal (Normal); Urine pH 6.5 (5.0-7.0)
[2023-02-06 17:59] LABS: Hematocrit 38.5 % (36.0-45.0); Lymphocytes % 38.3 % (15.3-44.8); MCV 92.5 fL (80-100); MPV 8.2 fL (7.6-11.3); Platelets 381 thou/uL (152-406); RBC Red Blood Cell Count 4.16 M/uL (3.86-4.86)
[2023-02-06 18:08] LABS: Albumin 3.5 g/dL (3.4-5.0); Bilirubin Total 0.2 mg/dL (0.2-1.0); Potassium 3.6 mEq/L (3.5-5.1); Protein, Total 8.9 g/dL (6.4-8.2)
--- NOTE | 2023-02-06 18:44 | RAD REPORT ---
EXAM DESCRIPTION: CT - Stone Protocol - 02/06/2023 6:31 pm CLINICAL HISTORY: Abdominal pain. COMPARISON: None. TECHNIQUE: Computed axial tomography of the abdomen pelvis was obtained without oral or IV contrast. Lack of IV and oral contrast limits evaluation of solid organs, appendix, bowel, and vessels. Sanchez l reformatted images were obtained and reviewed. All CT scans are performed using dose optimization technique as appropriate and may include automated exposure control or mA/KV adjustment according to patient size. FINDINGS: Punctate calculus left kidney. An ureteral calculus is not noted. A bladder calculus is no t present. No hydronephrosis The liver, spleen, pancreas and adrenals appear grossly normal There is no evidence of diverticulitis. The appendix appears normal Hysterectomy. No adnexal mass Small umbilical hernia IMPRESSION: Punctate nonobstructing left renal calculus
--- NOTE | 2023-02-06 19:56 | EDPHYS ---
Physician Documentation [facility] Name: Adrienne Mcduffie Age: 52 yrs Sex: Female : 1970 Arrival Date: 02/06/2023 Time: 16:53 Bed 15 Private MD: ED Physician Bear Carpenter HPI: 02/06 19:54 This 52 yrs old Black Female presents to ER via Ambulatory with complaints of Urinary kb Problem. 19:54 Patient is a 52-year-old female who presents for lower abdominal and back pain, urinary kb frequency, small amounts of urine passing, hematuria started 2 days ago.. 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 - Social history:: Smoking status: Patient denies any tobacco usage or history of. ROS: 19:53 Constitutional: Negative for fever, chills, and weight loss, kb 19:53 Abdomen/GI: Positive for abdominal pain, 19:53 Back: Positive for flank pain, 19:53 : Positive for urinary frequency, small amounts, hematuria, 19:53 All other systems are negative, Exam: 19:54 Constitutional: This is a well developed, well nourished patient who is awake, alert, kb and in no acute distress. Head/Face: Normocephalic, atraumatic. ENT: Moist Mucous membranes Cardiovascular: Regular rate Respiratory: Respirations even and unlabored. No increased work of breathing. Talking in full sentences Abdomen/GI: Soft, non-tender. No distention Skin: Warm, dry with normal turgor. Normal color. MS/ Extremity: Pulses equal, no cyanosis. Neurovascular intact. Full, normal range of motion. Neuro: Awake and alert, GCS 15, oriented to person, place, time, and situation. Moves all extremities. Normal gait. 19:54 Back: CVA tenderness, that is mild, is noted on the left, 19:54 : CVA tenderness, on the left, Pelvic Exam: Speculum exam: no bleeding is noted, Vital Signs: 17:35 BP 202 / 117; Pulse 70; Resp 18; Temp 98.2(O); Pulse Ox 98% on R/A; Weight 93.44 kg; rs5 Height 5 ft. 6 in. ; Pain 8/10; 18:11 BP 189 / 95; Pulse 77; Resp 17; Pulse Ox 99% on R/A; rs5 19:35 BP 178 / 105; Pulse 74; Resp 17 S; Pulse Ox 98% on R/A; ha1 20:13 BP 164 / 94; Pulse 75; Resp 18 S; Pulse Ox 98% on R/A; ha1 17:35 Body Mass Index 33.25 (93.44 kg, 167.64 cm) rs5 17:35 Pain Scale: Adult rs5 MDM: 17:00 Patient medically screened. kb 19:55 Differential diagnosis: UTI, pyelonephritis, kidney stone. Data reviewed: vital signs, kb nurses notes. Counseling: I had a detailed discussion with the patient and/or guardian regarding the historical points, exam findings, and any diagnostic results supporting the discharge/admit diagnosis, lab results, radiology results, the need for outpatient follow up, an OB/Gyne specialist, to return to the emergency department if symptoms worsen or persist or if there are any questions or concerns that arise at home. 02/06 17:08 Order name: CBC with Diff; Complete Time: 18:07 kb 02/06 17:08 Order name: CMP; Complete Time: 18:11 kb 02/06 17:08 Order name: Urinalysis w/ reflexes; Complete Time: 17:53 kb 02/06 17:08 Order name: CT Stone Protocol; Complete Time: 18:47 kb 02/06 17:08 Order name: IV Saline Lock; Complete Time: 17:34 kb 02/06 17:08 Order name: Labs collected and sent; Complete Time: 17:34 kb 02/06 19:35 Order name: Pelvic Exam Setup; Complete Time: 19:50 kb Administered Medications: 17:34 Drug: NS 0.9% IV 1000 ml IV at 1 bolus Per protocol; 1000 mL bolus Route: IV; Rate: 1 rs5 bolus; Site: right forearm; 18:00 Follow up: Response: No adverse reaction rs5 17:35 Drug: TORadol - Ketorolac IVP 15 mg IVP once Route: IVP; Site: right forearm; rs5 18:00 Follow up: Response: No adverse reaction; Pain is decreased rs5 17:35 Drug: Ondansetron IVP 4 mg IVP once; over 2 minutes Route: IVP; Site: right forearm; rs5 18:00 Follow up: Response: No adverse reaction rs5 18:17 Drug: fentaNYL (PF) IVP 50 mcg IVP once Route: IVP; Site: right antecubital; rs5 19:32 Drug: HYDROmorphone IVP 0.5 mg IVP once Route: IVP; Site: right forearm; ha1 20:20 Follow up: Response: No adverse reaction; Pain is decreased; RASS: Alert and Calm (0) ha1 Disposition Summary: 02/06/23 19:56 Discharge Ordered Notes: Location: Home kb Condition: Stable kb Diagnosis - Lower abdominal pain, unspecified kb - Flank pain kb Followup: kb - With: Emergency Department - When: As needed - Reason: Worsening of condition Followup: kb - With: Private Physician - When: 2 - 3 days - Reason: Recheck today's complaints, Continuance of care, Re-evaluation by your physician Discharge Instructions: - Discharge Summary Sheet kb - Abdominal Pain, Adult, [id number] kb - Flank Pain, Adult, [id number] kb Forms: - Medication Reconciliation Form kb - Thank You Letter kb - Antibiotic Education kb - Prescription Opioid Use kb - Patient Portal Instructions kb - Leadership Thank You Letter kb Prescriptions: - Diclofenac Sodium 75 mg Oral tablet, delayed release (enteric coated) - take 1 tablet ORAL route 2 times per day As needed; 30 tablet; Refills: 0, kb Product Selection Permitted Addendum: 02/12/2023 17:40 I was immediately available for consultation during this patient's visit. I did not e c2 personally see the patient or guide the patient's care. . Signatures: Dispatcher [employer] Daylin Jung FNP-C FNP-Sindhu Lorenzana RN RN ld1 Anamaria Ortega RN RN ha1 Yuniel Perry RN RN rs5 Carpenter, Bear, MD MD ec2
--- NOTE | 2023-02-06 19:56 | ER ---
Nurse's Notes [facility] Name: Adrienne Mcduffie Age: 52 yrs Sex: Female : 1970 Arrival Date: 02/06/2023 Time: 16:53 Bed 15 Private MD: Diagnosis: Lower abdominal pain, unspecified;Flank pain Presentation: 02/06 17:19 Chief complaint: Patient states: lower abdominal pain/back pain, hematuria, urinary ld1 frequency X 5 days. Today symptoms have become worse. Coronavirus screen: At this time, the client does not indicate any symptoms associated with coronavirus-19. Ebola Screen: No symptoms or risks identified at this time. Risk Assessment: Do you want to hurt yourself or someone else? Patient reports no desire to harm self or others. Onset of symptoms was February 06, 2023. 17:19 Method Of Arrival: Ambulatory ld1 17:19 Acuity: JUAN MANUEL 3 ld1 Triage Assessment: 17:20 General: Appears in no apparent distress. uncomfortable, Behavior is calm, cooperative, ld1 appropriate for age. Pain: Complains of pain in back and abdomen Pain does not radiate. Pain currently is 8 out of 10 on a pain scale. Quality of pain is described as sharp, shooting, throbbing, Pain began 5 days. EENT: No signs and/or symptoms were reported regarding the EENT system. Neuro: Level of Consciousness is awake, alert, obeys commands, Oriented to person, place, time, situation. Cardiovascular: Capillary refill < 3 seconds Patient's skin is warm and dry. Respiratory: Airway is patent Respiratory effort is even, unlabored. GI: Abdomen is round non-distended, Reports lower abdominal pain. : Reports urinary frequency, hematuria. Derm: No signs and/or symptoms reported regarding the dermatologic system. Musculoskeletal: No signs and/or symptoms reported regarding the musculoskeletal system. 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 - Social history:: Smoking status: Patient denies any tobacco usage or history of. Screenin:14 [facility] ED Fall Risk Assessment (Adult) History of falling in the last 3 months, ha1 including since admission No falls in past 3 months (0 pts) Confusion or Disorientation No (0 pts) Intoxicated or Sedated No (0 pts) Impaired Gait No (0 pts) Mobility Assist Device Used No (0 pt) Altered Elimination No (0 pt) Score/Fall Risk Level 0 - 2 = Low Risk Oriented to surroundings, Maintained a safe environment, Educated pt \\T\\ family on fall prevention, incl call for assistance when getting out of bed, Hourly rounding (assess needs \\T\\ fall precautionary measures) done. Abuse screen: Denies threats or abuse. Denies injuries from another. Nutritional screening: No deficits noted. Tuberculosis screening: No symptoms or risk factors identified. Assessment: 17:20 General: Appears distressed, uncomfortable, Behavior is cooperative. Pain: Pain: rs5 Complains of pain in lower abdomen bilat Pain radiates to lower back Pain currently is 8 out of 10 on a pain scale. Quality of pain is described as aching, Pain began 3 hours ago. Is continuous. 17:20 Neuro: Level of Consciousness is awake, alert, obeys commands, Oriented to person, rs5 place, time, situation. Cardiovascular: Heart tones S1 S2 present Rhythm is regular. 17:20 Respiratory: Airway is patent Respiratory effort is even, unlabored, Respiratory rs5 pattern is regular, symmetrical, Breath sounds are clear bilaterally. GI: Abdomen is round non-distended, Bowel sounds present X 4 quads. Abd is soft and non tender X 4 quads. Reports nausea, vomiting. : Reports intermittent vaginal bleeding since Saturday. EENT: No signs and/or symptoms were reported regarding the EENT system. Derm: Skin is intact, Skin is dry, Skin is normal, Skin temperature is warm. Musculoskeletal: Range of motion: intact in all extremities. 18:00 Reassessment: Patient and/or family updated on plan of care and expected duration. Pain rs5 level reassessed. Patient is alert, oriented x 3, equal unlabored respirations, skin warm/dry/pink. Patient states feeling better. 18:30 Reassessment: Pt states "the pain meds I was given earlier helped but now the pain is rs5 back again and it hurts !" Provider notified. Pain: Complains of pain in lower abdomen bilat Pain currently is 8 out of 10 on a pain scale. Quality of pain is described as aching, Is continuous. 19:35 General: Appears uncomfortable, Behavior is cooperative. Pain: Complains of pain in ha1 suprapubic area Pain does not radiate. Pain currently is 9 out of 10 on a pain scale. Quality of pain is described as crampy. Neuro: Level of Consciousness is awake, alert, obeys commands, Oriented to person, place, time, situation. Cardiovascular: Capillary refill < 3 seconds Patient's skin is warm and dry. Respiratory: Airway is patent Respiratory effort is even, unlabored, Respiratory pattern is regular, symmetrical. : Reports vaginal bleeding that is. Derm: Skin is moist, Skin is normal. Musculoskeletal: Circulation, motion, and sensation intact. Range of motion: intact in all extremities. 20:13 Reassessment: Patient and/or family updated on plan of care and expected duration. Pain ha1 level reassessed. Patient is alert, oriented x 3, equal unlabored respirations, skin warm/dry/pink. Vital Signs: 17:35 BP 202 / 117; Pulse 70; Resp 18; Temp 98.2(O); Pulse Ox 98% on R/A; Weight 93.44 kg; rs5 Height 5 ft. 6 in. ; Pain 8/10; 18:11 BP 189 / 95; Pulse 77; Resp 17; Pulse Ox 99% on R/A; rs5 19:35 BP 178 / 105; Pulse 74; Resp 17 S; Pulse Ox 98% on R/A; ha1 20:13 BP 164 / 94; Pulse 75; Resp 18 S; Pulse Ox 98% on R/A; ha1 17:35 Body Mass Index 33.25 (93.44 kg, 167.64 cm) rs5 17:35 Pain Scale: Adult rs5 ED Course: 16:59 Patient arrived in ED. ae5 17:00 Daylin Orantes [facility]C [facility] kb 17:00 Bear Carpenter MD is Attending Physician. kb 17:20 Triage completed. ld1 17:20 Arm band placed on right wrist. ld1 17:34 CBC with Diff Sent. rs5 17:34 CMP Sent. rs5 17:34 Urinalysis w/ reflexes Sent. rs5 17:35 Inserted saline lock: 20 gauge in right forearm, using aseptic technique. Blood rs5 collected. 17:58 Yuniel Perry, RN is Primary Nurse. rs5 18:32 CT Stone Protocol In Process Unspecified. EDMS 20:14 No provider procedures requiring assistance completed. IV discontinued, intact, ha1 bleeding controlled, No redness/swelling at site. Pressure dressing applied. Administered Medications: 17:34 Drug: NS 0.9% IV 1000 ml IV at 1 bolus Per protocol; 1000 mL bolus Route: IV; Rate: 1 rs5 bolus; Site: right forearm; 18:00 Follow up: Response: No adverse reaction rs5 17:35 Drug: TORadol - Ketorolac IVP 15 mg IVP once Route: IVP; Site: right forearm; rs5 18:00 Follow up: Response: No adverse reaction; Pain is decreased rs5 17:35 Drug: Ondansetron IVP 4 mg IVP once; over 2 minutes Route: IVP; Site: right forearm; rs5 18:00 Follow up: Response: No adverse reaction rs5 18:17 Drug: fentaNYL (PF) IVP 50 mcg IVP once Route: IVP; Site: right antecubital; rs5 19:32 Drug: HYDROmorphone IVP 0.5 mg IVP once Route: IVP; Site: right forearm; ha1 20:20 Follow up: Response: No adverse reaction; Pain is decreased; RASS: Alert and Calm (0) ha1 Medication: 20:15 VIS not applicable for this client. ha1 Outcome: 19:56 Discharge ordered by MD. farah 20:27 Patient left the ED. ha1 Signatures: Dispatcher [employer] EDMS Daylin Orantes FNP-C FNP-Sindhu Lorenzana RN RN ld1 Anamaria Ortega RN RN ha1 Yuniel Perry, RN RN rs5 Vanesa Saldana ae5 Corrections: (The following items were deleted from the chart) 18:29 17:20 Pain: rs5 rs5 18:30 18:10 Reassessment: Patient and/or family updated on plan of care and expected rs5 duration. Pain level reassessed. Patient is alert, oriented x 3, equal unlabored respirations, skin warm/dry/pink. Patient denies pain at this time. Patient states feeling better. rs5 18:57 17:20 Pain: Complains of pain in right flank Pain does not radiate. Pain currently is 8 rs5 out of 10 on a pain scale. Quality of pain is described as aching, Pain began 3 hours ago. Is continuous, Pain: Complains of pain in right flank Pain does not radiate. Pain currently is 8 out of 10 on a pain scale. Quality of pain is described as aching, Pain began 3 hours ago. Is continuous, rs5 18:57 17:20 : No signs and/or symptoms were reported regarding the genitourinary system. rs5rs5 18:57 18:30 Pain: Complains of pain in right flank Pain currently is 8 out of 10 on a pain rs5 scale. Quality of pain is described as aching, Is continuous, rs5
[2023-02-06 21:09] VITALS: TEMP 98.2; O2SAT 98
[2023-02-06 21:14] VITALS: BP 164/94
== END ==
LOC: ER 16:53
DX: R10.30 Lower abdominal pain, unspecified (principal); R10.9 Unspecified abdominal pain; R31.9 Hematuria, unspecified; I10 Essential (primary) hypertension; Z88.5 Allergy status to narcotic agent; Z88.8 Allergy status to other drugs, medicaments and biological substances
CPT/HCPCS: 85025; 81001; 36415; 80053; 76377; 74176; J3010; J1170; J2405; J7030; 99284

== ENCOUNTER 2023-07-26 21:31 | Inpatient (IN) | payer OTHER, SELFPAY ==
[2023-07-26] MEDS ORDERED: ONDANSETRON 4 MG/2 ML VIAL ONE (22:24)
[2023-07-26] MEDS ORDERED: LABETALOL 20 MG/4ML SYRINGE IV ONE (22:24)
--- NOTE | 2023-07-26 22:30 | RAD REPORT ---
EXAM DESCRIPTION: RAD - Chest Single View - 07/26/2023 10:24 pm CLINICAL HISTORY: CHEST PAIN COMPARISON: Chest Single View dated 07/01/2018; Chest Single View dated 09/14/2017; Chest Pa And Lat ( 2 Views) dated 01/18/2016; CHEST SINGLE VIEW dated 06/20/2012 FINDINGS: Lines: None. Lungs: Increased prominence of the pulmonary vasculature. Pleural: No significant pleural effusions or pneumothorax. Cardiac: Cardiomegaly. Mediastinum: Within normal limits. Bones: No acute fractures. Other: None IMPRESSION: Question mild pulmonary edema. Mild enlarged cardiac silhouette.
[2023-07-26 22:37] LABS: Absolute Basophils 0.1 K/uL (0-0.5); Absolute Eosinophils 0.1 K/uL (0-0.5); Absolute Lymphocytes (CBC) 2.3 K/uL (0.7-4.9); Absolute Monocytes 0.7 K/uL (0.1-1.3); Basophils % 0.8 % (0-1.3); Eosinophils % 0.7 % (0-4.4); Hematocrit 39.2 % (36.0-45.0); Lymphocytes % 25.5 % (15.3-44.8); MCH 30.8 pg (27.0-35.0); MCHC 33.1 g/dL (32.0-36.0); MCV 93.1 fL (80-100); MPV 8.3 fL (7.6-11.3); Monocytes % 7.4 % (3.3-12.3); Neutrophils % 65.6 % (41.7-73.7); Platelets 302 thou/uL (152-406); RBC Red Blood Cell Count 4.21 M/uL (3.86-4.86); Red Cell Distribution Width 13.9 % (12.1-15.2)
[2023-07-26 22:46] LABS: PT Prothrombin Time 12.1 SECONDS (9.5-12.5); Protime INR 1.1
[2023-07-26 22:50] LABS: ALT/SGPT 56 U/L (13-56); AST/SGOT 53 U/L (15-37); Albumin 3.2 g/dL (3.4-5.0); Albumin/Globulin Ratio 0.6 (1.1-1.8); Alkaline Phosphatase 162 U/L (45-117); Anion Gap 6.8 mEq/L (5.0-15.0); BUN Blood Urea Nitrogen 11 mg/dL (7-18); Bicarbonate 28 mEq/L (21-32); Bilirubin Total 0.5 mg/dL (0.2-1.0); Globulin 5.8 g/dL (2.3-3.5); Glomerular Filtration Rate 67 ml/min (=/>90); Glucose Level 138 mg/dL (74-106); NT PRO-BNP 449 pg/mL (<125); Potassium 2.8 mEq/L (3.5-5.1); Sodium Level 134 mEq/L (136-145); Troponin High Sensitivity 17.7 pg/mL (<58.9)
[2023-07-26 22:52] LABS: Bilirubin Direct < 0.2 mg/dL (0-0.2); Bilirubin Indirect, Calculated 0.3 mg/dL (0.2-0.8)
--- NOTE | 2023-07-26 23:04 | RAD REPORT ---
EXAM DESCRIPTION: CT - Head Brain Wo Cont - 07/26/2023 10:55 pm CLINICAL HISTORY: DIZZINESS COMPARISON: Head Brain Wo Cont dated 08/28/2020; Head Brain Wo Cont dated 10/24/2018 TECHNIQUE: All CT scans are performed using dose optimization technique as appropriate and may inclu de automated exposure control or mA/KV adjustment according to patient size. FINDINGS: No intracranial hemorrhage, hydrocephalus or extra-axial fluid collection.No areas of brai n edema or evidence of midline shift. The paranasal sinuses and mastoids are clear. The calvarium is intact. IMPRESSION: No acute intracranial abnormality.
--- NOTE | 2023-07-27 00:54 | EDPHYS ---
Physician Documentation [facility] Name: Adrienne Mcduffie Age: 52 yrs Sex: Female : 1970 Arrival Date: 07/26/2023 Time: 21:31 Bed 4 Private MD: ED Physician Ge Solorio HPI: 07/25 22:06 This 52 yrs old Black Female presents to ER via Wheelchair with complaints of Blood sb4 Pressure Problem, Dizziness, Nausea, Chest Tightness. 22:06 patient reports feeling generally unwell since yesterday- weakness, dizziness, chest sb4 tightness, nausea, headache. states her blood pressure medications were adjusted by Dr. Vieira recently. 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 - Infectious Disease History:: Denies. - Social history:: Smoking status: Patient reports the use of cigarette tobacco products, smokes one-half pack cigarettes per day. ROS: 22:06 Constitutional: Negative for fever, chills, and weight loss, sb4 22:06 Cardiovascular: Positive for chest pain, 22:06 Abdomen/GI: Positive for nausea, 22:06 Neuro: Positive for dizziness, weakness, 22:06 All other systems are negative, Exam: 22:06 Head/Face: Normocephalic, atraumatic. Eyes: Extra-ocular motions intact. Periorbital sb4 areas with no swelling, redness, or edema. ENT: Mucous membranes moist. Cardiovascular: Regular rate and rhythm with a normal S1 and S2. Respiratory: Lungs have equal breath sounds bilaterally, clear to auscultation and percussion. No rales, rhonchi or wheezes noted. No increased work of breathing, no retractions or nasal flaring. Abdomen/GI: Soft, non-tender, no distension. Skin: Warm, dry with normal turgor. Normal color with no rashes, no lesions, and no evidence of cellulitis. MS/ Extremity: Pulses equal, no cyanosis. Neurovascular intact. Full, normal range of motion. 22:06 Constitutional: The patient appears alert, awake, obviously ill, Vital Signs: 21:45 BP 205 / 117; Pulse 95; Resp 16 S; Temp 97.8; Pulse Ox 96% on R/A; Weight 84.37 kg (R); as6 Height 5 ft. 3 in. (R); Pain 9/10; 22:42 BP 162 / 83; Pulse 108; Resp 14; Pulse Ox 97% ; vc1 06 00:30 BP 165 / 81; Pulse 91; Resp 23; Pulse Ox 100% ; vc1 00:31 BP 186 / 90; Pulse 91; sb4 02:00 BP 202 / 115; Pulse 89; Resp 20; Pulse Ox 98% ; vc1 02:30 BP 155 / 88; Pulse 85; Resp 18; Pulse Ox 100% ; vc1 07/25 21:45 Body Mass Index 32.95 (84.37 kg, 160.02 cm) as6 07/25 21:45 Pain Scale: Adult as6 MDM: 07/25 21:54 Patient medically screened. sb4 07/26 00:51 Data reviewed: vital signs, nurses notes, lab test result(s), EKG, radiologic studies, sb4 and as a result, I will admit patient. Consideration of Admission/Observation Patient was admitted/placed on observation. Care significantly affected by the following chronic conditions: Hypertension. Scoring Tools HEART Score: History: ECG: Age: Risk Factors: > or = 3 Risk factors for atherosclerotic disease (2), Troponin: Total Score = 4. Counseling: I had a detailed discussion with the patient and/or guardian regarding the historical points, exam findings, and any diagnostic results supporting the discharge/admit diagnosis, the presence of at least one elevated blood pressure reading (>120/80) during this emergency department visit, lab results, radiology results, the need for further work-up and treatment in the hospital. 07/25 21:59 Order name: Basic Metabolic Panel; Complete Time: 22:54 sb4 07/25 21:59 Order name: CBC with Diff; Complete Time: 22:42 sb4 07/25 21:59 Order name: LFT's; Complete Time: 22:54 sb4 07/25 21:59 Order name: Magnesium; Complete Time: 22:54 sb4 07/25 21:59 Order name: NT PRO-BNP; Complete Time: 22:54 sb4 07/25 21:59 Order name: PT-INR; Complete Time: 22:47 sb4 07/25 21:59 Order name: Troponin HS; Complete Time: 22:54 sb4 07/26 00:36 Order name: Troponin High Sensitivity sb4 07/26 02:01 Order name: Magnesium EDMS 07/26 02:01 Order name: Thyroid Stimulating Hormone EDMS 07/26 02:01 Order name: CBC with Automated Diff EDMS 07/26 02:01 Order name: CBC with Automated Diff EDMS / 02:01 Order name: Comprehensive Metabolic Panel EDMS 07/26 02:01 Order name: Comprehensive Metabolic Panel EDMS / 02:01 Order name: Lipid Profile EDMS 07/26 02:01 Order name: Lipid Profile EDMS / 02:01 Order name: Troponin High Sensitivity EDMS / 02:01 Order name: Troponin High Sensitivity EDMS / 02:01 Order name: Troponin High Sensitivity EDMS / 02:01 Order name: Troponin High Sensitivity EDMS / 21:59 Order name: XRAY Chest (1 view); Complete Time: 22:31 sb4 07/25 21:59 Order name: Head Brain Wo Cont CT; Complete Time: 23:07 sb4 08 02:01 Order name: Echo with Doppler EDMS 07/25 21:59 Order name: EKG; Complete Time: 22:00 sb4 07/25 21:59 Order name: Cardiac monitoring; Complete Time: 22:31 sb4 07/25 21:59 Order name: EKG - Nurse/Tech; Complete Time: 22:31 sb4 07/25 21:59 Order name: IV Saline Lock; Complete Time: 22:31 sb4 07/25 21:59 Order name: Labs collected and sent; Complete Time: 22:31 sb4 07/25 21:59 Order name: O2 Per Protocol; Complete Time: 22:31 sb4 07/25 21:59 Order name: O2 Sat Monitoring; Complete Time: 22:31 sb4 EC/07 22:19 Rate is 89 beats/min. Rhythm is regular, Normal Sinus Rhythm. OH interval is normal at sb4 164 msec. QRS interval is normal at 96 msec. QT interval is normal at 374 msec. No Q waves. T waves are Normal. No ST changes noted. Clinical impression: No evidence of ischemia. Interpreted by me. Reviewed by me. Administered Medications: 22:30 Drug: Labetalol IV 10 mg IV at calculated rate once Route: IV; Rate: calculated rate; vc1 Site: right antecubital; 22:31 Drug: Ondansetron IVP 4 mg IVP once; over 2 minutes Route: IVP; Site: right antecubital;vc1 07/26 00:51 CANCELLED (Physician Discretion): clonidine0.2 mg PO once sb4 01:10 Drug: Ativan IVP 0.5 mg IVP once Route: IVP; Site: right antecubital; vc1 01:11 Drug: Potassium PO Effervescent Tablet 50 mEq PO once; dissolve in 4 ounces of water or vc1 juice Route: PO; 01:11 Drug: NS 0.9% IV 1000 ml IV at 1 bolus Per protocol; 1000 mL bolus Route: IV; Rate: 1 vc1 bolus; Site: right antecubital; Disposition: 07:10 Co-signature as Attending Physician, Ge Solorio MD I agree with the assessment sp4 and plan of care. I reviewed the patient's care provided by the Advanced Practice Provider and agree with the diagnosis and treatment plan. Disposition Summary: 07/27/23 00:53 Hospitalization Ordered Notes: Hospitalization Status: Observation sb4 Provider: Carly Robles sb [facility] Condition: Fair sb4 Problem: new sb4 Symptoms: are unchanged sb4 Bed/Room Type: Standard sb4 Room Assignment: 217(07/27/23 02:02) Diagnosis - Chest pain, unspecified sb4 - Essential (primary) hypertension sb4 Forms: - Medication Reconciliation Form sb4 - SBAR form sb4 - Leadership Thank You Letter sb4 Signatures: Dispatcher [employer] Taty Jose RN RN cg Slawson, Ashby, RN RN as6 Ivanna Arora RN RN vc1 Patricia Cardona PA-C PA-C sb4 Ge Solorio MD MD sp4 Corrections: (The following items were deleted from the chart) 07/25 22: 22:00 BASIC METABOLIC PANEL+C.LAB.BRZ ordered. EDMS EDMS 22:00 CBC+H.LAB.BRZ ordered. EDMS EDMS 22:00 HEPATIC FUNCTION+C.LAB.BRZ ordered. EDMS EDMS : 22:00 MAGNESIUM+C.LAB.BRZ ordered. EDMS EDMS 22:00 PROBNP+C.LAB.BRZ ordered. EDMS EDMS : 22:00 PROTIME (+INR)+COAG.LAB.BRZ ordered. EDMS EDMS : 22:00 Troponin High Sensitivity+C.LAB.BRZ ordered. EDMS EDMS : 22:06 Head/Face: Normocephalic, atraumatic. Eyes: Extra-ocular motions intact. sb4 Periorbital areas with no swelling, redness, or edema. ENT: Mucous membranes moist. Cardiovascular: Regular rate and rhythm with a normal S1 and S2. Respiratory: Lungs have equal breath sounds bilaterally, clear to auscultation and percussion. No rales, rhonchi or wheezes noted. No increased work of breathing, no retractions or nasal flaring. Abdomen/GI: Soft, non-tender, no distension. Skin: Warm, dry with normal turgor. Normal color with no rashes, no lesions, and no evidence of cellulitis. MS/ Extremity: Pulses equal, no cyanosis. Neurovascular intact. Full, normal range of motion. sb4 : 22:06 Eyes: Nystagmus: nystagmus with fast component noted, in the right eye, sb4 sb4 07/26 00:28 07/25 22:09 Eyes: Nystagmus: horizontal nystagmus with eye movement to the right, sb4 sb4 07/26 00:51 00:32 cloNIDine PO 0.2 mg PO once ordered. sb4 sb4 : 00:53 sb4 cg
--- NOTE | 2023-07-27 00:54 | ER ---
Nurse's Notes [facility] Name: Adrienne Mcduffie Age: 52 yrs Sex: Female : 1970 Arrival Date: 07/26/2023 Time: 21:31 Bed 4 Private MD: Diagnosis: Chest pain, unspecified;Essential (primary) hypertension Presentation: 07/25 21:45 Chief complaint: Patient states: "I just don't feel right" pt c/o dizziness, headache, as6 high blood pressure. Coronavirus screen: At this time, the client does not indicate any symptoms associated with coronavirus-19. Ebola Screen: No symptoms or risks identified at this time. Initial Sepsis Screen: Does the patient meet any 2 criteria? No. Patient's initial sepsis screen is negative. Does the patient have a suspected source of infection? No. Patient's initial sepsis screen is negative. Risk Assessment: Do you want to hurt yourself or someone else? Patient reports no desire to harm self or others. Onset of symptoms was July 25, 2023. 21:45 Method Of Arrival: Wheelchair as6 21:45 Acuity: JUAN MANUEL 2 as6 Triage Assessment: 22:00 General: Appears in no apparent distress. uncomfortable, Behavior is cooperative, vc1 anxious. Pain: Complains of pain in face Pain does not radiate. Pain currently is 8 out of 10 on a pain scale. Quality of pain is described as pounding. EENT: No deficits noted. No signs and/or symptoms were reported regarding the EENT system. Neuro: Level of Consciousness is awake, alert, obeys commands, Oriented to person, place, time, situation, Appropriate for age Reports headache can feel pulse in head. Cardiovascular: Heart tones S1 S2 Capillary refill < 3 seconds Patient's skin is warm and dry. Respiratory: Airway is patent Respiratory effort is even, unlabored, Respiratory pattern is regular, symmetrical, Breath sounds are clear bilaterally. GI: Abdomen is round non-distended, Bowel sounds present X 4 quads. Abd is soft and non tender X 4 quads. Reports nausea. : No deficits noted. No signs and/or symptoms were reported regarding the genitourinary system. Derm: Skin is intact, is healthy with good turgor, Skin is dry, Skin is normal, Skin temperature is warm. Musculoskeletal: No deficits noted. No signs and/or symptoms reported regarding the musculoskeletal system. 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 - Infectious Disease History:: Denies. - Social history:: Smoking status: Patient reports the use of cigarette tobacco products, smokes one-half pack cigarettes per day. Screenin:00 [facility] ED Fall Risk Assessment (Adult) History of falling in the last 3 months, vc1 including since admission No falls in past 3 months (0 pts) Confusion or Disorientation No (0 pts) Intoxicated or Sedated No (0 pts) Impaired Gait No (0 pts) Mobility Assist Device Used No (0 pt) Altered Elimination No (0 pt) Score/Fall Risk Level 0 - 2 = Low Risk Oriented to surroundings, Maintained a safe environment, Educated pt \\T\\ family on fall prevention, incl call for assistance when getting out of bed. Abuse screen: Denies threats or abuse. Nutritional screening: No deficits noted. Tuberculosis screening: No symptoms or risk factors identified. Assessment: 22:00 General: See triage assessment. vc1 22:42 Reassessment: No changes from previously documented assessment. Patient and/or family vc1 updated on plan of care and expected duration. Pain level reassessed. Patient is alert, oriented x 3, equal unlabored respirations, skin warm/dry/pink. 06/08 00:51 Reassessment: Patient appears in no apparent distress at this time. Patient and/or vc1 family updated on plan of care and expected duration. Pain level reassessed. Patient is alert, oriented x 3, equal unlabored respirations, skin warm/dry/pink. Patient states feeling better. Patient states symptoms have improved. 02:54 Reassessment: Patient appears in no apparent distress at this time. No changes from vc1 previously documented assessment. Patient and/or family updated on plan of care and expected duration. Pain level reassessed. Patient is alert, oriented x 3, equal unlabored respirations, skin warm/dry/pink. Vital Signs: 07/25 21:45 BP 205 / 117; Pulse 95; Resp 16 S; Temp 97.8; Pulse Ox 96% on R/A; Weight 84.37 kg (R); as6 Height 5 ft. 3 in. (R); Pain 9/10; 22:42 BP 162 / 83; Pulse 108; Resp 14; Pulse Ox 97% ; vc1 07/26 00:30 BP 165 / 81; Pulse 91; Resp 23; Pulse Ox 100% ; vc1 00:31 BP 186 / 90; Pulse 91; sb4 02:00 BP 202 / 115; Pulse 89; Resp 20; Pulse Ox 98% ; vc1 02:30 BP 155 / 88; Pulse 85; Resp 18; Pulse Ox 100% ; vc1 07/25 21:45 Body Mass Index 32.95 (84.37 kg, 160.02 cm) as6 07/25 21:45 Pain Scale: Adult as6 ED Course: 07/25 21:40 Patient arrived in ED. ra3 21:46 Triage completed. as6 21:47 Arm band placed on. as6 21:54 Patricia Cardona PA-C is PHCP. sb4 21:54 Ge Solorio MD is Attending Physician. sb4 22:00 Patient has correct armband on for positive identification. Bed in low position. Call vc1 light in reach. Side rails up X 1. lumber sorter on. Pulse ox on. NIBP on. 22:25 XRAY Chest (1 view) In Process Unspecified. EDMS 22:30 Ivanna Arora, RN is Primary Nurse. vc1 22:44 No provider procedures requiring assistance completed. vc1 22:57 Head Brain Wo Cont CT In Process Unspecified. EDMS 07/26 00:53 Carly Robles MD is Hospitalizing Provider. sb4 03:45 Provided Education on: dealing with anxiety. vc1 03:45 Patient admitted, IV remains in place. vc1 Administered Medications: 07/25 22:30 Drug: Labetalol IV 10 mg IV at calculated rate once Route: IV; Rate: calculated rate; vc1 Site: right antecubital; 22:31 Drug: Ondansetron IVP 4 mg IVP once; over 2 minutes Route: IVP; Site: right antecubital;vc1 07/26 00:51 CANCELLED (Physician Discretion): clonidine0.2 mg PO once sb4 01:10 Drug: Ativan IVP 0.5 mg IVP once Route: IVP; Site: right antecubital; vc1 01:11 Drug: Potassium PO Effervescent Tablet 50 mEq PO once; dissolve in 4 ounces of water or vc1 juice Route: PO; 01:11 Drug: NS 0.9% IV 1000 ml IV at 1 bolus Per protocol; 1000 mL bolus Route: IV; Rate: 1 vc1 bolus; Site: right antecubital; Medication: 07/25 22:43 VIS not applicable for this client. vc1 Outcome: 07/26 00:53 Decision to Hospitalize by Provider. sb4 03:45 Admitted to Med/surg accompanied by tech, via stretcher, room 217, vc1 03:45 Condition: good 03:45 Instructed on the need for admit, 03:46 Patient left the ED. vc1 Signatures: Dispatcher [employer] EDArchie Kenney RN RN as6 Ivanna Arora RN RN vc1 Patricia Cardona PASkipC PANithin franklin4 Laurel Louis ra3
[2023-07-27] MEDS ORDERED: LORazepam 2 MG/ML VIAL ONE (00:57)
[2023-07-27] MEDS ORDERED: NA CHLORIDE 0.9% 1,000 ML ONE (01:00)
[2023-07-27] MEDS ORDERED: POTASSIUM 25 MEQ EFFERV TAB ONE (01:00)
[2023-07-27] MEDS ORDERED: ONDANSETRON 4 MG/2 ML VIAL IV PRN (01:50)
[2023-07-27] MEDS ORDERED: FUROSEMIDE 40 MG/4 ML VIAL IV ONE (01:50)
[2023-07-27] MEDS: MAGNESIUM SULFATE 1 gm IVPB 1 GM/100 ML BAG IV ONE (01:50)
[2023-07-27] MEDS ORDERED: MORPHINE 2 MG/ML SYR IV PRN ×2 (01:50→01:53)
--- NOTE | 2023-07-27 01:50 | P.HP ---
Certification for Inpatient Patient admitted to: Observation With expected LOS: <2 Midnights Patient will require the following post-hospital care: None Practitioner: I am a practitioner with admitting privileges, knowledge of patient current condition, hospital course, and medical plan of care. Services: Services provided to patient in accordance with Admission requirements found in Title 42 Section 412.3 of the Code of Federal Regulations Patient History Date of Service: 07/27/23 Reason for admission: Dizziness, chest pain History of Present Illness: 52-year-old female past medical history of hypertension, chronic anemia, who presents to the hospital today because of generalized weakness malaise, headache, body aches as well as atypical chest pain. She states chest pain is more pressure-like nonradiating. She rates pain at about 7-8 out of 10. No previous episode of coronary artery disease. She states she has been told by her PCP that she may have heart failure. She states her blood pressure was recently adjusted by PCP and her blood pressure has been markedly elevated at home. She is also complaining of headache and feeling of unwell. Arrival in the ED blood pressure was 205/114 with a pulse of 120. Patient received IV labetalol with improvement in the blood pressure to the 180s over 94. EKG shows normal sinus rhythm with no ST segment changes. WBC and CBC were unremarkable. BMP was normal. proBNP elevated at 449. Alkaline phosphatase mildly elevated at 162. Chest x-ray shows mild pulmonary edema with increased cardiac silhouette. Troponin was negative Patient has been admitted for hypertensive urgency as well as atypical chest Allergies nabumetone [From Relafen] Allergy (Verified 05/18/18 05:59) Nausea/Vomiting tramadol HCl [From Ultram] Allergy (Verified 05/18/18 05:59) Nausea/Vomiting Home Medications: Docusate [Colace Cap*] 1 tab PO DAILY 04/16/19 Amlodipine [Norvasc*] 10 mg PO DAILY #30 tab 04/17/19 Iron Ag,Ps/C/Fa6/B12/Zn/SA/Sto [Niferex Tablet] 1 each PO DAILY #30 tablet 04/17/19 - Past Medical/Surgical History Diabetic: No -: HTN -: Fibroids -: Anemia -: She states she has a h/o 2 vaginal births -: 3 ectopic pregnancies - 2 treated surgically -: Tubal times 3 -: Rotator cuff repair -: Benigh breast lump to the right removed. 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 ) Sister Notes: Thyroid problem - Social History Alcohol use: Yes CD- Drugs: No Caffeine use: No Place of Residence: Home Review of Systems General: Weakness, Malaise Cardiovascular: Chest Pain, Light Headedness Neurological: Weakness Physical Examination - Physical Exam General: Alert, In no apparent distress, Oriented x3 HEENT: Atraumatic, Normocephalic, PERRLA Neck: 2+ carotid pulse no bruit, JVD not distended Respiratory: Normal air movement Cardiovascular: No edema, Regular rate/rhythm, Normal S1 S2 Gastrointestinal: Normal bowel sounds, Soft and benign, Non-distended, No ascites, No tenderness Musculoskeletal: No swelling, No contractures Integumentary: No rashes, No breakdown Neurological: Normal speech, Normal strength at 5/5 x4 extr, Normal tone, Sensation intact, Cranial nerves 3-12 intact - Studies Laboratory Data (last 24 hrs) 07/26/23 07/26/23 07/26/23 22:15 22:15 22:15 WBC 9.10 Hgb 13.0 Hct 39.2 Plt Count 302 PT 12.1 INR 1.10 Sodium 134 L Potassium 2.8 L BUN 11 Creatinine 1.01 Glucose 138 H Magnesium 2.0 Total Bilirubin 0.5 AST 53 H ALT 56 Alkaline Phosphatase 162 H Assessment and Plan - Problems (Diagnosis) (1) Hypertensive urgency Current Visit: Yes Status: Acute (2) Chest pain Current Visit: No Status: Acute Qualifiers: - Plan Impression Hypertensive urgencysymptomatic Atypical chest pain Acute pulmonary edemadue to hypertension Hypokalemia Plan Will admit patient to observation Resume home meds will need adjustment IV labetalol 20 mg every 4 hours as needed for now Start Coreg Serial sets of cardiac enzymes Dose sublingual nitro as needed for chest pain IV Lasix every 12 given mild pulmonary edema Replace potassium Obtain echocardiogram to assess EF given increased cardiac silhouette on chest x-ray Lovenox for DVT prophylaxis Addendum Patient reevaluated 2 hours after initial presentation, blood pressure much improved, down to 155/88, still persistent chest pain, now rated at 8 out of 10 radiating to the back, given enlarged cardiac silhouette on chest x-ray, will obtain CT chest to rule out aortic dissection. Morphine as needed for now - Advance Directives Does patient have a Living Will: No Does patient have a Durable POA for Healthcare: No Time Spent Managing Pts Care (In Minutes): 70
[2023-07-27] MEDS ORDERED: ALBUTEROL 2.5 MG/3 ML NEB SOL NEB PRN (01:53)
[2023-07-27] MEDS ORDERED: ACETAMINOPHEN 500 MG TAB PO PRN (01:53)
[2023-07-27] MEDS ORDERED: POTASSIUM CL 40 MEQ in NA CHLORIDE 0.9% 500 ML IV SCH (02:00)
[2023-07-27] MEDS ORDERED: LABETALOL 20 MG/4ML SYRINGE IV ONE (02:21)
[2023-07-27] MEDS: LABETALOL 20 MG/4ML SYRINGE IV PRN (02:35)
[2023-07-27] MEDS: Oxycodone HCl/Acetaminophen 5/325 MG TAB PO PRN (04:19)
[2023-07-27] MEDS: NITROGLYCERIN 0.4 MG/TAB SL ONE (04:25)
[2023-07-27] MEDS: KCL 20 MEQ/100 mL IVPB 100 ML IV SCH (04:30)
[2023-07-27 04:32] VITALS: BMI 33.7
[2023-07-27] MEDS: NITROGLYCERIN 0.4 MG/TAB SL PRN (04:44)
[2023-07-27] MEDS: carvediloL 25 MG TAB PO SCH (05:57)
[2023-07-27] MEDS: FUROSEMIDE 40 MG/4 ML VIAL IV ONE (05:58)
[2023-07-27] MEDS: POTASSIUM CL SA 10 MEQ TAB PO SCH (05:58)
[2023-07-27] MEDS: FAMOTIDINE 20 MG TAB PO SCH (05:58)
[2023-07-27] MEDS: NA CHLORIDE 0.9% 1,000 ML ONE (07:04)
[2023-07-27 08:17] LABS: Magnesium 1.9 mg/dL (1.6-2.4); Troponin High Sensitivity 20.4 pg/mL (<58.9)
[2023-07-27 08:22] LABS: Albumin/Globulin Ratio 0.5 (1.1-1.8); Anion Gap 7.8 mEq/L (5.0-15.0); Bilirubin Total 0.5 mg/dL (0.2-1.0); Globulin 5.5 g/dL (2.3-3.5); Potassium 3.8 mEq/L (3.5-5.1); Protein, Total 8.5 g/dL (6.4-8.2)
--- NOTE | 2023-07-27 08:40 | P.PN ---
Date of Service: 07/27/23 Subjective: episode started as nausea then turned into chest pressure/discomfort, weakness, headache for ~2 days. Doesn't check her blood pressure at home. States been a long time since shes seen a systolic number < 150 Recently had her antihypertensives adjusted ~1 month ago. reports persistently feeling vibrating sensation near her right ear when moving only her eye to the right for last few weeks. No shaky/blurry/double vision. had follow up appointment scheduled with group exercise class instructor this coming saturday - with Dr. San ROS: 10 point ROS as noted above, otherwise negative Physical Exam: GEN: Alert, oriented, NAD HEENT: Normal conjunctiva, sclera anicteric, PERRL CV: Regular rate and rhythm, no edema Pulm: Nonlabored respirations on room air, clear bilaterally ABD: soft, nontender, nondistended Neuro: Normal speech, normal affect, PERRL, EOMI, reported vibration sensation near temporal area when looking to right, no nystagmus on exam Problem List: Hypertensive urgencysymptomatic atypical chest pain Incidental Left 4mm pulmonary nodule Elevated LFTs Hypokalemia, resolved Hyperlipidemia tobacco use suspected undiagnosed sleep apnea hx lupus Hypertensive urgencysymptomatic atypical chest pain Reports episode started as nausea then turned into chest pressure/discomfort, palpitations, weakness, headache for ~2 days. Recently had her antihypertensives adjusted ~1 month ago. Takes Amlodipine, metoprolol, chlorthalidone at home. Had upcoming f/u appointment with group exercise class instructor this coming week for further management of hypertensive medications CXR (07/25): questionable mild pulm edema. mild enlarged cardiac silhouette CT head (07/25): negative for any acute findings trend troponins, negative so far Monitor on telemetry Cardiology and nephrology consulted if troponins remain negative, plan for outpatient stress test echo ordered to eval EF / stenosis -can be done outpatient resume home chlorthalidone (07/26) dc lasix continue coreg 25 mg PO BP improving if elevated again, will add home amlodipine unclear etiology / sensation of vibration in temporal region when looking to right, vision clear, no nystagmus, will re-eval when BP improved ct head negative Incidental Left 4mm pulmonary nodule CT dissection (07/25): Negative for PE/aortic dissection. Incidental 4mm left solid pulm nodule. recommend f/u CT in 1 year to reassess nodule Elevated LFTs LFTs slightly worse (07/26) suspect secondary to HTN Continue to monitor. Daily labs Hypokalemia, resolved monitor electrolytes and replete as needed. Hyperlipidemia confirm home meds, resume home statin tobacco use cessation advised. continue Nicoderm patch suspected undiagnosed sleep apnea Patient reports frequent snoring, waking up feeling un-rested after 6-8 hours of sleep, +headaches when waking up No prior hx of sleep apnea. Has never gotten sleep study. Advised patient to consider getting sleep study as outpatient to eval for obstructive sleep apnea VTE: Lovenox Code: Full Dispo: Home, 1-2 days Pending cardiac / nephrology recs. BP stable
[2023-07-27] MEDS: NICOTINE 21 MG/PAT TD SCH (09:00)
[2023-07-27] MEDS ORDERED: FUROSEMIDE 20 MG TABLET PO SCH (09:00)
[2023-07-27] MEDS: CHLORTHALIDONE 25 MG TAB PO SCH (09:37)
[2023-07-27] MEDS: ENOXAPARIN 40 MG/0.4 ML SQ SCH (09:37)
[2023-07-27] MEDS: ASPIRIN EC 81 MG TAB PO SCH (09:39)
[2023-07-27 10:17] LABS: Absolute Basophils 0.1 K/uL (0-0.5); Absolute Eosinophils 0.1 K/uL (0-0.5); Absolute Lymphocytes (CBC) 2.2 K/uL (0.7-4.9); Absolute Monocytes 0.7 K/uL (0.1-1.3); Absolute Neutrophil 4.2 K/uL (1.8-8.0); Eosinophils % 1.1 % (0-4.4); Hemoglobin 12.9 g/dL (12.0-15.0); Lymphocytes % 30.2 % (15.3-44.8); MCHC 33.2 g/dL (32.0-36.0); MCV 93.4 fL (80-100); MPV 8.4 fL (7.6-11.3); Monocytes % 9.5 % (3.3-12.3); Neutrophils % 58.2 % (41.7-73.7); Nucleated Red Blood Cells % 0.1 % (0-0); Platelets 299 thou/uL (152-406); RBC Red Blood Cell Count 4.18 M/uL (3.86-4.86); Red Cell Distribution Width 13.7 % (12.1-15.2)
--- NOTE | 2023-07-27 11:01 | P.CNS ---
Date of Consult: 07/27/23 Chief Complaint: Dizziness, chest pain History of Present Illness: Patient with PMH of hypertension presented with weakness, headache and chest pain for the last 48 hours, chest pain described as pressure, mid chest, radiate to her head, she was also feeling nauseated, denies any other symptoms. Allergies nabumetone [From Relafen] Allergy (Verified 05/18/18 05:59) Nausea/Vomiting tramadol HCl [From Ultram] Allergy (Verified 05/18/18 05:59) Nausea/Vomiting - Past Medical/Surgical History Diabetic: No -: HTN -: Fibroids -: Anemia -: She states she has a h/o 2 vaginal births -: 3 ectopic pregnancies - 2 treated surgically -: Tubal times 3 -: Rotator cuff repair -: Benigh breast lump to the right removed. 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 ) Sister Notes: Thyroid problem - Social History Smoking Status: Current every day smoker Alcohol use: Yes CD- Drugs: No Caffeine use: No Place of Residence: Home Review of Systems 10-point ROS is otherwise unremarkable Physical Examination Temp Pulse Resp BP Pulse Ox 97.6 F 71 18 124/85 97 07/27/23 08:00 07/27/23 08:00 07/27/23 09:32 07/27/23 08:00 07/27/23 09:32 General: Alert, In no apparent distress HEENT: Atraumatic, PERRLA, Mucous membr. moist/pink, EOMI, Sclerae nonicteric Neck: Supple, 2+ carotid pulse no bruit, No LAD, Without JVD or thyroid abnormality Respiratory: Clear to auscultation bilaterally, Normal air movement Cardiovascular: Regular rate/rhythm, Normal S1 S2 Gastrointestinal: Normal bowel sounds, No tenderness Musculoskeletal: No tenderness Integumentary: No rashes Neurological: Normal gait, Normal speech, Normal tone, Normal affect Lymphatics: No axilla or inguinal lymphadenopathy Laboratory Data (last 24 hrs) 07/26/23 07/26/23 07/26/23 22:15 22:15 22:15 WBC 9.10 Hgb 13.0 Hct 39.2 Plt Count 302 PT 12.1 INR 1.10 Sodium 134 L Potassium 2.8 L BUN 11 Creatinine 1.01 Glucose 138 H Magnesium 2.0 Total Bilirubin 0.5 AST 53 H ALT 56 Alkaline Phosphatase 162 H - Problems (1) HLD (hyperlipidemia) Current Visit: Yes Status: Acute Plan: Patient mention that she is on Lipitor at home, please find dosage and start her back on Lipitor (2) Hypertensive urgency Current Visit: Yes Status: Acute Plan: Patient BP responded well to Coreg 25 mg po BID, monitor for another day, Patient also takes Norvasc 10 mg daily. she will need an echo but that can be done as outpatient if patient is ready for discharge in am. (3) Chest pain Current Visit: No Status: Acute Plan: Atypical in the setting of hypertensive urgency. Troponin negative. continue to trend troponin x3 sets, if negative then outpatient cardiology follow up for a stress test. continue ASA 81 mg daily. Continue Lipitor. Qualifiers:
--- NOTE | 2023-07-27 12:12 | P.CNS ---
Date of Consult: 07/27/23 Reason for Consult: HTN Requesting Physician: Remi Cast Chief Complaint: Dizziness, chest pain History of Present Illness: 52-year-old female past medical history of hypertension, chronic anemia, who presents to the hospital today because of generalized weakness malaise, headache, body aches as well as atypical chest pain. She states chest pain is more pressure-like nonradiating. She rates pain at about 7-8 out of 10. No pr evious episode of coronary artery disease. She states she has been told by her PCP that she may have heart failure. She states her blood pressure was recently adjusted by PCP and her blood pressure has been markedly elevated at home. She is also complaining of headache and feeling of unwell. Arrival in the ED blood pressure was 205/114 with a pulse of 120. Patient received IV labetalol with improvement in the blood pressure to the 180s over 94. EKG shows normal sinus rhythm with no ST segment changes. WBC and CBC were unremarkable. BMP was normal. proBNP elevated at 449. Alkaline phosphatase mildly elevated at 162. Chest x-ray shows mild pulmonary edema with increased cardiac silhouette. Troponin was negative Patient has been admitted for hypertensive urgency as well as atypical chest 22:06 This 52 yrs old Black Female presents to ER via Wheelchair with complaints of Blood sb4 Pressure Problem, Dizziness, Nausea, Chest Tightness. 22:06 patient reports feeling generally unwell since yesterday- weakness, dizziness, chest sb4 tightness, nausea, headache. states her blood pressure medications were adjusted by Dr. Vieira recently. Allergies nabumetone [From Relafen] Allergy (Verified 05/18/18 05:59) Nausea/Vomiting tramadol HCl [From Ultram] Allergy (Verified 05/18/18 05:59) Nausea/Vomiting Home medications list reviewed: Yes Home Medications: Amlodipine [Norvasc*] 10 mg PO DAILY 07/27/23 Aspirin 81 mg PO DAILY 07/27/23 Atorvastatin Calcium 20 mg PO DAILY 07/27/23 Chlorthalidone 25 mg PO DAILY 07/27/23 Cyclobenzaprine [Flexeril*] 10 mg PO Q8H PRN 07/27/23 Metoprolol Tartrate [Lopressor*] 50 mg PO BID 07/27/23 cloNIDine HCL [Clonidine HCl] 0.1 mg PO PRN 07/27/23 - Past Medical/Surgical History Diabetic: No -: HTN -: Fibroids -: Anemia -: She states she has a h/o 2 vaginal births -: 3 ectopic pregnancies - 2 treated surgically -: Tubal times 3 -: Rotator cuff repair -: Benigh breast lump to the right removed. 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 ) Sister Notes: Thyroid problem - Social History Smoking Status: Current every day smoker Alcohol use: Yes CD- Drugs: No Caffeine use: No Place of Residence: Home Review of Systems 10-point ROS is otherwise unremarkable Musculoskeletal: Back Pain Physical Examination Temp Pulse Resp BP Pulse Ox 97.6 F 71 18 124/85 97 07/27/23 08:00 07/27/23 08:00 07/27/23 09:32 07/27/23 08:00 07/27/23 09:32 General: In no apparent distress, Oriented x3, Cooperative HEENT: Atraumatic Neck: Supple Respiratory: Normal air movement Cardiovascular: No edema, Regular rate/rhythm Gastrointestinal: Soft and benign, Non-distended Musculoskeletal: No clubbing, No contractures Integumentary: No rashes, No cyanosis Neurological: Normal speech Laboratory Data (last 24 hrs) 07/26/23 07/26/23 07/26/23 22:15 22:15 22:15 WBC 9.10 Hgb 13.0 Hct 39.2 Plt Count 302 PT 12.1 INR 1.10 Sodium 134 L Potassium 2.8 L BUN 11 Creatinine 1.01 Glucose 138 H Magnesium 2.0 Total Bilirubin 0.5 AST 53 H ALT 56 Alkaline Phosphatase 162 H Imagings Data: EXAM DESCRIPTION: RAD - Chest Single View - 07/26/2023 10:24 pm CLINICAL HISTORY: CHEST PAIN COMPARISON: Chest Single View dated 07/01/2018; Chest Single View dated 09/14/2017; Chest Pa And Lat (2 Views) dated 01/18/2016; CHEST SINGLE VIEW dated 06/20/2012 FINDINGS: Lines: None. Lungs: Increased prominence of the pulmonary vasculature. Pleural: No significant pleural effusions or pneumothorax. Cardiac: Cardiomegaly. Mediastinum: Within normal limits. Bones: No acute fractures. Other: None IMPRESSION: Question mild pulmonary edema. Mild enlarged cardiac silhouette. Conclusions/Impression: Hyponatremia -May need to discontinue thiazide Hypokalemia -Replete prn HTN Urgency -Continue Coreg -Continue Chlorthalidone Cigarette Smoker -Recommend cessation -Nicotine TD Case reviewed with Dr. Cast Thank you for the consultation
[2023-07-27] MEDS ORDERED: MORPHINE 4 MG/ML SYR IV PRN (15:45)
[2023-07-27] MEDS: ATORVASTATIN 20 MG TAB PO SCH (21:00)
[2023-07-27] MEDS: MELATONIN 5 MG TABLET PO PRN (21:02)
--- NOTE | 2023-07-27 21:23 | RAD REPORT ---
EXAM DESCRIPTION: CT - Angio Aorta For Dissection - 07/27/2023 6:34 am CLINICAL HISTORY: Rule out aortic dissection COMPARISON: None. TECHNIQUE: CT CHEST ABDOMEN PELVIS ANGIOGRAPHY WITH IV CONTRAST on 07/27/2023 4:35 AM CDT. MIPS recons tructions were generated. This exam was performed according to our departmental dose-optimization program, which includes autom ated exposure control, adjustment of the mA and/or kV according to patient size and/or use of iterati ve reconstruction technique. FINDINGS: Vascular: Thoracic aorta is normal in course and caliber without aneurysm or dissection. P ulmonary arteries are adequately opacified without acute or chronic filling defects. Abdominal aorta is normal in course and caliber without aneurysm. Pelvic arteries are patent without aneurysm or occl usion. Chest: The heart is mildly enlarged. There is no pericardial effusion. Intrathoracic lymph nodes are not enlarged. There is no pleural effusion, pleural thickening or pneumothorax. Central airways are patent. There i s a left upper lobe pulmonary nodule measuring 4 mm. Abdomen: The liver is normal in appearance. There is no biliary dilatation. Gallbladder is normal in appearance. The pancreas and spleen are normal in appearance. The adrenal glands and kidneys are unre markable. There is no free air. There is no retroperitoneal adenopathy. Pelvis: There is no bowel obstruction. Urinary bladder is unremarkable. There is no free fluid. Uteru s is not seen. Appendix is normal. Skeleton: There are no acute osseous findings. No suspicious bony lesions. IMPRESSION: No aortic dissection or aneurysm. No pulmonary embolus. No acute inflammatory process. Left solid pulmonary nodule within the upper lobe measuring 4 mm. Per Fleischner Society Guidelines, if patient is low risk for malignancy, no routine follow-up imaging is recommended. If patient is hig h risk for malignancy, a non-contrast Chest CT at 12 months is optional. If performed and the nodule is stable at 12 months, no further follow-up is recommended. These guidelines do not apply to immunocompromised patients and patients with cancer. Follow up in pa tients with significant comorbidities as clinically warranted. For lung cancer screening, adhere to L melony-RADS guidelines. Reference: Radiology. 2017; 284(1):228-43. Electronically signed by: Julius Marcelo MD 07/27/2023 06:26 AM CDT RP Due to temporary technical issues with the PACS/Fluency reporting system, reports are being signed by the in house radiologists without review as a courtesy to insure prompt reporting. The interpreting radiologist is fully responsible for the content of the report.
[2023-07-28 03:53] LABS: Absolute Basophils 0.1 K/uL (0-0.5); Absolute Eosinophils 0.2 K/uL (0-0.5); Absolute Lymphocytes (CBC) 2.6 K/uL (0.7-4.9); Absolute Monocytes 0.6 K/uL (0.1-1.3); Absolute Neutrophil 2.8 K/uL (1.8-8.0); Basophils % 1.2 % (0-1.3); Eosinophils % 3.8 % (0-4.4); Hematocrit 36.9 % (36.0-45.0); Hemoglobin 12.4 g/dL (12.0-15.0); MCH 31.6 pg (27.0-35.0); MCHC 33.6 g/dL (32.0-36.0); MCV 94.2 fL (80-100); MPV 8.3 fL (7.6-11.3); Monocytes % 9.2 % (3.3-12.3); Neutrophils % 44.8 % (41.7-73.7); Nucleated Red Blood Cells % 0.1 % (0-0); Platelets 298 thou/uL (152-406); RBC Red Blood Cell Count 3.92 M/uL (3.86-4.86); Red Cell Distribution Width 13.7 % (12.1-15.2)
[2023-07-28 04:21] LABS: Albumin 2.7 g/dL (3.4-5.0); Albumin/Globulin Ratio 0.5 (1.1-1.8); Anion Gap 5.3 mEq/L (5.0-15.0); Bilirubin Total 0.4 mg/dL (0.2-1.0); Globulin 5.2 g/dL (2.3-3.5); Magnesium 1.9 mg/dL (1.6-2.4); Potassium 3.3 mEq/L (3.5-5.1); Protein, Total 7.9 g/dL (6.4-8.2)
--- NOTE | 2023-07-28 09:11 | P.PN ---
Date of Service: 07/28/23 Subjective: Feeling slightly better today. Doesn't feel like anything is getting worse still dealing with some lightheadedness but improved compared how she felt on admission vibrating sensation ~same as yesterday. No significant change. chest discomfort resolved ROS: 10 point ROS as noted above, otherwise negative Physical Exam: GEN: Alert, oriented, NAD HEENT: Normal conjunctiva, sclera anicteric, PERRL CV: Regular rate and rhythm, no edema Pulm: Nonlabored respirations on room air, clear bilaterally ABD: soft, nontender, nondistended Neuro: Normal speech, normal affect, PERRL, EOMI, reported vibration sensation near temporal area when looking to right, no nystagmus on exam Problem List: Hypertensive urgencysymptomatic atypical chest pain Incidental Left 4mm pulmonary nodule Elevated LFTs Hypokalemia, hyponatremia Hyperlipidemia tobacco use suspected undiagnosed sleep apnea hx lupus Hypertensive urgencysymptomatic atypical chest pain muscle aches Reports episode started as nausea then turned into chest pressure/discomfort, palpitations, weakness, headache for ~2 days. Recently had her antihypertensives adjusted ~1 month ago. Takes Amlodipine, metoprolol, chlorthalidone at home. Had upcoming f/u appointment with [facility] this coming week for further management of hypertensive medications CXR (07/25): questionable mild pulm edema. mild enlarged cardiac silhouette CT head (07/25): negative for any acute findings Cardiology consulted given negative troponins, cardio recommending outpatient stress test echo ordered to eval EF / stenosis - can be done as outpatient No further inpatient work up. Nephrology consulted chlorthalidone switched to torsemide given mild hypoNa (07/27) continue coreg 25 mg PO BP improving if elevated again, will add home amlodipine unclear etiology / sensation of vibration in temporal region when looking to right, vision clear, no nystagmus feels ~same as yesterday. ?possible muscle spasm will get MRI tomorrow to r/o CVA if symptoms persist CT head negative. muscle aches, elevated cpk, lfts - all after starting statin. suspect statin side effect vs HTN dc lipitor and monitor (07/27) CPK mildly elevated. (07/27) Incidental Left 4mm pulmonary nodule CT dissection (07/25): Negative for PE/aortic dissection. Incidental 4mm left solid pulm nodule. recommend f/u CT in 1 year to reassess nodule Elevated LFTs suspect secondary to HTN vs statin LFTs improving Continue to monitor. Daily labs Hypokalemia, hyponatremia monitor electrolytes and replete as needed. Ramipril added 07/27 Hyperlipidemia Recently started statin ~1 month ago. lipitor dc'd 07/27. ?possibly contributing to vibrating sensation in temporal region tobacco use cessation advised. continue Nicoderm patch suspected undiagnosed sleep apnea Patient reports frequent snoring, waking up feeling un-rested after 6-8 hours of sleep, +headaches when waking up No prior hx of sleep apnea. Has never gotten sleep study. Advised patient to consider getting sleep study as outpatient to eval for obstructive sleep apnea VTE: Lovenox Code: Full Dispo: Home, 1 day Pending BP stable / possible MRI
[2023-07-28] MEDS: TORSEMIDE 20 MG TAB PO SCH (09:16)
[2023-07-28] MEDS: ONDANSETRON 4 MG/2 ML VIAL IV PRN (09:17)
--- NOTE | 2023-07-28 10:42 | P.PN ---
Date of Service: 07/28/23 Vital Signs Temp Pulse Resp BP Pulse Ox 96.8 F 58 16 137/80 98 07/28/23 08:00 07/28/23 09:16 07/28/23 09:15 07/28/23 09:16 07/28/23 09:15 Medications Acetaminophen (Acetaminophen 500 Mg Tab) 500 mg PO Q6H PRN PRN Reason: Pain scale 2-4 (Mild) Albuterol Sulfate (Albuterol 2.5 Mg/3 Ml Neb Ana) 2.5 mg NEB Q6HP PRN PRN Reason: SHORTNESS OF BREATH Aspirin (Aspirin Ec 81 Mg Tab) 81 mg PO DAILY [facility] Last Admin: 07/28/23 09:17 Dose: 81 mg Carvedilol (Carvedilol 25 Mg Tab) 25 mg PO Q12HR [facility] Last Admin: 07/28/23 09:16 Dose: 25 mg Docusate Sodium (Docusate Na 100 Mg Cap) 100 mg PO BID [facility] Enoxaparin Sodium (Enoxaparin 40 Mg/0.4 Ml) 40 mg SQ DAILY [facility] Last Admin: 07/28/23 09:15 Dose: 40 mg Famotidine (Famotidine 20 Mg Tab) 20 mg PO BID [facility]; Protocol Last Admin: 07/28/23 09:16 Dose: 20 mg Lorazepam (Lorazepam 0.5 Mg Tablet) 0.5 mg PO DAILY PRN PRN Reason: INSOMNIA Magnesium Oxide (Magnesium Oxide 400 Mg Tab) 400 mg PO 1X ONE Stop: 07/28/23 10:46 Melatonin (Melatonin 5 Mg Tablet) 10 mg PO BEDTIME PRN PRN PRN Reason: INSOMNIA Last Admin: 07/27/23 21:02 Dose: 10 mg Nicotine (Nicotine 21 Mg/Pat) 21 mg TD DAILY [facility] Last Admin: 07/27/23 09:00 Dose: Not Given Nitroglycerin (Nitroglycerin 0.4 Mg/Tab) 0.4 mg SL UD PRN PRN Reason: Pain scale 2-4 (Mild) Last Admin: 07/27/23 04:44 Dose: 1 tab.sl Ondansetron HCl (Ondansetron 4 Mg/2 Ml Vial) 4 mg IV Q8H PRN PRN Reason: NAUSEA / VOMITING Last Admin: 07/28/23 09:17 Dose: 4 mg Oxycodone/Acetaminophen (Oxycodone Hcl/Acetaminophen 5/325 Mg Tab) 1 tab PO Q4H PRN PRN Reason: Pain scale 2-4 (Mild) Last Admin: 07/28/23 09:15 Dose: 1 tab Torsemide (Torsemide 20 Mg Tab) 20 mg PO DAILY [facility] Last Admin: 07/28/23 09:16 Dose: 20 mg Assessment/ Plan: Nephrology Progress Note No Dyspnea No Chest Pain Back pain No Acute Events Overnight Vital Signs, Medications, Blood Work, and Imaging reviewed in the chart General: In no apparent distress, Oriented x3, Cooperative HEENT: Atraumatic Neck: Supple Respiratory: Normal air movement Cardiovascular: No edema, Regular rate/rhythm Gastrointestinal: Soft and benign, Non-distended Musculoskeletal: No clubbing, No contractures Integumentary: No rashes, No cyanosis Neurological: Normal speech Laboratory Data (last 24 hrs) 07/26/23 07/26/23 07/26/23 22:15 22:15 22:15 WBC 9.10 Hgb 13.0 Hct 39.2 Plt Count 302 PT 12.1 INR 1.10 Sodium 134 L Potassium 2.8 L BUN 11 Creatinine 1.01 Glucose 138 H Magnesium 2.0 Total Bilirubin 0.5 AST 53 H ALT 56 Alkaline Phosphatase 162 H Imagings Data: EXAM DESCRIPTION: RAD - Chest Single View - 07/26/2023 10:24 pm CLINICAL HISTORY: CHEST PAIN COMPARISON: Chest Single View dated 07/01/2018; Chest Single View dated 09/14/2017; Chest Pa And Lat (2 Views) dated 01/18/2016; CHEST SINGLE VIEW dated 06/20/2012 FINDINGS: Lines: None. Lungs: Increased prominence of the pulmonary vasculature. Pleural: No significant pleural effusions or pneumothorax. Cardiac: Cardiomegaly. Mediastinum: Within normal limits. Bones: No acute fractures. Other: None IMPRESSION: Question mild pulmonary edema. Mild enlarged cardiac silhouette. Conclusions/Impression: Hyponatremia -Discontinue thiazide -Start torsemide daily Hypokalemia -Replete as ordered -Start Ramipril HTN Urgency -Continue Coreg -Start Ramipril Hypoalbuminemia -Encourage nutrition Cigarette Smoker -Recommend cessation -Nicotine TD Case reviewed with Dr. Cast
[2023-07-28] MEDS: MAGNESIUM OXIDE 400 MG TAB PO ONE (10:45)
[2023-07-28] MEDS: POTASSIUM CL SA 10 MEQ TAB PO ONE (11:44)
[2023-07-28] MEDS: DOCUSATE NA 100 MG CAP PO SCH (11:45)
[2023-07-28] MEDS: ramipriL 5 MG CAP PO SCH (11:45)
[2023-07-28 12:42] VITALS: O2SAT 98
--- NOTE | 2023-07-28 15:10 | P.PN ---
Subjective Date of Service: 07/28/23 Chief Complaint: Dizziness, chest pain Subjective: No new changes, No C/O voiced, Tolerating diet, Ambulating, Improving Review of Systems 10-point ROS is otherwise unremarkable Physical Examination - Vital Signs Temperature: 97.2 F Blood Pressure: 127/80 Pulse: 63 Respirations: 18 Pulse Ox (%): 96 - Physical Exam General: Alert, In no apparent distress HEENT: Atraumatic, PERRLA, EOMI Neck: Supple, JVD not distended Respiratory: Clear to auscultation bilaterally, Normal air movement Cardiovascular: Regular rate/rhythm, Normal S1 S2 Gastrointestinal: Normal bowel sounds, No tenderness Musculoskeletal: No tenderness Integumentary: No rashes Neurological: Normal speech, Normal tone, Normal affect Lymphatics: No axilla or inguinal lymphadenopathy - Studies Medications List Reviewed: Yes Assessment And Plan - Current Problems (Diagnosis) (1) HLD (hyperlipidemia) Current Visit: Yes Status: Acute Plan: Patient LFTs were elevated, lipitor on hold, to repeat lipid panel and decide as outpatient on dosage. (2) Hypertensive urgency Current Visit: Yes Status: Acute Plan: continue Coreg 25 mg po BID, , continue Toresmide 20 mg and ramipril 5 mg daily she will need an echo but that can be done as outpatient if patient is ready for discharge in am. (3) Chest pain Current Visit: No Status: Acute Plan: Atypical in the setting of hypertensive urgency. Troponin negative. troponin x3 sets are negative, outpatient cardiology follow up for a stress test. continue ASA 81 mg daily. Qualifiers:
[2023-07-28] MEDS: LORAZEPAM 0.5 MG TABLET PO PRN (22:41)
[2023-07-29 04:08] LABS: Hematocrit 38.1 % (36.0-45.0); Hemoglobin 13.1 g/dL (12.0-15.0); MCH 32.3 pg (27.0-35.0); MCHC 34.3 g/dL (32.0-36.0); MPV 8.7 fL (7.6-11.3); Platelets 366 thou/uL (152-406); RBC Red Blood Cell Count 4.05 M/uL (3.86-4.86); Red Cell Distribution Width 13.9 % (12.1-15.2)
[2023-07-29 04:16] LABS: Albumin 2.9 g/dL (3.4-5.0); Albumin/Globulin Ratio 0.5 (1.1-1.8); Anion Gap 9.3 mEq/L (5.0-15.0); Bilirubin Total 0.3 mg/dL (0.2-1.0); Globulin 5.3 g/dL (2.3-3.5); Potassium 3.3 mEq/L (3.5-5.1); Protein, Total 8.2 g/dL (6.4-8.2)
[2023-07-29] MEDS: POTASSIUM CL SA 10 MEQ TAB PO ONE ×2 (06:46→09:48)
[2023-07-29 08:54] LABS: Potassium 3.6 mEq/L (3.5-5.1)
--- NOTE | 2023-07-29 09:15 | P.PN ---
Date of Service: 07/29/23 Subjective: reports nausea/dizziness/lightheadedness that worsened yesterday feels percocets made her feel sick/nauseated nausea improved but still dealing with dizziness/lightheadedness vibrating sensation persist but not as severe today ROS: 10 point ROS as noted above, otherwise negative Physical Exam: GEN: Alert, oriented, NAD HEENT: Normal conjunctiva, sclera anicteric, PERRL CV: Regular rate and rhythm, no edema Pulm: Nonlabored respirations on room air, clear bilaterally ABD: soft, nontender, nondistended Neuro: Normal speech, normal affect, PERRL, EOMI, reported vibration sensation near temporal area when looking to right, no nystagmus on exam Problem List: Hypertensive urgencysymptomatic atypical chest pain, resolved muscle aches, improved Incidental Left 4mm pulmonary nodule Elevated LFTs Hypokalemia, hyponatremia Hyperlipidemia tobacco use suspected undiagnosed sleep apnea hx lupus Hypertensive urgencysymptomatic atypical chest pain, resolved muscle aches, improved Reports episode started as nausea then turned into chest pressure/discomfort, palpitations, weakness, headache for ~2 days. Recently had her antihypertensives adjusted ~1 month ago. previously taking Amlodipine, metoprolol, chlorthalidone at home. CXR (07/25): questionable mild pulm edema. mild enlarged cardiac silhouette Cardiology consulted given negative troponins, cardio recommending outpatient stress test echo ordered to eval EF / stenosis - can be done as outpatient No further inpatient work up. Nephrology consulted chlorthalidone switched to torsemide given mild hypoNa (07/27) continue ramipril Start doxazosin BID doppler renal ultrasound ordered to further eval (07/28) continue coreg 25 mg PO BP improving if elevated again, will add home amlodipine unclear etiology / sensation of vibration in temporal region when looking to right, vision clear, no nystagmus vibrating sensation persists but not as severe today. ?possible muscle spasm MRI/CT negative for CVA. No other acute findings. muscle aches, elevated cpk, lfts - all after starting statin. suspect statin side effect vs HTN dc lipitor and monitor (07/27) CPK improved (07/28) Incidental Left 4mm pulmonary nodule CT dissection (07/25): Negative for PE/aortic dissection. Incidental 4mm left solid pulm nodule. recommend f/u CT in 1 year to reassess nodule Elevated LFTs suspect secondary to HTN vs statin Continue to monitor. Daily labs Hypokalemia, hyponatremia monitor electrolytes and replete as needed. Ramipril added 07/27 Hyperlipidemia Recently started statin ~1 month ago. lipitor dc'd 07/27. ?possibly contributing to vibrating sensation in temporal region tobacco use cessation advised. continue Nicoderm patch suspected undiagnosed sleep apnea Patient reports frequent snoring, waking up feeling un-rested after 6-8 hours of sleep, +headaches when waking up No prior hx of sleep apnea. Has never gotten sleep study. Advised patient to consider getting sleep study as outpatient to eval for obstructive sleep apnea VTE: Lovenox Code: Full Dispo: Home
--- NOTE | 2023-07-29 10:32 | RAD REPORT ---
EXAM DESCRIPTION: MRI - Brain Wo Cont - 07/29/2023 9:42 am CLINICAL HISTORY: r/o CVA, R temporal spasm sensation Headache, drowsiness, CVA symptomology COMPARISON: Head Brain Wo Cont dated 07/26/2023 TECHNIQUE: Multi-sequence, multiplanar MR imaging of the brain was performed without contrast. FINDINGS: No intracranial hemorrhage, hydrocephalus or extra-axial fluid collections.Mild chronic pe riventricular microvascular ischemic changes. No edema or shift of midline structures. No findings to suspect brain mass. DWI is negative for acute CVA. Midline structures are normally formed. Mastoid air cells and paranasal sinuses are clear. IMPRESSION: Negative for acute CVA or other acute intracranial process
--- NOTE | 2023-07-29 11:42 | P.PN ---
Date of Service: 07/29/23 Vital Signs Temp Pulse Resp BP Pulse Ox 97.6 F 63 14 168/102 H 98 07/29/23 08:00 07/29/23 09:49 07/29/23 08:00 07/29/23 09:49 07/29/23 08:00 Medications Acetaminophen (Acetaminophen 500 Mg Tab) 500 mg PO Q6H PRN PRN Reason: Pain scale 2-4 (Mild) Acetaminophen/Codeine Phosphate (Codeine 30mg/Apap 300mg Tab) 1 tab PO Q6H PRN PRN Reason: Pain scale 5-7 (Moderate) Albuterol Sulfate (Albuterol 2.5 Mg/3 Ml Neb Ana) 2.5 mg NEB Q6HP PRN PRN Reason: SHORTNESS OF BREATH Aspirin (Aspirin Ec 81 Mg Tab) 81 mg PO DAILY [facility] Last Admin: 07/29/23 09:50 Dose: 81 mg Carvedilol (Carvedilol 25 Mg Tab) 25 mg PO Q12HR [facility] Last Admin: 07/29/23 09:49 Dose: 25 mg Docusate Sodium (Docusate Na 100 Mg Cap) 100 mg PO BID [facility] Last Admin: 07/29/23 09:48 Dose: 100 mg Enoxaparin Sodium (Enoxaparin 40 Mg/0.4 Ml) 40 mg SQ DAILY [facility] Last Admin: 07/29/23 09:50 Dose: 40 mg Famotidine (Famotidine 20 Mg Tab) 20 mg PO BID [facility]; Protocol Last Admin: 07/29/23 10:59 Dose: 20 mg Lorazepam (Lorazepam 0.5 Mg Tablet) 0.5 mg PO DAILY PRN PRN Reason: INSOMNIA Last Admin: 07/28/23 22:41 Dose: 0.5 mg Melatonin (Melatonin 5 Mg Tablet) 10 mg PO BEDTIME PRN PRN PRN Reason: INSOMNIA Last Admin: 07/27/23 21:02 Dose: 10 mg Nicotine (Nicotine 21 Mg/Pat) 21 mg TD DAILY [facility] Last Admin: 07/29/23 09:00 Dose: Not Given Nitroglycerin (Nitroglycerin 0.4 Mg/Tab) 0.4 mg SL UD PRN PRN Reason: Pain scale 2-4 (Mild) Last Admin: 07/27/23 04:44 Dose: 1 tab.sl Ondansetron HCl (Ondansetron 4 Mg/2 Ml Vial) 4 mg IV Q8H PRN PRN Reason: NAUSEA / VOMITING Last Admin: 07/28/23 18:18 Dose: 4 mg Ramipril (Ramipril 5 Mg Cap) 5 mg PO DAILY [facility] Last Admin: 07/29/23 09:49 Dose: 5 mg Torsemide (Torsemide 20 Mg Tab) 20 mg PO DAILY [facility] Last Admin: 07/29/23 09:00 Dose: Not Given Assessment/ Plan: Nephrology Progress Note No Dyspnea No Chest Pain Back pain No Acute Events Overnight Vital Signs, Medications, Blood Work, and Imaging reviewed in the chart General: In no apparent distress, Oriented x3, Cooperative HEENT: Atraumatic Neck: Supple Respiratory: Normal air movement Cardiovascular: No edema, Regular rate/rhythm Gastrointestinal: Soft and benign, Non-distended Musculoskeletal: No clubbing, No contractures Integumentary: No rashes, No cyanosis Neurological: Normal speech Laboratory Data (last 24 hrs) 07/26/23 07/26/23 07/26/23 22:15 22:15 22:15 WBC 9.10 Hgb 13.0 Hct 39.2 Plt Count 302 PT 12.1 INR 1.10 Sodium 134 L Potassium 2.8 L BUN 11 Creatinine 1.01 Glucose 138 H Magnesium 2.0 Total Bilirubin 0.5 AST 53 H ALT 56 Alkaline Phosphatase 162 H Imagings Data: EXAM DESCRIPTION: RAD - Chest Single View - 07/26/2023 10:24 pm CLINICAL HISTORY: CHEST PAIN COMPARISON: Chest Single View dated 07/01/2018; Chest Single View dated 09/14/2017; Chest Pa And Lat (2 Views) dated 01/18/2016; CHEST SINGLE VIEW dated 06/20/2012 FINDINGS: Lines: None. Lungs: Increased prominence of the pulmonary vasculature. Pleural: No significant pleural effusions or pneumothorax. Cardiac: Cardiomegaly. Mediastinum: Within normal limits. Bones: No acute fractures. Other: None IMPRESSION: Question mild pulmonary edema. Mild enlarged cardiac silhouette. Conclusions/Impression: Hyponatremia -Continue torsemide daily Hypokalemia -Replete as ordered -Continue Ramipril HTN Urgency HTN -Continue Coreg -Continue Ramipril -Start Doxazosin BID -Check a doppler renal ultrasound due to KENYA on Ramipril Hypoalbuminemia -Encourage nutrition Cigarette Smoker -Recommend cessation -Nicotine TD Case reviewed with Dr. Cast
[2023-07-29] MEDS: DOXAZOSIN 2 MG TAB PO SCH (12:00)
--- NOTE | 2023-07-29 12:06 | EKG ---
Test Date: 2023-07-26 Test Time: 22:16:25 [employer]: TAVO MEASUREMENT RESULTS: Intervals: Rate: 89 CO: 164 QRSD: 96 QT: 374 QTc: 455 [place]: P: 63 CO: 164 QRS: -17 T: 55 INTERPRETIVE STATEMENTS: Normal sinus rhythm Septal infarct, age undetermined Abnormal ECG Compared to ECG 07/01/2018 20:38:46 Myocardial infarct finding now present Left ventricular hypertrophy no longer present Electronically Signed On 07-29-23 12:03:55 CDT by Jaziel Lutz
[2023-07-29] MEDS: TORSEMIDE 20 MG TAB PO SCH (12:19)
[2023-07-29 14:21] LABS: Specific Gravity < 1.005 (1.005-1.030); Sqamous Epithelial <5 /HPF (None Seen); Urine Bacteria <20 /HPF (<20); Urine Bilirubin NEGATIVE (Negative); Urine Blood 3+ (OVER) (Negative); Urine Clarity Extremely Turbid (Clear); Urine Color Colorless (Yellow); Urine Culture Reflex Order REFLEXED; Urine Glucose NEGATIVE (Negative); Urine Ketones NEGATIVE (Negative); Urine Microscopic Reflex YN ORDER UMIC; Urine Nitrite NEGATIVE (Negative); Urine Protein NEGATIVE (Negative); Urine Urobilinogen Normal (Normal); Urine WBC 20-50 /HPF (<5)
[2023-07-29] MEDS: CEFTRIAXONE 1,000 MG in NA CHLORIDE 0.9% 50 ML IVPB SCH (21:51)
[2023-07-29] MEDS: CODEINE 30MG/APAP 300MG TAB PO PRN (21:57)
[2023-07-30 03:59] LABS: Anion Gap 8.3 mEq/L (5.0-15.0); Magnesium 2.1 mg/dL (1.6-2.4); Potassium 3.3 mEq/L (3.5-5.1)
--- NOTE | 2023-07-30 07:42 | RAD REPORT ---
EXAM DESCRIPTION: US - Abdomen Pelvis Scan US - 07/30/2023 5:42 am CLINICAL HISTORY: Hypertension. Acute renal failure COMPARISON: July 2023 CT FINDINGS: Right kidney 9 centimeters with a normal echotexture Left kidney 11 centimeters with a normal echotexture No hydronephrosis seen. The velocity of the right renal artery 82 centimeters/seconds The velocity of the left renal artery 85 centimeters/seconds Right and left renal artery/aorta ratio normal Bladder appears grossly normal IMPRESSION: No sonographic evidence of renal arterial stenosis
[2023-07-30] MEDS: POTASSIUM CL SA 10 MEQ TAB PO ONE (09:40)
[2023-07-30 09:55] VITALS: BP 135/73
--- NOTE | 2023-07-30 11:07 | P.DS ---
Admission Date: 07/28/23 Discharge Date: 07/30/23 Disposition: ROUTINE DISCHARGE Discharge Condition: FAIR Reason for Admission: Dizziness, chest pain Hospital Course: Diagnosis Hypertensive urgencysymptomatic atypical chest pain, resolved muscle aches, improved Incidental Left 4mm pulmonary nodule Elevated LFTs Hypokalemia, hyponatremia Hyperlipidemia tobacco use suspected obstructive sleep apnea hx lupus Patient presented with chest pressure/discomfort, weakness, headache, lightheadedness, elevated blood pressure readings. Chest pressure suspected to be related to uncontrolled blood pressure given presentation of symptoms, negative cardiac/neuro workup. Troponins were negative. CT head was negative for any acute findings. Given negative troponins and atypical chest pain, Cardiology recommended to follow up in office for outpatient stress test, echocardiogram. No further inpatient cardiac workup. In regards to patients blood pressure, patient was able to attain better control of blood pressure after switching her home metoprolol to coreg 25 mg daily and her chlorthalidone to torsemide 20 mg daily with addition of Cardura. BP improved, more consistently in 130-160s after medications changes. Advised to continue to hold home amlodipine for now. Advised to check blood pressure around the same time each day. Keep daily diary of blood pressure readings to take to your follow up appointment in ~1 week with PCP for further adjustments of medications if needed. Patient was feeling better, chest discomfort resolved, headache/lightheadedness improving, and was deemed stable for discharge. Patient also reported dealing with sensation of vibration in temporal region when looking to the right. Patient denied any vision changes. No nystagmus. Given persistent symptoms, MRI was obtained to rule out CVA which was negative. Her CPK and LFTs were elevated so Lipitor was discontinued. Patient was advised to continue to hold lipitor for few weeks and monitor for any worsening symptoms. Repeat blood work in a few weeks to ensure LFTs/renal function/CPK are improved before restarting statin. During her hospitalization, patient reported frequent snoring, feeling of being un-rested after 6-8 hours, concerning for obstructive sleep apnea. Patient denies prior history of sleep apnea and has never gotten a sleep study in the past. Advised patient to follow up with PCP for further discussion and to consider sleep study in near future to further evaluate. Incidental findings: A 4mm Left solid pulmonary nodule within the upper lobe was seen on CT. Recommend to repeat CT in 1 year to reassess nodule. Vital Signs/Physical Exam: Temp Pulse Resp BP Pulse Ox 97.3 F 70 15 135/73 95 07/30/23 08:00 07/30/23 09:41 07/30/23 08:00 07/30/23 09:41 07/30/23 08:00 General: Alert, In no apparent distress, Oriented x3 HEENT: Mucous membr. moist/pink, Sclerae nonicteric Neck: Supple, JVD not distended Respiratory: Clear to auscultation bilaterally, Normal air movement Cardiovascular: No edema, Regular rate/rhythm, Normal S1 S2 Gastrointestinal: Normal bowel sounds, Soft and benign, Non-distended, No tenderness Musculoskeletal: No swelling, No tenderness Integumentary: No rashes, No cyanosis Neurological: Normal strength at 5/5 x4 extr, Cranial nerves 3-12 intact Laboratory Data at Discharge: WBC 5.70 thou/uL (4.3-10.9) 07/29/23 03:10 Hgb 13.1 g/dL (12.0-15.0) 07/29/23 03:10 Hct 38.1 % (36.0-45.0) 07/29/23 03:10 Plt Count 366 thou/uL (152-406) 07/29/23 03:10 PT 12.1 SECONDS (9.5-12.5) 07/26/23 22:15 INR 1.10 07/26/23 22:15 Sodium 135 mEq/L (136-145) L 07/30/23 02:46 Potassium 3.3 mEq/L (3.5-5.1) L 07/30/23 02:46 BUN 20 mg/dL (7-18) H 07/30/23 02:46 Creatinine 1.20 mg/dL (0.55-1.02) H 07/30/23 02:46 Glucose 120 mg/dL (74-106) H 07/30/23 02:46 Magnesium 2.1 mg/dL (1.6-2.4) 07/30/23 02:46 Total Bilirubin 0.3 mg/dL (0.2-1.0) 07/29/23 03:10 AST 54 U/L (15-37) H 07/29/23 03:10 ALT 57 U/L (13-56) H 07/29/23 03:10 Alkaline Phosphatase 176 U/L (45-117) H 07/29/23 03:10 Triglycerides 110 mg/dL (<150) 07/27/23 07:26 Cholesterol 182 mg/dL (<200) 07/27/23 07:26 HDL Cholesterol 52 mg/dL (40-60) 07/27/23 07:26 Cholesterol/HDL Ratio 3.50 07/27/23 07:26 Home Medications: Aspirin 81 mg PO DAILY 07/27/23 Cyclobenzaprine [Flexeril*] 10 mg PO Q8H PRN 07/27/23 cloNIDine HCL [Clonidine HCl] 0.1 mg PO PRN 07/27/23 Famotidine [Pepcid*] 20 mg PO BID #60 tab 07/30/23 Torsemide [Demadex*] 20 mg PO DAILY #30 tab 07/30/23 carvediloL [Coreg*] 25 mg PO Q12HR #60 tab 07/30/23 ramipriL [Altace*] 5 mg PO DAILY #30 cap 07/30/23 New Medications: carvediloL [Coreg*] 25 mg PO Q12HR #60 tab ramipriL [Altace*] 5 mg PO DAILY #30 cap Torsemide [Demadex*] 20 mg PO DAILY #30 tab Famotidine [Pepcid*] 20 mg PO BID #60 tab Physician Discharge Instructions: Physician discharge instructions: Patient presented with chest pressure/discomfort, weakness, headache, lightheadedness, elevated blood pressure readings. Suspect secondary to uncontrolled blood pressure given presentation of symptoms, negative cardiac/neuro workup. Troponins were negative. CT head was negative for any acute findings. Given negative troponins and atypical chest pain, Cardiology recommended to follow up in office for outpatient stress test, echocardiogram. No further inpatient cardiac workup. In regards to patients blood pressure, patient was able to attain better control of blood pressure after switching her home metoprolol to coreg 25 mg daily and her chlorthalidone to torsemide 20 mg daily. BP improved, more consistently in 130-160s after medications changes. Advised to continue to hold home amlodipine for now. Advised to check blood pressure around the same time each day. Keep daily diary of blood pressure readings to take to your follow up appointment in ~1 week with PCP for further adjustments of medications if needed. Patient was feeling better, chest discomfort resolved, headache/lightheadedness improving, and was deemed stable for discharge. Patient also reported dealing with sensation of vibration in temporal region when looking to the right. Patient denied any vision changes. No nystagmus. Given persistent symptoms, MRI was obtained to rule out CVA which was negative. Unclear etiology of sensation, however given that muscle aches and elevated CPK/LFTs all started after starting stain ~1 month ago, suspect possible side effect of lipitor vs secondary to hypertension. Lipitor was dc'd and patient reported some improvement to severity of sensation but continued with some mild sensation, similar to how it felt in the past. Advised to continue to hold lipitor for few weeks and monitor for any worsening symptoms. Repeat blood work in a few weeks to ensure LFTs/renal function/CPK are improved before restarting statin. During her hospitalization, patient reported frequent snoring, feeling of being un-rested after 6-8 hours, concerning for obstructive sleep apnea. Patient denies prior history of sleep apnea and has never gotten a sleep study in the past. Advised patient to follow up with PCP for further discussion and to consider sleep study in near future to further evaluate. Incidental findings: A 4mm Left solid pulmonary nodule within the upper lobe was seen on CT. Recommend to repeat CT in ~1 year to reassess nodule. Medications: Torsemide 20 mg daily Coreg 25 mg daily Stop chlorthalidone Stop metoprolol Stop lipitor Follow up: PCP 3-5 days with diary of blood pressure readings Nephrology in 1-2 weeks Cardiology in 1-2 weeks Please call to schedule / confirm appointments Diet: AHA Activity: Ad jorge Followup: Marcos Philip DO [ACTIVE - CAN ADMIT] - 1-2 Weeks Obed Vieira MD [Primary Care Provider] - 1-2 Weeks Time spent managing pt's care (in minutes): 34
[2023-07-30 11:24] VITALS: TEMP 97.3
== END 2023-07-30 12:50 | disposition home or self-care (01) | DRG 304 ==
LOC: ER 21:31 → ERHOLD 07-27 01:53 → 2ND 07-27 02:20 → OBSVTOIN 07-28 17:06
PROVIDERS: ADMIT Internal Medicine; ATTEND Internal Medicine
DX: I16.0 Hypertensive urgency (principal); J81.0 Acute pulmonary edema; E87.1 Hypo-osmolality and hyponatremia; I10 Essential (primary) hypertension; E87.6 Hypokalemia; E78.5 Hyperlipidemia, unspecified; G47.33 Obstructive sleep apnea (adult) (pediatric); E88.09 Other disorders of plasma-protein metabolism, not elsewhere classified; F17.210 Nicotine dependence, cigarettes, uncomplicated; R79.89 Other specified abnormal findings of blood chemistry; R91.8 Other nonspecific abnormal finding of lung field; Z88.5 Allergy status to narcotic agent; Z88.8 Allergy status to other drugs, medicaments and biological substances; Z79.82 Long term (current) use of aspirin; Z90.710 Acquired absence of both cervix and uterus
CPT/HCPCS: 36415; 70450; 70551; 71045; 71275; 74175; 80048; 80053; 80061; 80076; 81001; 82550; 83735; 83880; 84132; 84443; 84484; 85025; 85027; 85610; 87086; 87088; 93005; 93975; 96374; 96375; 99285; G0378; J0696; J1650; J1940; J2405; J3480; J7030; Q9967

== ENCOUNTER 2023-12-16 22:17 | Emergency (ER) | payer OTHER, SELFPAY ==
[2023-12-16] MEDS ORDERED: HYDROCODONE/APAP 5/325 MG TAB ONE (23:52)
--- NOTE | 2023-12-16 23:55 | ER ---
Nurse's Notes [facility] Name: Adrienne Mcduffie Age: 53 yrs Sex: Female : 1970 Arrival Date: 12/16/2023 Time: 22:17 Bed 17 [facility] MD: Diagnosis: Low back pain Presentation: 12/15 22:54 Chief complaint: Patient states: standing on a step stool yesterday and the step broke vc1 and I fell backwards on my grandbabies bike. Coronavirus screen: Client denies travel out of the [place] in the last 14 days. At this time, the client does not indicate any symptoms associated with coronavirus-19. Ebola Screen: Patient negative for fever greater than or equal to 101.5 degrees Fahrenheit, and additional compatible Ebola Virus Disease symptoms Patient denies exposure to infectious person. Patient denies travel to an Ebola-affected area in the 21 days before illness onset. No symptoms or risks identified at this time. Initial Sepsis Screen: Does the patient meet any 2 criteria? No. Patient's initial sepsis screen is negative. Does the patient have a suspected source of infection? No. Patient's initial sepsis screen is negative. Risk Assessment: Do you want to hurt yourself or someone else? Patient reports no desire to harm self or others. Onset of symptoms was December 15, 2023. 22:54 Method Of Arrival: Ambulatory vc1 22:54 Acuity: JUAN MANUEL 3 vc1 Triage Assessment: 22:58 General: Appears in no apparent distress. uncomfortable, Behavior is calm, cooperative, vc1 appropriate for age. Pain: Complains of pain in neck, back, butt and arms. EENT: No deficits noted. No signs and/or symptoms were reported regarding the EENT system. Neuro: Level of Consciousness is awake, alert, obeys commands, Oriented to person, place, time, situation, Appropriate for age. Cardiovascular: Heart tones S1 S2 present Capillary refill < 3 seconds Patient's skin is warm and dry. Respiratory: Airway is patent Respiratory effort is even, unlabored, Respiratory pattern is regular, symmetrical. GI: No deficits noted. No signs and/or symptoms were reported involving the gastrointestinal system. : No deficits noted. No signs and/or symptoms were reported regarding the genitourinary system. Derm: Skin is intact, is healthy with good turgor, Skin is dry, Skin is normal, Skin temperature is warm. Musculoskeletal: Reports pain in neck, back, bilateral arms, butt. Historical: - Allergies: 22:57 Morphine; vc1 22:57 Nabumetone; vc1 22:57 relafen; vc1 22:57 Tramadol HCl (Itching); vc1 22:57 Ultram; vc1 - PMHx: 22:57 ectopic ; Hypertension; Lupus erythematosus; neuropathy; uterine fibroids; vc1 - PSHx: 22:57 hysterectomy; rotator cuff; tubal; vc1 - Immunization history:: Client reports receiving the 2nd dose of the Covid vaccine. - Infectious Disease History:: Denies. - Social history:: Smoking status: Patient reports the use of cigarette tobacco products, smokes .25 packs per day. Screenin/29 00:15 [facility] ED Fall Risk Assessment (Adult) History of falling in the last 3 months, jb4 including since admission No falls in past 3 months (0 pts) Confusion or Disorientation No (0 pts) Intoxicated or Sedated No (0 pts) Impaired Gait No (0 pts) Mobility Assist Device Used No (0 pt) Altered Elimination No (0 pt) Score/Fall Risk Level 0 - 2 = Low Risk Oriented to surroundings, Maintained a safe environment. Abuse screen: Denies threats or abuse. Nutritional screening: No deficits noted. Tuberculosis screening: No symptoms or risk factors identified. Assessment: 12/15 23:15 General: Appears in no apparent distress. uncomfortable, Behavior is calm, cooperative, jb4 appropriate for age. Pain: Complains of pain in low back area and mid back area Pain does not radiate. Pain currently is 10 out of 10 on a pain scale. Neuro: Level of Consciousness is awake, alert, obeys commands, Oriented to person, place, time, situation. Cardiovascular: Patient's skin is warm and dry. Respiratory: Airway is patent Respiratory effort is even, unlabored, Respiratory pattern is regular, symmetrical. GI: No signs and/or symptoms were reported involving the gastrointestinal system. : No signs and/or symptoms were reported regarding the genitourinary system. EENT: No signs and/or symptoms were reported regarding the EENT system. Derm: Skin is intact, Skin is dry, Skin is normal, Skin temperature is warm. 12/16 00:15 Reassessment: Patient appears in no apparent distress at this time. Patient and/or jb4 family updated on plan of care and expected duration. Pain level reassessed. Patient is alert, oriented x 3, equal unlabored respirations, skin warm/dry/pink. Vital Signs: 12/15 22:54 BP 225 / 118; Pulse 74; Resp 18; Temp 99.5; Pulse Ox 99% ; Weight 83.91 kg; Height 5 vc1 ft. 3 in. ; Pain 11/27; 23:43 BP 173 / 97; dr5 12/16 00:15 BP 200 / 128; Pulse 74; Resp 16; Pulse Ox 98% on R/A; jb4 12/15 22:54 Body Mass Index 32.77 (83.91 kg, 160.02 cm) vc1 12/15 22:54 Pain Scale: Adult vc1 00:15 Pt denies wanting treatment for blood pressure. States " I will take my medications jb4 when I get home." ED Course: 12/15 22:21 Patient arrived in ED. ra3 22:43 Alfredo Randhawa FNP-C is PHCP. dr5 22:43 Bear Carpenter MD is Attending Physician. dr5 22:57 Triage completed. vc1 22:58 Arm band placed on right wrist. vc1 12/16 00:15 Patient has correct armband on for positive identification. Bed in low position. Call jb4 light in reach. Side rails up X 1. Provided Education on: discharge instructions.. 00:15 No provider procedures requiring assistance completed. Patient did not have IV access jb4 during this emergency room visit. Administered Medications: 00:07 Drug: Ketorolac IM 30 mg IM once Route: IM; Site: right deltoid; jb4 00:14 Follow up: Response: Medication administered at discharge. jb4 00:07 Drug: HYDROcodone-acetaminophen PO 5 mg-325 mg 2 tabs PO once Route: PO; jb4 00:14 Follow up: Response: Medication administered at discharge. jb4 Medication: 00:15 VIS not applicable for this client. jb4 Outcome: 12/15 23:54 Discharge ordered by . dr5 12/16 00:15 Discharged to home ambulatory, jb4 Condition: stable Discharge instructions given to patient, Instructed on discharge instructions, follow up and referral plans. no drinking with medication, no driving heavy equipment, medication usage, Demonstrated understanding of instructions, follow-up care, medications, Prescriptions given X 2, 00:17 Patient left the ED. jb4 Signatures: Brent Carrillo RN RN jb4 Ivanna Arora RN RN vc1 Missy, Laurel ra3 Alfredo Randhawa, [employer]ST[employer]ER-C [employer] INST[employer]ER-Cdr5
--- NOTE | 2023-12-16 23:55 | EDPHYS ---
Physician Documentation [facility] Name: Adrienne Mcduffie Age: 53 yrs Sex: Female : 1970 Arrival Date: 12/16/2023 Time: 22:17 Bed 17 Private MD: ED Physician Bear Carpenter HPI: 12/16 01:42 This 53 yrs old Black Female presents to ER via Ambulatory with complaints of Fall dr5 Injury, Back Pain, Neck Pain, <24hrs Old. 01:42 Patient is a 53-year-old female with history of hypertension and neuropathy coming in dr5 with generalized neck pain, generalized back pain that is worse in the lower back bilaterally. Patient denies urinary or bowel incontinence, fever, numbness tingling in bilateral lower legs, perirectal numbness.. Historical: - Allergies: 12/15 22:57 Morphine; vc1 22:57 Nabumetone; vc1 22:57 relafen; vc1 22:57 Tramadol HCl (Itching); vc1 22:57 Ultram; vc1 - PMHx: 22:57 ectopic ; Hypertension; Lupus erythematosus; neuropathy; uterine fibroids; vc1 - PSHx: 22:57 hysterectomy; rotator cuff; tubal; vc1 - Immunization history:: Client reports receiving the 2nd dose of the Covid vaccine. - Infectious Disease History:: Denies. - Social history:: Smoking status: Patient reports the use of cigarette tobacco products, smokes .25 packs per day. ROS: 12/16 01:42 Constitutional: as per hpi dr5 Exam: 01:42 Constitutional: This is a well developed, well nourished patient who is awake, alert, dr5 and in no acute distress. Head/Face: Normocephalic, atraumatic. 01:42 Neck: Exam negative for acute changes, obvious evidence of injury or deformity, crepitus, ecchymosis, Kernig's sign, nuchal rigidity, pain with movement or limited range of motion, swelling, Tenderness to palpation. External neck: is normal, no acute changes, C-spine: appears grossly normal, no acute changes, ROM/movement: is normal, is supple, without pain, no range of motions limitations, no acute changes, 01:42 Chest/axilla: Exam negative for acute changes, 01:42 Cardiovascular: Exam negative for acute changes, 01:42 Respiratory: Exam negative for acute changes, 01:42 Back: Exam negative for acute changes, decreased ROM, deformity, injury, pain at rest, ROM is normal, normal spinal alignment noted, 01:42 Musculoskeletal/extremity: Ambulatory with steady gait.. 01:42 Skin: Exam negative for Appearance: normal except for affected area, Color: normal in color, pink, 01:42 Neuro: Exam negative for acute changes, Vital Signs: 12/15 22:54 BP 225 / 118; Pulse 74; Resp 18; Temp 99.5; Pulse Ox 99% ; Weight 83.91 kg; Height 5 vc1 ft. 3 in. ; Pain 11/27; 23:43 BP 173 / 97; dr5 12/16 00:15 BP 200 / 128; Pulse 74; Resp 16; Pulse Ox 98% on R/A; jb4 12/15 22:54 Body Mass Index 32.77 (83.91 kg, 160.02 cm) vc1 12/15 22:54 Pain Scale: Adult vc1 00:15 Pt denies wanting treatment for blood pressure. States " I will take my medications jb4 when I get home." MDM: 12/15 22:44 Medical Screening Exam initiated dr5 12/16 01:42 Differential diagnosis: abrasion, contusion, sprain, strain. Data reviewed: vital dr5 signs, nurses notes. I considered the following discharge prescriptions or medication management in the emergency department Medications were administered in the Emergency Department. See MAR. Test considered but Not performed: X-ray: Discussed with patient doing x-ray, but patient kindly declined it. She prefers to try medications first.. Care significantly affected by the following chronic conditions: Hypertension, Lupus. Care significantly affected by the following Social Determinants of Health: Poor access to healthcare and/or lack of insurance, Poor access to transportation. Counseling: I had a detailed discussion with the patient and/or guardian regarding the historical points, exam findings, and any diagnostic results supporting the discharge/admit diagnosis, the presence of at least one elevated blood pressure reading (>120/80) during this emergency department visit, the need for outpatient follow up, for definitive care, a family practitioner, a orthopedic surgeon, to return to the emergency department if symptoms worsen or persist or if there are any questions or concerns that arise at home. Medication response: Toradol markedly relieved the patient's pain. Response to treatment: the patient's symptoms have mildly improved after treatment. Refusal of service: The patient/guardian displays adequate decision making capability and despite a detailed discussion of alternatives, benefits, risks, and consequences refuses:. ED course: Discussed patient's blood pressure in room. Pt states she will take her blood pressure medications when she gets home. BP had decreased when I did exam in the room with her. Will give patient small dose of prednisone to help with inflammation and PRN muscle relaxers to take as needed. Pt ambulated with normal gait. All questions answered.. Administered Medications: 00:07 Drug: Ketorolac IM 30 mg IM once Route: IM; Site: right deltoid; jb4 00:14 Follow up: Response: Medication administered at discharge. jb4 00:07 Drug: HYDROcodone-acetaminophen PO 5 mg-325 mg 2 tabs PO once Route: PO; jb4 00:14 Follow up: Response: Medication administered at discharge. jb4 Disposition Summary: 12/16/23 23:54 Discharge Ordered Notes: Location: Home dr5 Condition: Stable dr5 Diagnosis - Low back pain dr5 Followup: dr5 - With: Emergency Department - When: As needed - Reason: Worsening of condition Followup: dr5 - With: Private Physician - When: 1 - 2 days - Reason: Recheck today's complaints, Continuance of care, Re-evaluation by your physician Discharge Instructions: - Discharge Summary Sheet dr5 - Acute Back Pain, Adult dr5 Forms: - Work release form dr5 - Medication Reconciliation Form dr5 - Antibiotic Education dr5 - Patient Portal Instructions dr5 - Leadership Thank You Letter dr5 Prescriptions: - Prednisone 20 mg Oral Tablet - take 1 tablet ORAL route once daily for 5 days; 5 tablet; Refills: 0, Product dr5 Selection Permitted - Cyclobenzaprine 10 mg Oral tablet - take 1 tablet ORAL route every 12 hours As needed; 30 tablet; Refills: 0, dr5 Product Selection Permitted Addendum: 12/18/2023 01:56 I was immediately available for consultation during this patient's visit. I did not e c2 personally see the patient or discuss the patient with the [facility]. . Signatures: Brent Carrillo RN RN jb4 Ivanna Arora RN RN vc1 Bear Carpenter MD MD ec2 Alfredo Randhawa, TRANSIT AUTHORITY POLICE OFFICER-C TRANSIT AUTHORITY POLICE OFFICER-Cdr5
[2023-12-16] MEDS ORDERED: KETOROLAC 30 MG/ML INJ ONE (23:59)
[2023-12-17 03:45] VITALS: BP 200/128; TEMP 99.5; O2SAT 98
== END 2023-12-17 00:17 | disposition home or self-care (01) ==
LOC: ER 22:17
DX: M54.50 Low back pain, unspecified (principal); M54.2 Cervicalgia; F17.210 Nicotine dependence, cigarettes, uncomplicated
CPT/HCPCS: 96372; 99284

== ENCOUNTER 2024-01-14 14:44 | Emergency (ER) | payer OTHER ==
[2024-01-14] MEDS ORDERED: HYDROCODONE/APAP 10/325 TAB ONE (14:59)
--- NOTE | 2024-01-14 15:04 | ER ---
Nurse's Notes [facility] Name: Adrienne Mcduffie Age: 53 yrs Sex: Female : 1970 Arrival Date: 01/14/2024 Time: 14:44 Bed IW3 Private MD: Diagnosis: Dental caries, unspecified;Dentalgia Presentation: 01/13 14:50 Chief complaint: Patient states: Toothache to last molar on bottom right side onset cm10 Saturday. Pt states that the pain now extends to her ear and chin. Pt reports having chills. Coronavirus screen: Client denies travel out of the [place] in the last 14 days. Ebola Screen: Patient denies travel to an Ebola-affected area in the 21 days before illness onset. No symptoms or risks identified at this time. Initial Sepsis Screen: Does the patient meet any 2 criteria? No. Patient's initial sepsis screen is negative. Does the patient have a suspected source of infection? No. Patient's initial sepsis screen is negative. Risk Assessment: Do you want to hurt yourself or someone else? Patient reports no desire to harm self or others. Onset of symptoms was January 11, 2024. 14:50 Method Of Arrival: Ambulatory cm10 14:50 Acuity: JUAN MANUEL 4 cm10 Triage Assessment: 14:53 General: Appears uncomfortable, Behavior is cooperative, crying. Pain: Complains of cm10 pain in lower right third molar Pain radiates to face Pain currently is 10 out of 10 on a pain scale. Pain began 2-3 days ago. EENT: Dental caries noted in lower right third molar (#32) Reports pain in lower right third molar Pain is 10 out of 10 on a pain scale. Neuro: No deficits noted. Level of Consciousness is awake, alert, obeys commands, Oriented to person, place, time, situation, Appropriate for age. Respiratory: No deficits noted. Airway is patent Respiratory effort is even, unlabored, Respiratory pattern is regular, symmetrical. Musculoskeletal: No deficits noted. Range of motion: intact in all extremities. 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 - Infectious Disease History:: Denies. - Social history:: Smoking status: Patient/guardian denies using tobacco, Stopped _ months ago 2. - Family history:: not pertinent. - Hospitalizations: : No recent hospitalization is reported. Screenin:57 [facility] ED Fall Risk Assessment (Adult) History of falling in the last 3 months, cm10 including since admission No falls in past 3 months (0 pts) Confusion or Disorientation No (0 pts) Intoxicated or Sedated No (0 pts) Impaired Gait No (0 pts) Mobility Assist Device Used No (0 pt) Altered Elimination No (0 pt) Score/Fall Risk Level 0 - 2 = Low Risk Oriented to surroundings, Maintained a safe environment, Hourly rounding (assess needs \T\ fall precautionary measures) done. Abuse screen: Denies threats or abuse. Denies injuries from another. Nutritional screening: No deficits noted. Tuberculosis screening: No symptoms or risk factors identified. Vital Signs: 14:50 BP 198 / 110; Pulse 79; Resp 18; Temp 98.8(O); Pulse Ox 97% on R/A; Weight 83.91 kg; cm10 Height 5 ft. 3 in. ; Pain 10/10; 14:50 Body Mass Index 32.77 (83.91 kg, 160.02 cm) cm10 14:50 Pain Scale: Adult cm10 ED Course: 14:47 Patient arrived in ED. mg5 14:48 Dale Cast MD is Attending Physician. rn 14:52 Triage completed. cm10 14:54 Arm band placed on right wrist. Patient placed in waiting room. cm10 14:57 Patient has correct armband on for positive identification. Provided Education on: ER cm10 process and procedures.. Cardiac monitoring not applicable on this patient. 14:58 No provider procedures requiring assistance completed. Patient did not have IV access cm10 during this emergency room visit. Administered Medications: 15:11 Drug: Clindamycin PO 300 mg PO once Route: PO; cm10 15:11 Follow up: Response: Medication administered at discharge. cm10 15:11 Drug: HYDROcodone-acetaminophen PO 10 mg-325 mg 1 tabs PO once Route: PO; 10 15:11 Follow up: Response: Medication administered at discharge. 10 Medication: 14:57 VIS not applicable for this client. 10 Outcome: 15:03 Discharge ordered by . rn 15:05 Discharged to home ambulatory, 10 15:05 Condition: good 15:05 Discharge instructions given to patient, Instructed on discharge instructions, follow up and referral plans. medication usage, Demonstrated understanding of instructions, follow-up care, medications, Prescriptions given X 2, 15:11 Patient left the ED. 10 Signatures: Dale Cast MD MD rn Janiya Sanz RN RN Maria Guadalupe Cabrera mg5
--- NOTE | 2024-01-14 15:04 | EDPHYS ---
Physician Documentation [facility] Name: Adrienne Mcduffie Age: 53 yrs Sex: Female : 1970 Arrival Date: 01/14/2024 Time: 14:44 Bed IW3 Private MD: ED Physician Dale Cast HPI: 01/13 14:59 This 53 yrs old Black Female presents to ER via Ambulatory with complaints of Toothache.rn 14:59 The patient presents with pain, swelling. Onset: The symptoms/episode began/occurred 2 rn day(s) ago. Modifying factors: The symptoms are alleviated by nothing, the symptoms are aggravated by chewing. Severity of symptoms: At their worst the symptoms were moderate, in the emergency department the symptoms are unchanged. The patient has experienced similar episodes in the past. Patient reports pain to bottom right teeth with subjective swelling. No difficulty swallowing or breathing. No fever.. 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 - Infectious Disease History:: Denies. - Social history:: Smoking status: Patient/guardian denies using tobacco, Stopped _ months ago 2. - Family history:: not pertinent. - Hospitalizations: : No recent hospitalization is reported. ROS: 14:59 Constitutional: Negative for fever, chills, and weight loss, ENT: Positive for dental rn pain Cardiovascular: Negative for chest pain, palpitations, and edema, Respiratory: Negative for shortness of breath, cough, wheezing, and pleuritic chest pain, Abdomen/GI: Negative for abdominal pain, nausea, vomiting, diarrhea, and constipation, Exam: 14:59 Constitutional: This is a well developed, well nourished patient who is awake, alert, rn appears in pain ENT: Poor dentition but no evidence of dental abscess. No gingival abscess. Mild swelling right buccal space without fluctuance or abscess. No evidence of submandibular swelling or edema. Neck: Trachea midline, no thyromegaly or masses palpated, and no cervical lymphadenopathy. Supple, full range of motion without nuchal rigidity, or vertebral point tenderness. No Meningismus. Vital Signs: 14:50 BP 198 / 110; Pulse 79; Resp 18; Temp 98.8(O); Pulse Ox 97% on R/A; Weight 83.91 kg; cm10 Height 5 ft. 3 in. ; Pain 10/10; 14:50 Body Mass Index 32.77 (83.91 kg, 160.02 cm) cm10 14:50 Pain Scale: Adult cm10 MDM: 14:48 Medical Screening Exam initiated rn 14:59 Differential diagnosis: dental caries. Data reviewed: vital signs, nurses notes, and as rn a result, I will discharge patient. Counseling: I had a detailed discussion with the patient and/or guardian regarding the historical points, exam findings, and any diagnostic results supporting the discharge/admit diagnosis, the need for outpatient follow up, to return to the emergency department if symptoms worsen or persist or if there are any questions or concerns that arise at home. Special discussion: I discussed with the patient/guardian in detail that at this point there is no indication for admission to the hospital. It is understood, however, that if the symptoms persist or worsen the patient needs to return immediately for re-evaluation. Administered Medications: 15:11 Drug: Clindamycin PO 300 mg PO once Route: PO; cm10 15:11 Follow up: Response: Medication administered at discharge. cm10 15:11 Drug: HYDROcodone-acetaminophen PO 10 mg-325 mg 1 tabs PO once Route: PO; cm10 15:11 Follow up: Response: Medication administered at discharge. cm10 Disposition Summary: 01/14/24 15:03 Discharge Ordered Notes: Location: Home rn Problem: new rn Symptoms: have improved rn Condition: Stable rn Diagnosis - Dental caries, unspecified rn - Dentalgia rn Followup: rn - With: Private Physician - When: As needed - Reason: Recheck today's complaints, Re-evaluation by your physician Discharge Instructions: - Discharge Summary Sheet rn - Dental Caries, Adult rn - Dental Pain rn Forms: - Medication Reconciliation Form rn - Antibiotic charge rn - Prescription Opioid Use rn - Patient Portal Instructions rn - Leadership Thank You Letter rn Prescriptions: - acetaminophen-codeine 300-30 mg Oral tablet - take 1 tablet ORAL route every 6 hours As needed; 12 tablet; Refills: 0, rn Product Selection Permitted - Clindamycin HCl 300 mg Oral Capsule - take 1 capsule ORAL route every 6 hours for 10 days; 40 capsule; Refills: 0, rn Product Selection Permitted Signatures: Dale Cast MD MD rn Martinez, Clarissa, RN RN cm10
[2024-01-14 19:19] VITALS: BP 198/110; TEMP 98.8; O2SAT 97
== END 2024-01-14 15:11 | disposition home or self-care (01) ==
LOC: ER 14:44
DX: K02.9 Dental caries, unspecified (principal)
CPT/HCPCS: 99283